=== PATIENT | male | born 1960 | race Caucasian/White ===

== ENCOUNTER 2022-01-26 17:14 | Inpatient (IN) | payer OTHER, SELFPAY ==
[2022-01-26 17:16] VITALS: BP 140/83; PULSE 110; RESP 16; TEMP 37.4; O2SAT 97; BMI 38.4
--- NOTE | 2022-01-26 17:47 | EX.ED.DYSGE1 ---
HPI History of Present Illness Chief Complaint: Wound Informant: patient and spouse/S.O. Narrative Narrative: Patient states he has had a swollen or irritated right foot for almost a month. He did get stepped on by a horse about 3 months before that but he had not been having problems. He denies anything poking into his foot. He was seen recently and placed on penicillin he is on his fourth day. He states over the last day the foot is just gotten much more red and swollen. He has gotten drainage from the lateral aspect. He has some mild fevers subjectively. He had x-rays done today that showed air in the tissue. Patient initially denied any medical problems. However he is on metformin for diabetes. When he checks his sugar it is normally 130-160. PFSH PFSH Medical History Non-smoker Home Medications metformin 1,000 mg tablet 1,000 mg PO BID 01/26/22 [History Last Taken Unknown] metronidazole 500 mg tablet 500 mg PO TID foot infection 01/26/22 [History Last Taken Unknown] penicillin V potassium 500 mg tablet 1,000 mg PO BID infection foot 01/26/22 [History Last Taken Unknown] Allergy/AdvReac Type Severity Reaction Status Date / Time No Known Allergies Allergy Verified 01/26/22 17:15 Family History (Updated 01/26/22 @ 19:[address] Farhan Urbina MD) Other Hypertension Social History Smoking Status: Never smoker ROS ROS ED Constitutional Constitutional ED: Reports subjective Eyes Eyes: Denies change in vision ENT ENT ED: Denies rhinorrhea Cardiovascular Cardiovascular: Denies chest pain or palpitations Respiratory/Chest Respiratory/Chest: Denies cough or dyspnea Gastrointestinal Gastrointestinal: Denies nausea or vomiting Musculoskeletal Musculoskeletal: Reports other Details: Right foot pain as in history of present illness ; Denies myalgias Integumentary Reports abscess, rash and other Details: See history of present illness. Neurologic Neurologic: Denies paresthesias Endocrine Endocrinology: Denies polydipsia or polyuria Hematologic/Lymphatic Hematologic/Lymphatic: Denies easy bleeding or easy bruising Allergic/Immunologic Allergic/Immunologic ED: Denies urticaria EXAM Physical Exam Const Vital Signs: 01/26/22 17:16 Temperature 99.4 F H Temperature Source Temporal Pulse Rate 110 H Respiratory Rate 16 Blood Pressure 140/83 H Blood Pressure Mean 102 Pulse Ox 97 Oxygen Delivery Method Room Air Positive well nourished and well developed General Appearance ED: well developed and NAD HEENT Reports moist mucous membranes Eyes General Eye ED: Negative for scleral icterus Neck no lymphadenopathy Chest Wall inspection of chest normal Resp normal respiratory effort and clear to auscultation bilaterally Auscultation: Negative for rales, rhonchi or wheezes Cardio regular rate, regular rhythm and no murmurs Rate: Negative for tachycardic GI normal to inspection, nondistended, normoactive bowel sounds and non-tender Palpation: soft Back/Spine no CVA tenderness Extremity Extremity Narrative: Right foot has swelling mostly to the dorsum and lateral aspect. There is erythema warmth to the lateral aspect. There is an open area under the head of the fifth metatarsal. There is some breakage of the skin on the lateral distal aspect. Neuro Neuro Narrative: Patient is awake and alert. Despite the appearance of his foot, he is not overall nontoxic. Psych mental status grossly normal MDM MDM MDM Narrative Medical decision making narrative: Patient's white count is elevated. Mild anemia. Electrolytes show no marked abnormalities. Glucose is a bit elevated to 27. Lactate is negative. I reviewed three-view x-ray films that came in with the patient. There is some air in the tissue in the region of the wound. This certainly brings up concern for deeper infection including osteomyelitis. With his diabetes, worsening on antibiotics, x-rays and labs inpatient treatment is appropriate. Lab Data Attestation: I reviewed the patient's lab results. Labs: Laboratory Results - last 24 hr 01/26/22 01/26/22 01/26/22 17:50 17:50 17:50 WBC 14.5 H RBC 3.86 L Hgb 11.8 L Hct 34.8 L MCV 90.2 MCH 30.6 MCHC 33.9 RDW Std Deviation 37.5 RDW Coeff of Neftali 11.5 L Plt Count 224 MPV 8.9 Immature Gran % (Auto) 0.700 Neut % (Auto) 87.8 H Lymph % (Auto) 5.8 L [place] % (Auto) 5.6 Eos % (Auto) 0.0 Baso % (Auto) 0.1 Absolute Neuts (auto) 12.8 H Absolute Lymphs (auto) 0.85 Nucleated RBC % 0 Sodium 133 L Potassium 4.0 Chloride 98 Carbon Dioxide 27.0 Anion Gap 8 BUN 23 H Creatinine 1.19 Estim Creat Clear Calc 49.07 Est GFR (MDRD) Af Amer 79 Est GFR (MDRD) Non-Af 66 BUN/Creatinine Ratio 19.3 Glucose 227 H Lactic Acid 1.8 Calcium 8.9 Discharge Plan Dx/Rx/DC Orders Clinical Impression: Diabetic foot ulcer Disposition Disposition: Acute Care [facility] Discharge Date/Time: 01/26/22 19:59
[2022-01-26 18:13] LABS: Absolute Lymphocyte Count 0.85 X10^3/uL (0.83-4.51); Absolute Neutrophil Count 12.8 X10^3/uL (2.0-7.7); Basophil# 0.01 X10^3/uL; Basophil% 0.1 % (0-1); Hematocrit 34.8 % (40-54); Hemoglobin 11.8 g/dL (13.0-16.5); Lymphocyte # 0.85 X10^3/ul (0.83-4.51); Lymphocyte % 5.8 % (19-41); Mean Corp Hgb Conc 33.9 g/dL (32-36); Mean Corpuscular Hgb 30.6 pg (27.0-32.0); Mean Corpuscular Volume 90.2 fL (80-94); Mean Platelet Vol. 8.9 fl (6.2-12.0); Monocyte# 0.81 X10^3/uL; Monocyte% 5.6 % (0-10); NRBC Flagged by Analyzer 0 % (0-5); Neutrophil # 12.76 X10^3/uL (2.7-7.7); Neutrophil % 87.8 % (47-70); Platelet Count 224 K/mm3 (150-450); RBC Distribution Width CV 11.5 % (11.6-14.6); RBC Distribution Width SD 37.5 fl (35.1-43.9); Red Blood Count 3.86 M/mm3 (4.6-6.2); White Blood Count 14.5 K/mm3 (4.4-11.0)
[2022-01-26 18:25] LABS: Anion Gap 8 (5-15); BUN 23 mg/dL (7-18); BUN/Creat Ratio 19.3 RATIO (10-20); Calcium,Total 8.9 mg/dL (8.5-10.1); Chloride 98 mmol/L (98-107); Creatinine, Serum 1.19 mg/dL (0.70-1.30); EST Glomerular Filtration Rate 66 mL/min (>60); Est Glom Filt Rate - Afr Amer 79 mL/min (>60); Estimated Creatinine Clearance 49.07 ml/min; Glucose 227 mg/dL (74-106); Sodium Level 133 mmol/L (136-145)
[2022-01-26 18:44] LABS: Lactic Acid 1.8 mmol/L (0.4-1.9)
--- NOTE | 2022-01-26 18:50 | CM.ED ---
Addendum entered by Delma Nassar 01/26/22 19:23: CAMILLA noted that patient is being admitted. CAMILLA sent email to Florecita Caputo advising of patient's desire to be self pay (prior to knowing he was going to be admitted). Patient is of the [employer] and reported he had [employer] if we need it. Delma BETANCUR Original Note: CAMILLA Note CAMILLA met with patient and his , Zoraida in the ED. Patient said that they wanted to be self pay and do not have medicaid or interest in medicaid. Patient said that they will pay the bill. Patient was seen today by Ridge Bishop at [facility]. No other issues or needs voiced. CAMILLA remains available if needs arise. Delma BETANCUR
--- NOTE | 2022-01-26 19:20 | HP.PCM.HOS_ITS ---
HPI - General General Date of Admission: 01/26/22 Date of Service: 01/26/22 Chief Complaint: swelling and pain of right foot HPI Narrative ANTONIO MCCLURE, is a 61 M with a significant history of obesity and diabetes mellitus who presents to the emergency department with swelling and pain of his right foot. About 3 months ago a horse stepped on patient's right foot. He developed no concerning symptoms after the horse stepped on his foot. Patient had a blister that developed into an ulcer. About a month and a half ago he developed swelling of his right foot. Also he had pain in his right foot. He rates his pain as 5 on a scale of 1-10. His pain is aching. His symptoms especially the swelling of his foot has worsened in the last 4 days. He reports subjected fever and chills. He had an outpatient x-ray of his foot. He reports anorexia and fatigue. Patient had been on penicillin V for 4 days prior to presentation [facility] Medical History Non-smoker Home Medications metformin 1,000 mg tablet 1,000 mg PO BID 01/26/22 [History Last Taken Unknown] metronidazole 500 mg tablet 500 mg PO TID foot infection 01/26/22 [History Last Taken Unknown] penicillin V potassium 500 mg tablet 1,000 mg PO BID infection foot 01/26/22 [History Last Taken Unknown] Allergy/AdvReac Type Severity Reaction Status Date / Time No Known Allergies Allergy Verified 01/26/22 17:15 Family History Other Hypertension Surgical History no surgical history no surgical history Social History Smoking Status: Never smoker ROS ROS Narrative Pertinent positives and pertinent negatives as noted in HPI. All other systems were reviewed and are negative Vital Signs Vital Signs Vital Signs: 01/26/22 17:16 Temperature 99.4 F H Temperature Source Temporal Pulse Rate 110 H Respiratory Rate 16 Blood Pressure 140/83 H Blood Pressure Mean 102 Pulse Ox 97 Oxygen Delivery Method Room Air Weight Weight: 95.254 kg Body Mass Index (BMI) 38.4 Physical Exam Narrative Physical exam: General: Well-nourished, well-developed. Head: Normocephalic, atraumatic, no tenderness Eyes: Vision is grossly intact. EOMI ENT, no trauma, moist mucous membranes, no rhinorrhea Neck: Nontender, full range of motion, no spinal tenderness, deformities, step- off CVS: Regular rate and rhythm. S1-S2 present. No murmur, gallop or rub. Respiratory : clear to auscultation bilaterally, chest wall nontender, no wheezing Abdomen: Soft, nontender, nondistended, normal bowel sounds, no masses : Deferred Back: Nontender, no CVA tenderness, no midline spinal tenderness, deformities, step-offs Extremities: Ulcer on the right foot. Swelling and excoriation of right foot. Swelling of right leg. Tender right leg and right foot. Nontender left foot and left leg. Skin: Normal color, Good skin turgor. Neuro: Alert, oriented, cranial nerves II through XII grossly intact. Psychiatry: Normal mood. Normal affect. Not depressed. Not anxious. Results Lab / Micro Data Result Diagrams: 01/26/22 17:50 01/26/22 17:50 Labs: Laboratory Results - last 24 hr 01/26/22 17:50: WBC 14.5 H, RBC 3.86 L, Hgb 11.8 L, Hct 34.8 L, MCV 90.2, MCH 30.6, MCHC 33.9, RDW Std Deviation 37.5, RDW Coeff of Neftali 11.5 L, Plt Count 224, MPV 8.9, Immature Gran % (Auto) 0.700, Neut % (Auto) 87.8 H, Lymph % (Auto) 5.8 L, [place] % (Auto) 5.6, Eos % (Auto) 0.0, Baso % (Auto) 0.1, Absolute Neuts (auto) 12.8 H, Absolute Lymphs (auto) 0.85, Nucleated RBC % 0 01/26/22 17:50: Sodium 133 L, Potassium 4.0, Chloride 98, Carbon Dioxide 27.0, Anion Gap 8, BUN 23 H, Creatinine 1.19, Estim Creat Clear Calc 49.07, Est GFR (MDRD) Af Amer 79, Est GFR (MDRD) Non-Af 66, BUN/Creatinine Ratio 19.3, Glucose 227 H, Calcium 8.9 01/26/22 17:50: Lactic Acid 1.8 Assessment & Plan Assessment/Plan (1) Diabetic foot ulcer: (2) Infected ulcer of skin: (3) Diabetes: (4) Obesity: PLAN: Plan Infected diabetic Right foot ulcer. X-ray of foot was independently reviewed. Gas in tissues noted. Meets SIRS criteria with tachycardia and T-max of 102.2. Likely source of infection is right foot. No organ dysfunction to classify as sepsis. qSOFA is 0. CBC on presentation showed elevated white count with neutrophilia and lymphopenia. Trend CBC. Check ESR and CRP. Vancomycin and Zosyn started emergency department and continued. Cannot rule out osteomyelitis at this time will get MRI of right foot. Podiatry and ID consult. Keep n.p.o. after midnight. Diabetes mellitus Patient with hyperglycemia on presentation Metformin held Monitor Accu-Cheks Correction scale insulin ordered. Diabetic diet Morbid Obesity BMI:40.2 kg/m?. Complicates care. Lifestyle modification recommended. DVT prophylaxis Subcutaneous Lovenox ordered. Charges/Coding Visit Charges Inpatient E&M: 86621 Init Hosp L3
[2022-01-26 19:29] VITALS: BP 156/89; PULSE 109; RESP 20; TEMP 38.1; O2SAT 93
[2022-01-26 20:34] VITALS: BMI 40.2
[2022-01-26 20:47] VITALS: BP 143/90; PULSE 108; RESP 18; TEMP 39; O2SAT 94
--- NOTE | 2022-01-26 21:41 | PCM.RX.CS ---
Consult Pharmacy has been consulted to manage selected antiobiotic: Vancomycin Type of Consult: New start Suspected Infection: Skin/Soft tissue Prior Doses of Antibiotics Received/Current Regimen: Medications Vancomycin HCl 1,250 mg/ (Sodium Chloride) 275 mls @ 167 mls/hr IV Q12H WILFRED Discontinued Medications Vancomycin HCl 1,500 mg/ (Sodium Chloride) 530 mls @ 250 mls/hr IV X1 ONE Stop: 01/26/22 19:52 Last Admin: 01/26/22 19:24 Dose: 250 mls/hr Labs: Sodium 133 mmol/L (136-145) L 01/26/22 17:50 Potassium 4.0 mmol/L (3.5-5.1) 01/26/22 17:50 Chloride 98 mmol/L (98-107) 01/26/22 17:50 Carbon Dioxide 27.0 mmol/L (21.0-32.0) 01/26/22 17:50 Anion Gap 8 (5-15) 01/26/22 17:50 BUN 23 mg/dL (7-18) H 01/26/22 17:50 Creatinine 1.19 mg/dL (0.70-1.30) 01/26/22 17:50 Est GFR (MDRD) Af Amer 79 mL/min (>60) 01/26/22 17:50 Est GFR (MDRD) Non-Af 66 mL/min (>60) 01/26/22 17:50 BUN/Creatinine Ratio 19.3 RATIO (10-20) 01/26/22 17:50 Glucose 227 mg/dL (74-106) H 01/26/22 17:50 Weight used for dosin.2 kg Estimated Creatinine Clearance: 63 Goal Trough: 15-20 mcg/mL Pharmacy Plan for Drug Dosing: Pharmacy Service will continue to monitor and adjust dosing as required. Follow-Up Labs: Trough Vancomycin Labs to be done on [date and time ordered]: 01/28/22 @0700
[2022-01-26] MEDS: Insulin Lispro 100 UNIT/ML INSULN.PEN SC (22:32)
[2022-01-26] MEDS: 0.9% Normal Saline 1,000 ML 75 ML IV (22:33)
[2022-01-26 22:51] LABS: Bedside Glucose 244 mg/dL (74-106)
[2022-01-26 22:58] VITALS: BP 158/79; PULSE 105; RESP 18; TEMP 38.7; O2SAT 95
[2022-01-26] MEDS: Acetaminophen 325 MG Tablet 650 MG PO (23:01)
[2022-01-27] VITALS (12 sets, daily range): BP systolic 102–145; BP diastolic 71–90; PULSE 83–101; RESP 16–18; TEMP 36.6–38.2; O2SAT 92–98; BMI 40.2
--- NOTE | 2022-01-27 | BON_PTH ---
PATIENT: ANTONIO MCCLURE LOC: MS3 U#:[id number] AGE/SX: 61/M ROOM: [facility] [place] RE01/26/[address]: Dr. Luis M Chandler DO : 1960 BED: 1 DIS: 01/30/2022 SPEC #: [id number] RECD: 01/27/22 17:36 STATUS: DENIS REQ #: [id number] MARTELL: 01/27/22 00:[address]: Masoud Cabrales DEPT: SURGICAL PATHOLOGY RECD BY: Jose Blue ENTERED: 01/28/22 11:41 SP TYPE: Bone OTHR DR: MD Dr. Farhan Chavez MD Dr. Jeffrey Wunning, DPM DO Dr. Jun Oh MD No Primary Care Phys Tissues: A - Bone of foot, NOS B - Bone of foot, NOS Procedures: Decalcification bone/plaque Surgery Specimen Level IV Surgery Specimen Level V Comments: @ Ordering doctor for DEC edited from to DR.JWUNNI Soco FERRIS at 01/28/22 1500 @ Ordering doctor for SUIII edited from to DR.JWUNNI Soco FERRIS at 01/28/22 1500 @ Submitting doctor edited from to DR.JWUNNI Soco FERRIS at 01/28/22 1500 HEADER OPERATION: Foot debridement with fifth ray amputation PRE-OP DIAGNOSIS: Diabetic foot ulcer, infected ulcer of skin, acute osteomyelitis of right foot, cellulitis of right lower limb TISSUE SUBMITTED: A ? Right fifth toe and metatarsal, B ? Right fifth metatarsal clearance fragment MICROSCOPIC DIAGNOSIS A. Right fifth toe and metatarsal, amputation: Skin and soft tissue with ulceration and acute and chronic inflammation. Bone with acute osteomyelitis. B. Right fifth metatarsal clearance fragment bone, biopsy: Soft tissue with acute inflammation and fibrinopurulent material. Bone with no evidence of osteomyelitis. AM:marcelina 01/30/2022 MICROSCOPIC DESCRIPTION Slides are reviewed. GROSS DESCRIPTION A - Received in fixative is one container labeled with the patient's name and designated right fifth toe and metatarsal. The specimen consists of multiple irregular fragments of bone and soft tissue ranging in size from 1 cm to 6 cm. The largest fragment consists of a toe with attached bone and soft tissue and containing ulcers in the dorsal and plantar surface. The plantar ulcer measures 2 cm. The dorsal ulcer measures 3.5 cm. The fragments of bone and tissue free in container are grayish-manzanares in color. The nail of the toe is slightly discolored. [employer] sections are submitted as follows: 1 - skin and soft tissue fragments free in container, 2 - fragments of bone free in container, 3 & 4 - longitudinal section of toe, 5 & 6 - bone beneath plantar ulcer. Note, tissue is submitted after appropriate decalcification. B - Received in fixative is one container labeled with the patient's name and designated clearance fragment right fifth toe metatarsal. The specimen consists of multiple irregular fragments of bone that in aggregate measure 0.5 x 0.3 x 0.2 cm. The specimen is totally submitted in one cassette after decalcification. / AM:marcelina 01/28/2022 TC:2 CPT: 03641, 85558, 09577 x2
[2022-01-27] MEDS: Insulin Lispro 100 UNIT/ML INSULN.PEN SC (05:34)
[2022-01-27] MEDS: 0.9% Normal Saline 1,000 ML 75 ML IV ×3 (05:36→21:21)
[2022-01-27] MEDS: Acetaminophen 325 MG Tablet 650 MG PO (05:38)
[2022-01-27 05:49] LABS: Erythrocyte Sedimentation Rate 56 mm/hr (0-20)
[2022-01-27 05:54] LABS: Absolute Lymphocyte Count 0.92 X10^3/uL (0.83-4.51); Absolute Neutrophil Count 13.5 X10^3/uL (2.0-7.7); Basophil# 0.02 X10^3/uL; Basophil% 0.1 % (0-1); Eosinophil# 0.01 X10^3/uL; Eosinophils% 0.1 % (0-5); Hematocrit 30.8 % (40-54); Hemoglobin 10.5 g/dL (13.0-16.5); Lymphocyte # 0.92 X10^3/ul (0.83-4.51); Mean Corp Hgb Conc 34.1 g/dL (32-36); Mean Corpuscular Volume 90.9 fL (80-94); Mean Platelet Vol. 9.7 fl (6.2-12.0); Monocyte# 0.65 X10^3/uL; Monocyte% 4.3 % (0-10); NRBC Flagged by Analyzer 0 % (0-5); Neutrophil # 13.53 X10^3/uL (2.7-7.7); Neutrophil % 88.9 % (47-70); POSITIVE MORPHOLOGY YES; Platelet Count 216 K/mm3 (150-450); RBC Distribution Width CV 11.4 % (11.6-14.6); RBC Distribution Width SD 38.1 fl (35.1-43.9); Red Blood Count 3.39 M/mm3 (4.6-6.2); White Blood Count 15.2 K/mm3 (4.4-11.0)
[2022-01-27 05:55] LABS: Bedside Glucose 180 mg/dL (74-106)
[2022-01-27 05:56] LABS: Differential Indicated SCAN CRITERIA MET
[2022-01-27 06:34] LABS: Anion Gap 8 (5-15); BUN 23 mg/dL (7-18); BUN/Creat Ratio 21.1 RATIO (10-20); Calcium,Total 8.3 mg/dL (8.5-10.1); Chloride 102 mmol/L (98-107); Creatinine, Serum 1.09 mg/dL (0.70-1.30); EST Glomerular Filtration Rate 73 mL/min (>60); Est Glom Filt Rate - Afr Amer 88 mL/min (>60); Estimated Creatinine Clearance 51.31 ml/min; Glucose 209 mg/dL (74-106); Potassium 3.6 mmol/L (3.5-5.1); Sodium Level 135 mmol/L (136-145)
--- NOTE | 2022-01-27 07:17 | RAD_ITS ---
STUDY: X-RAY - RIGHT FOOT CLINICAL: Male, 61 years old. Infection TECHNIQUE: 3 view(s) of the foot. COMPARISON: None. FINDINGS: Normal talus, calcaneus, and tarsal bones. Normal visualized subtalar, talonavicular, calcaneocuboid, tarsal and tarsometatarsal articulations. Normal metatarsi. Normal metatarsophalangeal joint of the great toe. Normal tibial and fibular sesamoid bones. Normal interphalangeal joint of the great toe. Normal phalanges of the great toe. Normal second through fifth metatarsophalangeal joints. There is been partial resection of the second toe. Cystic changes are seen in the distal portion of the second metatarsal. Diffuse soft tissue swelling more prominent along the dorsal aspect of the distal foot. Gas is seen within the soft tissues. RAD/Foot min 3 Views IMPRESSION: Diffuse soft tissue swelling. Gas is seen within the soft tissues. Electronically Signed: Tolu Chandler MD at 9:01 EDT ,
--- NOTE | 2022-01-27 07:19 | PN.HOSP_ITS ---
Subjective Subjective Patient is a 61-year-old male sent to the ED by the primary care physician on account of an infected diabetic right foot ulcer Objective Data Objective Data Vital Signs: Vital Signs Temp Pulse Resp BP Pulse Ox O2 Del Method 100 F H 101 H 18 142/88 H 98 Room Air 01/27/22 05:25 01/27/22 05:25 01/27/22 05:25 01/27/22 05:25 01/27/22 05:25 01/27/22 05:25 Oxygen Delivery Method Room Air Weight: 99.2 kg Body Mass Index (BMI) 40.2 Intake & Output: Intake and Output for Last 24 Hours 01/25/22 01/26/22 01/27/22 23:59 23:59 23:59 Intake Total 630 / 630 528.75 / 528.75 Balance 630 / 630 528.75 / 528.75 Lab / Micro Data Result Diagrams: 01/27/22 04:38 01/27/22 04:38 Labs: Laboratory Results - last 24 hr 01/26/22 17:50: WBC 14.5 H, RBC 3.86 L, Hgb 11.8 L, Hct 34.8 L, MCV 90.2, MCH 30.6, MCHC 33.9, RDW Std Deviation 37.5, RDW Coeff of Neftali 11.5 L, Plt Count 224, MPV 8.9, Immature Gran % (Auto) 0.700, Neut % (Auto) 87.8 H, Lymph % (Auto) 5.8 L, [place] % (Auto) 5.6, Eos % (Auto) 0.0, Baso % (Auto) 0.1, Absolute Neuts (auto) 12.8 H, Absolute Lymphs (auto) 0.85, Nucleated RBC % 0 01/26/22 17:50: Sodium 133 L, Potassium 4.0, Chloride 98, Carbon Dioxide 27.0, Anion Gap 8, BUN 23 H, Creatinine 1.19, Estim Creat Clear Calc 49.07, Est GFR (MDRD) Af Amer 79, Est GFR (MDRD) Non-Af 66, BUN/Creatinine Ratio 19.3, Glucose 227 H, Calcium 8.9 01/26/22 17:50: Lactic Acid 1.8 01/26/22 22:28: POC Glucose 244 H 01/27/22 04:38: WBC 15.2 H, RBC 3.39 L, Hgb 10.5 L, Hct 30.8 L, MCV 90.9, MCH 31.0, MCHC 34.1, RDW Std Deviation 38.1, RDW Coeff of Neftali 11.4 L, Plt Count 216, MPV 9.7, Immature Gran % (Auto) 0.600, Neut % (Auto) 88.9 H, Lymph % (Auto) 6.0 L, [place] % (Auto) 4.3, Eos % (Auto) 0.1, Baso % (Auto) 0.1, Absolute Neuts (auto) 13.5 H, Absolute Lymphs (auto) 0.92, Nucleated RBC % 0, ESR 56 H 01/27/22 04:38: Sodium 135 L, Potassium 3.6, Chloride 102, Carbon Dioxide 25.0, Anion Gap 8, BUN 23 H, Creatinine 1.09, Estim Creat Clear Calc 51.31, Est GFR (MDRD) Af Amer 88, Est GFR (MDRD) Non-Af 73, BUN/Creatinine Ratio 21.1 H, Glucose 209 H, Calcium 8.3 L, C-React Prot Ext Range 250.00 H 01/27/22 05:34: POC Glucose 180 H Physical Exam Narrative GENERAL: cooperative HEENT: Atraumatic; EYES; Anicteric, Normal Conjunctiva NECK; supple, normal thyroid, RESPIRATORY: Diminished to auscultation CARDIOVASCULAR: Regular S1 S2, GI: soft, normoactive bowel sounds, : No Renal angle tenderness; EXTREMITIES: Right foot ulcer surgical dressing MUSCULOSKELETAL: no muscle wasting NEURO: Awake; no lateralizing signs. SKIN: As described above PSYCH; Flat affect Assessment & Plan Assessment/Plan (1) Diabetic foot ulcer: (2) Infected ulcer of skin: (3) Diabetes: (4) Obesity: PLAN: Plan Patient is a 61-year-old male sent to the ED by the primary care physician on account of an infected diabetic right foot ulcer 1. Infected diabetic foot ulcer ? Patient has been admitted to regular nursing floor started on broad-spectrum antibiotic therapy with vancomycin and Zosyn. Consult placed to podiatry and infectious disease. MRI was initially ordered to rule out osteomyelitis however this was discontinued by podiatry. Plan is for patient to undergo debridement right foot -with possible amputation of the 5th toe and partial 5th metatarsal of the right foot? 2. Diabetes mellitus type II -patient's oral hypoglycemics held. Placed on long acting insulin, Accu-Cheks a.c. and at bedtime and covered with sliding scale insulin 3. Class III obesity with BMI of 40.2 ? Weight loss advised 4. DVT prophylaxis ? SC Josef Charges/Coding Visit Charges Inpatient E&M: 48810 Subs Hosp L3
--- NOTE | 2022-01-27 07:29 | CON.PCM_ITS ---
Assessment & Plan Assessment/Plan (1) Diabetic foot ulcer: (2) Infected ulcer of skin: (3) Acute osteomyelitis of right foot: (4) Cellulitis of right lower limb: PLAN: Plan Evaluation performed. There is gas noted to the right foot, there is infected ulceration down to bone right 5th metatarsal and 5th toe, there is elevated WBC, CRP and ESR. We discussed options with patient, and given the findings recom mended continue antibiotic therapy as well as debridement right foot - he will very likely need amputation of the 5th toe and partial 5th metatarsal of the right foot - this was discussed with him - reviewed rationale of this with him. He would like cancel the MRI since we are going to proceed with the procedure. I did discuss with the OR and we will add on for first available today. Remain NPO. Continue with broad spectrum antibiotic therapy. Medical management per the medince team. Thank you for consult. HPI Consult Data Date of Consult: 01/27/22 HPI Narrative Reason for Consultation: Right foot infection HPI Narrative: ANTONIO MCCLURE, is a 61 M who presents ulceration right foot with infection. Patient relates a horse stepped on his foot, relates this was about 3 weeks ago. He relates was treating wound, was doing ok, but then all of a sudden it worsened. He was his PCP - who took xrays and showed gas. He was sent to the ER. Patient has been admitted and started on IV antibiotics. He relates he has littl e to no pain. He has hx of diabetes. His WBC is elevated. His temp is currently 100F PFS Medical History Non-smoker Home Medications metformin 1,000 mg tablet 1,000 mg PO BID 01/26/22 [History Last Taken Unknown] metronidazole 500 mg tablet 500 mg PO TID foot infection 01/26/22 [History Last Taken Unknown] penicillin V potassium 500 mg tablet 1,000 mg PO BID infection foot 01/26/22 [History Last Taken Unknown] Allergy/AdvReac Type Severity Reaction Status Date / Time No Known Allergies Allergy Verified 01/26/22 17:15 Family History Other Hypertension Surgical History no surgical history Social History Smoking Status: Never smoker Physical Exam Const alert, oriented x3 and no apparent distress Extremity Extremity Narrative: Right foot with necrotic appearing 5th toe/ray, there is ulceration down to 5th metatasal bone plantarlly with nonviable tissue, and there is serous drainage and crepitus/fluctuance noted to the site, the ulceration probes directly to 5th metatarsal bone and base of the 5th toe, there is significant edema to the foot extending to the leg, there is cellulitis/erythema to the right foot as well. DP pulse is palpable right foot, CFT < 2 seconds to 1-4 toes right foot, there is no POP or pain on ROM to the foot or ankle, he has peripheral neuropathy to the foot. Lab / Micro Data Result Diagrams: 01/27/22 04:38 01/27/22 04:38 Labs: Laboratory Results - last 24 hr 01/26/22 17:50: WBC 14.5 H, RBC 3.86 L, Hgb 11.8 L, Hct 34.8 L, MCV 90.2, MCH 30.6, MCHC 33.9, RDW Std Deviation 37.5, RDW Coeff of Neftali 11.5 L, Plt Count 224, MPV 8.9, Immature Gran % (Auto) 0.700, Neut % (Auto) 87.8 H, Lymph % (Auto) 5.8 L, [place] % (Auto) 5.6, Eos % (Auto) 0.0, Baso % (Auto) 0.1, Absolute Neuts (auto) 12.8 H, Absolute Lymphs (auto) 0.85, Nucleated RBC % 0 01/26/22 17:50: Sodium 133 L, Potassium 4.0, Chloride 98, Carbon Dioxide 27.0, Anion Gap 8, BUN 23 H, Creatinine 1.19, Estim Creat Clear Calc 49.07, Est GFR (MDRD) Af Amer 79, Est GFR (MDRD) Non-Af 66, BUN/Creatinine Ratio 19.3, Glucose 227 H, Calcium 8.9 01/26/22 17:50: Lactic Acid 1.8 01/26/22 22:28: POC Glucose 244 H 01/27/22 04:38: WBC 15.2 H, RBC 3.39 L, Hgb 10.5 L, Hct 30.8 L, MCV 90.9, MCH 31.0, MCHC 34.1, RDW Std Deviation 38.1, RDW Coeff of Neftali 11.4 L, Plt Count 216, MPV 9.7, Immature Gran % (Auto) 0.600, Neut % (Auto) 88.9 H, Lymph % (Auto) 6.0 L, [place] % (Auto) 4.3, Eos % (Auto) 0.1, Baso % (Auto) 0.1, Absolute Neuts (auto) 13.5 H, Absolute Lymphs (auto) 0.92, Nucleated RBC % 0, ESR 56 H 01/27/22 04:38: Sodium 135 L, Potassium 3.6, Chloride 102, Carbon Dioxide 25.0, Anion Gap 8, BUN 23 H, Creatinine 1.09, Estim Creat Clear Calc 51.31, Est GFR (MDRD) Af Amer 88, Est GFR (MDRD) Non-Af 73, BUN/Creatinine Ratio 21.1 H, G lucose 209 H, Calcium 8.3 L, C-React Prot Ext Range 250.00 H 01/27/22 05:34: POC Glucose 180 H
--- NOTE | 2022-01-27 07:47 | WOUNDNOTE ---
wound photo: right foot
--- NOTE | 2022-01-27 07:48 | WOUNDNOTE ---
wound photo: right foot
--- NOTE | 2022-01-27 08:54 | EKG12_ITS ---
Test Reason : PRE OP Blood Pressure : / mmHG Vent. Rate : 096 BPM Atrial Rate : 096 BPM P-R Int : 150 ms QRS Dur : 090 ms QT Int : 376 ms P-R-T Axes : 045 031 049 degrees QTc Int : 475 ms Sinus rhythm with Premature atrial complexes Consider voltage criteria for LVH Confirmed by SARAY PATTERSON, JOSIE ([id number]), editor producer MANJU CARRILLO ([id number]) on 01/28/2022 11:37:15 AM Referred By: RONALD Confirmed By:JOSIE SO MD
--- NOTE | 2022-01-27 09:33 | RAD_ITS ---
STUDY: X-RAY - RIGHT ANKLE REASON FOR EXAM: Male, 61 years old. Possible gas in ankle TECHNIQUE: 3 view(s) of the ankle. COMPARISON: None. FINDINGS: Normal visualized distal tibia and fibula. Normal medial and lateral malleoli. Normal tibiotalar articulation and ankle mortise. Normal visualized talus and calcaneus. The visualized subtalar, talonavicular, calcaneocuboid and tarsal articulations are normal. Diffuse soft tissue swelling. Worse on the lateral side. Gas bubbles are seen in the region of the midfoot and hindfoot. RAD/Ankle min 3 Views IMPRESSION: Soft tissue swelling. Gas is seen within the region of the hindfoot and midfoot. No bony destruction is seen. Electronically Signed: Tolu Chandler MD at 10:20 EDT ,
[2022-01-27 09:50] LABS: Bedside Glucose 196 mg/dL (74-106)
[2022-01-27 09:51] LABS: Hemoglobin A1c 6.9 % (3.8-5.6)
[2022-01-27] MEDS: Clindamycin in 0.9% Sod Chlor 600 MG/50 ML BAG 100 MG IV ×2 (10:09→17:15)
--- NOTE | 2022-01-27 10:10 | PCM.CONS.GEN ---
Assessment & Plan Assessment/Plan (1) Acute osteomyelitis of right foot: PLAN: Concern for gas gangrene. OR today with Dr. Cabrales. Bcx pending. On vanc/zosyn, will add clinda for anti-toxin effect. Will follow, thank you (2) Diabetes: HPI Consult Data Date of Consult: 01/27/22 HPI Narrative Reason for Consultation: foot infection HPI Narrative: ANTONIO MCCLURE, is a 61 M with DM neuropathy, presented with acutely worsening R foot redness, swelling, and drainage. Horse stepped on foot 3 months ago, no pain but had progressive ulceration. Developed fever or chills. Started on PCN as an outpt. Came to ED, admitted on vanc/zosyn, seen by podiatry, plan is for OR today. Full ROS performed and neg except as noted above. PFSH Medical History Non-smoker Home Medications metformin 1,000 mg tablet 1,000 mg PO BID 01/26/22 [History Last Taken Unknown] metronidazole 500 mg tablet 500 mg PO TID foot infection 01/26/22 [History Last Taken Unknown] penicillin V potassium 500 mg tablet 1,000 mg PO BID infection foot 01/26/22 [History Last Taken Unknown] Allergy/AdvReac Type Severity Reaction Status Date / Time No Known Allergies Allergy Verified 01/26/22 17:15 Family History Other Hypertension Surgical History no surgical history Social History Smoking Status: Never smoker Physical Exam Const alert, oriented x3 and no apparent distress General Appearance: cooperative HEENT normocephalic and head/scalp atraumatic Eyes PERRL and EOMs intact bilaterally Neck supple and No nodes Resp normal air movement and clear to auscultation bilaterally Cardio regular rate and regular rhythm GI soft to palpation, non-tender and non-distended Extremity General Extremity: Negative for edema Skin Skin Narrative: reviewed photos of R foot Neuro CN's II-XII intact bilaterally Lab / Micro Data Attestation: I reviewed the patient's lab results. Result Diagrams: 01/27/22 04:38 01/27/22 04:38 Labs: Laboratory Results - last 24 hr 01/26/22 17:50: WBC 14.5 H, RBC 3.86 L, Hgb 11.8 L, Hct 34.8 L, MCV 90.2, MCH 30.6, MCHC 33.9, RDW Std Deviation 37.5, RDW Coeff of Neftali 11.5 L, Plt Count 224, MPV 8.9, Immature Gran % (Auto) 0.700, Neut % (Auto) 87.8 H, Lymph % (Auto) 5.8 L, [place] % (Auto) 5.6, Eos % (Auto) 0.0, Baso % (Auto) 0.1, Absolute Neuts (auto) 12.8 H, Absolute Lymphs (auto) 0.85, Nucleated RBC % 0 01/26/22 17:50: Sodium 133 L, Potassium 4.0, Chloride 98, Carbon Dioxide 27.0, Anion Gap 8, BUN 23 H, Creatinine 1.19, Estim Creat Clear Calc 49.07, Est GFR (MDRD) Af Amer 79, Est GFR (MDRD) Non-Af 66, BUN/Creatinine Ratio 19.3, Glucose 227 H, Calcium 8.9 01/26/22 17:50: Lactic Acid 1.8 01/26/22 22:28: POC Glucose 244 H 01/27/22 04:38: WBC 15.2 H, RBC 3.39 L, Hgb 10.5 L, Hct 30.8 L, MCV 90.9, MCH 31.0, MCHC 34.1, RDW Std Deviation 38.1, RDW Coeff of Neftali 11.4 L, Plt Count 216, MPV 9.7, Immature Gran % (Auto) 0.600, Neut % (Auto) 88.9 H, Lymph % (Auto) 6.0 L, [place] % (Auto) 4.3, Eos % (Auto) 0.1, Baso % (Auto) 0.1, Absolute Neuts (auto) 13.5 H, Absolute Lymphs (auto) 0.92, Nucleated RBC % 0, ESR 56 H 01/27/22 04:38: Sodium 135 L, Potassium 3.6, Chloride 102, Carbon Dioxide 25.0, Anion Gap 8, BUN 23 H, Creatinine 1.09, Estim Creat Clear Calc 51.31, Est GFR (MDRD) Af Amer 88, Est GFR (MDRD) Non-Af 73, BUN/Creatinine Ratio 21.1 H, Glucose 209 H, Calcium 8.3 L, C-React Prot Ext Range 250.00 H 01/27/22 04:38: Hemoglobin A1c 6.9 H 01/27/22 05:34: POC Glucose 180 H 01/27/22 09:28: POC Glucose 196 H Radiology Impression Foot X-Ray 01/27/22 07:17 IMPRESSION: Diffuse soft tissue swelling. Gas is seen within the soft tissues. Electronically Signed: Tolu Chandler MD at 9:01 EDT ,
--- NOTE | 2022-01-27 11:52 | CASEMGMT ---
SABRINA RIVERO Assessment: Face to Face with pt for initial transition planning/care coordination assessment. RN JOSEFA introduced self and role at [facility], pt voices understanding and consents to assessment. Pt is A/O x4 and answers all questions appropriately at this time. Pt sitting up in bed in no distress with at bedside talking on the phone. Care providers, pharmacy, and demographics verified/updated. Admitting Dx: suspected osteomyelitis PCP:Ridge Bishop PA-C [phone] Specialists: Pt states he has an eye doctor but does not know the name. Preferred Pharmacy: [facility] Insurance: [employer] Prescription Benefit: yes LW/HPOA: Pt denies having a LW/DPOA and denies need for info regarding AD. LNOK: Zoraida Weiss, Living Arrangements: Pt lives with in a two story house with no steps to enter. Pt reports he is I in ADL's and denies concerns at home. 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 Transportation: Pt hires drivers for transportation. DME/HHC/SNF: Pt has crutches at home as well as a FWW. Pt does not typically use the FWW. Pt has a BGM with sufficient supplies. Pt states he checks his blood sugar approx once every 7-10 days. Pt denies hx of HHC or SNF stays. Pt states no concerns with going home at time of dc. Pt states no further concerns/needs. Pt to go to surgery today. Discussed that RN JOSEFA will follow with him should he need any wound care or IV atb. Advised pt to ask CM if any further question/concerns/needs arise, voices understanding. Pt Goal: Home Plan: TBD
[2022-01-27 13:46] LABS: Bedside Glucose 166 mg/dL (74-106)
[2022-01-27] MEDS: Bupivacaine 0.25% 30 ML Vial (15:10)
--- NOTE | 2022-01-27 15:25 | RAD_ITS ---
HISTORY: post op. TECHNIQUE: XR Foot Min 3 Views. COMPARISON: 08:39. FINDINGS: BONES : Small nondisplaced fracture in the cortex of the proximal fourth metatarsal. Interval partial amputation of the fifth metatarsal and fifth toe. 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 JOINTS: No dislocation. SOFT TISSUES: Overlying ulceration or wound with soft tissue edema and air. RAD/Foot min 3 Views IMPRESSION: Satisfactory alignment of the right foot status post fifth transmetatarsal amputation. Small nondisplaced fracture of the fourth metatarsal. Electronically Signed: Basia Roman MD at 16:49 EDT ,
--- NOTE | 2022-01-27 15:25 | RAD_ITS ---
HISTORY: post op. TECHNIQUE: XR Tibia/Fibula 2 Views. COMPARISON: None. FINDINGS: BONES : No acute fracture identified. Mineralization unremarkable. JOINTS: No dislocation. Joint spaces maintained. SOFT TISSUES: Postoperative edema and air laterally. RAD/Tibia & Fibula 2 Views IMPRESSION: Postoperative edema and air in the left leg without acute osseous abnormality identified. Electronically Signed: Basia Roman MD at 16:47 EDT ,
--- NOTE | 2022-01-27 15:28 | OP.PCM_ITS ---
Report of Operation Date of Procedure: 01/27/22 Pre-Operative Diagnosis: Gas gangrene right lower extremity, osteomyelitis right 5th toe and 5th metatarsal, abscess right foot Post-Operative Diagnosis: Same Surgery/Procedure Performed:: Incision, drainage, and debridement right foot/ankle/leg; right 5th toe and partial 5th metatarsal amputation Surgeon: Masoud Cabrales supervisor ore dressing: None Type of Anesthesia: General Specimen's removed: 1. Soft tissue culture right foot sent to microbiology 2. Bone culture right 5th toe/metatarsal sent to pathology and microbiology 3. Clearance fragment right 5th metatarsal sent to pathology and microbiology Estimated Blood Loss (mL): 20mL Description of Procedure: Indications: This is a 61 year old gentleman with history of diabetes, as well as peripheral neuropathy to the feet. He relates a horse stepped on his right foot, he developed a wound about 6 weeks ago or so. He was treating it at home with the help of his . He has been walking on it. He relates he went to a wedding over the weekend and his shoe was really tight. His relates the foot really worsened over the past several days, she relates she noticed a oder from it last week which was very bad. The patient's also notes the right leg is getting much more red. The patient relates he was not going to come in to get treated but his PCP told him he needs to come in for treatment, so the patient did. The patient really has no pain. There was noted to be significant gas in the tissues of the right foot and upon further evaluation noted to have gas to the anterior ankle with concern of it extending to the anterior leg. There was significant maloder, ulceration down to necrotic bone of the 5th toe and 5th metatarsal right foot with significant cellulitis, edema, fluctuance/crepitus, and drainage all consistent with infection. WBC, ESR and CRP all elevated. His temperature was also noted to be elevated. Due to the findings we discussed incision, drainage and debridement of the right foot/ankle, along with partial foot amputation, There is also possibility of needing to incise, drain and debride anterior leg compartment as well. The rationale of this was discussed with him in great detail, reviewed the possible benefits vs risks, goals, expectations and estimated healing time associated with this. He agreed to proceed with the procedure as noted above. We discussed alternative options - antibiotics, or even no treatment. The consent form was reviewed with him, and he freely signed it. The risks were discussed with him and advised these include but not limited to pain, continued infected, need for further procedures/surgery, nonhealing, delayed healing, nerve damage, CRPS, michael rcot foot/ankle, blood clot, deformity, weakness, disability, loss of limb, loss of life. This infection is definitely limb and possibly life threatening. Patient expressed understanding and agreement. The patient has been medically cleared for surgery. No guarantees were given nor implied. No warranties were given. Operative Procedure: The patient was brought back into the operating room and was placed on the operating room table in the supine position. He was secured to the operating room table with a safety belt around his waist. The patient was already on IV antibiotics per Dr. Rose from Infectious Disease. The patient received general anesthesia per the anesthesia team. A well padded right thigh pneumatic tourniquet was applied around his right thigh. Further attention was directed to the right foot/ankle and leg. There was significant necrotic ulceration, abscess with fluctuance/crepitus to the right 5th ray lateral forefoot area, the right 5th toe was dusky, there is purulent drainage with maloder, there was significant edema extending to the foot, ankle and leg and was very taut, there was cellulitis present as well. The right foot/ankle and leg were scrubbed, prepped, and draped using aseptic technique. The right foot was elevated and the right thigh pneumatic tourniquet was inflated to 300mmHg. Using a 15 blade all nonviable, necrotic soft tissue was debrided in excisional fashion from the right lateral forefoot - there was significant necrosis, all of the 5th toe soft tissues were lockett and black and also all of the soft tissues over the mid to distal 5th metatarsal were also lockett and black. The 5th metatarsal head and bones of the 5th toe were black and necrotic as well, there was significant purulence and abscess to the site with very foul pungent maloder from the site was well. This also extended overlying the dorsal 4th metatarsal and base of the 4th toe, but the bones of the 4th metatarsal and 4th toe were noted to be healthy and viable. All of this infected necrotic tissue (soft tissue and bone) was debrided from the site using a 15 blade as well as a powered sagittal saw for the bone. This was debrided down to healthy, viable, clean looking tissues. It was noted that there was purulence tracking proximally along the extensor tendons to the anterior compartment of the leg, this tracked all the way up to the proximal leg- in which an incision was made to the anterior compartment and along the extensor digitorum longus tendon sheath - there was significant purulence and myositis, this was incised and drained using a 15 blade. All purulence was milked from the site until no purulence was present and tissues were noted to be healthy and viable. The total area debrided in excisional fashion measured: 40cm x 6.5cm and 1.6cm in depth (down to muscle, tendon and bone). The site was flushed out with copious amounts of normal saline solution. Of noted the debrided tissue was sent to microbiology and pathology, and also a clearance fragment was obtained from the proximal 5th metatarsal using a bone cutting ronguer and was sent to microbiology and pathology - this clearance fragment of bone did appear to be healthy and viable. Also a deep swab was obtained of the necrotic soft tissue from the 5th ray and was sent to microbiology as well. A total of 10mL of 0.25% Bupivacaine plain was given as a post operative block around the site. A dressing of Betadine wet to dry gauze packing was applied with overlying Kerlix, abd pads and bulmaro bandages. The pneumatic tourniquet was deflated (total time of inflation was 42 minutes) - there was immediate return of CFT to the remaining toes on right foot. Hemostasis was achieved. The patient tolerated the above procedure well and anesthesia well with no complications. He was transported from the operating room to the recovery room with vital signs stable and in good condition. Post operative orders were placed. Post operative right foot, ankle and tib/fib views were obtained and reviewed. No weightbearing right foot, keep right foot elevated. He will be continued to be followed as an inpatient. Grafts/Implants Used: None Complications None
--- NOTE | 2022-01-27 16:10 | RAD_ITS ---
HISTORY: post op. TECHNIQUE: XR Ankle Min 3 Views. COMPARISON: 09:2 9 same day. FINDINGS: BONES : Interval partial resection of the fifth metatarsal. No acute osseous abnormality identified in the ankle. JOINTS: No dislocation. Joint spaces maintained. SOFT TISSUES: Lateral soft tissue swelling with air. Peripheral vascular disease noted. RAD/Ankle min 3 Views IMPRESSION: Satisfactory alignment of the right ankle status post fifth transmetatarsal amputation. Air and edema in the overlying soft tissues. Electronically Signed: Basia Roman MD at 16:46 EDT ,
[2022-01-27 16:16] LABS: Bedside Glucose 153 mg/dL (74-106)
--- NOTE | 2022-01-27 18:28 | NURSING ---
called to room with pt having bleeding from OR site. to room Audie primary RN elevated rle. bedside stated thinks pt may have put some weight on it when up to bathroom. noted bottom up foot/dressing saturdated. blood on floor having been cleaned up by josue RN and Adeola BENNETT. This nurse sent text to Dr. Cabrales. dressing reinforced w/ 4 ABDs, Kerlix, and bulmaro wrap. Primary RN checked vitals, pt denies all dizziness. leg elevated with ice, pt informed would need to use urinal w/ bedrest and elevation at this time.
[2022-01-27 22:11] LABS: Bedside Glucose 146 mg/dL (74-106)
[2022-01-28] VITALS (7 sets, daily range): BP systolic 111–140; BP diastolic 66–89; PULSE 74–86; RESP 18; TEMP 37.1–37.5; O2SAT 92–96; BMI 40.2
[2022-01-28] MEDS: Clindamycin in 0.9% Sod Chlor 600 MG/50 ML BAG 100 MG IV ×3 (03:00→18:11)
[2022-01-28] MEDS: 0.9% Normal Saline 1,000 ML 75 ML IV ×2 (06:21→21:22)
[2022-01-28 06:45] LABS: Bedside Glucose 128 mg/dL (74-106)
--- NOTE | 2022-01-28 07:28 | PN_ITS ---
Subjective Subjective Patient was seen this morning for follow up on right foot/ankle/leg infection. Patient is resting comfortably in bed, he relates he is feeling a lot better. He is afebrile. No new complaints. He relates to minimal to no pain. Objective Data Objective Data Vital Signs: Vital Signs Temp Pulse Resp BP Pulse Ox O2 Del Method 98.8 F 82 18 111/66 93 Room Air 01/28/22 03:02 01/28/22 03:02 01/28/22 03:02 01/28/22 03:02 01/28/22 03:02 01/28/22 03:02 Oxygen Delivery Method Room Air Weight: 99.2 kg Body Mass Index (BMI) 40.2 Intake & Output: Intake and Output for Last 24 Hours 01/26/22 01/27/22 01/28/22 23:59 23:59 23:59 Intake Total 630 / 630 3816.25 / 3816.25 827.5 / 827.5 Output Total 0 / 0 Balance 630 / 630 3816.25 / 3816.25 827.5 / 827.5 Lab / Micro Data Result Diagrams: 01/27/22 04:38 01/27/22 04:38 Labs: Laboratory Results - last 24 hr 01/27/22 04:38: Hemoglobin A1c 6.9 H 01/27/22 09:28: POC Glucose 196 H 01/27/22 13:26: POC Glucose 166 H 01/27/22 15:40: POC Glucose 153 H 01/27/22 21:16: POC Glucose 146 H 01/28/22 06:22: POC Glucose 128 H Radiography Diagnostic Testing: Radiology Impression Foot X-Ray 01/27/22 07:17 IMPRESSION: Diffuse soft tissue swelling. Gas is seen within the soft tissues. Electronically Signed: Tolu Chandler MD at 9:01 EDT , Ankle X-Ray 01/27/22 09:33 IMPRESSION: Soft tissue swelling. Gas is seen within the region of the hindfoot and midfoot. No bony destruction is seen. Electronically Signed: Tolu Chandler MD at 10:20 EDT , Foot X-Ray 01/27/22 15:25 IMPRESSION: Satisfactory alignment of the right foot status post fifth transmetatarsal amputation. Small nondisplaced fracture of the fourth metatarsal. Electronically Signed: Basia Roman MD at 16:49 EDT Reading Location ID and State: [facility] / [place] Tel , Service support , Tibia/Fibula X-Ray 01/27/22 15:25 IMPRESSION: Postoperative edema and air in the left leg without acute osseous abnormality identified. Electronically Signed: Basia Roman MD at 16:47 EDT Reading Location ID and State: [facility] / [place] Tel , Service support , Ankle X-Ray 01/27/22 16:10 IMPRESSION: Satisfactory alignment of the right ankle status post fifth transmetatarsal amputation. Air and edema in the overlying soft tissues. Electronically Signed: Basia Roman MD at 16:46 EDT Reading Location ID and State: [facility] / [place] Tel , Service support , Physical Exam Const alert, oriented x3 and no apparent distress Extremity Extremity Narrative: Right foot/ankle/leg: s/p wide and deep debridement down to tendon, muscle and bone - tissues are much improved, healthy and viable, no purulence, no abscess noted, cellulitis much improved, much less edema - no maloder, no purulence, no fluctuance, no crepitus noted. Assessment & Plan Assessment/Plan (1) Diabetic foot ulcer: (2) Infected ulcer of skin: (3) Acute osteomyelitis of right foot: (4) Cellulitis of right lower limb: PLAN: Plan s/p right foot/ankle/leg debridement (with 5th toe and mid/distal 5th metatarsal amputation) - site much improved from infection standpoint. Cultures pending. Infectious Disease is following and managing antibiotics - pt on Vanc/Zosyn and Clindamycin. No weightbearing right foot, keep foot elevated. Wound care: Dakin's wet to dry gauze dressing changes BID - recommend wound vac however patient is [employer] and will need to see if this is option for patient. Medical management per the medicine team. Podiatry will continue to follow.
[2022-01-28 07:38] LABS: Absolute Neutrophil Count 8.7 X10^3/uL (2.0-7.7); Basophil# 0.01 X10^3/uL; Basophil% 0.1 % (0-1); Hematocrit 30.8 % (40-54); Hemoglobin 10.5 g/dL (13.0-16.5); Lymphocyte % 8.9 % (19-41); Mean Corp Hgb Conc 34.1 g/dL (32-36); Mean Corpuscular Hgb 30.9 pg (27.0-32.0); Mean Corpuscular Volume 90.6 fL (80-94); Mean Platelet Vol. 9.4 fl (6.2-12.0); Monocyte# 0.44 X10^3/uL; Monocyte% 4.3 % (0-10); NRBC Flagged by Analyzer 0 % (0-5); Neutrophil # 8.66 X10^3/uL (2.7-7.7); Neutrophil % 85.2 % (47-70); Platelet Count 205 K/mm3 (150-450); RBC Distribution Width CV 11.8 % (11.6-14.6); RBC Distribution Width SD 39.3 fl (35.1-43.9); White Blood Count 10.2 K/mm3 (4.4-11.0)
[2022-01-28] MEDS: DAKIN'S SOL HALF STRENGTH (=0.25%) 1 APPLIC TOPICAL ×2 (07:55→21:20)
--- NOTE | 2022-01-28 08:04 | WOUNDNOTE ---
wound photo: right foot/leg
[2022-01-28 08:29] LABS: Anion Gap 3 (5-15); BUN 22 mg/dL (7-18); BUN/Creat Ratio 22.3 RATIO (10-20); Calcium,Total 8.1 mg/dL (8.5-10.1); Chloride 108 mmol/L (98-107); Creatinine, Serum 0.99 mg/dL (0.70-1.30); EST Glomerular Filtration Rate 81 mL/min (>60); Est Glom Filt Rate - Afr Amer 99 mL/min (>60); Glucose 135 mg/dL (74-106); Phosphorus 2.9 mg/dL (2.5-4.9); Potassium 3.8 mmol/L (3.5-5.1); Sodium Level 138 mmol/L (136-145)
[2022-01-28 08:31] LABS: Vancomycin, Trough Level 12.5 ug/mL (5.0-15.0)
--- NOTE | 2022-01-28 09:27 | PHA.PHARE_ITS ---
Consult Pharmacy has been consulted to manage selected antiobiotic: Vancomycin Type of Consult: Follow-up Suspected Infection: Skin/Soft tissue Prior Doses of Antibiotics Received/Current Regimen: 1250mg iv q12h Labs: Sodium 138 mmol/L (136-145) 01/28/22 07:00 Potassium 3.8 mmol/L (3.5-5.1) 01/28/22 07:00 Chloride 108 mmol/L (98-107) H 01/28/22 07:00 Carbon Dioxide 27.0 mmol/L (21.0-32.0) 01/28/22 07:00 Anion Gap 3 (5-15) L 01/28/22 07:00 BUN 22 mg/dL (7-18) H 01/28/22 07:00 Creatinine 0.99 mg/dL (0.70-1.30) 01/28/22 07:00 Est GFR (MDRD) Af Amer 99 mL/min (>60) 01/28/22 07:00 Est GFR (MDRD) Non-Af 81 mL/min (>60) 01/28/22 07:00 BUN/Creatinine Ratio 22.3 RATIO (10-20) H 01/28/22 07:00 Glucose 135 mg/dL (74-106) H 01/28/22 07:00 Vancomycin Trough 12.5 ug/mL (5.0-15.0) 01/28/22 07:00 Weight used for dosin.2 kg Estimated Creatinine Clearance: 78ml/min Goal Trough: 15-20 mcg/mL Pharmacy Plan for Drug Dosing: Trough level this AM was 12.5 and below desired therapeutic range of 15- 20mcg/ml. Renal function reviewed and SCrCl calculated from adjusted body weight to be ~78ml/min. Dose to be increased to 1500mg iv q12h and new trough level ordered for before 4th dose of this new dosage schedule. Pharmacy Service will continue to monitor and adjust dosing as required. Follow-Up Labs: Trough Vancomycin - 8.26.22 @0630 before 0700 dose
[2022-01-28] MEDS: Insulin Lispro 100 UNIT/ML INSULN.PEN SC ×3 (11:57→21:19)
[2022-01-28 12:15] LABS: Bedside Glucose 164 mg/dL (74-106)
--- NOTE | 2022-01-28 13:01 | PCM.PN.ID ---
Physical Exam Narrative Feeling better, no pain in foot, no fever, no n/v/d. Const alert and no apparent distress Resp normal air movement and clear to auscultation bilaterally Cardio regular rate and regular rhythm GI soft to palpation, non-tender and non-distended Skin Skin Narrative: foot wrapped ID ID: Route of nutrition/ use of supplements: [] Nutritional Intake: [] IV Site: [] Schumacher Catheter: [] Assessment & Plan Assessment/Plan (1) Acute osteomyelitis of right foot: PLAN: R foot osteo and gas gangrene. OR 01/27/[address] Cabrales. Bcx neg so far. Surg cx with GNR x3. On vanc/zosyn and clinda for anti-toxin effect. Will follow (2) Diabetes:
--- NOTE | 2022-01-28 14:54 | CASEMGMT ---
Addendum entered by Beatrice Huddleston 01/28/22 14:59: SABRINA RIVERO back into pt room. Patient choices are [facility], [facility] followed by [facility]. Original Note: Late entry 0940 Discussed with patient and options for care as far as [facility] and SNF. Pt would like to return home. Spoke with wound care nurse who states that she is checking on a wound vac cost and farrah care. Discussed pt will need an able and willing cg to complete dressing changes if the wound vac is not ordered. Pt states she would try to learn the dressings. Discussed IV antibiotics as well if needed. SABRINA RIVERO provided pt with a list of [facility] providers including quality and resource use data and consistent with the patient?s preferred geographic region, medical needs, and insurance network. Pt and to review list. SABRINA RIVERO to follow and check back on patient choices.
--- NOTE | 2022-01-28 15:38 | WOUNDNOTE ---
Has talked with [employer] about possible farrah VAC for patient since he has no insurance. The paperwork was initiated and will await approval. if not approved, patient is not sure he has the funds to pay for the VAC. pt states he has not been able to work as much lately d/t issues with his eyes so his monthly income has decreased quite a bit.
[2022-01-28 16:55] LABS: Bedside Glucose 247 mg/dL (74-106)
--- NOTE | 2022-01-28 18:35 | PN.HOSP_ITS ---
Subjective Subjective Patient was seen and examined today, he states he would like to be discharged home as soon as possible, he would not like to go to a senior living facility for IV antibiotic treatment. He was seen by infectious diseases today and it was recommended that he remain on a bank, Zosyn, and clindamycin. Podiatry is a lso following the patient. Patient's blood sugars remain under fair control at this time. Objective Data Objective Data Vital Signs: Vital Signs Temp Pulse Resp BP Pulse Ox O2 Del Method 98.8 F 86 18 140/81 H 93 Room Air 01/28/22 15:45 01/28/22 15:45 01/28/22 15:45 01/28/22 15:45 01/28/22 15:45 01/28/22 15:45 Oxygen Delivery Method Room Air Weight: 99.2 kg Body Mass Index (BMI) 40.2 Intake & Output: Intake and Output for Last 24 Hours 01/26/22 01/27/22 01/28/22 23:59 23:59 23:59 Intake Total 630 / 630 3816.25 / 3816.25 1202.5 / 1202.5 Output Total 0 / 0 Balance 630 / 630 3816.25 / 3816.25 1202.5 / 1202.5 Lab / Micro Data Result Diagrams: 01/29/22 04:25 01/29/22 04:25 Labs: Laboratory Results - last 24 hr 01/27/22 21:16: POC Glucose 146 H 01/28/22 06:22: POC Glucose 128 H 01/28/22 07:00: Vancomycin Trough 12.5 01/28/22 07:00: WBC 10.2, RBC 3.40 L, Hgb 10.5 L, Hct 30.8 L, MCV 90.6, MCH 30.9, MCHC 34.1, RDW Std Deviation 39.3, RDW Coeff of Neftali 11.8, Plt Count 205, MPV 9.4, Immature Gran % (Auto) 0.500, Neut % (Auto) 85.2 H, Lymph % (Auto) 8.9 L, [place] % (Auto) 4.3, Eos % (Auto) 1.0, Baso % (Auto) 0.1, Absolute Neuts (auto) 8.7 H, Absolute Lymphs (auto) 0.90, Nucleated RBC % 0 01/28/22 07:00: Sodium 138, Potassium 3.8, Chloride 108 H, Carbon Dioxide 27.0, Anion Gap 3 L, BUN 22 H, Creatinine 0.99, Estim Creat Clear Calc 56.50, Est GFR (MDRD) Af Amer 99, Est GFR (MDRD) Non-Af 81, BUN/Creatinine Ratio 22.3 H, Glucose 135 H, Calcium 8.1 L, Phosphorus 2.9, Magnesium 2.0 01/28/22 11:57: POC Glucose 164 H 01/28/22 15:50: POC Glucose 247 H Micro: Microbiology 01/27/22 15:27 Tissue - 5th Metatarsal Bone Gram Stain - Final 01/27/22 15:27 Tissue - 5th Metatarsal Bone Wound Culture - Preliminary GNR non ribbon cleaner GNR non ribbon cleaner#2 01/27/22 15:17 Bone - 5th Toe Gram Stain - Final 01/27/22 15:17 Bone - 5th Toe Wound Culture - Preliminary GNR non ribbon cleaner GNR lactose ribbon cleaner GNR lactose ribbon cleaner#2 01/27/22 15:24 Wound - Leg, Left Gram Stain - Final 01/27/22 15:24 Wound - Leg, Left Wound Culture - Preliminary GNR non ribbon cleaner GNR lactose ribbon cleaner Physical Exam Const alert, oriented x3, no apparent distress and healthy appearing Constitutional Narrative: Morbidly obese General Appearance: cooperative, well kempt and well developed Orientation / Consciousness: awake, oriented to person, oriented to place and oriented to time HEENT normocephalic, head/scalp atraumatic and moist oral mucous membranes Eyes PERRL, EOMs intact bilaterally and conjunctivae normal Neck supple, no JVD, thyroid normal and no carotid bruits General: trachea midline Resp normal respiratory effort, no retractions, no use of accessory muscles and clear to auscultation bilaterally Auscultation: Negative for rales, rhonchi or wheezes Cardio regular rate, regular rhythm, S1 normal heart sound, S2 normal heart sound, no murmurs, no rub and no gallops GI normal to inspection, nondistended, normoactive bowel sounds, soft to palpation, non-tender and non-distended Extremity Extremity Narrative: Patient's right lower extremity was not examined at this time, his right leg is wrapped in surgical dressing. Skin no rashes or lesions noted General Skin Exam: no breakdown Neuro oriented x3, CN's II-XII intact bilaterally, no focal motor deficits and no sensory deficits noted Sensorium / Orientation: awake and alert Speech: speech normal Psych affect normal Assessment & Plan Assessment/Plan (1) Cellulitis of right lower limb: PLAN: Plan 1. Gas gangrene right lower extremity-continue antibiotic treatment per infectious diseases-patient is now on Zosyn, clindamycin, and vancomycin. #2 osteomyelitis of the right fifth toe and fifth metatarsal, abscess right foot-again patient is on antibiotic coverage per infectious diseases, patient underwent a right foot fifth metatarsal and toe amputation-postop day #1, podiatry is participating in his care #3 morbid obesity-complicates care, management, recovery, and prognosis #4 type 2 diabetes-patient's blood sugars will be monitored, sliding scale insulin will be used if necessary Charges/Coding Visit Charges Inpatient E&M: 76883 Subs Hosp L2
[2022-01-28] MEDS: Acetaminophen 325 MG Tablet 650 MG PO (21:28)
[2022-01-28 21:41] LABS: Bedside Glucose 199 mg/dL (74-106)
[2022-01-29] VITALS (7 sets, daily range): BP systolic 150–187; BP diastolic 88–103; PULSE 79–100; RESP 14–18; TEMP 36.4–37.7; O2SAT 91–96
[2022-01-29] MEDS: Ondansetron 4 MG/2 ML Vial IV ×2 (01:12→22:57)
[2022-01-29] MEDS: Senna/Docusate Sodium 1 Tablet 2 TABLET PO ×2 (01:12→16:33)
[2022-01-29] MEDS: 0.9% Saline Lock 10 ML Syringe IV ×2 (01:12→22:57)
[2022-01-29] MEDS: Clindamycin in 0.9% Sod Chlor 600 MG/50 ML BAG 100 MG IV ×3 (01:15→16:38)
[2022-01-29 04:41] LABS: Absolute Lymphocyte Count 1.14 X10^3/uL (0.83-4.51); Absolute Neutrophil Count 5.7 X10^3/uL (2.0-7.7); Basophil# 0.02 X10^3/uL; Basophil% 0.3 % (0-1); Eosinophil# 0.16 X10^3/uL; Eosinophils% 2.2 % (0-5); Hematocrit 28.8 % (40-54); Hemoglobin 9.7 g/dL (13.0-16.5); Lymphocyte # 1.14 X10^3/ul (0.83-4.51); Lymphocyte % 15.5 % (19-41); Mean Corp Hgb Conc 33.7 g/dL (32-36); Mean Corpuscular Hgb 30.7 pg (27.0-32.0); Mean Corpuscular Volume 91.1 fL (80-94); Mean Platelet Vol. 9.2 fl (6.2-12.0); Monocyte# 0.34 X10^3/uL; Monocyte% 4.6 % (0-10); NRBC Flagged by Analyzer 0 % (0-5); Neutrophil # 5.65 X10^3/uL (2.7-7.7); Neutrophil % 76.9 % (47-70); Platelet Count 203 K/mm3 (150-450); RBC Distribution Width CV 11.9 % (11.6-14.6); Red Blood Count 3.16 M/mm3 (4.6-6.2); White Blood Count 7.4 K/mm3 (4.4-11.0)
[2022-01-29 05:06] LABS: Anion Gap 5 (5-15); BUN 24 mg/dL (7-18); BUN/Creat Ratio 23.8 RATIO (10-20); Calcium,Total 7.6 mg/dL (8.5-10.1); Chloride 111 mmol/L (98-107); Creatinine, Serum 1.01 mg/dL (0.70-1.30); EST Glomerular Filtration Rate 79 mL/min (>60); Est Glom Filt Rate - Afr Amer 96 mL/min (>60); Estimated Creatinine Clearance 55.38 ml/min; Glucose 166 mg/dL (74-106); Potassium 3.3 mmol/L (3.5-5.1); Sodium Level 142 mmol/L (136-145)
[2022-01-29 07:00] LABS: Bedside Glucose 136 mg/dL (74-106)
--- NOTE | 2022-01-29 07:44 | PN_ITS ---
Subjective Subjective Patient was seen this morning for follow up on right foot/ankle/leg. He is resting comfortably in bed. No complaints, no pain at this time. Objective Data Objective Data Vital Signs: Vital Signs Temp Pulse Resp BP Pulse Ox O2 Del Method 99 F 100 18 154/103 H 94 Room Air 01/29/22 06:38 01/29/22 06:38 01/29/22 06:38 01/29/22 06:38 01/29/22 06:38 01/29/22 06:38 Oxygen Delivery Method Room Air Weight: 99.2 kg Body Mass Index (BMI) 40.2 Intake & Output: Intake and Output for Last 24 Hours 01/27/22 01/28/22 01/29/22 23:59 23:59 23:59 Intake Total 3816.25 / 3816.25 1832.5 / 1832.5 788.75 / 788.75 Output Total 0 / 0 Balance 3816.25 / 3816.25 1832.5 / 1832.5 788.75 / 788.75 Lab / Micro Data Result Diagrams: 01/29/22 04:25 01/29/22 04:25 Labs: Laboratory Results - last 24 hr 01/28/22 07:00: Vancomycin Trough 12.5 01/28/22 07:00: Sodium 138, Potassium 3.8, Chloride 108 H, Carbon Dioxide 27.0, Anion Gap 3 L, BUN 22 H, Creatinine 0.99, Estim Creat Clear Calc 56.50, Est GFR (MDRD) Af Amer 99, Est GFR (MDRD) Non-Af 81, BUN/Creatinine Ratio 22.3 H, Glucose 135 H, Calcium 8.1 L, Phosphorus 2.9, Magnesium 2.0 01/28/22 11:57: POC Glucose 164 H 01/28/22 15:50: POC Glucose 247 H 01/28/22 21:18: POC Glucose 199 H 01/29/22 04:25: WBC 7.4, RBC 3.16 L, Hgb 9.7 L, Hct 28.8 L, MCV 91.1, MCH 30.7, MCHC 33.7, RDW Std Deviation 40.0, RDW Coeff of Neftali 11.9, Plt Count 203, MPV 9.2, Immature Gran % (Auto) 0.500, Neut % (Auto) 76.9 H, Lymph % (Auto) 15.5 L, [place] % (Auto) 4.6, Eos % (Auto) 2.2, Baso % (Auto) 0.3, Absolute Neuts (auto) 5.7, Absolute Lymphs (auto) 1.14, Nucleated RBC % 0 01/29/22 04:25: Sodium 142, Potassium 3.3 L, Chloride 111 H, Carbon Dioxide 26.0, Anion Gap 5, BUN 24 H, Creatinine 1.01, Estim Creat Clear Calc 55.38, Est GFR (MDRD) Af Amer 96, Est GFR (MDRD) Non-Af 79, BUN/Creatinine Ratio 23.8 H, Glucose 166 H, Calcium 7.6 L 01/29/22 06:35: POC Glucose 136 H Micro: Microbiology 01/27/22 15:27 Tissue - 5th Metatarsal Bone Gram Stain - Final 01/27/22 15:27 Tissue - 5th Metatarsal Bone Wound Culture - Preliminary GNR non subwarehouse supervisor GNR non subwarehouse supervisor#2 01/27/22 15:17 Bone - 5th Toe Gram Stain - Final 01/27/22 15:17 Bone - 5th Toe Wound Culture - Preliminary GNR non subwarehouse supervisor GNR lactose subwarehouse supervisor GNR lactose subwarehouse supervisor#2 01/27/22 15:24 Wound - Leg, Left Gram Stain - Final 01/27/22 15:24 Wound - Leg, Left Wound Culture - Preliminary GNR non subwarehouse supervisor GNR lactose subwarehouse supervisor Physical Exam Const alert, oriented x3 and no apparent distress Extremity Extremity Narrative: Right foot/ankle/leg: s/p wide and deep debridement down to tendon, muscle and bone - tissues are healthy and viable, no purulence, no abscess noted, cellulitis much improved, much less edema - no maloder, no purulence, no fluctuance, no crepitus noted, no evidence of ischemia present. Assessment & Plan Assessment/Plan (1) Diabetic foot ulcer: (2) Infected ulcer of skin: (3) Acute osteomyelitis of right foot: (4) Cellulitis of right lower limb: PLAN: Plan s/p right foot/ankle/leg debridement (with 5th toe and mid/distal 5th metatarsal amputation) - site continues to improve and looks good this morning. WBC now normal. Reviewed available culture results so far, final results pending. Infectious Disease is following and managing antibiotics - pt on Vanc/Zosyn and Clindamycin. No weightbearing right foot, keep foot elevated. Wound care: Dakin's wet to dry gauze dressing changes BID - recommend wound vac - likely apply tomorrow morning. Medical management per the medicine team. Podiatry will continue to follow.
[2022-01-29] MEDS: DAKIN'S SOL HALF STRENGTH (=0.25%) 1 APPLIC TOPICAL ×2 (07:55→22:23)
--- NOTE | 2022-01-29 10:14 | PCM.PN.ID ---
Physical Exam Narrative No fever, no events overnight Const no apparent distress Resp normal air movement and clear to auscultation bilaterally Cardio regular rate and regular rhythm GI soft to palpation, non-tender and non-distended Skin Skin Narrative: foot wrapped, no new rash ID ID: Route of nutrition/ use of supplements: [] Nutritional Intake: [] IV Site: [] Schumacher Catheter: [] Assessment & Plan Assessment/Plan (1) Acute osteomyelitis of right foot: PLAN: R foot osteo and gas gangrene. OR 01/27/[address] Cabrales. Bcx neg so far. Surg cx with GNR x3 and GPC. On vanc/zosyn and clinda for anti-toxin effect. Will follow (2) Diabetes:
--- NOTE | 2022-01-29 10:49 | CASEMGMT ---
Addendum entered by Beatrice Huddleston 01/29/22 15:46: [facility] has declined patient. Referral sent to [facility] who also declined. Referral sent to third choice at this time. Original Note: Referral sent to [facility] via [facility] at this time. Will await acceptance.
[2022-01-29] MEDS: Insulin Lispro 100 UNIT/ML INSULN.PEN SC ×3 (11:50→22:57)
[2022-01-29 12:06] LABS: Bedside Glucose 210 mg/dL (74-106)
[2022-01-29] MEDS: 0.9% Normal Saline 1,000 ML 75 ML IV (14:01)
--- NOTE | 2022-01-29 16:50 | PCM.PN.HOSP ---
Subjective Subjective Seen and examined today, case management and social worker is still working on a discharge plan for the patient, it is not known yet if he will have to go home with IV antibiotic treatment. Objective Data Objective Data Vital Signs: Vital Signs Temp Pulse Resp BP Pulse Ox O2 Del Method 98.8 F 95 14 187/97 H 91 Room Air 01/29/22 16:18 01/29/22 16:18 01/29/22 16:18 01/29/22 16:18 01/29/22 16:18 01/29/22 16:18 Oxygen Delivery Method Room Air Weight: 99.2 kg Body Mass Index (BMI) 40.2 Intake & Output: Intake and Output for Last 24 Hours 01/27/22 01/28/22 01/29/22 23:59 23:59 23:59 Intake Total 3816.25 / 3816.25 1832.5 / 1832.5 1418.75 / 1418.75 Output Total 0 / 0 Balance 3816.25 / 3816.25 1832.5 / 1832.5 1418.75 / 1418.75 Lab / Micro Data Result Diagrams: 01/29/22 04:25 01/29/22 04:25 Labs: Laboratory Results - last 24 hr 01/28/22 15:50: POC Glucose 247 H 01/28/22 21:18: POC Glucose 199 H 01/29/22 04:25: WBC 7.4, RBC 3.16 L, Hgb 9.7 L, Hct 28.8 L, MCV 91.1, MCH 30.7, MCHC 33.7, RDW Std Deviation 40.0, RDW Coeff of Neftali 11.9, Plt Count 203, MPV 9.2, Immature Gran % (Auto) 0.500, Neut % (Auto) 76.9 H, Lymph % (Auto) 15.5 L, [place] % (Auto) 4.6, Eos % (Auto) 2.2, Baso % (Auto) 0.3, Absolute Neuts (auto) 5.7, Absolute Lymphs (auto) 1.14, Nucleated RBC % 0 01/29/22 04:25: Sodium 142, Potassium 3.3 L, Chloride 111 H, Carbon Dioxide 26.0, Anion Gap 5, BUN 24 H, Creatinine 1.01, Estim Creat Clear Calc 55.38, Est GFR (MDRD) Af Amer 96, Est GFR (MDRD) Non-Af 79, BUN/Creatinine Ratio 23.8 H, Glucose 166 H, Calcium 7.6 L 01/29/22 06:35: POC Glucose 136 H 01/29/22 11:48: POC Glucose 210 H Micro: Microbiology 01/26/22 17:55 Blood Culture (Wb) - Anticubital Right Blood Culture - Preliminary No growth in 48 hours. 01/26/22 17:50 Blood Culture (Wb) - Anticubital Left Blood Culture - Preliminary No growth in 48 hours. 01/27/22 15:27 Tissue - 5th Metatarsal Bone Gram Stain - Final 01/27/22 15:27 Tissue - 5th Metatarsal Bone Wound Culture - Preliminary Proteus mirabilis GNR non computer designer#2 Gram positive organism 01/27/22 15:24 Wound - Leg, Left Gram Stain - Final 01/27/22 15:24 Wound - Leg, Left Wound Culture - Preliminary Proteus mirabilis GNR lactose computer designer 01/27/22 15:17 Bone - 5th Toe Gram Stain - Final 01/27/22 15:17 Bone - 5th Toe Wound Culture - Preliminary Proteus mirabilis GNR lactose computer designer GNR lactose computer designer#2 Gram positive organism Physical Exam Narrative alert, oriented x3, no apparent distress and healthy appearing Constitutional Narrative: Morbidly obese General Appearance: cooperative, well kempt and well developed Orientation / Consciousness: awake, oriented to person, oriented to place and oriented to time HEENT normocephalic, head/scalp atraumatic and moist oral mucous membranes Eyes PERRL, EOMs intact bilaterally and conjunctivae normal Neck supple, no JVD, thyroid normal and no carotid bruits General: trachea midline Resp normal respiratory effort, no retractions, no use of accessory muscles and clear to auscultation bilaterally Auscultation: Negative for rales, rhonchi or wheezes Cardio regular rate, regular rhythm, S1 normal heart sound, S2 normal heart sound, no murmurs, no rub and no gallops GI normal to inspection, nondistended, normoactive bowel sounds, soft to palpation, non-tender and non-distended Extremity Extremity Narrative: Patient's right lower extremity was not examined at this time, his right leg is wrapped in surgical dressing. Skin no rashes or lesions noted General Skin Exam: no breakdown Neuro oriented x3, CN's II-XII intact bilaterally, no focal motor deficits and no sensory deficits noted Sensorium / Orientation: awake and alert Speech: speech normal Psych affect normal Const alert, oriented x3, no apparent distress and healthy appearing Constitutional Narrative: Morbidly obese General Appearance: cooperative, well kempt and well developed Orientation / Consciousness: awake, oriented to person, oriented to place and oriented to time HEENT normocephalic, head/scalp atraumatic and moist oral mucous membranes Eyes PERRL, EOMs intact bilaterally and conjunctivae normal Neck supple, no JVD, thyroid normal and no carotid bruits General: trachea midline Resp normal respiratory effort, no retractions, no use of accessory muscles and clear to auscultation bilaterally Auscultation: Negative for rales, rhonchi or wheezes Cardio regular rate, regular rhythm, S1 normal heart sound, S2 normal heart sound, no murmurs, no rub and no gallops GI normal to inspection, nondistended, normoactive bowel sounds, soft to palpation, non-tender and non-distended Extremity no clubbing, cyanosis or edema Extremity Narrative: Patient's right lower extremity was not examined at this time, his right leg is wrapped in surgical dressing. Skin no rashes or lesions noted General Skin Exam: no breakdown Neuro oriented x3, CN's II-XII intact bilaterally, no focal motor deficits and no sensory deficits noted Sensorium / Orientation: awake and alert Speech: speech normal Psych affect normal Assessment & Plan Assessment/Plan (1) Cellulitis of right lower limb: PLAN: Plan 1. Gas gangrene right lower extremity-Proteus mirabilis and gram-negative Nahm computer designer as well as gram-positive organism-continue antibiotic treatment per infectious diseases-patient is now on Zosyn, clindamycin, and vancomycin. #2 osteomyelitis of the right fifth toe and fifth metatarsal, abscess right foot-again patient is on antibiotic coverage per infectious diseases, patient underwent a right foot fifth metatarsal and toe amputation-postop day #2, podiatry is participating in his care #3 morbid obesity-complicates care, management, recovery, and prognosis #4 type 2 diabetes-patient's blood sugars will be monitored, sliding scale insulin will be used if necessary Charges/Coding Visit Charges Inpatient E&M: 24170 Subs Hosp L2
[2022-01-29 16:51] LABS: Bedside Glucose 152 mg/dL (74-106)
[2022-01-29] MEDS: Acetaminophen 325 MG Tablet 650 MG PO (22:30)
[2022-01-29 23:20] LABS: Bedside Glucose 150 mg/dL (74-106)
[2022-01-30 00:37] VITALS: PULSE 89
[2022-01-30] MEDS: 0.9% Saline Lock 10 ML Syringe IV (00:37)
[2022-01-30] MEDS: hydrALAZINE 20 MG/ML Vial 10 MG IV (00:37)
[2022-01-30 00:39] VITALS: TEMP 37.3
[2022-01-30] MEDS: Clindamycin in 0.9% Sod Chlor 600 MG/50 ML BAG 100 MG IV ×2 (02:35→10:07)
[2022-01-30 02:42] VITALS: BP 155/91; PULSE 86; RESP 16; TEMP 36.4; O2SAT 95
[2022-01-30] MEDS: 0.9% Normal Saline 1,000 ML 75 ML IV (03:37)
[2022-01-30] MEDS: Insulin Lispro 100 UNIT/ML INSULN.PEN SC ×3 (06:26→16:55)
[2022-01-30 07:05] LABS: Bedside Glucose 215 mg/dL (74-106)
[2022-01-30 07:28] LABS: Absolute Lymphocyte Count 0.86 X10^3/uL (0.83-4.51); Absolute Neutrophil Count 5.1 X10^3/uL (2.0-7.7); Basophil# 0.01 X10^3/uL; Basophil% 0.2 % (0-1); Eosinophil# 0.14 X10^3/uL; Eosinophils% 2.1 % (0-5); Hematocrit 32.1 % (40-54); Hemoglobin 10.6 g/dL (13.0-16.5); Lymphocyte # 0.86 X10^3/ul (0.83-4.51); Mean Corpuscular Hgb 30.5 pg (27.0-32.0); Mean Corpuscular Volume 92.2 fL (80-94); Mean Platelet Vol. 9.2 fl (6.2-12.0); Monocyte# 0.41 X10^3/uL; Monocyte% 6.2 % (0-10); NRBC Flagged by Analyzer 0 % (0-5); Neutrophil # 5.13 X10^3/uL (2.7-7.7); Neutrophil % 77.6 % (47-70); Platelet Count 258 K/mm3 (150-450); RBC Distribution Width CV 11.7 % (11.6-14.6); RBC Distribution Width SD 39.5 fl (35.1-43.9); Red Blood Count 3.48 M/mm3 (4.6-6.2); White Blood Count 6.6 K/mm3 (4.4-11.0)
[2022-01-30 07:42] LABS: Anion Gap 4 (5-15); BUN 15 mg/dL (7-18); BUN/Creat Ratio 17.6 RATIO (10-20); Calcium,Total 8.2 mg/dL (8.5-10.1); Chloride 110 mmol/L (98-107); Creatinine, Serum 0.85 mg/dL (0.70-1.30); EST Glomerular Filtration Rate 97 mL/min (>60); Est Glom Filt Rate - Afr Amer 117 mL/min (>60); Glucose 216 mg/dL (74-106); Potassium 3.6 mmol/L (3.5-5.1); Sodium Level 140 mmol/L (136-145)
[2022-01-30 07:51] LABS: Vancomycin, Trough Level 16.2 ug/mL (5.0-15.0)
[2022-01-30] MEDS: DAKIN'S SOL HALF STRENGTH (=0.25%) 1 APPLIC TOPICAL (08:00)
--- NOTE | 2022-01-30 08:04 | PCM.RX.CS ---
Consult Pharmacy has been consulted to manage selected antiobiotic: Vancomycin Type of Consult: Follow-up Suspected Infection: Osteomyelitis Prior Doses of Antibiotics Received/Current Regimen: current dose is vanc 1500mg IV q12h Labs: Sodium 140 mmol/L (136-145) 01/30/22 06:30 Potassium 3.6 mmol/L (3.5-5.1) 01/30/22 06:30 Chloride 110 mmol/L (98-107) H 01/30/22 06:30 Carbon Dioxide 26.0 mmol/L (21.0-32.0) 01/30/22 06:30 Anion Gap 4 (5-15) L 01/30/22 06:30 BUN 15 mg/dL (7-18) 01/30/22 06:30 Creatinine 0.85 mg/dL (0.70-1.30) 01/30/22 06:30 Est GFR (MDRD) Af Amer 117 mL/min (>60) 01/30/22 06:30 Est GFR (MDRD) Non-Af 97 mL/min (>60) 01/30/22 06:30 BUN/Creatinine Ratio 17.6 RATIO (10-20) 01/30/22 06:30 Glucose 216 mg/dL (74-106) H 01/30/22 06:30 Vancomycin Trough 16.2 ug/mL (5.0-15.0) H 01/30/22 06:30 Microbiology: Microbiology 01/26/22 17:55 Blood Culture (Wb) - Anticubital Right Blood Culture - Preliminary No growth in 48 hours. 01/26/22 17:50 Blood Culture (Wb) - Anticubital Left Blood Culture - Preliminary No growth in 48 hours. 01/27/22 15:27 Tissue - 5th Metatarsal Bone Gram Stain - Final 01/27/22 15:27 Tissue - 5th Metatarsal Bone Wound Culture - Preliminary Proteus mirabilis GNR non tool grinding technician#2 Gram positive organism 01/27/22 15:24 Wound - Leg, Left Gram Stain - Final 01/27/22 15:24 Wound - Leg, Left Wound Culture - Preliminary Proteus mirabilis GNR lactose tool grinding technician 01/27/22 15:17 Bone - 5th Toe Gram Stain - Final 01/27/22 15:17 Bone - 5th Toe Wound Culture - Preliminary Proteus mirabilis GNR lactose tool grinding technician GNR lactose tool grinding technician#2 Gram positive organism Weight used for dosin.2 kg Estimated Creatinine Clearance: 91ml/min Goal Trough: 15-20 mcg/mL Pharmacy Plan for Drug Dosing: The vanc trough drawn at 06:30 today (approx 13 hours after the previous dose) was 16.2. It would have been slightly higher if drawn closer to the 12 hour miguelina but it is still within goal range so will keep same dose. Recheck another trough in 2 days per protocol. The patient's CrCl of 91ml/min was calculated using an adjusted body weight of 72.4kg. Pharmacy Service will continue to monitor and adjust dosing as required. Follow-Up Labs: Trough Vancomycin Labs to be done on [date and time ordered]: 02/01/22 2828
--- NOTE | 2022-01-30 08:34 | WOUNDNOTE ---
wound photo: right lower leg/foot
[2022-01-30 08:44] VITALS: BP 151/91; PULSE 76; RESP 18; TEMP 36.4; O2SAT 98
--- NOTE | 2022-01-30 09:14 | PN_ITS ---
Subjective Subjective Patient was seen this morning for follow up on right foot/ankle/leg. He relates he really does not have pain. He is asking when he can go home. No fever. Objective Data Objective Data Vital Signs: Vital Signs Temp Pulse Resp BP Pulse Ox O2 Del Method 97.5 F L 76 18 151/91 H 98 Room Air 01/30/22 08:44 01/30/22 08:44 01/30/22 08:44 01/30/22 08:44 01/30/22 08:44 01/30/22 08:44 Oxygen Delivery Method Room Air Weight: 99.2 kg Body Mass Index (BMI) 40.2 Intake & Output: Intake and Output for Last 24 Hours 01/28/22 01/29/22 01/30/22 23:59 23:59 23:59 Intake Total 1832.5 / 1832.5 2048.75 / 2048.75 1085 / 1085 Balance 1832.5 / 1832.5 2048.75 / 2048.75 1085 / 1085 Lab / Micro Data Result Diagrams: 01/30/22 06:30 01/30/22 06:30 Labs: Laboratory Results - last 24 hr 01/29/22 11:48: POC Glucose 210 H 01/29/22 16:28: POC Glucose 152 H 01/29/22 22:25: POC Glucose 150 H 01/30/22 06:25: POC Glucose 215 H 01/30/22 06:30: WBC 6.6, RBC 3.48 L, Hgb 10.6 L, Hct 32.1 L, MCV 92.2, MCH 30.5, MCHC 33.0, RDW Std Deviation 39.5, RDW Coeff of Neftali 11.7, Plt Count 258, MPV 9. 2, Immature Gran % (Auto) 0.900, Neut % (Auto) 77.6 H, Lymph % (Auto) 13.0 L, [place] % (Auto) 6.2, Eos % (Auto) 2.1, Baso % (Auto) 0.2, Absolute Neuts (auto) 5.1, Absolute Lymphs (auto) 0.86, Nucleated RBC % 0 01/30/22 06:30: Sodium 140, Potassium 3.6, Chloride 110 H, Carbon Dioxide 26.0, Anion Gap 4 L, BUN 15, Creatinine 0.85, Estim Creat Clear Calc 65.80, Est GFR (MDRD) Af Amer 117, Est GFR (MDRD) Non-Af 97, BUN/Creatinine Ratio 17.6, Glucose 216 H, Calcium 8.2 L 01/30/22 06:30: Vancomycin Trough 16.2 H Micro: Microbiology 01/27/22 15:27 Tissue - 5th Metatarsal Bone Gram Stain - Final 01/27/22 15:27 Tissue - 5th Metatarsal Bone Wound Culture - Preliminary Proteus mirabilis GNR lactose telecommunications network planner Gram positive organism 01/27/22 15:27 Tissue - 5th Metatarsal Bone Anaerobic Culture - Preliminary Checking for anaerobes, further studies to follow. 01/27/22 15:24 Wound - Leg, Left Gram Stain - Final 01/27/22 15:24 Wound - Leg, Left Wound Culture - Final Proteus mirabilis Klebsiella pneumoniae sp pneum 01/27/22 15:17 Bone - 5th Toe Gram Stain - Final 01/27/22 15:17 Bone - 5th Toe Wound Culture - Preliminary Proteus mirabilis Escherichia coli Klebsiella pneumoniae sp pneum Staphylococcus epidermidis Gram positive organism 01/26/22 17:55 Blood Culture (Wb) - Anticubital Right Blood Culture - Preliminary No growth in 48 hours. 01/26/22 17:50 Blood Culture (Wb) - Anticubital Left Blood Culture - Preliminary No growth in 48 hours. Physical Exam Const alert, oriented x3 and no apparent distress Extremity Extremity Narrative: Right foot/ankle/leg: s/p wide and deep debridement down to tendon, muscle and bone - tissues are healthy and viable, no purulence, no abscess noted, cellulitis much improved, much less edema - no maloder, no purulence, no fluctuance, no crepitus noted, no evidence of ischemia present. Assessment & Plan Assessment/Plan (1) Diabetic foot ulcer: (2) Infected ulcer of skin: (3) Acute osteomyelitis of right foot: (4) Cellulitis of right lower limb: PLAN: Plan s/p right foot/ankle/leg debridement (with 5th toe and mid/distal 5th metatarsal amputation) - site continues to improve and continues to look good. WBC normal. Reviewed available culture results so far, final results pending. Infectious Disease is following and managing antibiotics - pt on Vanc/Zosyn and Clindamycin. No weightbearing right foot, keep foot elevated. Wound care: Dakin's wet to dry gauze dressing changes BID - recommend wound vac - likely apply today. Medical management per the medicine team. Podiatry will continue to follow. From Podiatry standpoint ok to discharge patient once final antibiotics are determined and with home health set up. Patient to follow up with me in office next week, sooner if needed.
--- NOTE | 2022-01-30 09:43 | CASEMGMT ---
Addendum entered by Beatrice Huddleston 01/30/22 15:56: SABRINA RIVERO in to pt room, pt aware he will be on po antibiotics. Pt does have a generator and is aware to charge vac. He does have a phone to notify [facility] should there be vac issues. Phone number placed on dc instructions. TC to Claudette at [facility], faxed dc instructions, summary and orders. Green sheet on chart for them to be notified when pt is dc'd. Vac is not yet approved. She states they will be out to see pt once dc'd, this weekend. Pt aware. Addendum entered by Beatrice Huddleston 01/30/22 11:08: Acceptance received by [facility]. SABRINA RIVERO in to pt room to make aware. They request tc to [facility] for cost of visit. TC to Claudette, cost is $150/visit for IV visits and $125/visit for wound care. Awaiting to see if pt will need IV atb and wound vac not approved yet. Pt states he has a retired doctor, who is willing to do his IV's. He gave 's number, . TC to , he is willing to assist with pt IV. He states his son in law is a colostomy and icu specialist, his name is Rosalio Burciaga. He does not have his phone number. Discussed further with patient and . They are agreeable to go with [facility] initially and they will work with [facility] to determine if they can have 's son in law perform wound vac changes when this has been approved. They are aware that this will be up to the [facility]. Pt chose [facility] for infusion, will send initial referral in case IV atb ordered. Pt/ decline further needs at this time. SABRINA RIVERO to be in touch. They are appreciative of the care. Original Note: Pt is has not been accepted to agencies so far, spoke with patient and states they are willing to pay upfront for the visits. They are aware of the need for further choices and are agreeable to any agency who will come to their area. Multiple referrals sent through [facility] at this time.
[2022-01-30 11:55] LABS: Bedside Glucose 251 mg/dL (74-106)
--- NOTE | 2022-01-30 13:53 | PCM.PN.ID ---
Physical Exam Narrative Getting wound vac. Leg is sore. No fever. Const alert and no apparent distress Resp normal air movement and clear to auscultation bilaterally Cardio regular rate and regular rhythm Extremity General Extremity: Negative for edema Skin Skin Narrative: reviewed RLE photo ID ID: Route of nutrition/ use of supplements: [] Nutritional Intake: [] IV Site: [] Schumacher Catheter: [] Assessment & Plan Assessment/Plan (1) Acute osteomyelitis of right foot: PLAN: R foot osteo and gas gangrene. OR 01/27/[address] Cabrales. Bcx neg so far. Surg cx with proteus, GNR, klebs, ecoli, MRSE, and gram pos. On vanc/zosyn and clinda for anti-toxin effect. Discussed options with him, would be difficult to do iv abx. Will do 6 weeks po doxy/cipro and 2 weeks flagyl. These have good bone penetration. Wrote rx. ID followup in 2 weeks. Will follow (2) Diabetes:
[2022-01-30 14:00] VITALS: PULSE 86
[2022-01-30 14:11] VITALS: BP 169/99; PULSE 86; RESP 18; TEMP 37.1; O2SAT 97
--- NOTE | 2022-01-30 14:21 | PCM.DC ---
Discharge Instructions Diet Discharge Diet: 1800 Calorie Control Diet Activity Discharge Activity: - (non weightbearing right foot, do not get right leg/foot wet) Weight Bearing Status: No weight bearing (right foot) Dressing / Incision Call your doctor if your incision/area has: Increased Pain/ Swelling, Increased Redness and Foul Smelling Discharge Follow Up Care Test Results: Test results from this visit will be discussed in further detail at your follow-up appointment, if applicable. Discharge Plan Admission Admit Date/Time: 01/26/22 19:07 Primary Reason for Your Visit: right leg gas gangrene Attending Provider: Luis M Chandler Primary Care Provider: Care Physician,No Primary Consulting Providers: Masoud Cabrales ; Farhan Urbina ; Jun Rose ; Maxwell Ulrich Discharge Orders/Prescriptions Prescriptions: New metronidazole 500 mg tablet 500 mg PO Q8H 14 Days Qty: 42 0RF ciprofloxacin HCl [Cipro] 500 mg tablet 500 mg PO Q12H Qty: 80 0RF doxycycline hyclate 100 mg capsule 100 mg PO Q12H Qty: 80 0RF Continued metformin 1,000 mg Tablet 1,000 mg PO BID Discontinued penicillin V potassium 500 mg Tablet 1,000 mg PO BID metronidazole [Flagyl] 500 mg Tablet 500 mg PO TID Referrals / Follow Up: Masoud Cabrales DPM [[facility] Staff - Active Staff] - In 1 Week (call for appointment) Care Physician,No Primary [Primary Care Provider] - [facility] Doctor,Out of [Non-Staff] - Disposition Disposition (needs filled in before D/C Order can be placed): Home Health Service
--- NOTE | 2022-01-30 14:28 | PCM.DC.SUM ---
Providers Date of Admission: 01/26/22 Date of Discharge: 01/30/22 Primary Care Physician: Verena Primary Care Phys Consultations 01/26/22 20:01 Consult: Infectious Disease Routine Consulting Provider: Jun Rose Reason for Consult: possible osteomyelitis EMERGENT Consult: No Notified: Yes Date Notified: 01/27/22 Time Notified: 08:44 Method of Notification: Text Consult: Podiatry Routine Consulting Provider: Masoud Cabrales Reason for Consult: osteomyelitis EMERGENT Consult: No Notified: Yes Date Notified: 01/26/22 Time Notified: 19:16 Method of Notification: Text 01/28/22 06:38 Consult: Onc/Wound/french professor Routine Comment: Reason for Consult:: right foot Reason For Visit: SUSPECTED OSTEOMYELITIS Diagnosis Discharge Diagnosis (1) Acute osteomyelitis of right foot: Status: Acute Code(s): M86.171 - Other acute osteomyelitis, right ankle and foot (2) Diabetes: Status: Acute Code(s): E11.9 - Type 2 diabetes mellitus without complications Plan 1. Gas gangrene right lower extremity-Proteus mirabilis, Klebsiella pneumoniae , and staph species #2 osteomyelitis of the right fifth toe and fifth metatarsal, abscess right foot-again patient is on antibiotic coverage per infectious diseases, patient underwent a right foot fifth metatarsal and toe amputation-postop day #2, podiatry is participating in his care #3 morbid obesity-complicates care, management, recovery, and prognosis #4 type 2 diabetes-patient's blood sugars will be monitored, sliding scale insulin will be used if necessary Medications at Discharge Home Medications metformin 1,000 mg tablet 1,000 mg PO BID 01/26/22 ciprofloxacin HCl 500 mg tablet (Cipro) 500 mg PO Q12H #80 tabs 01/30/22 doxycycline hyclate 100 mg capsule 100 mg PO Q12H #80 caps 01/30/22 metronidazole 500 mg tablet 500 mg PO Q8H 14 days #42 tabs 01/30/22 Hospital Course Operations - (Incision drainage and debridement of right foot/ankle/leg, right fifth toe and partial fifth metatarsal amputation: 01/27/2022) Procedures None Summary of Care Provided Minutes Spent on Discharge: 32 Hospital Course: This 61-year-old white male was seen in the emergency room at [facility] with a chief complaint of swelling and redness over the right foot and leg times several weeks. He stated he was stepped on by a horse about 3 months before that but had not been noticing any problems till a few weeks ago. He had recently been placed on penicillin as an outpatient and he was on his fourth day of penicillin. Examination in the emergency room showed the right lower leg to be swollen and reddened, patient's right foot was also swollen and reddened, there was an open area under the head of the fifth metatarsal area. Patient's lab revealed elevated white count of 14.5, hemoglobin was 11.8, 3 x-ray films came in with the patient to the emergency room-they revealed some air in the tissue in the region of the wound. Patient's glucose was elevated at 227. Patient was admitted to [place] [id number], he was seen in consultation by podiatry, it was felt he had gas gangrene and he went to surgery the next day for debridement of his right lower leg and amputation of the right fifth toe and partial right fifth metatarsal amputation. Patient was seen by wound care postop, a wound VAC was placed on the wound area, he was seen in consultation by infectious diseases who felt that he could be discharged home on oral antibiotics. Arrangements were made for home health care. On 01/30/2022, patient was seen and examined: On examination he appeared in good health and spirits. Vital signs as documented. Skin warm and dry and without overt rashes. Neck without JVD, neck was supple, trachea midline, thyroid was normal. Lungs clear bilaterally, normal air movement was noted. Heart exam notable for regular rhythm, normal sounds and absence of murmurs, rubs or gallops. Abdomen unremarkable and without evidence of organomegaly, masses, or abdominal aortic enlargement. Bowel sounds are present, abdomen is not distended. Extremities-patient's right lower leg had a wound VAC in place, no cyanosis was noted, no clubbing was noted. Neuro: Cranial nerves II through XII are grossly intact, no focal motor deficits were noted, sensation to light touch and pinprick intact, motor exam 5/5 throughout. Psych: Patient is alert and oriented x3, he does not appear anxious or depressed, he does not appear agitated. Patient was felt to be stable for discharge on 01/30/2022. Weight / BMI Weight Weight: 99.2 kg Body Mass Index (BMI) 40.2 ABG / Lab / Microbiology Data Result Diagrams: 01/30/22 06:30 01/30/22 06:30 Laboratory: Laboratory Results - last 24 hr 01/29/22 16:28: POC Glucose 152 H 01/29/22 22:25: POC Glucose 150 H 01/30/22 06:25: POC Glucose 215 H 01/30/22 06:30: WBC 6.6, RBC 3.48 L, Hgb 10.6 L, Hct 32.1 L, MCV 92.2, MCH 30.5, MCHC 33.0, RDW Std Deviation 39.5, RDW Coeff of Neftali 11.7, Plt Count 258, MPV 9.2, Immature Gran % (Auto) 0.900, Neut % (Auto) 77.6 H, Lymph % (Auto) 13.0 L, [place] % (Auto) 6.2, Eos % (Auto) 2.1, Baso % (Auto) 0.2, Absolute Neuts (auto) 5.1, Absolute Lymphs (auto) 0.86, Nucleated RBC % 0 01/30/22 06:30: Sodium 140, Potassium 3.6, Chloride 110 H, Carbon Dioxide 26.0, Anion Gap 4 L, BUN 15, Creatinine 0.85, Estim Creat Clear Calc 65.80, Est GFR (MDRD) Af Amer 117, Est GFR (MDRD) Non-Af 97, BUN/Creatinine Ratio 17.6, Glucose 216 H, Calcium 8.2 L 01/30/22 06:30: Vancomycin Trough 16.2 H 01/30/22 11:09: POC Glucose 251 H Microbiology: Microbiology 01/27/22 15:17 Bone - 5th Toe Gram Stain - Final 01/27/22 15:17 Bone - 5th Toe Wound Culture - Preliminary Proteus mirabilis Escherichia coli Klebsiella pneumoniae sp pneum Staphylococcus epidermidis Gram positive organism 01/27/22 15:17 Bone - 5th Toe Anaerobic Culture - Preliminary No anaerobic bacteria isolated. 01/27/22 15:24 Wound - Leg, Left Gram Stain - Final 01/27/22 15:24 Wound - Leg, Left Wound Culture - Final Proteus mirabilis Klebsiella pneumoniae sp pneum 01/27/22 15:24 Wound - Leg, Left Anaerobic Culture - Preliminary Checking for anaerobes, further studies to follow. 01/27/22 15:27 Tissue - 5th Metatarsal Bone Gram Stain - Final 01/27/22 15:27 Tissue - 5th Metatarsal Bone Wound Culture - Preliminary Proteus mirabilis GNR lactose department of natural resources officer Gram positive organism 01/27/22 15:27 Tissue - 5th Metatarsal Bone Anaerobic Culture - Preliminary Checking for anaerobes, further studies to follow. 01/26/22 17:55 Blood Culture (Wb) - Anticubital Right Blood Culture - Preliminary No growth in 48 hours. 01/26/22 17:50 Blood Culture (Wb) - Anticubital Left Blood Culture - Preliminary No growth in 48 hours. D/C Instructions Discharge Diet: 1800 Calorie Control Diet Weight Bearing Status: No weight bearing (right foot) Call your doctor if your incision/area has: Increased Pain/ Swelling, Increased Redness and Foul Smelling Discharge Meaningful Use Info Meaningful Use Diagnoses (Choose all that apply): None applicable Discharge Plan Admission Admit Date/Time: 01/26/22 19:07 Primary Reason for Your Visit: right leg gas gangrene Attending Provider: Luis M Chandler Primary Care Provider: Care Physician,Verena Primary Consulting Providers: Masoud Cabrales ; Farhan Urbina ; Jun Rose ; Maxwell Ulrich Discharge Orders/Prescriptions Prescriptions: New metronidazole 500 mg tablet 500 mg PO Q8H 14 Days Qty: 42 0RF ciprofloxacin HCl [Cipro] 500 mg tablet 500 mg PO Q12H Qty: 80 0RF doxycycline hyclate 100 mg capsule 100 mg PO Q12H Qty: 80 0RF Continued metformin 1,000 mg Tablet 1,000 mg PO BID Discontinued penicillin V potassium 500 mg Tablet 1,000 mg PO BID metronidazole [Flagyl] 500 mg Tablet 500 mg PO TID Referrals / Follow Up: Masoud Cabrales DPM [Med Staff - Active Staff] - In 1 Week (call for appointment) Care Physician,No Primary [Primary Care Provider] - [facility] Doctor,Out of [Non-Staff] - Disposition Disposition (needs filled in before D/C Order can be placed): Home Health Service Charges/Coding Visit Charges Inpatient E&M: 43559 Disch Hosp
--- NOTE | 2022-01-30 17:19 | NURSING ---
Switched from hospital wound vac to home vac.
[2022-01-30 17:20] LABS: Bedside Glucose 174 mg/dL (74-106)
== END 2022-01-30 18:32 | disposition home health service (06) | DRG 239 ==
LOC: ED 18:16 → MS3 19:41
PROVIDERS: Anesthesiology; Internal Medicine; Internal Medicine Infectious Disease; Podiatrist; Admitting Provider Hospitalist; Emergency Provider Emergency Medicine; Visit Provider Internal Medicine
PROC: 0Y6M0ZF Detachment at Right Foot, Partial 5th Ray, Open Approach (ICD-10-PCS; principal; 2022-01-27 13:30)
DX: E11.52 Type 2 diabetes mellitus with diabetic peripheral angiopathy with gangrene (principal); A48.0 Gas gangrene; M86.171 Other acute osteomyelitis, right ankle and foot; L03.115 Cellulitis of right lower limb; Z68.41 Body mass index [BMI] 40.0-44.9, adult; L02.611 Cutaneous abscess of right foot; E11.40 Type 2 diabetes mellitus with diabetic neuropathy, unspecified; B96.1 Klebsiella pneumoniae [K. pneumoniae] as the cause of diseases classified elsewhere; B96.4 Proteus (mirabilis) (morganii) as the cause of diseases classified elsewhere; E11.621 Type 2 diabetes mellitus with foot ulcer; L97.514 Non-pressure chronic ulcer of other part of right foot with necrosis of bone; E11.69 Type 2 diabetes mellitus with other specified complication; E11.65 Type 2 diabetes mellitus with hyperglycemia; E66.01 Morbid (severe) obesity due to excess calories; M60.9 Myositis, unspecified; Z79.84 Long term (current) use of oral hypoglycemic drugs; Z79.899 Other long term (current) drug therapy
CPT/HCPCS: 36415; 73590; 73610; 73630; 80048; 80202; 82962; 83036; 83605; 83735; 84100; 85025; 85652; 86140; 87015; 87040; 87070; 87075; 87077; 87102; 87116; 87176; 87186; 87205; 87206; 88304; 88305; 88307; 88311; 93005; 99283; J7030; J7040; J7050; A4216; J2405

== ENCOUNTER → 2022-02-05 | Outpatient (CLI) | payer SELFPAY ==
[2022-02-05 17:47] LABS: Absolute Lymphocyte Count 1.57 X10^3/uL (0.83-4.51); Absolute Neutrophil Count 4.7 X10^3/uL (2.0-7.7); Basophil# 0.03 X10^3/uL; Basophil% 0.4 % (0-1); Eosinophil# 0.05 X10^3/uL; Eosinophils% 0.7 % (0-5); Hematocrit 35.6 % (40-54); Hemoglobin 11.6 g/dL (13.0-16.5); Lymphocyte # 1.57 X10^3/ul (0.83-4.51); Lymphocyte % 22.5 % (19-41); Mean Corp Hgb Conc 32.6 g/dL (32-36); Mean Platelet Vol. 8.9 fl (6.2-12.0); Monocyte% 8.6 % (0-10); NRBC Flagged by Analyzer 0 % (0-5); Neutrophil # 4.67 X10^3/uL (2.7-7.7); Neutrophil % 67.1 % (47-70); Platelet Count 331 K/mm3 (150-450); RBC Distribution Width CV 12.3 % (11.6-14.6); RBC Distribution Width SD 40.4 fl (35.1-43.9); Red Blood Count 3.87 M/mm3 (4.6-6.2)
[2022-02-05 18:16] LABS: ALB/GLOB Ratio 0.6 RATIO (0.9-2.4); AST(SGOT) 19 U/L (15-37); Alanine Aminotransfer ALT/SGPT 31 U/L (16-61); Albumin, Serum 2.8 g/dL (3.2-5.0); Alkaline Phosphatase 49 U/L (45-117); Anion Gap 10 (5-15); BUN 23 mg/dL (7-18); BUN/Creat Ratio 21.9 RATIO (10-20); Calcium,Total 8.9 mg/dL (8.5-10.1); Chloride 106 mmol/L (98-107); Creatinine, Serum 1.05 mg/dL (0.70-1.30); EST Glomerular Filtration Rate 76 mL/min (>60); Est Glom Filt Rate - Afr Amer 92 mL/min (>60); Globulin 4.7 g/dL (2.2-4.2); Glucose 79 mg/dL (74-106); Potassium 3.4 mmol/L (3.5-5.1); Protein, Total 7.5 g/dL (6.4-8.2); Sodium Level 141 mmol/L (136-145)
== END | disposition home or self-care (01) ==
PROVIDERS: Referring Provider Podiatrist; Visit Provider Podiatrist
DX: L03.115 Cellulitis of right lower limb (principal)
CPT/HCPCS: 36415; 80053; 85025

== ENCOUNTER 2022-02-19 13:29 | Emergency (ER) | payer OTHER, SELFPAY ==
[2022-02-19 13:30] VITALS: BP 164/102; PULSE 92; RESP 18; TEMP 36.9; O2SAT 96; BMI 33.3
--- NOTE | 2022-02-19 14:06 | ED.VIS.LOWEX ---
HPI History of Present Illness Chief Complaint: Lower Extremity Injury Narrative Narrative: Patient had surgery/fasciotomy by Dr. Cabrales 2 to 3 weeks ago in his right lower leg/foot because of an infection that was infected and not healing. He states since then he has been doing very well, the incision is improving and healing, he has been walking around and getting around very well with minimal discomfort and no swelling. He was sent for an ultrasound of his right lower extremity today which showed a small area that could be clotted in the gastroc vein and is otherwise normal. Patient does not take antiplatelets or anticoagulant medications. Denies any chest pain, shortness of breath, palpitations, syncope, or any other issues. PFSH PFSH Medical History Diabetes Diabetic foot ulcer Infected ulcer of skin Non-smoker Home Medications metformin 1,000 mg tablet 1,000 mg PO BID 01/26/22 [History Last Taken Unknown] ciprofloxacin HCl 500 mg tablet (Cipro) 500 mg PO Q12H #80 tabs 01/30/22 [Rx Last Taken Unknown] doxycycline hyclate 100 mg capsule 100 mg PO Q12H #80 caps 01/30/22 [Rx Last Taken Unknown] metronidazole 500 mg tablet 500 mg PO Q8H 14 days #42 tabs 01/30/22 [Rx Last Taken Unknown] Allergy/AdvReac Type Severity Reaction Status Date / Time No Known Allergies Allergy Verified 02/19/22 13:32 Family History Other Hypertension Social History Smoking Status: Never smoker ROS ROS ED Constitutional Constitutional ED: Denies chills or fever(s) Musculoskeletal Musculoskeletal: Reports extremity pain; Denies neck pain Integumentary Reports wounds; Denies Abrasions or rash Neurologic Neurologic: Denies paresthesias or weakness EXAM Physical Exam Const Vital Signs: 02/19/22 13:30 Temperature 98.5 F Temperature Source Temporal Pulse Rate 92 Respiratory Rate 18 Blood Pressure 164/102 H Blood Pressure Mean 122 Pulse Ox 96 Oxygen Delivery Method Room Air Positive well nourished and well developed General Appearance ED: well developed and NAD Neck full ROM and supple Back/Spine normal ROM and normal to inspection Extremity Extremity Narrative: Healing wounds that are dressed and wrapped right lower leg and foot. No signs of infection or drainage or bleeding. No calf tenderness. Mild edema in the foot only. Neurovascular intact distally. Neuro oriented x3, no focal motor deficits and no sensory deficits noted Sensorium / Orientation: alert Psych mental status grossly normal and thought process normal Skin Skin Narrative: Right lower extremity surgical wounds healing see above Rashes: no rashes MDM MDM MDM Narrative Medical decision making narrative: Patient's vascular ultrasound shows a gastroc vein DVT. There are no other areas of thrombosis. Patient is not symptomatic of this, and he has been doing well and getting around well on his feet. I discussed with Dr. Bey, who covers for vascular. He agrees that the patient does not need to be anticoagulated for this, he recommend serial ultrasounds day 3, 10, 30, and if the clot progresses to the popliteal vein, then at that point he would require anticoagulation but that is less likely especially since patient is mobile and doing well. I set the patient up for these recurrent ultrasounds, I attempted to discuss with his PCP, but we were not able to get through even during business hours to any person in the office to discuss. I am having the patient take a daily aspirin in the meantime. Discussed at length with them, they are comfortable with this plan. Discharge Plan Triage Chief Complaint: Lower Extremity Injury ED Provider: Matthieu Ferrell Dx/Rx/DC Orders Clinical Impression: Acute deep vein thrombosis of right lower extremity Prescriptions: No Action metformin 1,000 mg Tablet 1,000 mg PO BID metronidazole 500 mg tablet 500 mg PO Q8H 14 Days Qty: 42 0RF ciprofloxacin HCl [Cipro] 500 mg tablet 500 mg PO Q12H Qty: 80 0RF doxycycline hyclate 100 mg capsule 100 mg PO Q12H Qty: 80 0RF Primary Care Provider: Lincoln Haley Referrals: Gabriel Bey MD [Med Staff - Active Staff] - None (May follow-up in 1 week if you are unable to get into your primary care doctor) Lincoln Haley MD [Primary Care Provider] - (7-10 days, call for appointment) Activity Restrictions/Additional Instructions: Take aspirin 1 pill daily, 325 mg. You will need repeat imaging on days 3, 10, 30, which will be Friday 02/23, Friday 03/02, and 03/19. Disposition Disposition: Home, Self Care
[2022-02-19] MEDS: Aspirin 325 MG Tablet PO (14:37)
== END 2022-02-19 15:18 | disposition home or self-care (01) ==
PROVIDERS: Emergency Provider Emergency Medicine; PCP Family Medicine; Visit Provider Emergency Medicine
DX: I82.461 Acute embolism and thrombosis of right calf muscular vein (principal); E11.9 Type 2 diabetes mellitus without complications; Z79.84 Long term (current) use of oral hypoglycemic drugs
CPT/HCPCS: 99283

== ENCOUNTER → 2022-02-19 | Outpatient (CLI) | payer SELFPAY, OTHER ==
[2022-02-19 12:45] LABS: Absolute Lymphocyte Count 1.46 X10^3/uL (0.83-4.51); Absolute Neutrophil Count 2.6 X10^3/uL (2.0-7.7); Basophil# 0.02 X10^3/uL; Basophil% 0.4 % (0-1); Eosinophil# 0.11 X10^3/uL; Eosinophils% 2.4 % (0-5); Hematocrit 34.9 % (40-54); Hemoglobin 11.6 g/dL (13.0-16.5); Lymphocyte # 1.46 X10^3/ul (0.83-4.51); Lymphocyte % 31.5 % (19-41); Mean Corp Hgb Conc 33.2 g/dL (32-36); Mean Corpuscular Hgb 30.4 pg (27.0-32.0); Mean Corpuscular Volume 91.6 fL (80-94); Mean Platelet Vol. 8.9 fl (6.2-12.0); Monocyte# 0.45 X10^3/uL; Monocyte% 9.7 % (0-10); NRBC Flagged by Analyzer 0 % (0-5); Neutrophil # 2.57 X10^3/uL (2.7-7.7); Neutrophil % 55.6 % (47-70); Platelet Count 170 K/mm3 (150-450); RBC Distribution Width SD 43.7 fl (35.1-43.9); Red Blood Count 3.81 M/mm3 (4.6-6.2); White Blood Count 4.6 K/mm3 (4.4-11.0)
--- NOTE | 2022-02-19 12:51 | VDLE_ITS ---
Reason For Study: DVT RLE RIGHT GSV is normal. CFV is compressible, spontaneous, phasic, competent and demonstrates normal augmentation. FV is compressible, spontaneous, phasic, competent and demonstrates normal augmentation. POP V is compressible, spontaneous, phasic, competent and demonstrates normal augmentation. T/P Trunk is compressible. PTV is compressible. RT PerV is compressible. Gastroc V is dilated and noncompressible. Procedure This is a venous duplex using B-mode, color flow and spectral Doppler. Exam performed in department. The exam was abbreviated due to the COVID 19 protocol. The exam was diagnostic. A preliminary report was called and/or faxed to Dr. Cabrales. VL/Venous Duplex US, Unilateral Interpretation Summary Acute deep venous thrombosis right gastrocnemius vein. No evidence for proximal extension. Patent and compressible right great saphenous vein. Abbreviated COVID-19 protocol utilized Ordering Physician: Masoud Cabrales Performed By: Alexx River RVT
[2022-02-19 13:16] LABS: ALB/GLOB Ratio 0.6 RATIO (0.9-2.4); AST(SGOT) 12 U/L (15-37); Alanine Aminotransfer ALT/SGPT 18 U/L (16-61); Albumin, Serum 2.9 g/dL (3.2-5.0); Alkaline Phosphatase 48 U/L (45-117); Anion Gap 6 (5-15); BUN 25 mg/dL (7-18); BUN/Creat Ratio 26.9 RATIO (10-20); Calcium,Total 9.1 mg/dL (8.5-10.1); Chloride 104 mmol/L (98-107); Creatinine, Serum 0.93 mg/dL (0.70-1.30); EST Glomerular Filtration Rate 87 mL/min (>60); Est Glom Filt Rate - Afr Amer 106 mL/min (>60); Globulin 4.6 g/dL (2.2-4.2); Glucose 103 mg/dL (74-106); Potassium 4.4 mmol/L (3.5-5.1); Protein, Total 7.5 g/dL (6.4-8.2); Sodium Level 140 mmol/L (136-145)
== END | disposition home or self-care (01) ==
PROVIDERS: PCP Family Medicine; Referring Provider Podiatrist; Visit Provider Podiatrist
DX: I82.461 Acute embolism and thrombosis of right calf muscular vein (principal)
CPT/HCPCS: 36415; 80053; 85025; 93971

== ENCOUNTER → 2022-02-24 | Outpatient (CLI) | payer SELFPAY, OTHER ==
--- NOTE | 2022-02-24 12:29 | VDLE_ITS ---
Reason For Study: DVT RIGHT GSV is normal. CFV is compressible, spontaneous, phasic, competent and demonstrates normal augmentation. FV is compressible, spontaneous, phasic, competent and demonstrates normal augmentation. POP V is compressible, spontaneous, phasic, competent and demonstrates normal augmentation. T/P Trunk is compressible. PTV is compressible. RT PerV is compressible. Gastroc V is dilated and noncompressible. Compared to 02/19/2022. Procedure This is a venous duplex using B-mode, color flow and spectral Doppler. Exam performed in department. A preliminary report was called and/or faxed to PCP: Tera and Foot&Ankle: Keron. VL/Venous Duplex US, Unilateral Interpretation Summary Deep venous thrombosis right gastrocnemius vein with no significant change from February 19, 2022. No evidence of proximal progression Patent and compressible right great saphenous vein Ordering Physician: Matthieu Ferrell Referring Physician: Lincoln Haley Performed By: Esperanza gM RVT
== END | disposition home or self-care (01) ==
PROVIDERS: PCP Family Medicine; Referring Provider Emergency Medicine; Visit Provider Emergency Medicine
DX: I82.461 Acute embolism and thrombosis of right calf muscular vein (principal)
CPT/HCPCS: 93971

== ENCOUNTER → 2022-03-03 | Outpatient (CLI) | payer SELFPAY, OTHER ==
--- NOTE | 2022-03-03 13:02 | VDLE_ITS ---
Reason For Study: DVT RIGHT GSV is normal. CFV is compressible, spontaneous, phasic, competent and demonstrates normal augmentation. FV is compressible, spontaneous, phasic, competent and demonstrates normal augmentation. POP V is compressible, spontaneous, phasic, competent and demonstrates normal augmentation. T/P Trunk is compressible. PTV is compressible. RT PerV is compressible. Gastroc V is now partially compressible. Improvement noted from previous study done 02/24/22. Procedure This is a venous duplex using B-mode, color flow and spectral Doppler. Exam performed in department. The exam was abbreviated due to the COVID 19 protocol. The exam was diagnostic. A preliminary report was called and/or faxed to Maurilio at Dr. Cabrales's office. VL/Venous Duplex US, Unilateral Interpretation Summary Deep venous thrombosis right gastrocnemius vein. Partial compressibility identi fied. Improvement from the previous study of February 24, 2022 No evidence for proximal progression. Patent and compressible right great saphenous vein Abbreviated COVID-19 protocol utilized Ordering Physician: Matthieu Ferrell Referring Physician: Lincoln Haley Performed By: Alexx River RVT
== END | disposition home or self-care (01) ==
LOC: CVS 13:00
PROVIDERS: PCP Family Medicine; Referring Provider Emergency Medicine; Visit Provider Emergency Medicine
DX: I82.461 Acute embolism and thrombosis of right calf muscular vein (principal)
CPT/HCPCS: 93971

== ENCOUNTER → 2022-03-19 | Outpatient (CLI) | payer SELFPAY ==
--- NOTE | 2022-03-19 13:01 | VDLE_ITS ---
Reason For Study: DVT RIGHT GSV is normal. CFV is compressible, spontaneous, phasic, competent and demonstrates normal augmentation. FV is compressible, spontaneous, phasic, competent and demonstrates normal augmentation. POP V is compressible, spontaneous, phasic, competent and demonstrates normal augmentation. T/P Trunk is compressible. PTV is compressible. RT PerV is compressible. Gastroc V is now compressible. Procedure This is a venous duplex using B-mode, color flow and spectral Doppler. Exam performed in department. The exam was abbreviated due to the COVID 19 protocol. The exam was diagnostic. VL/Venous Duplex US, Unilateral Interpretation Summary There is no evidence of right lower extremity deep vein thrombosis. Right great saphenous vein appears patent and compressible segmentally. Abbreviated COVID-19 protocol util ized Seemingly resolved right gastrocnemius vein deep venous thrombosis Ordering Physician: Matthieu Ferrell Referring Physician: Lincoln Haley Performed By: Alexx River RVT
== END | disposition home or self-care (01) ==
PROVIDERS: PCP Family Medicine; Referring Provider Emergency Medicine; Visit Provider Emergency Medicine
DX: I82.401 Acute embolism and thrombosis of unspecified deep veins of right lower extremity (principal)
CPT/HCPCS: 93971

== ENCOUNTER → 2023-02-12 | Outpatient (CLI) | payer SELFPAY ==
[2023-02-12 14:59] LABS: Absolute Lymphocyte Count 1.13 X10^3/uL (0.83-4.51); Absolute Neutrophil Count 8.8 X10^3/uL (2.0-7.7); Basophil# 0.02 X10^3/uL; Basophil% 0.2 % (0-1); Eosinophil# 0.04 X10^3/uL; Eosinophils% 0.4 % (0-5); Hematocrit 34.1 % (40-54); Hemoglobin 11.4 g/dL (13.0-16.5); Lymphocyte # 1.13 X10^3/ul (0.83-4.51); Lymphocyte % 10.4 % (19-41); Mean Corp Hgb Conc 33.4 g/dL (32-36); Mean Corpuscular Hgb 30.8 pg (27.0-32.0); Mean Corpuscular Volume 92.2 fL (80-94); Mean Platelet Vol. 10.1 fl (6.2-12.0); Monocyte# 0.86 X10^3/uL; Monocyte% 7.9 % (0-10); NRBC Flagged by Analyzer 0 % (0-5); Neutrophil # 8.75 X10^3/uL (2.7-7.7); Neutrophil % 80.8 % (47-70); Platelet Count 228 K/mm3 (150-450); RBC Distribution Width CV 11.5 % (11.6-14.6); RBC Distribution Width SD 38.9 fl (35.1-43.9); White Blood Count 10.8 K/mm3 (4.4-11.0)
[2023-02-12 15:30] LABS: ALB/GLOB Ratio 0.7 RATIO (0.9-2.4); AST(SGOT) 7 U/L (15-37); Alanine Aminotransfer ALT/SGPT 20 U/L (16-61); Albumin, Serum 3.1 g/dL (3.2-5.0); Alkaline Phosphatase 71 U/L (45-117); Anion Gap 6 (5-15); BUN 29 mg/dL (7-18); BUN/Creat Ratio 19.9 RATIO (10-20); Chloride 102 mmol/L (98-107); Creatinine, Serum 1.46 mg/dL (0.70-1.30); EST Glomerular Filtration Rate 52 mL/min (>60); Est Glom Filt Rate - Afr Amer 63 mL/min (>60); Globulin 4.2 g/dL (2.2-4.2); Glucose 314 mg/dL (74-106); Potassium 4.3 mmol/L (3.5-5.1); Protein, Total 7.3 g/dL (6.4-8.2); Sodium Level 134 mmol/L (136-145)
== END | disposition home or self-care (01) ==
PROVIDERS: PCP Family Medicine; Referring Provider Podiatrist; Visit Provider Podiatrist
DX: L03.116 Cellulitis of left lower limb (principal)
CPT/HCPCS: 36415; 80053; 85025; 87070; 87075; 87077; 87186; 87205

== ENCOUNTER 2023-02-16 12:20 | Inpatient (IN) | payer OTHER, SELFPAY ==
[2023-02-16 12:21] VITALS: BP 160/87; PULSE 79; RESP 14; TEMP 36.2; O2SAT 99; BMI 36.3
--- NOTE | 2023-02-16 13:35 | RAD_ITS ---
STUDY: X-RAY - LEFT FOOT CLINICAL: Male, 62 years old. Wound at the plantar aspect of the left foot with pain and redness. TECHNIQUE: 3 view(s) of the foot. COMPARISON: None. FINDINGS: Normal talus, calcaneus, and tarsal bones. Normal visualized subtalar, talonavicular, calcaneocuboid, tarsal and tarsometatarsal articulations. Normal metatarsi. Normal metatarsophalangeal joint of the great toe. Normal tibial and fibular sesamoid bones. Normal interphalangeal joint of the great toe. Normal phalanges of the great toe. Normal second through fifth metatarsophalangeal joints. Normal interphalangeal joints and phalanges of the lesser toes. Diffuse soft tissue swelling. Vascular calcification. RAD/Foot min 3 Views IMPRESSION: Soft tissue swelling. Vascular calcification. Electronically Signed: Tolu Chandler MD at 14:26 EDT ,
[2023-02-16 13:50] LABS: Absolute Lymphocyte Count 1.38 X10^3/uL (0.83-4.51); Absolute Neutrophil Count 8.2 X10^3/uL (2.0-7.7); Basophil# 0.03 X10^3/uL; Basophil% 0.3 % (0-1); Eosinophil# 0.14 X10^3/uL; Eosinophils% 1.3 % (0-5); Hematocrit 34.1 % (40-54); Hemoglobin 11.4 g/dL (13.0-16.5); Lymphocyte # 1.38 X10^3/ul (0.83-4.51); Mean Corp Hgb Conc 33.4 g/dL (32-36); Mean Corpuscular Hgb 30.6 pg (27.0-32.0); Mean Corpuscular Volume 91.7 fL (80-94); Mean Platelet Vol. 9.2 fl (6.2-12.0); Monocyte# 0.77 X10^3/uL; Monocyte% 7.3 % (0-10); NRBC Flagged by Analyzer 0 % (0-5); Neutrophil # 8.17 X10^3/uL (2.7-7.7); Neutrophil % 77.2 % (47-70); Platelet Count 293 K/mm3 (150-450); RBC Distribution Width CV 11.6 % (11.6-14.6); RBC Distribution Width SD 38.9 fl (35.1-43.9); Red Blood Count 3.72 M/mm3 (4.6-6.2); White Blood Count 10.6 K/mm3 (4.4-11.0)
[2023-02-16 13:58] LABS: Prothrombin Time (Protime)PT. 13.5 SECONDS (11.7-14.9)
[2023-02-16 14:00] LABS: Partial Thromboplast Time 40.3 Seconds (24.1-36.2)
[2023-02-16 14:04] LABS: Anion Gap 5 (5-15); BUN 29 mg/dL (7-18); Calcium,Total 9.2 mg/dL (8.5-10.1); Chloride 104 mmol/L (98-107); Creatinine, Serum 1.32 mg/dL (0.70-1.30); EST Glomerular Filtration Rate 58 mL/min (>60); Est Glom Filt Rate - Afr Amer 70 mL/min (>60); Estimated Creatinine Clearance 47.34 ml/min; Glucose 126 mg/dL (74-106); Potassium 4.5 mmol/L (3.5-5.1); Sodium Level 138 mmol/L (136-145)
[2023-02-16] MEDS: Ampicillin/Sulbactam 3 GM in 0.9% Normal Saline (100mL MB+) 100 ML IV ×2 (14:11→21:53)
[2023-02-16 14:12] LABS: Lactic Acid 1.9 mmol/L (0.4-1.9)
[2023-02-16 14:20] VITALS: PULSE 80; RESP 18; O2SAT 99
--- NOTE | 2023-02-16 14:28 | ED.VIS.LOWEX ---
HPI History of Present Illness HPI Narrative: Patient presents with pain and swelling to his left foot that has been getting worse over the past week. Patient states he has been taking antibiotics with no improvement. Patient states he saw his ict sales assistant today who referred him to the emergency department for admission for IV antibiotics. Patient admits to some numbness and tingling into his toes at times. Patient describes his pain as dull. Patient states nothing makes it better and nothing makes it worse. Patient denies any fevers or chills. Patient denies any discharge or drainage. Chief Complaint: Wound Check Informant: patient Onset/Context/Timing Onset: Weeks (1) Context: Gradual Onset Timing: Continuous Quality of Pain: Dull Location: Left foot Worsened by: Nothing Relieved by: Nothing Associated Symptoms Associated Symptoms: Positive for Parasthesia; Negative for Weakness or Loss of Funtion PFSH PFSH Medical History Diabetes Diabetic foot ulcer Infected ulcer of skin Non-smoker Home Medications metformin 1,000 mg tablet 1,000 mg PO BID 01/26/22 [History Last Taken 02/16/23] clindamycin HCl 300 mg capsule 300 mg PO Q8H 02/16/23 [History Last Taken 02/16/23] levofloxacin 750 mg tablet 750 mg PO Q24H 02/16/23 [History Last Taken 02/15/23] Allergy/AdvReac Type Severity Reaction Status Date / Time No Known Allergies Allergy Verified 02/16/23 12:22 Family History Other Hypertension Social History household members: spouse Smoking Status: Never smoker ROS ROS ED Constitutional Constitutional ED: Denies chills or fever(s) Eyes Eyes: Denies blurry vision or change in vision ENT ENT ED: Denies rhinorrhea or sore throat Cardiovascular Cardiovascular: Denies chest pain or palpitations Respiratory/Chest Respiratory/Chest: Denies cough or dyspnea Gastrointestinal Gastrointestinal: Denies nausea or vomiting Genitourinary Genitourinary ED: Denies dysuria or hematuria Musculoskeletal Musculoskeletal: Denies back pain or neck pain Integumentary Denies abscess or rash Neurologic Neurologic: Denies headache(s) or weakness Allergic/Immunologic Allergic/Immunologic ED: Denies mouth swelling or urticaria EXAM Physical Exam Const Vital Signs: 02/16/23 12:21 02/16/23 14:20 02/16/23 15:00 Temperature 97.2 F L 97.8 F Temperature Source Temporal Temporal Pulse Rate 79 80 82 Respiratory Rate 14 18 18 Blood Pressure 160/87 H 163/98 H Blood Pressure Mean 111 119 Pulse Ox 99 99 98 Oxygen Delivery Method Room Air Room Air Room Air Positive well nourished and well developed General Appearance ED: well developed and NAD HEENT Reports moist mucous membranes Neck full ROM and supple Extremity Extremity Narrative: There is edema, erythema, and warmth over the distal metatarsals of the left foot. There is minimal tenderness to palpation. There is no discharge or drainage. There is mild fluctuance on the plantar aspect. Sensation was intact to light touch in all digits. Capillary refill was less than 2 seconds in all digits. There is a good pedal pulse noted. Neuro oriented x3, CN's II-XII intact bilaterally, moves all extremities and no sensory deficits noted Sensorium / Orientation: alert Motor Exam: strength 5/5 throughout Psych mental status grossly normal MDM MDM MDM Narrative Medical decision making narrative: Differential diagnosis includes diabetic wound infection, cellulitis, sepsis, and osteomyelitis. X-rays of the left foot will be obtained to assess for osteomyelitis. CBC will be obtained to assess for leukocytosis and anemia. Basic metabolic profile will be obtained to assess for electrolyte abnormality and renal function. PT with INR and PTT will be obtained to assess for coagulopathy. Blood cultures will be obtained to assess for sepsis. Lactate will be obtained to assess for sepsis. Lab Data Attestation: I reviewed the patient's lab results. Lab results narrative: CBC was reviewed. There is a mild anemia with a hemoglobin of 11.4 and hematocrit 34.1. Basic metabolic profile was reviewed. BUN was 29 and creatinine was 1.32. These are consistent with prior results. Lactate was reviewed and was normal at 1.9. PT was INR and PTT were reviewed and were within normal limits. Labs: Laboratory Results - last 24 hr 02/16/23 13:40 WBC 10.6 RBC 3.72 L Hgb 11.4 L Hct 34.1 L MCV 91.7 MCH 30.6 MCHC 33.4 RDW Std Deviation 38.9 RDW Coeff of Neftali 11.6 Plt Count 293 MPV 9.2 Immature Gran % (Auto) 0.900 Neut % (Auto) 77.2 H Lymph % (Auto) 13.0 L [place] % (Auto) 7.3 Eos % (Auto) 1.3 Baso % (Auto) 0.3 Absolute Neuts (auto) 8.2 H Absolute Lymphs (auto) 1.38 Nucleated RBC % 0 PT 13.5 INR 1.0 APTT 40.3 H Sodium 138 Potassium 4.5 Chloride 104 Carbon Dioxide 29.0 Anion Gap 5 BUN 29 H Creatinine 1.32 H Estim Creat Clear Calc 47.34 Est GFR (MDRD) Af Amer 70 Est GFR (MDRD) Non-Af 58 L BUN/Creatinine Ratio 22.0 H Glucose 126 H Lactic Acid 1.9 Calcium 9.2 Radiography Diagnostic Testing: Clinical Impression(s) from Imaging Studies Foot X-Ray 02/16/23 13:35 IMPRESSION: Soft tissue swelling. Vascular calcification. Electronically Signed: Tolu Chandler MD at 14:26 EDT , X-rays of the left foot were obtained. There are 3 views. On my independent interpretation, there is no acute fracture or dislocation. There is soft tissue swelling. There is no gas formation noted. There is no evidence of periosteal reaction. There are vascular calcifications noted. Radiologist also interpreted the x-rays and agrees. Management Discussion w/another healthcare provider: Hospitalist Treatment and Re-Evaluation Narrative: Patient was given a dose of Unasyn, Flagyl, and vancomycin. Patient is feeling better on reevaluation. Case was discussed with the hospitalist. He will admit the patient to his service. Patient and family understood and were agreeable with the plan. All questions were answered. Discharge Plan Dx/Rx/DC Orders Clinical Impression: Diabetic infection of left foot, Diabetes Disposition Disposition: Acute Care Hospital [facility]
[2023-02-16 15:00] VITALS: BP 163/98; PULSE 82; RESP 18; TEMP 36.6; O2SAT 98
[2023-02-16] MEDS: metroNIDAZOLE 500 MG/100 ML BAG 100 MG IV (15:06)
--- NOTE | 2023-02-16 15:50 | NURSING ---
MED SURG TERELETSCHAYO DIABETIC FOOT INFECTION, DIABETES
--- NOTE | 2023-02-16 16:27 | MRI_ITS ---
STUDY: MRI LEFT FOREFOOT WITHOUT CONTRAST REASON FOR EXAM: Male, 62 years old. Left foot infection, R/O osteomyelitis, edema, erythema, wound distal TECHNIQUE: Standardized fat and water weighted pulse sequences were obtained in all 3 orthogonal planes. COMPARISON: X-ray FINDINGS: There is mild joint space narrowing and spurring of the metatarsophalangeal joint of the hallux. Normal tibial and fibular sesamoids, with normal sesamoids-first metatarsal articulations. Normal interphalangeal joint of the hallux. Normal proximal and distal phalanges of the great toe. Normal medial and lateral heads of the flexor hallucis brevis tendons. Normal flexor and extensor hallucis longus tendons. Normal second through fifth metatarsophalangeal (MTP) joints. Normal interphalangeal joints of the second through fifth toes. There is marrow edema of the second metatarsal head and proximal phalanx. Normal proximal, middle and distal phalanges of the third through fifth toes. There is muscular atrophy. There is fluid in the sheath of the extensor tendons. There is soft tissue swelling with skin thickening and subcutaneous edema of the first and second submetatarsal regions and first interspace. There is focal defect on the plantar aspect consistent with wound. MRI/Lower Ext/No Jt/w/o IMPRESSION: Soft tissue wound and swelling on the plantar aspect. Osteomyelitis of the second metatarsal and proximal phalanx. Electronically Signed: Matthieu Fitch MD at 19:29 EDT ,
[2023-02-16] MEDS: Vancomycin HCl 1,500 MG in 0.9% Normal Saline (500mL Bag) 500 ML 250 MG IV (16:36)
[2023-02-16 16:38] VITALS: BP 142/91; PULSE 84; RESP 18; TEMP 36.7
[2023-02-16 17:28] VITALS: BMI 36.1
[2023-02-16 17:38] VITALS: BP 190/112; PULSE 88; RESP 18; TEMP 37.8; O2SAT 98
--- NOTE | 2023-02-16 17:56 | CON.PCM_ITS ---
Assessment & Plan Assessment/Plan (1) Diabetic infection of left foot: (2) Cellulitis of foot, left: (3) Diabetes mellitus with diabetic polyneuropathy: PLAN: Plan Patient was admitted for cellulitis and concern for osteomyelitis, possible deep abscess left foot. Patient has been admitted under hospital medicine - appreciate assistance. Cultures from 02/12/23 reviewed. Patient has been started on IV antibiotics - Unasyn and Vancomycin, ID service will be consulted. Patient to get MRI on left foot. No weightbearing left foot. Podiatry will continue to follow. HPI Consult Data Date of Consult: 02/16/23 HPI Narrative Reason for Consultation: Left foot infection HPI Narrative: ANTONIO MCCLURE, is a 62 M who was sent to hospital due to left foot infection. He was seen in office today for follow up on left foot ulcer and infection, and it was noticed there was increased redness and swelling despite Clindamycin and Levofloxacin as outpatient. He has been admitted under hospital medicine service. He denies f/c/n/v. He is scheduled to have MRI on left foot today. He has been started on IV antibiotic therapy. PFSH Medical History Diabetes Diabetic foot ulcer Hypertension Infected ulcer of skin Non-smoker Home Medications metformin 1,000 mg tablet 1,000 mg PO BID 01/26/22 [History Last Taken 02/16/23] clindamycin HCl 300 mg capsule 300 mg PO Q8H 02/16/23 [History Last Taken 02/16/23] levofloxacin 750 mg tablet 750 mg PO Q24H 02/16/23 [History Last Taken 02/15/23] Allergy/AdvReac Type Severity Reaction Status Date / Time No Known Allergies Allergy Verified 02/16/23 12:22 Family History Other Hypertension Social History household members: spouse Smoking Status: Never smoker Physical Exam Narrative Left foot with ulceration plantar forefoot with maceration, down to subcutaneous tissue, there is edema to the foot and erythema/cellulitis to the forefoot extending to the hindfoot, no bogginess, no fluctuance, no visible abscess, no crepitus, no purulence noted at this time, there is no oder. CFT < 2 seconds to all toes on the left foot with no evidence of acute ischemia to the left foot, there is chronic peripheral neuropathy to the left foot, there is no POP or pain on ROM to the left foot. Const alert, oriented x3 and no apparent distress Lab / Micro Data 02/16/23 13:40 02/16/23 13:40 Labs: Laboratory Results - last 24 hr 02/16/23 13:40: WBC 10.6, RBC 3.72 L, Hgb 11.4 L, Hct 34.1 L, MCV 91.7, MCH 30.6, MCHC 33.4, RDW Std Deviation 38.9, RDW Coeff of Neftali 11.6, Plt Count 293, MPV 9.2, Immature Gran % (Auto) 0.900, Neut % (Auto) 77.2 H, Lymph % (Auto) 13.0 L, [place] % (Auto) 7.3, Eos % (Auto) 1.3, Baso % (Auto) 0.3, Absolute Neuts (auto) 8.2 H, Absolute Lymphs (auto) 1.38, Nucleated RBC % 0, PT 13.5, INR 1.0, APTT 40.3 H, Sodium 138, Potassium 4.5, Chloride 104, Carbon Dioxide 29.0, Anion Gap 5, BUN 29 H, Creatinine 1.32 H, Estim Creat Clear Calc 47.34, Est GFR (MDRD) Af Amer 70, Est GFR (MDRD) Non-Af 58 L, BUN/Creatinine Ratio 22.0 H, Glucose 126 H, Lactic Acid 1.9, Calcium 9.2 Radiology Impression Foot X-Ray 02/16/23 13:35 IMPRESSION: Soft tissue swelling. Vascular calcification. Electronically Signed: Tolu Chandler MD at 14:26 EDT ,
--- NOTE | 2023-02-16 18:10 | PCM.RX.CS ---
Consult Antibiotic Management Pharmacy has been consulted to manage selected antiobiotic: Vancomycin Type of Intervention Type of Consult: New start Suspected Infection Suspected Infection: Skin/Soft tissue Prior Doses of Antibiotics Prior Doses of Antibiotics Received/Current Regimen: received vanc 1500mg x1 in E.R. starting at 16:36 today Labs Labs: Sodium 138 mmol/L (136-145) 02/16/23 13:40 Potassium 4.5 mmol/L (3.5-5.1) 02/16/23 13:40 Chloride 104 mmol/L (98-107) 02/16/23 13:40 Carbon Dioxide 29.0 mmol/L (21.0-32.0) 02/16/23 13:40 Anion Gap 5 (5-15) 02/16/23 13:40 BUN 29 mg/dL (7-18) H 02/16/23 13:40 Creatinine 1.32 mg/dL (0.70-1.30) H 02/16/23 13:40 Est GFR (MDRD) Af Amer 70 mL/min (>60) 02/16/23 13:40 Est GFR (MDRD) Non-Af 58 mL/min (>60) L 02/16/23 13:40 BUN/Creatinine Ratio 22.0 RATIO (10-20) H 02/16/23 13:40 Glucose 126 mg/dL (74-106) H 02/16/23 13:40 Dosing Weight Weight used for dosin.5 kg Estimated Creatinine Clearance Estimated Creatinine Clearance: 58.9ml/min Goal Trough Goal Trough: 10-15 mcg/mL Pharmacy Plan for Drug Dosing Pharmacy Plan for Drug Dosing: Starting 12 hours after the E.R. dose, will continue with 750mg IV q12h. Will order a trough before the 4th total dose. The patient's CrCl of 58.9 ml/min was calculated using an adjusted body weight. Pharmacy Service will continue to monitor and adjust dosing as required. Follow-Up Labs Follow-Up Labs: Trough: Vancomycin Date/Time Labs Ordered Labs to be done on [date and time ordered]: 02/18/23 04:30
--- NOTE | 2023-02-16 20:10 | HP.PCM.HOS_ITS ---
HPI - General General Date of Admission: 02/16/23 Date of Service: 02/16/23 Chief Complaint: Left foot infection-failed outpatient treatment HPI Narrative ANTONIO MCCLURE, is a 62 M who presents to the emergency room at [facility] at the request of his tmd teacher assistant due to worsening erythema and probable infection/cellulitis of his left foot. Patient is a type II diabetic, he has had a history in the past of a right foot osteomyelitis and was treated last year for this. Patient states that approximately 10 days ago he noticed that his foot was getting slightly swollen over the plantar aspect proximal to the first and second metatarsal joints, he went on a trip to [place] and noticed when he came back from [place] later in the week that the area was even more reddened and swollen, he saw his tmd teacher assistant last Wednesday who placed him on Levaquin and clindamycin, it appears that cultures were obtained at that time also during that visit, the cultures resulted in showing Enterococcus faecalis, Staphylococcus hemolyticus, and coag negative staph. Patient was reevaluated today in his tmd teacher assistant office and his foot appeared more reddened than it was last week and it was requested he go to the emergency room. Evaluation in the emergency room included lab which showed a normal white blood cell count, hemoglobin was 11.4, creatinine was 1.32 and BUN was 29. Glucose was 126. A foot x-ray was done which showed no evidence of bony erosion, there was soft tissue swelling and vascular calcification noted. Patient will be admitted to [place] [id number], an MRI will be obtained on the patient's foot, he was placed on IV Unasyn and IV vancomycin. Blood sugars will be monitored PFSH Medical History Diabetes Diabetic foot ulcer Hypertension Infected ulcer of skin Non-smoker Home Medications metformin 1,000 mg tablet 1,000 mg PO BID 01/26/22 [History Last Taken 02/16/23] clindamycin HCl 300 mg capsule 300 mg PO Q8H 02/16/23 [History Last Taken 02/16/23] levofloxacin 750 mg tablet 750 mg PO Q24H 02/16/23 [History Last Taken 02/15/23] Allergy/AdvReac Type Severity Reaction Status Date / Time No Known Allergies Allergy Verified 02/16/23 12:22 Family History Other Hypertension Social History household members: spouse Smoking Status: Never smoker ROS Constitutional Constitutional: Denies anorexia, change in weight, chills, fatigue, fever(s), malaise, night sweats or weakness Eyes Eyes: Denies blurry vision, change in vision, discharge from eye(s) or eye pain Cardiovascular Cardiovascular: Denies chest pain, claudication, edema or palpitations Respiratory/Chest Respiratory/Chest: Denies cough, hemoptysis, shortness of breath at rest or shortness of breath with exertion Gastrointestinal Gastrointestinal: Denies abdominal pain, constipation, diarrhea, hematemesis, hematochezia, melena, nausea or vomiting Genitourinary Genitourinary: Denies dysuria, hematuria, urinary frequency, urinary hesitancy, urinary incontinence or urinary urgency Musculoskeletal Musculoskeletal: Denies back pain, joint pain, joint stiffness, joint swelling, myalgias or neck pain Neurologic Neurologic: Reports numbness and other Details: Patient has decreased sensation in his feet to light touch and pinprick ; Denies abnormal gait, abnormal speech, dizziness, focal weakness, headache(s), loss of vision, other visual disturbances, paresthesias, syncope or tingling Psychiatric Psychiatric: Denies anxiety, cognitive impairment, depression, irritability, mood swings or suicidal ideation Endocrine Endocrinology: Denies change in body appearance, cold intolerance, excessive sweating, heat intolerance, polydipsia or polyuria Hematologic/Lymphatic Hematologic/Lymphatic: Denies none, anemia, easy bleeding, easy bruising or lymphadenopathy Allergic/Immunologic Allergic/Immunologic: Denies rhinitis, urticaria, eczemia or asthma Vital Signs Vital Signs Vital Signs: 02/16/23 12:21 02/16/23 14:20 02/16/23 15:00 Temperature 97.2 F L 97.8 F Temperature Source Temporal Temporal Pulse Rate 79 80 82 Respiratory Rate 14 18 18 Blood Pressure 160/87 H 163/98 H Blood Pressure Mean 111 119 Blood Pressure Source Blood Pressure Position Blood Pressure Location Pulse Ox 99 99 98 Oxygen Delivery Method Room Air Room Air Room Air 02/16/23 16:38 02/16/23 17:38 Temperature 98.1 F 100.0 F H Temperature Source Temporal Oral Pulse Rate 84 88 Respiratory Rate 18 18 Blood Pressure 142/91 H 190/112 H Blood Pressure Mean 108 138 Blood Pressure Source Monitor Blood Pressure Position Semi-Fowlers Blood Pressure Location Right Arm Pulse Ox 98 Oxygen Delivery Method Room Air Weight Weight: 95.5 kg Body Mass Index (BMI) 36.1 Physical Exam Const alert, oriented x3, no apparent distress, average body habitus and healthy appearing General Appearance: cooperative, well kempt and well developed Orientation / Consciousness: awake, oriented to person, oriented to place and oriented to time HEENT normocephalic, head/scalp atraumatic, hearing grossly normal bilaterally and moist oral mucous membranes Eyes PERRL, EOMs intact bilaterally and conjunctivae normal Neck supple, no JVD, thyroid normal and no carotid bruits General: trachea midline Resp normal respiratory effort, no retractions, no use of accessory muscles and clear to auscultation bilaterally Auscultation: Negative for rales, rhonchi or wheezes Cardio regular rate, regular rhythm, S1 normal heart sound, S2 normal heart sound, no murmurs, no rub and no gallops GI normal to inspection, nondistended, normoactive bowel sounds, soft to palpation, non-tender and non-distended Extremity Extremity Narrative: There is an area of swelling and blanching of the skin over the plantar surface of the left foot near the first second and third metatarsal area on the patient's forefoot, there is also redness extending into the dorsum of the patient's left foot and generalized swelling of the patient's left foot. Skin no rashes or lesions noted General Skin Exam: no breakdown Neuro oriented x3, CN's II-XII intact bilaterally, moves all extremities and no focal motor deficits Neuro Narrative: Patient has decreased sensation to pinprick and light touch in the plantar surface of the feet Sensorium / Orientation: awake, alert, oriented to person, oriented to place and oriented to time Speech: speech normal Psych affect normal Results Lab / Micro Data 02/16/23 13:40 02/16/23 13:40 Labs: Laboratory Results - last 24 hr 02/16/23 13:40: WBC 10.6, RBC 3.72 L, Hgb 11.4 L, Hct 34.1 L, MCV 91.7, MCH 30.6, MCHC 33.4, RDW Std Deviation 38.9, RDW Coeff of Neftali 11.6, Plt Count 293, MPV 9.2, Immature Gran % (Auto) 0.900, Neut % (Auto) 77.2 H, Lymph % (Auto) 13.0 L, [place] % (Auto) 7.3, Eos % (Auto) 1.3, Baso % (Auto) 0.3, Absolute Neuts (auto) 8.2 H, Absolute Lymphs (auto) 1.38, Nucleated RBC % 0, PT 13.5, INR 1.0, APTT 40.3 H, Sodium 138, Potassium 4.5, Chloride 104, Carbon Dioxide 29.0, Anion Gap 5, BUN 29 H, Creatinine 1.32 H, Estim Creat Clear Calc 47.34, Est GFR (MDRD) Af Amer 70, Est GFR (MDRD) Non-Af 58 L, BUN/Creatinine Ratio 22.0 H, Glucose 126 H, Lactic Acid 1.9, Calcium 9.2 Radiology Impression Foot X-Ray 02/16/23 13:35 IMPRESSION: Soft tissue swelling. Vascular calcification. Electronically Signed: Tolu Chandler MD at 14:26 EDT , Lower Extremity MRI 02/16/23 16:27 IMPRESSION: Soft tissue wound and swelling on the plantar aspect. Osteomyelitis of the second metatarsal and proximal phalanx. Electronically Signed: Matthieu Fitch MD at 19:29 EDT , Assessment & Plan Assessment/Plan (1) Diabetes mellitus with diabetic polyneuropathy: PLAN: Plan 1. Deep wound infection of the left foot-secondary to diabetic neuropathy- patient will be admitted to [facility], he will be placed on IV Unasyn and vancomycin, patient will be seen in consultation by infectious diseases and be seen by podiatry in consultation. Patient will have an MRI of his foot performed to rule out osteomyelitis. #2 type 2 diabetes-patient's blood sugars will be monitored, he will remain on metformin #3 diabetic neuropathy-complicates care, medical course, recovery, and prognosis Total clinical time spent by raquelelf addressing the patient's medical issues, reviewing all of his data, and collaborating with the patient's care team: 55 minutes Charges/Coding Visit Charges Inpatient E&M: 74232 Init Hosp L2
--- NOTE | 2023-02-16 20:22 | PCM.HOSP.N ---
Hospitalist Note Additional note: I reviewed the patient's MRI results of his left foot later this evening, it showed osteomyelitis of the second metatarsal and proximal phalanx, I talked to Dr. Cabrales about the results, he stated the Dr. Rios will be seeing the patient tomorrow, I try to get a hold of Dr. Rios at the time of this dictation have not reached him yet but left a message by text for him to call me.
[2023-02-16] MEDS: 0.9% Normal Saline (250mL Bag) 250 ML 15 ML IV (21:53)
[2023-02-16] MEDS: Insulin Lispro 100 UNIT/ML INSULN.PEN SC (21:58)
[2023-02-16 22:00] VITALS: BP 134/89; PULSE 84; RESP 18; TEMP 37.3; O2SAT 93
[2023-02-17] VITALS (10 sets, daily range): BP systolic 137–187; BP diastolic 76–110; PULSE 72–89; RESP 16–18; TEMP 36.4–37.4; O2SAT 93–98
[2023-02-17 00:40] LABS: Bedside Glucose 163 mg/dL (74-106)
[2023-02-17] MEDS: Vancomycin HCl 750 MG in 0.9% Normal Saline (250mL Bag) 250 ML 250 MG IV ×2 (04:38→18:23)
[2023-02-17 06:05] LABS: Absolute Lymphocyte Count 1.32 X10^3/uL (0.83-4.51); Basophil# 0.03 X10^3/uL; Basophil% 0.4 % (0-1); Eosinophil# 0.14 X10^3/uL; Eosinophils% 1.7 % (0-5); Hematocrit 32.8 % (40-54); Hemoglobin 10.9 g/dL (13.0-16.5); Lymphocyte # 1.32 X10^3/ul (0.83-4.51); Lymphocyte % 16.3 % (19-41); Mean Corp Hgb Conc 33.2 g/dL (32-36); Mean Corpuscular Hgb 30.8 pg (27.0-32.0); Mean Corpuscular Volume 92.7 fL (80-94); Monocyte# 0.54 X10^3/uL; Monocyte% 6.7 % (0-10); NRBC Flagged by Analyzer 0 % (0-5); Neutrophil % 74.2 % (47-70); Platelet Count 285 K/mm3 (150-450); RBC Distribution Width CV 11.5 % (11.6-14.6); Red Blood Count 3.54 M/mm3 (4.6-6.2); White Blood Count 8.1 K/mm3 (4.4-11.0)
[2023-02-17] MEDS: Ampicillin/Sulbactam 3 GM in 0.9% Normal Saline (100mL MB+) 100 ML IV ×3 (06:36→22:39)
[2023-02-17 06:41] LABS: Anion Gap 4 (5-15); BUN 24 mg/dL (7-18); BUN/Creat Ratio 20.7 RATIO (10-20); Calcium,Total 8.8 mg/dL (8.5-10.1); Chloride 107 mmol/L (98-107); Creatinine, Serum 1.16 mg/dL (0.70-1.30); EST Glomerular Filtration Rate 67 mL/min (>60); Est Glom Filt Rate - Afr Amer 81 mL/min (>60); Estimated Creatinine Clearance 53.87 ml/min; Glucose 175 mg/dL (74-106); Potassium 4.3 mmol/L (3.5-5.1); Sodium Level 139 mmol/L (136-145)
[2023-02-17] MEDS: Insulin Lispro 100 UNIT/ML INSULN.PEN SC ×2 (06:41→22:44)
[2023-02-17 07:06] LABS: Bedside Glucose 160 mg/dL (74-106)
--- NOTE | 2023-02-17 07:34 | PCM.PN.HOSP ---
Reason for Visit Reason for Visit: Left foot wound Subjective Subjective Mr. 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 Patient is a type II diabetic and he has a history of right-sided foot osteomyelitis that he was treated for this past year. Patient reported that approximately 10 days ago he noticed his foot was getting slightly swollen over the plantar aspect of the proximal to first and second metatarsal. He went on a trip to [place] and noticed when he came back it had been worsening so he saw his medical physics professor last Wednesday who placed him on Levaquin and clindamycin. Cultures were obtained at that time and have since grown out Enterococcus faecalis, staph hemolyticus, and coag negative staph. The patient was reevaluated by medical physics professor on the day of admission and they felt that his foot appeared to be worsening and requested he come to the emergency department. Vital signs were stable on presentation but he was noted to be hypertensive. Normal white count but did present with a left shift at 77.2% neutrophilia. Coags are normal. His chemistry panel showed normal electrolytes but his BUN and serum creatinine were slightly elevated at 29 and 1.32. It appears his baseline previously had been between 0.9 and 1.2. Serum glucose was 126 at the time of presentation. There is not a recent hemoglobin A1c in our documentation with his most recent being from 01/27/2022 at which time it was 6.9. Based on the sensitivities of his previous culture he was placed on Unasyn and vancomycin and admitted to the medical floor with consultation infectious disease and podiatry. MRI was performed and is consistent with osteomyelitis. Denies any issues. Was somewhat resistant to the fact that he has hypertension but I did discuss the risks of having untreated hypertension he was willing to start medication. We did start lisinopril 20 mg with his diabetes we thought that this would be adequate medication as it will be renal protective as well. This was discussed with him. Objective Data Objective Data Vital Signs: Vital Signs Temp Pulse Resp BP Pulse Ox O2 Del Method 98.6 F 89 16 164/93 H 96 Room Air 02/17/23 04:25 02/17/23 04:25 02/17/23 04:25 02/17/23 06:00 02/17/23 04:25 02/17/23 04:25 Oxygen Delivery Method Room Air Weight: 95.5 kg Body Mass Index (BMI) 36.1 Intake & Output: Intake and Output for Last 24 Hours 02/15/23 02/16/23 02/17/23 23:59 23:59 23:59 Intake Total 707.33 / 707.33 377 / 377 Balance 707.33 / 707.33 377 / 377 Lab / Micro Data 02/17/23 05:40 02/17/23 05:40 Labs: Laboratory Results - last 24 hr 02/16/23 13:40: WBC 10.6, RBC 3.72 L, Hgb 11.4 L, Hct 34.1 L, MCV 91.7, MCH 30.6, MCHC 33.4, RDW Std Deviation 38.9, RDW Coeff of Neftali 11.6, Plt Count 293, MPV 9.2, Immature Gran % (Auto) 0.900, Neut % (Auto) 77.2 H, Lymph % (Auto) 13.0 L, [place] % (Auto) 7.3, Eos % (Auto) 1.3, Baso % (Auto) 0.3, Absolute Neuts (auto) 8.2 H, Absolute Lymphs (auto) 1.38, Nucleated RBC % 0, PT 13.5, INR 1.0, APTT 40.3 H, Sodium 138, Potassium 4.5, Chloride 104, Carbon Dioxide 29.0, Anion Gap 5, BUN 29 H, Creatinine 1.32 H, Estim Creat Clear Calc 47.34, Est GFR (MDRD) Af Amer 70, Est GFR (MDRD) Non-Af 58 L, BUN/Creatinine Ratio 22.0 H, Glucose 126 H, Lactic Acid 1.9, Calcium 9.2 02/16/23 21:51: POC Glucose 163 H 02/17/23 05:40: WBC 8.1, RBC 3.54 L, Hgb 10.9 L, Hct 32.8 L, MCV 92.7, MCH 30.8, MCHC 33.2, RDW Std Deviation 39.0, RDW Coeff of Neftali 11.5 L, Plt Count 285, MPV 9.0, Immature Gran % (Auto) 0.700, Neut % (Auto) 74.2 H, Lymph % (Auto) 16.3 L, [place] % (Auto) 6.7, Eos % (Auto) 1.7, Baso % (Auto) 0.4, Absolute Neuts (auto) 6.0, Absolute Lymphs (auto) 1.32, Nucleated RBC % 0, Sodium 139, Potassium 4.3, Chloride 107, Carbon Dioxide 28.0, Anion Gap 4 L, BUN 24 H, Creatinine 1.16, Estim Creat Clear Calc 53.87, Est GFR (MDRD) Af Amer 81, Est GFR (MDRD) Non-Af 67, BUN/Creatinine Ratio 20.7 H, Glucose 175 H, Calcium 8.8 02/17/23 06:40: POC Glucose 160 H Radiography Diagnostic Testing: Radiology Impression Foot X-Ray 02/16/23 13:35 IMPRESSION: Soft tissue swelling. Vascular calcification. Electronically Signed: Tolu Chandler MD at 14:26 EDT , Lower Extremity MRI 02/16/23 16:27 IMPRESSION: Soft tissue wound and swelling on the plantar aspect. Osteomyelitis of the second metatarsal and proximal phalanx. Electronically Signed: Matthieu Fitch MD at 19:29 EDT , Physical Exam Const alert, oriented x3, no apparent distress and well nourished; Negative for average body habitus Constitutional Narrative: Obese, extremely friendly, Reece, white male, sitting up in bed, at bedside, appears comfortable and nontoxic HEENT head/scalp atraumatic, moist oral mucous membranes and oropharynx normal HEENT Narrative: Dentition is poor, Mallampati 3, no thrush Head and Scalp: normocephalic Resp normal respiratory effort, no retractions, no use of accessory muscles and clear to auscultation bilaterally Auscultation: Negative for rales, rhonchi or wheezes Cardio regular rate, regular rhythm, S1 normal heart sound, S2 normal heart sound, no murmurs, no rub and no clicks; Negative for no gallops Cardio Narrative: S4 gallop present, no S3 GI normal to inspection, nondistended, normoactive bowel sounds, soft to palpation and non-tender Extremity no clubbing, cyanosis or edema Extremity Narrative: Pedal pulses are 2+, cap refill is 2+ Skin Skin Narrative: Left lower extremity wound dressing in place Neuro oriented x3, moves all extremities and no focal motor deficits Neuro Narrative: Decree sensation bilateral lower extremities Speech: speech normal Psych affect normal Psych Narrative: Very pleasant, talkative, interacts appropriately Assessment & Plan Assessment/Plan (1) Osteomyelitis of left foot: (2) Cellulitis of foot, left: (3) Diabetic infection of left foot: (4) HTN (hypertension): (5) Elevated serum creatinine: PLAN: Plan Cellulitis/osteomyelitis of the left foot due to diabetic foot infection -Recent cultures from 02/12/2023 show Enterococcus faecalis, staph hemolyticus, and coag negative staph -Continue Unasyn and vancomycin for now -MRI is consistent with osteomyelitis so patient will likely need amputation if he is agreeable -Podiatry consult is pending -ID consult is pending -Wound care consult is pending -Blood cultures are drawn however I doubt bacteremia -I did discuss extensively about appropriate diabetic foot care, wearing white socks and doing foot inspections on a daily basis. Patient states that he intermittently wears white socks but does not inspect his feet on a regular basis. Elevated serum creatinine -Baseline appears to be between 0.9 and 1.1 -Serum creatinine mission was 1.46 -Has improved within the last 24 hours to 1.26 today -Continue to monitor and avoid nephrotoxins as able DM-2 -Most recent hemoglobin A1c is year ago and it was 6.9 at that time had pain in his only on metformin at baseline -Hold metformin -SSI -Check hemoglobin A1c -Accu-Cheks as ordered -Diabetic diet Hypertension -The patient's blood pressure has been consistently elevated however he is on no home medications -We will start lisinopril 20 mg daily as this will help his blood pressure and also be renal protective with regards to his diabetes -As needed hydralazine available -Goal blood pressure less than 130/80 Diabetic neuropathy -Patient takes no medications for this -Complicates treatment, prognosis, outcomes and puts him at increased risk for future infections Obesity -BMI is 36.1 -Recommend weight loss -Complicates treatment, prognosis, outcomes DVT prophylaxis -Start enoxaparin 40 daily CODE STATUS -Currently full code but unverified will need to discuss with patient, at his previous visits he was DNR CCA with no intubation Charges/Coding Visit Charges Inpatient E&M: 13118 Subs Hosp L2
--- NOTE | 2023-02-17 07:50 | PN_ITS ---
Subjective Subjective Patient is a 62-year-old male who is seen today resting in bed with by side for acute diabetic foot infection with osteomyelitis second digit and metatarsal head. Patient states he is feeling better on IV antibiotics today. States he does not feel too much pain as he has neuropathy. Denies constitutional sy mptoms currently. Denies further complaints today. Objective Data Objective Data Vital Signs: Vital Signs Temp Pulse Resp BP Pulse Ox O2 Del Method 98.6 F 89 16 164/93 H 96 Room Air 02/17/23 04:25 02/17/23 04:25 02/17/23 04:25 02/17/23 06:00 02/17/23 04:25 02/17/23 04:25 Oxygen Delivery Method Room Air Weight: 95.5 kg Body Mass Index (BMI) 36.1 Intake & Output: Intake and Output for Last 24 Hours 02/15/23 02/16/23 02/17/23 23:59 23:59 23:59 Intake Total 707.33 / 707.33 377 / 377 Balance 707.33 / 707.33 377 / 377 Lab / Micro Data 02/17/23 05:40 02/17/23 05:40 Labs: Laboratory Results - last 24 hr 02/16/23 13:40: WBC 10.6, RBC 3.72 L, Hgb 11.4 L, Hct 34.1 L, MCV 91.7, MCH 30.6, MCHC 33.4, RDW Std Deviation 38.9, RDW Coeff of Neftali 11.6, Plt Count 293, MPV 9.2, Immature Gran % (Auto) 0.900, Neut % (Auto) 77.2 H, Lymph % (Auto) 13.0 L, [place] % (Auto) 7.3, Eos % (Auto) 1.3, Baso % (Auto) 0.3, Absolute Neuts (auto) 8.2 H, Absolute Lymphs (auto) 1.38, Nucleated RBC % 0, PT 13.5, INR 1.0, APTT 40.3 H, Sodium 138, Potassium 4.5, Chloride 104, Carbon Dioxide 29.0, Anion Gap 5, BUN 29 H, Creatinine 1.32 H, Estim Creat Clear Calc 47.34, Est GFR (MDRD) Af Amer 70, Est GFR (MDRD) Non-Af 58 L, BUN/Creatinine Ratio 22.0 H, Glucose 126 H, Lactic Acid 1.9, Calcium 9.2 02/16/23 21:51: POC Glucose 163 H 02/17/23 05:40: WBC 8.1, RBC 3.54 L, Hgb 10.9 L, Hct 32.8 L, MCV 92.7, MCH 30.8, MCHC 33.2, RDW Std Deviation 39.0, RDW Coeff of Neftali 11.5 L, Plt Count 285, MPV 9.0, Immature Gran % (Auto) 0.700, Neut % (Auto) 74.2 H, Lymph % (Auto) 16.3 L, [place] % (Auto) 6.7, Eos % (Auto) 1.7, Baso % (Auto) 0.4, Absolute Neuts (auto) 6.0, Absolute Lymphs (auto) 1.32, Nucleated RBC % 0, Sodium 139, Potassium 4.3, Chloride 107, Carbon Dioxide 28.0, Anion Gap 4 L, BUN 24 H, Creatinine 1.16, Estim Creat Clear Calc 53.87, Est GFR (MDRD) Af Amer 81, Est GFR (MDRD) Non-Af 67, BUN/Creatinine Ratio 20.7 H, Glucose 175 H, Calcium 8.8 02/17/23 06:40: POC Glucose 160 H Radiography Diagnostic Testing: Radiology Impression Foot X-Ray 02/16/23 13:35 IMPRESSION: Soft tissue swelling. Vascular calcification. Electronically Signed: Tolu Chandler MD at 14:26 EDT , Lower Extremity MRI 02/16/23 16:27 IMPRESSION: Soft tissue wound and swelling on the plantar aspect. Osteomyelitis of the second metatarsal and proximal phalanx. Electronically Signed: Matthieu Fitch MD at 19:29 EDT , Physical Exam Const alert, oriented x3 and no apparent distress HEENT normocephalic Eyes General Eye: normal appearance of both eyes Neck General: normal visual inspection Lymph Lymphatic: no lymphedema noted Resp normal respiratory effort Cardio regular rate and regular rhythm Extremity no joint enlargement, no calf tenderness and no pedal edema Extremity Narrative: DP and PT pulses palpable with capillary fill time less than 3 seconds to digits of left foot with no evidence of acute ischemia. Dermatological: Left foot superficial ulceration with dried surrounding skin secondary to previous maceration. There is diffuse edema of the forefoot with cellulitis of the forefoot extending proximally to the dorsal midfoot. This is improved with decreasing cellulitis on IV antibiotics. Plantar wound site demonstrates no palpable fluctuance/bogginess, no visible abscess formation, no crepitus of the tissue, no purulence, no malodor noted. Musculoskeletal: Muscle strength 5 of 5 age-appropriate. No pain to palpation about the wound site or foot secondary to peripheral polyneuropathy. Skin no rashes or lesions noted, skin turgor normal and no jaundice Neuro moves all extremities Neuro Narrative: Lack of sensation secondary to diabetic peripheral polyneuropathy Assessment & Plan Assessment/Plan (1) Diabetic infection of left foot: (2) Cellulitis of foot, left: (3) Diabetes mellitus with diabetic polyneuropathy: PLAN: Plan Patient seen and evaluated Left foot superficial ulceration with dried surrounding skin secondary to previous maceration. There is diffuse edema of the forefoot with cellulitis of the forefoot extending proximally to the dorsal midfoot. This is improved with decreasing cellulitis on IV antibiotics. Plantar wound site demonstrates no palpable fluctuance/bogginess, no visible abscess formation, no crepitus of the tissue, no purulence, no malodor noted. He was seen in office on 02/12/[address] Cabrales who took cultures and placed him on clindamycin 300 mg and levofloxacin 750 mg every 24 hours. Cultures obtained demonstrate E faecalis, staph heamolyticus, and coagulase-negative staph. WBC at this time was noted to be 10.8. Patient returned on 02/16/2023 with no improvement in cellulitis and was sent to ED for admittance for IV antibiotics and MRI for suspected bone infection. WBC on admittance 10.6 and has decreased to 8.1 currently on IV antibiotics. Patient currently on IV vancomycin and Unasyn. MRI of left foot demonstrates diffuse soft tissue swelling and changes consistent with cellulitis and increased signal intensity on T2 of the proximal phalanx and second metatarsal head of the left foot consistent with osteomyelitis. Discussed with him today MRI results and surgical intervention for a partial s econd ray amputation of the left foot. Patient understands that this is a limb salvage procedure. Patient states he is willing to undergo the partial amputation of the second ray. I discussed the procedure in great detail today, discussed all risks and complications. Discussed benefits of procedure. Discussed with him the risks and complications include but are not limited to the following: Pain, continued pain, complex regional pain syndrome, phantom pain, infection, wound dehiscence, delayed healing/nonhealing, neuritis/numbness, scarring, poor cosmetic result, edema, surrounding digital deformity, need for further surgical intervention, hematoma, difficulty with ambulation, difficulty wearing shoe gear, addiction to pain medication, stroke, heart attack, allergic reaction, blood clot, loss of function, loss of limb, and loss of life. Patient voices understanding of these and able to repeat these back. Again patient does understand that this is a limb salvage procedure. Consent forms for partial 2nd ray amputation were obtained and patient signed freely. He will remain non-weight bearing to the Left foot He will remain NPO for anticipated surgical intervention. Medicine team currently following for medical management, they are greatly appreciated. ID consulted for antibiotic management. Wound care nurse assisting in dressing changes At this time surgical intervention to take place today 02/17/2023 for partial second ray amputation of the left foot. Podiatry will continue to follow while in house for postoperative care. Please do not hesitate to call with any questions or concerns Jr. Paul Collins.P.M. [facility] [phone]
--- NOTE | 2023-02-17 08:10 | WOUNDNOTE ---
wound photo: left foot
--- NOTE | 2023-02-17 08:11 | WOUNDNOTE ---
skin photo: left foot
[2023-02-17 08:33] LABS: Hemoglobin A1c 9.1 % (3.8-5.6)
--- NOTE | 2023-02-17 10:45 | CASEMGMT ---
SABRINA RIVERO Assessment: Face to Face with pt for initial transition planning/care coordination assessment. SABRINA RIVERO introduced self and role at [facility], pt voices understanding and consents to assessment. Pt is A/O x4 and answers all questions appropriately at this time. Pt sitting up in bed with at bedside. Care providers, pharmacy, and demographics verified/updated. Admitting Dx: diabetic foot infection, diabetes PCP:Tera Specialists:enma Cabrales Pharmacy: [facility] Insurance: Self Pay Prescription Benefit: no LNOK: Zoraida Weiss, ; Fang Pratt, friend Living Arrangements: Pt lives with in a story and a half home with no steps to enter. Pt reports he is I in ADL's and denies concerns at home. Pt son and family live right next door. Transportation: Pt hires drivers for transportation. DME/HHC/SNF: Pt has access to [facility] if needed. He has a w/c, cane and crutches. Pt has had [facility] in the past and states should he need HHC again, he would like them again. Pt denies SNF stays. Pt states no concerns with going home at time of dc. Discussed the possibility of IV atb and pt states he would prefer to do these at home with HHC. Pt currently does his dressing changes with supplies being provided by 's office. Pt states no further concerns/needs. CM to follow. Advised pt to ask CM if any further question/concerns/needs arise, voices understanding. Pt Goal: Home vs Home with HHC if need IV atb Plan: Home vs Home with HHC if need IV atb
[2023-02-17 11:30] LABS: Bedside Glucose 122 mg/dL (74-106)
--- NOTE | 2023-02-17 14:20 | BON_PTH ---
PATIENT: ANTONIO MCCLURE LOC: MS3 U#:[id number] AGE/SX: 62/M ROOM: [facility] [place]16/[address]: Dr. Yadira Apodaca DO : 1960 BED: 1 DIS: 02/19/2023 SPEC #: [id number] RECD: 02/18/23 07:55 STATUS: DENIS REQ #: [id number] MARTELL: 02/17/23 14:[address]: Ramez Rios DEPT: SURGICAL PATHOLOGY RECD BY: Anne Hernandez ENTERED: 02/18/23 09:12 SP TYPE: Bone OTHR DR: Dr. Masoud Cabrales, DPM DO Dr. Luis M Lou DO Dr. Robert Leininger, MD Dr. William Elder, MD Tissues: A - Toe, NOS B - Toe, NOS C - Toe, NOS Procedures: Decalcification bone/plaque Surgery Specimen Level IV Comments: @ Ordering doctor for DEC edited from to DR.MMARS Soco FERRIS at 02/18/23 152 @ Ordering doctor for SUIV edited from to DR.MMARS Soco FERRIS at 02/18/23 1522 @ Submitting doctor edited from to DR.MMARS Soco FERRIS at 02/18/23 1522 HEADER OPERATION: Left foot partial ray amputation PRE-OP DIAGNOSIS: Diabetic infection of left foot, cellulitis of left foot TISSUE SUBMITTED: A - Bone second toe left foot, B - Bone second metatarsal head left foot, C - Second toe MICROSCOPIC DIAGNOSIS A. Bone second toe left foot: A piece of bone with reactive changes, negative for acute osteomyelitis. B. Bone second metatarsal head left foot, amputation: Pieces of bone with reactive changes, negative for acute osteomyelitis. C. Second toe, amputation: Focal hyperkeratosis, acute and chronic inflammation and granulation tissue reaction. Underlying bone with reactive changes, negative for acute osteomyelitis. SJ:marcelina 02/25/2023 MICROSCOPIC DESCRIPTION Slides are reviewed. GROSS DESCRIPTION A - Received in fixative is one container labeled with the patient's name and designated bone second toe left foot. The specimen consists of a piece of bone measuring 0.5 x 0.6 x 0.3 cm. The entire specimen is submitted in one cassette after decalcification. B - Received in fixative is one container labeled with the patient's name and designated bone second metatarsal head left foot. The specimen consists of two pieces of bone measuring 1.5 x 1.5 x 0.5 cm and 1.0 x 0.5 x 0.3 cm. The largest piece consists of metatarsal head. The entire specimen is submitted in two cassettes after decalcification. C - Received in fixative is one container labeled with the patient's name and designated second toe. The specimen consists of a portion of toe measuring 5.0 x 2.0 x 2.0 cm. No obvious area of ulceration is noted. The skin appears focally congested. The nail appears unremarkable. Evp Strategy sections are submitted in three cassettes as follows: 1 - skin, 2 & 3 - bone after decalcification. / SJ:rg 02/18/2023 TC:5 CPT: 31830 x3, 05809 x3
[2023-02-17] MEDS: Lactated Ringers 1,000 ML 15 ML IV (14:23)
--- NOTE | 2023-02-17 15:33 | CASEMGMT ---
Social Work Pt out of the room for procedure. SW will follow up to meet with pt regarding self pay status. MIGUEL Santizo
--- NOTE | 2023-02-17 15:35 | CON.PCM.ID_ITS ---
Assessment & Plan Assessment/Plan (1) Osteomyelitis of left foot: PLAN: OR planned. On empiric vanc/unasyn. Wound cx with enterococcus, CoNS x2, anaerobes. 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 No pain in foot, no fever. Started on clinda and levaquin as outpt without improvement. Admitted 02/16, started on vanc/unasyn, seen by podiatry. Feeling ok, no n/v/d. Full ROS performed and neg except as noted above. PFSH Medical History Diabetes Diabetic foot ulcer Hypertension Infected ulcer of skin Non-smoker Home Medications metformin 1,000 mg tablet 1,000 mg PO BID 01/26/22 [History Last Taken 02/16/23] clindamycin HCl 300 mg capsule 300 mg PO Q8H 02/16/23 [History Last Taken 02/16/23] levofloxacin 750 mg tablet 750 mg PO Q24H 02/16/23 [History Last Taken 02/15/23] Allergy/AdvReac Type Severity Reaction Status Date / Time No Known Allergies Allergy Verified 02/16/23 12:22 Family History Other Hypertension Social History household members: spouse Smoking Status: Never smoker Physical Exam Const alert, oriented x3 and no apparent distress General Appearance: cooperative HEENT normocephalic and head/scalp atraumatic Eyes PERRL and EOMs intact bilaterally Neck supple and No nodes Resp normal air movement and clear to auscultation bilaterally Cardio regular rate and regular rhythm GI soft to palpation, non-tender and non-distended Extremity General Extremity: edema Skin Skin Narrative: reviewed photos Neuro CN's II-XII intact bilaterally Lab / Micro Data Attestation: I reviewed the patient's lab results. 02/17/23 05:40 02/17/23 05:40 Labs: Laboratory Results - last 24 hr 02/16/23 21:51: POC Glucose 163 H 02/17/23 05:40: WBC 8.1, RBC 3.54 L, Hgb 10.9 L, Hct 32.8 L, MCV 92.7, MCH 30.8, MCHC 33.2, RDW Std Deviation 39.0, RDW Coeff of Neftali 11.5 L, Plt Count 285, MPV 9.0, Immature Gran % (Auto) 0.700, Neut % (Auto) 74.2 H, Lymph % (Auto) 16.3 L, [place] % (Auto) 6.7, Eos % (Auto) 1.7, Baso % (Auto) 0.4, Absolute Neuts (auto) 6.0, Absolute Lymphs (auto) 1.32, Nucleated RBC % 0, Sodium 139, Potassium 4.3, Chloride 107, Carbon Dioxide 28.0, Anion Gap 4 L, BUN 24 H, Creatinine 1.16, Estim Creat Clear Calc 53.87, Est GFR (MDRD) Af Amer 81, Est GFR (MDRD) Non-Af 67, BUN/Creatinine Ratio 20.7 H, Glucose 175 H, Hemoglobin A1c 9.1 H, Calcium 8.8 02/17/23 06:40: POC Glucose 160 H 02/17/23 11:12: POC Glucose 122 H Radiology Impression Lower Extremity MRI 02/16/23 16:27 IMPRESSION: Soft tissue wound and swelling on the plantar aspect. Osteomyelitis of the second metatarsal and proximal phalanx. Electronically Signed: Matthieu Fitch MD at 19:29 EDT ,
--- NOTE | 2023-02-17 15:37 | RAD_ITS ---
STUDY: X-RAY - LEFT FOOT CLINICAL: Male, 62 years old. PARTIAL AMPUTATION TECHNIQUE: 4 fluoroscopic guided view(s) of the foot. COMPARISON: None. FINDINGS: Normal talus, calcaneus, and tarsal bones. Normal visualized subtalar, talonavicular, calcaneocuboid, tarsal and tarsometatarsal articulations. 4 fluoroscopic guided views were obtained demonstrating postsurgical changes status post amputation of the second toe through the distal metatarsal shaft Normal metatarsophalangeal joint of the great toe. Normal tibial and fibular sesamoid bones. Normal interphalangeal joint of the great toe. Normal phalanges of the great toe. Normal second through fifth metatarsophalangeal joints. Normal interphalangeal joints and phalanges of the lesser toes. The soft tissue structures are unremarkable. RAD/Foot min 3 Views IMPRESSION: [Post amputation of the second toe through distal second metatarsal shaft Electronically Signed: Masoud Weston MD at 18:02 EDT ,
[2023-02-17] MEDS: Bupivacaine Mpf 0.5% 30 ML VIAL (16:10)
[2023-02-17] MEDS: Lidocaine 1% (20 ml mdv) 20 ML Vial (16:10)
[2023-02-17] MEDS: Vancomycin IV 1,000 MG/20 ML Vial 1000 MG OPERA.SITE (17:03)
--- NOTE | 2023-02-17 18:03 | OP.PCM_ITS ---
Problems Associated Problem List Diagnoses (1) Diabetes mellitus with diabetic polyneuropathy: (2) Cellulitis of foot, left: (3) Diabetic infection of left foot: (4) Osteomyelitis of left foot: (5) Abscess of left foot: Report of Operation Date of Procedure: 02/17/23 Pre-Operative Diagnosis: 1. Osteomyelitis proximal phalanx second digit and second metatarsal head left foot 2. Cellulitis left foot 3. Diabetes mellitus type 2 with peripheral polyneuropathy Post-Operative Diagnosis: 1. Osteomyelitis proximal phalanx second digit and second metatarsal head left foot 2. Abscess left foot 3. Cellulitis left foot 4. Diabetes mellitus type 2 with peripheral polyneuropathy Surgery/Procedure Performed:: 1. Partial second ray amputation left foot 2. Incision and drainage with wide debridement left foot 3. Tissue rearrangement/flap left foot Description of Surgical Findings:: See operative note for findings Surgeon: Ramez Rios electrolysis operator: None Type of Anesthesia: Local (20 cc one-to-one mixture of 1% lidocaine plain and 0.5% Marcaine plain) and MAC Specimen's removed: Second digit left foot Bone proximal phalanx second digit left foot Bone Second metatarsal head left foot Drains: None Estimated Blood Loss (mL): < 10 Description of Procedure: HPI/indication: Patient is a 62-year-old male who presented to [facility] on 02/16/2023 with worsening left foot infection. Patient has been following Dr. Keron DPM in office and was placed on oral antibiotics with culture obtained on 02/12/2023. Culture result demonstrates E. faecalis, staph heamolyticus, coagulase-negative staph, and anaerobs. He returned to office 02/16/2023 following weekend trip to [place] with worsening erythema of the left foot. He was sent to [facility] ED for admittance. Radiographs obtained in the ED demonstrate diffuse soft tissue swelling and vascular calcification. Radiograph negative for osteomyelitis. MRI was obtained and demonstrated increased T2 signal intensity best observed in sagittal view of the proximal phalanx of the second digit and second metatarsal head of the left foot consistent with osteomyelitis. He was started empirically on IV vancomycin and Unasyn. Patient currently on IV vancomycin and Unasyn. Discussed with him MRI results and surgical intervention for a partial second ray amputation of the left foot. Patient understands that this is a limb salvage procedure. Patient states he is willing to undergo the partial amputation of the second ray. I discussed the procedure in great detail today, discussed all risks and complications. Discussed benefits of procedure. Discussed with him the risks and complications include but are not limited to the following: Pain, continued pain, complex regional pain syndrome, phantom pain, infection, wound dehiscence, delayed healing/nonhealing, neuritis/numbness, scarring, poor cosmetic result, edema, surrounding digital deformity, need for further surgical intervention, hematoma, difficulty with ambulation, difficulty wearing shoe gear, addiction to pain medication, stroke, heart attack, allergic reaction, blood clot, loss of function, loss of limb, and loss of life. Patient voices understanding of these and able to repeat these back. Again patient does understand that this is a limb salvage procedure. Consent forms for partial 2nd ray amputation were obtained and patient signed freely. All diagnostic data was reviewed prior to entering the OR. Operative limb was signed prior to entering the OR. Patient was scheduled to undergo partial second ray amputation of the left foot at [facility] on 02/17/2023. Procedure: Under mild sedation patient was brought into the operating room placed on the table in supine position. Following IV sedation a local anesthetic block was performed about the left ankle consisting of 20 cc one-to-one mixture of 1% lidocaine plain and 0.5% Marcaine plain. Next a pneumatic ankle tourniquet was placed just above the left ankle and the foot was then scrubbed, prepped, and draped in the usual aseptic manner. Left foot was elevated and the pneumatic ankle tourniquet was inflated to 250 mmHg. At this time attention was directed to the left foot where fluoroscopy was utilized to miguelina out second metatarsophalangeal joint and second metatarsal head. Next, a linear incision was made overlying the surgical neck of the second metatarsal and extended distally into a fishmouth shaped incision about the second digit. Incision was made to bone. During incision no purulence was encountered. Dissection was deepened utilizing sharp dissection and the second digit was sharply disarticulated at the metatarsophalangeal joint. The second digit was passed from the operative field to the table in toto. Samples were obtained at the table of the proximal phalanx of the second digit with bone culture to microbiology and bone culture to pathology. Digit was sent as permanent to pathology. Next, metatarsal head was inspected and noted to be hard and of good quality at the dorsal aspect but discolored at the plantar aspect consistent with osteomyelitis. All surrounding necrotic tissue was jeannine ply debrided to the level of muscle utilizing a rongeur, forceps, and 15 blade. At this time a sagittal saw was utilized to resect the head of the second metatarsal. Second metatarsal head was passed from the operative field to the table in toto. At table second metatarsal head was sectioned with bone culture to microbiology and bone culture to pathology. Surgical site was then flushed with copious amounts of normal sterile saline. Following copious irrigation the plantar plate, flexor tendon, and extensor tendon were all identified and sharply dissected with tendons transected as far proximal as possible. Next, a small amount of purulence was visualized just lateral to the midshaft of the second metatarsal. Foot was milked proximal to distal overlying the third and fourth metatarsal bases with purulence expressible from the site. Swab cultures were obtained of the purulence for aerobic and anaerobic culture. Abscess pocket was explored, and broken up utilizing hemostat. Abscess pocket/track was noted to extend proximally and laterally through the extensor tendon sheath overlying the base of the third and fourth metatarsal/lateral cuneiform. This area was copiously irrigated with normal sterile saline and following irrigation no further purulence was expressible and surrounding tissue appeared healthy and bleeding. Next, left foot was copiously irrigated with a 3000 cc pulse lavage. Final fluoroscopic images were obtained in multiple views demonstrating partial resection of the second ray. Next, a soft tissue flap was prepared with tissue rearrangement for adequate closure of the incision site. 1 g of vancomycin powder was then placed at the surgical site and along the prior abscess track of the left foot. Next, deep tissue closed with 4-0 Vicryl. Subcutaneous tissue closed with 4-0 Monocryl. At this time the pneumatic ankle tourniquet was deflated and a prompt hyperemic response was noted to the digits of the left foot. Skin was reapproximated with 3-0 Prolene in simple interrupted fashion. The incision site was then dressed with Betadine soaked Adaptic, 4 x 4 gauze, Kerlix x2, and 4 inch Dami wrap rolled onto the left foot. Patient tolerated the procedure and anesthesia well was transported to PACU vital signs stable and vascular status intact to the left foot. Patient will remain nonweightbearing to the left foot. He will elevate foot at all times of rest for postoperative edema control. Following anesthesia protocol he will return to the floor and will continue to receive IV antibiotics. Podiatry will continue to follow while in house and upon discharge he will continue postoperative care in office. Grafts/Implants Used: 1 g vancomycin powder Complications None Admit VTE Documentation VTE Present on Admission: No VTE Mechan Device Prophylaxis: SCD's VTE Pharm Prophylaxis ordered?: No Reason prophylaxis not ordered:: Procedure Not Indicated
[2023-02-17 18:51] LABS: Bedside Glucose 101 mg/dL (74-106)
--- NOTE | 2023-02-17 21:40 | RAD_ITS ---
STUDY: X-RAY - LEFT FOOT CLINICAL: Male, 62 years old. post-op partial 2nd ray amputation TECHNIQUE: 3 view(s) of the foot. COMPARISON: February 16, 2023. FINDINGS: Normal talus, calcaneus, and tarsal bones. Normal visualized subtalar, talonavicular, calcaneocuboid, tarsal and tarsometatarsal articulations. Postop change status post amputation of the second toe lobe of the distal metatarsal shaft. There is soft tissue swelling and residual gas in the soft tissues postsurgically. Normal metatarsophalangeal joint of the great toe. Normal tibial and fibular sesamoid bones. Normal interphalangeal joint of the great toe. Normal phalanges of the great toe. Normal second through fifth metatarsophalangeal joints. Normal interphalangeal joints and phalanges of the lesser toes. RAD/Foot min 3 Views IMPRESSION: Postsurgical changes status post amputation of the second toe through the distal metatarsal shaft Electronically Signed: Masoud Weston MD at 22:51 EDT ,
[2023-02-17 23:13] LABS: Bedside Glucose 174 mg/dL (74-106)
[2023-02-18 04:30] VITALS: BP 157/89; PULSE 78; RESP 16; TEMP 37.4; O2SAT 95
[2023-02-18 04:43] LABS: Absolute Lymphocyte Count 1.25 X10^3/uL (0.83-4.51); Absolute Neutrophil Count 5.9 X10^3/uL (2.0-7.7); Basophil# 0.04 X10^3/uL; Basophil% 0.5 % (0-1); Eosinophil# 0.15 X10^3/uL; Eosinophils% 1.9 % (0-5); Hematocrit 33.7 % (40-54); Hemoglobin 11.2 g/dL (13.0-16.5); Lymphocyte # 1.25 X10^3/ul (0.83-4.51); Lymphocyte % 15.6 % (19-41); Mean Corp Hgb Conc 33.2 g/dL (32-36); Mean Corpuscular Hgb 30.5 pg (27.0-32.0); Mean Corpuscular Volume 91.8 fL (80-94); Mean Platelet Vol. 8.9 fl (6.2-12.0); Monocyte# 0.65 X10^3/uL; Monocyte% 8.1 % (0-10); NRBC Flagged by Analyzer 0 % (0-5); Neutrophil # 5.88 X10^3/uL (2.7-7.7); Neutrophil % 73.2 % (47-70); Platelet Count 288 K/mm3 (150-450); RBC Distribution Width CV 11.4 % (11.6-14.6); RBC Distribution Width SD 38.8 fl (35.1-43.9); Red Blood Count 3.67 M/mm3 (4.6-6.2)
[2023-02-18] MEDS: Vancomycin HCl 750 MG in 0.9% Normal Saline (250mL Bag) 250 ML 250 MG IV ×3 (04:44→22:58)
[2023-02-18 05:23] LABS: Vancomycin, Trough Level 10.5 ug/mL (5.0-15.0)
[2023-02-18 05:25] LABS: ALB/GLOB Ratio 0.6 RATIO (0.9-2.4); AST(SGOT) 11 U/L (15-37); Alanine Aminotransfer ALT/SGPT 19 U/L (16-61); Albumin, Serum 2.5 g/dL (3.2-5.0); Alkaline Phosphatase 64 U/L (45-117); Anion Gap 5 (5-15); BUN 18 mg/dL (7-18); BUN/Creat Ratio 16.8 RATIO (10-20); Calcium,Total 8.6 mg/dL (8.5-10.1); Chloride 105 mmol/L (98-107); Creatinine, Serum 1.07 mg/dL (0.70-1.30); EST Glomerular Filtration Rate 74 mL/min (>60); Est Glom Filt Rate - Afr Amer 89 mL/min (>60); Globulin 4.4 g/dL (2.2-4.2); Glucose 184 mg/dL (74-106); Magnesium 1.9 mg/dL (1.6-2.6); Phosphorus 3.8 mg/dL (2.5-4.9); Protein, Total 6.9 g/dL (6.4-8.2); Sodium Level 136 mmol/L (136-145)
--- NOTE | 2023-02-18 05:32 | PCM.RX.CS ---
Consult Antibiotic Management Pharmacy has been consulted to manage selected antiobiotic: Vancomycin Type of Intervention Type of Consult: Follow-up Suspected Infection Suspected Infection: Skin/Soft tissue Labs Labs: Sodium 136 mmol/L (136-145) 02/18/23 04:35 Potassium 4.0 mmol/L (3.5-5.1) 02/18/23 04:35 Chloride 105 mmol/L (98-107) 02/18/23 04:35 Carbon Dioxide 26.0 mmol/L (21.0-32.0) 02/18/23 04:35 Anion Gap 5 (5-15) 02/18/23 04:35 BUN 18 mg/dL (7-18) 02/18/23 04:35 Creatinine 1.07 mg/dL (0.70-1.30) 02/18/23 04:35 Est GFR (MDRD) Af Amer 89 mL/min (>60) 02/18/23 04:35 Est GFR (MDRD) Non-Af 74 mL/min (>60) 02/18/23 04:35 BUN/Creatinine Ratio 16.8 RATIO (10-20) 02/18/23 04:35 Glucose 184 mg/dL (74-106) H 02/18/23 04:35 Vancomycin Trough 10.5 ug/mL (5.0-15.0) 02/18/23 04:35 Dosing Weight Weight used for dosin.5 kg Estimated Creatinine Clearance Estimated Creatinine Clearance: 73 Goal Trough Goal Trough: 10-15 mcg/mL Pharmacy Plan for Drug Dosing Pharmacy Plan for Drug Dosing: Vancomycin trough of 10.5 was within the target range of 10-15. Will continue dosing at 750mg q12h, and draw another trough level in two days. Pharmacy Service will continue to monitor and adjust dosing as required. Follow-Up Labs Follow-Up Labs: Trough: Vancomycin Date/Time Labs Ordered Labs to be done on [date and time ordered]: 02/20/23 @0435
[2023-02-18] MEDS: Ampicillin/Sulbactam 3 GM in 0.9% Normal Saline (100mL MB+) 100 ML IV ×3 (06:14→21:48)
[2023-02-18] MEDS: Insulin Lispro 100 UNIT/ML INSULN.PEN SC ×4 (06:23→21:52)
[2023-02-18 06:44] LABS: Bedside Glucose 173 mg/dL (74-106)
--- NOTE | 2023-02-18 07:46 | PN_ITS ---
Subjective Subjective This is a 62-year-old gentleman seen today resting in bed with foot elevated s/p partial second ray amputation of the left foot. He states he has been able to remain nonweightbearing with the use of the walker. Denies any pain today. Denies constitutional symptoms. States he feels pretty good overall. Denies f urther complaints. Objective Data Objective Data Vital Signs: Vital Signs Temp Pulse Resp BP Pulse Ox O2 Del Method 99.4 F H 78 16 157/89 H 95 Room Air 02/18/23 04:30 02/18/23 04:30 02/18/23 04:30 02/18/23 04:30 02/18/23 04:30 02/18/23 04:30 Oxygen Delivery Method Room Air Weight: 95.5 kg Body Mass Index (BMI) 36.1 Intake & Output: Intake and Output for Last 24 Hours 02/16/23 02/17/23 02/18/23 23:59 23:59 23:59 Intake Total 707.33 / 707.33 1116 / 2116 1377 / 1377 Balance 707.33 / 707.33 1116 / 2116 1377 / 1377 Lab / Micro Data 02/18/23 04:35 02/18/23 04:35 Labs: Laboratory Results - last 24 hr 02/17/23 05:40: Hemoglobin A1c 9.1 H 02/17/23 11:12: POC Glucose 122 H 02/17/23 18:32: POC Glucose 101 02/17/23 22:36: POC Glucose 174 H 02/18/23 04:35: WBC 8.0, RBC 3.67 L, Hgb 11.2 L, Hct 33.7 L, MCV 91.8, MCH 30.5, MCHC 33.2, RDW Std Deviation 38.8, RDW Coeff of Neftali 11.4 L, Plt Count 288, MPV 8.9, Immature Gran % (Auto) 0.700, Neut % (Auto) 73.2 H, Lymph % (Auto) 15.6 L, [place] % (Auto) 8.1, Eos % (Auto) 1.9, Baso % (Auto) 0.5, Absolute Neuts (auto) 5.9, Absolute Lymphs (auto) 1.25, Nucleated RBC % 0, Sodium 136, Potassium 4.0, Chloride 105, Carbon Dioxide 26.0, Anion Gap 5, BUN 18, Creatinine 1.07, Estim Creat Clear Calc 58.40, Est GFR (MDRD) Af Amer 89, Est GFR (MDRD) Non-Af 74, BUN/Creatinine Ratio 16.8, Glucose 184 H, Calcium 8.6, Phosphorus 3.8, Magnesium 1.9, Total Bilirubin 0.30, AST 11 L, ALT 19, Alkaline Phosphatase 64, Total Protein 6.9, Albumin 2.5 L, Globulin 4.4 H, Albumin/Globulin Ratio 0.6 L, Vancomycin Trough 10.5 02/18/23 06:22: POC Glucose 173 H Radiography Diagnostic Testing: Radiology Impression Foot X-Ray 02/17/23 15:37 IMPRESSION: [Post amputation of the second toe through distal second metatarsal shaft Electronically Signed: Masoud Weston MD at 18:02 EDT Reading Location ID and State: [facility] / [place] Tel , Service support , Foot X-Ray 02/17/23 21:40 IMPRESSION: Postsurgical changes status post amputation of the second toe through the distal metatarsal shaft Electronically Signed: Masoud Weston MD at 22:51 EDT , Physical Exam Const alert, oriented x3 and no apparent distress HEENT normocephalic Eyes General Eye: normal appearance of both eyes Neck General: normal visual inspection Lymph Lymphatic: no lymphedema noted Resp normal respiratory effort Cardio regular rate and regular rhythm Extremity no joint enlargement, no calf tenderness and no pedal edema Extremity Narrative: DP and PT pulses palpable with capillary fill time less than 3 seconds to digits of left foot with no evidence of acute ischemia. Dermatological: Left foot subsecond metatarsal superficial ulceration with dried surrounding skin secondary to previous maceration. There is diffuse edema of the forefoot with cellulitis of the forefoot extending proximally to the dorsal midfoot. Cellulitis improving on IV antibiotics. Plantar wound site demonstrates no palpable fluctuance/bogginess, no visible abscess formation, no crepitus of the tissue, no purulence, no malodor noted. Sutures intact to the dorsal foot overlying second metatarsal and previous digital amputation site. Musculoskeletal: Muscle strength 5 of 5 age-appropriate. No pain to palpation about the wound site or foot secondary to peripheral polyneuropathy. Skin no rashes or lesions noted, skin turgor normal and no jaundice Neuro moves all extremities Neuro Narrative: Lack of sensation secondary to diabetic peripheral polyneuropathy Assessment & Plan Assessment/Plan (1) Diabetes mellitus with diabetic polyneuropathy: (2) Cellulitis of foot, left: (3) Diabetic infection of left foot: (4) Osteomyelitis of left foot: (5) Abscess of left foot: PLAN: Plan Patient seen and evaluated He is s/p partial second ray amputation of the left foot. DOS: 02/17/2023. POD #1 Left foot subsecond metatarsal superficial ulceration with dried surrounding skin secondary to previous maceration. There is diffuse edema of the forefoot with cellulitis of the forefoot extending proximally to the dorsal midfoot. Cellulitis improving on IV antibiotics. Plantar wound site demonstrates no palpable fluctuance/bogginess, no visible abscess formation, no crepitus of the tissue, no purulence, no malodor noted. Sutures intact to the dorsal foot overlying second metatarsal and previous digital amputation site. Dressings changed today with Betadine soaked Adaptic, 4 x 4 gauze, Kerlix, ABD, and 4 inch Dami wrap rolled onto the foot. Dressing to be changed daily. He was seen in office on 02/12/[address] Cabrales who took cultures and placed him on clindamycin 300 mg and levofloxacin 750 mg every 24 hours. Cultures obtained demonstrate E faecalis, staph heamolyticus, and coagulase-negative staph. WBC at this time was noted to be 10.8. Patient returned on 02/16/2023 with no improvement in cellulitis and was sent to ED for admittance for IV antibiotics and MRI for suspected bone infection. MRI of left foot performed 02/16/23 demonstrates diffuse soft tissue swelling and changes consistent with cellulitis and increased signal intensity on T2 of the proximal phalanx and second metatarsal head of the left foot consistent with osteomyelitis. MRI was discussed with the patient and he elected for partial second ray amputation of the left foot. Surgical swab culture obtained 02/17/2023, preliminary shows Staphylococcus sp. Bone culture second digit, awaiting results. Bone culture second metatarsal head, awaiting results. WBC has decreased to 8.0 currently on IV antibiotics. Patient currently on IV vancomycin and Unasyn. 1g Vancomycin powder was placed prior to closure. He will remain non-weight bearing to the Left foot with assistance of walker Medicine team currently following for medical management, they are greatly appreciated. ID following for antibiotic management. Wound care nurse assisting in dressing changes Podiatry will continue to follow while in house for postoperative care. Upon discharge we will follow-up in office. Please do not hesitate to call with any questions or concerns Jr. Paul Collins.P.M. [facility] [phone]
--- NOTE | 2023-02-18 08:11 | WOUNDNOTE ---
wound photo: left foot
[2023-02-18 09:01] VITALS: BP 166/88; PULSE 79; RESP 18; TEMP 36.9; O2SAT 97
[2023-02-18] MEDS: Lisinopril 20 MG Tablet PO ×2 (09:04→15:49)
[2023-02-18] MEDS: Insulin Glargine-YFGN 100 UNIT/ML Pen 10 UNIT SC (09:08)
--- NOTE | 2023-02-18 09:53 | PCM.PN.ID ---
Physical Exam Narrative Pain 3/10 in foot, no fever, no n/v/d. Const alert and no apparent distress General Appearance: cooperative Resp normal air movement and clear to auscultation bilaterally Cardio regular rate and regular rhythm GI soft to palpation, non-tender and non-distended Skin Skin Narrative: foot wrapped ID ID: Route of nutrition/ use of supplements: [] Nutritional Intake: [] IV Site: [] Schumacher Catheter: [] Assessment & Plan Assessment/Plan (1) Osteomyelitis of left foot: PLAN: OR 02/17/[address] Rios for I&D with partial 2nd ray amputation. On empiric vanc/unasyn. Wound cx with enterococcus, CoNS x2, anaerobes. Surg cx pending. Will follow (2) Diabetes mellitus with diabetic polyneuropathy:
[2023-02-18 11:34] LABS: Bedside Glucose 211 mg/dL (74-106)
--- NOTE | 2023-02-18 14:32 | CASEMGMT ---
Social Work SW met with pt and and introduced self and role of SW. Pt admitted with no health insurance. SW spoke with pt regarding resources and provided information on prescription assistance. Pt was at [facility] a year ago and states he worked with the [facility] Liaison and found this very helpful. CAMILLA spoke with Florecita and updated. Florecita plans to meet with pt. SW will remain available should futher needs arise. MIGUEL Santizo
--- NOTE | 2023-02-18 14:57 | PN.HOSP_ITS ---
Reason for Visit Reason for Visit: L Foot Wound Subjective Subjective No issues overnight. A1c was found to be markedly elevated and I will add some basal insulin. I did discuss this with the patient and he will likely need to go home on additional oral agent with follow-up to see his primary care physician within the next 3 months for repeat hemoglobin A1c and further assessment. We did discuss that getting his blood sugars under control would be beneficial into wound healing. They are interested in talking to a dietitian with regards to carbohydrate intake. They state that they can follow sugar intake fairly well but they do struggle with carbohydrates. Objective Data Objective Data Vital Signs: Vital Signs Temp Pulse Resp BP Pulse Ox O2 Del Method 98.5 F 79 18 166/88 H 97 Room Air 02/18/23 09:01 02/18/23 09:01 02/18/23 09:01 02/18/23 09:01 02/18/23 09:01 02/18/23 09:01 Oxygen Delivery Method Room Air Weight: 95.5 kg Body Mass Index (BMI) 36.1 Intake & Output: Intake and Output for Last 24 Hours 02/16/23 02/17/23 02/18/23 23:59 23:59 23:59 Intake Total 707.33 / 707.33 1116 / 2116 1489 / 1489 Balance 707.33 / 707.33 1116 / 2116 1489 / 1489 Lab / Micro Data 02/18/23 04:35 02/18/23 04:35 Labs: Laboratory Results - last 24 hr 02/17/23 18:32: POC Glucose 101 02/17/23 22:36: POC Glucose 174 H 02/18/23 04:35: WBC 8.0, RBC 3.67 L, Hgb 11.2 L, Hct 33.7 L, MCV 91.8, MCH 30.5, MCHC 33.2, RDW Std Deviation 38.8, RDW Coeff of Neftali 11.4 L, Plt Count 288, MPV 8.9, Immature Gran % (Auto) 0.700, Neut % (Auto) 73.2 H, Lymph % (Auto) 15.6 L, Spencer % (Auto) 8.1, Eos % (Auto) 1.9, Baso % (Auto) 0.5, Absolute Neuts (auto) 5.9, Absolute Lymphs (auto) 1.25, Nucleated RBC % 0, Sodium 136, Potassium 4.0, Chloride 105, Carbon Dioxide 26.0, Anion Gap 5, BUN 18, Creatinine 1.07, Estim Creat Clear Calc 58.40, Est GFR (MDRD) Af Amer 89, Est GFR (MDRD) Non-Af 74, BUN/Creatinine Ratio 16.8, Glucose 184 H, Calcium 8.6, Phosphorus 3.8, Magnesium 1.9, Total Bilirubin 0.30, AST 11 L, ALT 19, Alkaline Phosphatase 64, Total Prot ein 6.9, Albumin 2.5 L, Globulin 4.4 H, Albumin/Globulin Ratio 0.6 L, Vancomycin Trough 10.5 02/18/23 06:22: POC Glucose 173 H 02/18/23 11:14: POC Glucose 211 H Micro: Microbiology 02/17/23 17:40 Wound - Left Foot Gram Stain - Final 02/17/23 17:40 Wound - Left Foot Wound Culture - Preliminary Staphylococcus species 02/17/23 17:40 Bone - 2nd Metatarsal Bone Gram Stain - Final 02/17/23 17:40 Bone - 2nd Toe Gram Stain - Final Radiography Diagnostic Testing: Radiology Impression Foot X-Ray 02/17/23 15:37 IMPRESSION: [Post amputation of the second toe through distal second metatarsal shaft Electronically Signed: Masoud Weston MD at 18:02 EDT Reading Location ID and State: [facility] / [place] Tel [phone], Service support , Foot X-Ray 02/17/23 21:40 IMPRESSION: Postsurgical changes status post amputation of the second toe through the distal metatarsal shaft Electronically Signed: Masoud Weston MD at 22:51 EDT , Physical Exam Const alert, oriented x3, no apparent distress, healthy appearing and well nourished; Negative for average body habitus Constitutional Narrative: Obese, extremely friendly, [employer], white male, sitting up in bed, at bedside, appears comfortable and nontoxic HEENT normocephalic, head/scalp atraumatic, hearing grossly normal bilaterally and moist oral mucous membranes HEENT Narrative: Dentition is poor, Mallampati is 2, no thrush Resp normal respiratory effort, no retractions, no use of accessory muscles and clear to auscultation bilaterally Auscultation: Negative for rales, rhonchi or wheezes Cardio regular rate, regular rhythm, S1 normal heart sound, S2 normal heart sound, no murmurs, no rub, no gallops and no clicks GI normal to inspection, nondistended, normoactive bowel sounds, soft to palpation, non-tender and non-distended Extremity no clubbing, cyanosis or edema Extremity Narrative: Pedal pulses are 2+, cap refill is 2+ Skin no rashes or lesions noted Skin Narrative: Postoperative wound imaging reviewed in computer as wound was dressed, erythematous areas seems to be retracting and postoperative incision looks good General Skin Exam: no breakdown Neuro oriented x3, moves all extremities and no focal motor deficits Neuro Narrative: Decreased sensation bilateral lower extremities Sensorium / Orientation: oriented to place Speech: speech normal Psych affect normal Psych Narrative: Very pleasant, talkative, interacts appropriately Assessment & Plan Assessment/Plan (1) Osteomyelitis of left foot: (2) Cellulitis of foot, left: (3) Diabetic infection of left foot: (4) HTN (hypertension): (5) Elevated serum creatinine: PLAN: Plan Cellulitis/osteomyelitis of the left foot due to diabetic foot infection -Recent cultures from 02/12/2023 show Enterococcus faecalis, staph hemolyticus, and coag negative staph -Continue Unasyn and vancomycin for now -MRI is consistent with osteomyelitis so patient will likely need amputation if he is agreeable -Postop day 1 for partial second ray amputation of the left foot with I&D and wide debridement with tissue rearrangement and flap to the left foot -Podiatry following and managing-appreciate input -ID is following with antibiotic recommendations we will discuss further tomorrow for discharge recommendations as intraoperative cultures are pending still Elevated serum creatinine -Resolved -Baseline appears to be between 0.9 and 1.1 -Serum creatinine today down to 1.07 DM-2 -Hemoglobin A1c up to 9.1 from 6.9 a year ago -Continue to hold metformin -Need to add another oral agent at discharge -Add subcu Lantus to improve glycemic control as blood sugar fasting this morning was 184 -SSI -Accu-Cheks as ordered -Diabetic diet -Patient to meet with dietitian to discuss carbohydrate intake Hypertension -Blood pressure improved with the addition of lisinopril but still not at goal -Increase lisinopril to 40 mg daily -As needed hydralazine available -Goal blood pressure less than 130/80 -We will continue to trend and patient may need additional antihypertensives to achieve improved blood pressure control prior to discharge Diabetic neuropathy -Patient takes no medications for this -Complicates treatment, prognosis, outcomes and puts him at increased risk for future infections Obesity -BMI is 36.1 -Recommend weight loss -Complicates treatment, prognosis, outcomes DVT prophylaxis -Continue prophylactic enoxaparin CODE STATUS -Full code Charges/Coding Visit Charges Inpatient E&M: 63172 Subs Hosp L2
[2023-02-18 15:06] VITALS: BP 135/88; PULSE 79; RESP 18; TEMP 37; O2SAT 94
[2023-02-18] MEDS: 0.9% Normal Saline (250mL Bag) 250 ML 15 ML IV (15:48)
[2023-02-18] MEDS: Juven (unflavored) Packet 1 PACKET PO (16:47)
[2023-02-18 21:07] LABS: Bedside Glucose 152 mg/dL (74-106)
[2023-02-18 21:44] VITALS: BP 119/73; PULSE 72; RESP 18; TEMP 37.3; O2SAT 95
[2023-02-18 23:22] LABS: Bedside Glucose 237 mg/dL (74-106)
[2023-02-19 05:08] VITALS: BP 156/93; PULSE 84; RESP 18; TEMP 36.9; O2SAT 97
[2023-02-19] MEDS: Ampicillin/Sulbactam 3 GM in 0.9% Normal Saline (100mL MB+) 100 ML IV (05:11)
[2023-02-19] MEDS: Insulin Lispro 100 UNIT/ML INSULN.PEN SC ×2 (06:36→12:14)
[2023-02-19 06:56] LABS: Bedside Glucose 154 mg/dL (74-106)
--- NOTE | 2023-02-19 07:58 | PCM.PROGNOTE ---
Subjective Subjective This is a 62-year-old male seen s/p partial second ray amputation of the left foot. Nursing reports no overnight events. He states that he feels up to going home today. States he is getting around well with a walker and keeping weight off of the left foot. He denies any constitutional symptoms today. Denies further complaints today. Objective Data Objective Data Vital Signs: Vital Signs Temp Pulse Resp BP Pulse Ox O2 Del Method 98.5 F 84 18 156/93 H 97 Room Air 02/19/23 05:08 02/19/23 05:08 02/19/23 05:08 02/19/23 05:08 02/19/23 05:08 02/19/23 05:08 Oxygen Delivery Method Room Air Weight: 95.5 kg Body Mass Index (BMI) 36.1 Intake & Output: Intake and Output for Last 24 Hours 02/17/23 02/18/23 02/19/23 23:59 23:59 23:59 Intake Total 1115 / 2115 2647 / 2647 777.75 / 777.75 Balance 111 / 2115 2647 / 2647 777.75 / 777.75 Lab / Micro Data 02/18/23 04:35 02/18/23 04:35 Labs: Laboratory Results - last 24 hr 02/18/23 11:14: POC Glucose 211 H 02/18/23 16:14: POC Glucose 152 H 02/18/23 21:52: POC Glucose 237 H 02/19/23 06:35: POC Glucose 154 H Micro: Microbiology 02/16/23 15:17 Blood Culture (Wb) - Anticubital Right Blood Culture - Preliminary No growth in 48 hours. 02/16/23 13:40 Blood Culture (Wb) - Anticubital Left Blood Culture - Preliminary No growth in 48 hours. 02/17/23 17:40 Wound - Left Foot Gram Stain - Final 02/17/23 17:40 Wound - Left Foot Wound Culture - Preliminary Staphylococcus species 02/17/23 17:40 Bone - 2nd Metatarsal Bone Gram Stain - Final 02/17/23 17:40 Bone - 2nd Toe Gram Stain - Final Physical Exam Narrative Left foot with ulceration plantar forefoot with maceration, down to subcutaneous tissue, there is edema to the foot and erythema/cellulitis to the forefoot extending to the hindfoot, no bogginess, no fluctuance, no visible abscess, no crepitus, no purulence noted at this time, there is no oder. CFT < 2 seconds to all toes on the left foot with no evidence of acute ischemia to the left foot, there is chronic peripheral neuropathy to the left foot, there is no POP or pain on ROM to the left foot. Const alert, oriented x3 and no apparent distress HEENT normocephalic Eyes General Eye: normal appearance of both eyes Neck General: normal visual inspection Lymph Lymphatic: no lymphedema noted Resp normal respiratory effort Cardio regular rate and regular rhythm Extremity no joint enlargement, no calf tenderness and no pedal edema Extremity Narrative: DP and PT pulses palpable with capillary fill time less than 3 seconds to digits of left foot with no evidence of acute ischemia. Dermatological: Left foot subsecond metatarsal superficial ulceration with dried surrounding skin secondary to previous maceration. There is diffuse edema of the forefoot with cellulitis of the forefoot extending proximally to the dorsal midfoot. Edema is decreasing. Cellulitis improving on IV antibiotics. Plantar wound site demonstrates no palpable fluctuance/bogginess, no visible abscess formation, no crepitus of the tissue, no purulence, no malodor noted. Sutures intact to the dorsal foot overlying second metatarsal and previous digital amputation site. Musculoskeletal: Muscle strength 5 of 5 age-appropriate. No pain to palpation about the wound site or foot secondary to peripheral polyneuropathy. Skin no rashes or lesions noted, skin turgor normal and no jaundice Neuro moves all extremities Neuro Narrative: Lack of sensation secondary to diabetic peripheral polyneuropathy Assessment & Plan Assessment/Plan (1) Diabetes mellitus with diabetic polyneuropathy: (2) Cellulitis of foot, left: (3) Diabetic infection of left foot: (4) Osteomyelitis of left foot: (5) Abscess of left foot: PLAN: Plan Patient seen and evaluated He is s/p partial second ray amputation of the left foot. DOS: 02/17/2023. POD #2 Left foot subsecond metatarsal superficial ulceration with dried surrounding skin secondary to previous maceration. There is diffuse edema of the forefoot with cellulitis of the forefoot extending proximally to the dorsal midfoot. Edema decreasing. Cellulitis improving on IV antibiotics. Plantar wound site demonstrates no palpable fluctuance/bogginess, no visible abscess formation, no crepitus of the tissue, no purulence, no malodor noted. Sutures intact to the dorsal foot overlying second metatarsal and previous digital amputation site. Dressings changed today with Betadine soaked Adaptic, 4 x 4 gauze, Kerlix, ABD, and 4 inch Daim wrap rolled onto the foot. He was seen in office on 02/12/[address] Cabrales who took cultures and placed him on clindamycin 300 mg and levofloxacin 750 mg every 24 hours. Cultures obtained demonstrate E faecalis, staph heamolyticus, and coagulase-negative staph. WBC at this time was noted to be 10.8. Patient returned on 02/16/2023 with no improvement in cellulitis and was sent to ED for admittance for IV antibiotics and MRI for suspected bone infection. MRI of left foot performed 02/16/23 demonstrates diffuse soft tissue swelling and changes consistent with cellulitis and increased signal intensity on T2 of the proximal phalanx and second metatarsal head of the left foot consistent with osteomyelitis. MRI was discussed with the patient and he elected for partial second ray amputation of the left foot. Surgical swab culture obtained 02/17/2023, preliminary shows Staphylococcus sp. Bone culture second digit, awaiting results. Bone culture second metatarsal head, awaiting results. WBC has decreased to 8.0 currently on IV antibiotics. Patient currently on IV vancomycin and Unasyn. 1g Vancomycin powder was placed prior to closure. He will remain non-weight bearing to the Left foot with assistance of walker Medicine team currently following for medical management, they are greatly appreciated. ID following for antibiotic management, likely home on oral abx. Wound care nurse assisting in dressing changes Podiatry will continue to follow while in house for postoperative care. Upon discharge we will follow-up in office with me early next week. Please do not hesitate to call with any questions or concerns Jr. Paul Collins.P.M. [facility] [phone]
[2023-02-19 08:04] LABS: Anion Gap 2 (5-15); BUN 25 mg/dL (7-18); Calcium,Total 8.8 mg/dL (8.5-10.1); Chloride 108 mmol/L (98-107); Creatinine, Serum 1.19 mg/dL (0.70-1.30); EST Glomerular Filtration Rate 65 mL/min (>60); Est Glom Filt Rate - Afr Amer 79 mL/min (>60); Estimated Creatinine Clearance 52.51 ml/min; Glucose 150 mg/dL (74-106); Sodium Level 138 mmol/L (136-145)
[2023-02-19 10:15] VITALS: BP 126/77; PULSE 87; RESP 16; TEMP 36.9; O2SAT 97
[2023-02-19] MEDS: Juven (unflavored) Packet 1 PACKET PO (10:26)
[2023-02-19] MEDS: Insulin Glargine-YFGN 100 UNIT/ML Pen 10 UNIT SC (10:28)
[2023-02-19] MEDS: Lisinopril 40 MG Tablet PO (10:30)
--- NOTE | 2023-02-19 12:06 | PCM.DC.SUM ---
Providers Date of Admission: 02/16/23 Date of Discharge: 02/19/23 Primary Care Physician: Dr. Lincoln Haley MD Consultations 02/16/23 17:50 Consult: Infectious Disease Routine Consulting Provider: Jun Rose Reason for Consult: left foot cellulitis EMERGENT Consult: No Notified: Yes Date Notified: 02/17/23 Time Notified: 09:11 Method of Notification: Answering Service Consult: Podiatry Routine Consulting Provider: Masoud Cabrales Reason for Consult: left foot infection EMERGENT Consult: No Notified: Yes Date Notified: 02/16/23 Time Notified: 16:24 Method of Notification: Verbal 02/16/23 23:12 Consult: Onc/Wound/broadcast meteorologist Routine Comment: Reason for Consult:: wound left foot Comments:: betadine soln, gauze, kerlix and bulmaro dressing daily Reason For Visit: DIABETIC FOOT INFECTION, DIABETES Diagnosis Discharge Diagnosis (1) Diabetes mellitus with diabetic polyneuropathy: Status: Acute Code(s): E11.42 - Type 2 diabetes mellitus with diabetic polyneuropathy (2) Cellulitis of foot, left: Status: Acute Code(s): L03.116 - Cellulitis of left lower limb (3) Diabetic infection of left foot: Status: Acute Code(s): E11.628 - Type 2 diabetes mellitus with other skin complications; L08.9 - Local infection of the skin and subcutaneous tissue, unspecified (4) Osteomyelitis of left foot: Status: Acute Code(s): M86.9 - Osteomyelitis, unspecified (5) Abscess of left foot: Status: Acute Code(s): L02.612 - Cutaneous abscess of left foot Medications at Discharge Home Medications metformin 1,000 mg tablet 1,000 mg PO BID 01/26/22 lisinopril 40 mg tablet 40 mg PO DAILY #30 tabs 02/19/23 sitagliptin phosphate 50 mg tablet (Januvia) 50 mg PO DAILY #30 tabs 02/19/23 Hospital Course Operations - (Partial second digit resection left foot) Procedures - (Left foot x-ray/MRI left lower extremity) Summary of Care Provided Minutes Spent on Discharge: 37 Hospital Course: Mr. Wesis is a 62-year-old male who presented to the emergency department at [facility] on 02/16/2023 at the request of his firesetter due to worsening erythema and suspected infection of his left foot. Patient is a type II diabetic and he has a history of right-sided foot osteomyelitis that he was treated for this past year. Patient reported that approximately 10 days ago he noticed his foot was getting slightly swollen over the plantar aspect of the proximal to first and second metatarsal. He went on a trip to [place] and noticed when he came back it had been worsening so he saw his firesetter last Elvin who placed him on Levaquin and clindamycin. Cultures were obtained at that time and have since grown out Enterococcus faecalis, staph hemolyticus, and coag negative staph. The patient was reevaluated by firesetter on the day of admission and they felt that his foot appeared to be worsening and requested he come to the emergency department. Vital signs were stable on presentation but he was noted to be hypertensive. Normal white count but did present with a left shift at 77.2% neutrophilia. Coags are normal. His chemistry panel showed normal electrolytes but his BUN and serum creatinine were slightly elevated at 29 and 1.32. It appears his baseline previously had been between 0.9 and 1.2. Serum glucose was 126 at the time of presentation. There is not a recent hemoglobin A1c in our documentation with his most recent being from 01/27/2022 at which time it was 6.9. Based on the sensitivities of his previous culture he was placed on Unasyn and vancomycin and admitted to the medical floor with consultation infectious disease and podiatry. MRI was performed and was consistent with osteomyelitis. Podiatry and infectious disease were consulted. Podiatry evaluated the patient and took him to the OR on 02/17/2023 at which time partial second ray amputation of the left foot with I&D and wide debridement with tissue rearrangement and flap to the left foot was performed. Intraoperative cultures were sent. Cultures are currently growing methicillin sensitive Staph aureus which is consistent with cultures obtained on admission from the wound. Outpatient culture done as noted above for organisms. Hemoglobin A1c was obtained while he is hospitalized and was 9.1 which is significantly higher than it was a year ago. While he is hospitalized he added insulin and held his home metformin. He will be discharged on his home metformin and we have added Januvia 50 mg daily. I have asked him to follow-up with his primary care physician and obtain a repeat A1c within the next 3 months. He also met with a dietitian to further discuss diabetic diet and carbohydrate control. His blood pressure was elevated significantly on admission and stayed elevated so we did start lisinopril. We ended up titrating him up to 40 mg of lisinopril the time of discharge. His blood pressures did improve but I have asked him to follow-up with his primary care physician within the next week for blood pressure check and reassessment to see if he needs any further medications. I have also asked him to obtain a basic metabolic profile within the next 1 to 2 weeks to assure his renal function and electrolytes are stable. He was able to be discharged home in stable condition on 02/19/2023. Prescriptions for his antibiotics as recommended by infectious diseaseVahe, and lisinopril was sent to his local pharmacy. He is to follow-up with his primary care physician within the next 1 to 2 weeks and podiatry early next week. He is to be maintaining nonweightbearing status on that left lower extremity and utilizing a walker to ambulate until instructed otherwise by podiatry. He will continue wound care instructions as instructed by podiatry as well. We did discuss foot care with regards to him being diabetic and utilizing white socks and daily foot inspections for any signs of breakdown. He voiced understanding and his is at the bedside why we had this discussion as well. Discharge diagnoses: Osteomyelitis of the left foot second digit secondary to diabetic foot infection Cellulitis Elevated serum creatinine-resolved [id number] Hypertension Diabetic neuropathy Obesity Physical Exam Const alert, oriented x3, no apparent distress, healthy appearing and well nourished; Negative for average body habitus Constitutional Narrative: Obese, extremely friendly, [employer], white male, sitting up in bed, at bedside, appears comfortable and nontoxic General Appearance: cooperative, comfortable, well kempt and well developed Orientation / Consciousness: awake, oriented to person, oriented to place and oriented to time Exam Limitations: no limitations Nutritional Appearance: obese HEENT normocephalic, head/scalp atraumatic, hearing grossly normal bilaterally and moist oral mucous membranes HEENT Narrative: Dentition is poor, Mallampati is 3, no thigh rash Eyes PERRL, EOMs intact bilaterally and conjunctivae normal Neck no lymphadenopathy and supple Neck Narrative: Trachea midline, no thyroid enlargement Resp normal respiratory effort, no retractions, no use of accessory muscles and clear to auscultation bilaterally Auscultation: Negative for rales, rhonchi or wheezes Cardio regular rate, regular rhythm, S1 normal heart sound, S2 normal heart sound, no murmurs, no rub, no gallops and no clicks Cardio Narrative: S4 gallop present, no S3 GI normal to inspection, nondistended, normoactive bowel sounds, soft to palpation, non-tender and non-distended Extremity no clubbing, cyanosis or edema Extremity Narrative: Pedal pulses are 2+, cap refill is 2+ Skin no rashes or lesions noted, No no wounds, skin turgor normal and no jaundice Skin Narrative: Postoperative dressing in place Neuro oriented x3, CN's II-XII intact bilaterally, moves all extremities and no focal motor deficits Neuro Narrative: Decreased sensation bilateral lower extremities Sensorium / Orientation: awake, alert, oriented to person, oriented to place and oriented to time Speech: speech normal Psych affect normal Psych Narrative: Very pleasant, talkative, interacts appropriately Weight / BMI Weight Weight: 95.5 kg Body Mass Index (BMI) 36.1 ABG / Lab / Microbiology Data 02/18/23 04:35 02/19/23 07:00 Laboratory: Laboratory Results - last 24 hr 02/18/23 16:14: POC Glucose 152 H 02/18/23 21:52: POC Glucose 237 H 02/19/23 06:35: POC Glucose 154 H 02/19/23 07:00: Sodium 138, Potassium 4.0, Chloride 108 H, Carbon Dioxide 28.0, Anion Gap 2 L, BUN 25 H, Creatinine 1.19, Estim Creat Clear Calc 52.51, Est GFR (MDRD) Af Amer 79, Est GFR (MDRD) Non-Af 65, BUN/Creatinine Ratio 21.0 H, Glucose 150 H, Calcium 8.8 Microbiology: Microbiology 02/17/23 17:40 Bone - 2nd Metatarsal Bone Gram Stain - Final 02/17/23 17:40 Bone - 2nd Metatarsal Bone Wound Culture - Preliminary Staphylococcus aureus 02/17/23 17:40 Wound - Left Foot Gram Stain - Final 02/17/23 17:40 Wound - Left Foot Wound Culture - Final Staphylococcus aureus 02/16/23 15:17 Blood Culture (Wb) - Anticubital Right Blood Culture - Preliminary No growth in 48 hours. 02/16/23 13:40 Blood Culture (Wb) - Anticubital Left Blood Culture - Preliminary No growth in 48 hours. 02/17/23 17:40 Bone - 2nd Toe Gram Stain - Final D/C Instructions Discharge Diet: Low fat / Low cholesterol and 1800 Calorie Control Diet Discharge Activity: Use Walker Weight Bearing Status: No weight bearing (Left lower extremity) Meaningful Use Info Meaningful Use Diagnoses (Choose all that apply): None applicable Discharge Plan Admission Admit Date/Time: 02/16/23 16:17 Primary Reason for Your Visit: L Diabetic Foot wound Attending Provider: Yadira Apodaca Primary Care Provider: Lincoln Haley Consulting Providers: Masoud Cabrales; Luis M Chandler; Jun Rose Instructions Additional Instructions / Restrictions: 1. Continue wound care as directed by wound care nurse 2. Please follow-up with your primary care physician and obtain a basic metabolic profile in 1 to 2 weeks and hemoglobin A1c in 3 months 3. Please complete the entire course of antibiotics and follow-up as noted below with podiatry 4. Use a walker to ambulate and do not place any weight on your left foot until directed otherwise by podiatry Discharge Orders/Prescriptions Prescriptions: New lisinopril 40 mg Tablet 40 mg PO DAILY Qty: 30 2RF Januvia 50 mg tablet 50 mg PO DAILY Qty: 30 2RF Continued metformin 1,000 mg Tablet 1,000 mg PO BID Discontinued clindamycin HCl 300 mg capsule 300 mg PO Q8H Patient Comments: take 1 capsule by mouth every 8 hours levofloxacin 750 mg tablet 750 mg PO Q24H Patient Comments: take 1 tablet by mouth once daily Referrals / Follow Up: Lincoln Haley MD [Primary Care Provider] - Within 1 Week Ramez Rios DPM [Med Staff - Active Staff] - See Referral Note (Early Next Week) Disposition Disposition (needs filled in before D/C Order can be placed): Home, Self Care Charges/Coding Visit Charges Inpatient E&M: 02684 Disch Hosp >30min
[2023-02-19] MEDS: Vancomycin HCl 750 MG in 0.9% Normal Saline (250mL Bag) 250 ML 250 MG IV (12:21)
[2023-02-19] MEDS: 0.9% Normal Saline (250mL Bag) 250 ML 15 ML IV (12:24)
[2023-02-19 12:34] LABS: Bedside Glucose 219 mg/dL (74-106)
--- NOTE | 2023-02-19 14:21 | PCM.PN.ID ---
Physical Exam Narrative Feeling well, discharge planned, no fever Const alert and no apparent distress General Appearance: cooperative Resp normal air movement and clear to auscultation bilaterally Cardio regular rate and regular rhythm GI soft to palpation, non-tender and non-distended Skin no rashes or lesions noted Skin Narrative: foot wrapped ID ID: Route of nutrition/ use of supplements: [] Nutritional Intake: [] IV Site: [] Schumacher Catheter: [] Assessment & Plan Assessment/Plan (1) Osteomyelitis of left foot: PLAN: OR 02/17/[address] Rios for I&D with partial 2nd ray amputation. On empiric vanc/unasyn. Wound cx with enterococcus, CoNS x2, anaerobes. Ok for discharge on 6 weeks po augmentin, wrote rx. Will follow (2) Diabetes mellitus with diabetic polyneuropathy:
--- NOTE | 2023-02-19 14:36 | CASEMGMT ---
Spoke with ID, pt to dc on oral atb. SABRINA CM into pt room, pt denies needing any HHC states I have all the home health I need at home referring to his family. Pt denies any homegoing needs and is anxious for dc.
[2023-02-19 15:01] VITALS: BP 159/97; PULSE 79; RESP 18; TEMP 37.1; O2SAT 98
== END 2023-02-19 15:08 | disposition home or self-care (01) | DRG 617 ==
LOC: ED 15:25 → MS3 16:34
PROVIDERS: Student in an Organized Health Care Education/Training Program; Admitting Provider Internal Medicine; Emergency Provider Emergency Medicine; PCP Family Medicine; Visit Provider Internal Medicine
PROC: 0Y6N0ZB Detachment at Left Foot, Partial 2nd Ray, Open Approach (ICD-10-PCS; principal; 2023-02-17 14:05)
DX: E11.69 Type 2 diabetes mellitus with other specified complication (principal); L03.116 Cellulitis of left lower limb; M86.8X7 Other osteomyelitis, ankle and foot; L97.422 Non-pressure chronic ulcer of left heel and midfoot with fat layer exposed; L02.612 Cutaneous abscess of left foot; E11.621 Type 2 diabetes mellitus with foot ulcer; E11.42 Type 2 diabetes mellitus with diabetic polyneuropathy; I10 Essential (primary) hypertension; E66.9 Obesity, unspecified; Z68.36 Body mass index [BMI] 36.0-36.9, adult; Z79.84 Long term (current) use of oral hypoglycemic drugs; Z79.899 Other long term (current) drug therapy
CPT/HCPCS: 36415; 73630; 73718; 76000; 80048; 80053; 80202; 82962; 83036; 83605; 83735; 84100; 85025; 85610; 85730; 87015; 87040; 87070; 87075; 87077; 87102; 87116; 87176; 87186; 87205; 87206; 88305; 88311; 99284; J7040; J7050; J7120; A4216; J0295; J2405

== ENCOUNTER 2025-03-22 10:03 | Inpatient (IN) | payer MEDICAID, SELFPAY ==
[2025-03-22 10:24] VITALS: BMI 34.4
--- NOTE | 2025-03-22 10:50 | ART_ITS ---
Reason For Study Reason For Study: Ulcer Procedure A bilateral lower extremity continuous wave Doppler with analog waveform analysis,segmental pressures,and ankle brachial indexes without exercise. Left Segmental Pressures Left brachial= 149mmHg. Left posterior tibial artery = 206mmHg. Left dorsalis pedis artery = 169mmHg. Left digit = 118 mmHg. The left dorsalis pedis waveforms are triphasic. The left posterior tibial artery waveforms are triphasic. Right Segmental Pressures Right posterior tibial artery = 181mmHg. Right dorsalis pedis artery = 180mmHg. Right digit = 144 mmHg. The right dorsalis pedis waveforms are triphasic. The right posterior tibial artery waveforms are triphasic. Indices The right ankle brachial index by the dorsalis pedis is 1.21. The right ankle brachial index by the posterior tibial artery is 1.21. The right digital-brachial index is 0.97. The left ankle brachial index by the dorsalis pedis is 1.13. The left ankle brachial index by the posterior tibial artery is 1.38. The left digital-brachial index is 0.79. VL/Lower Ext Art Exam w/o Exercis Interpretation Summary Right SYEDA 1.21, normal. TBI and Doppler/PVR waveforms of the right leg normal a t rest. Left SYEDA 1.38, normal. TBI and Doppler/PVR waveforms of the left leg normal at rest. Ordering Physician: Masoud Cabrales Referring Physician: Ridge Bishop Performed By: Esperanza Mg RVT
--- NOTE | 2025-03-22 10:53 | HP.PCM_ITS ---
HPI - General General Date of Admission: 03/22/25 Date of Service: 03/22/25 Chief Complaint: Left foot ulcer and infection HPI Narrative ANTONIO MCCLURE, is a 64 M who presents to hospital as a direct admit from my office. He presented today for an ulceration on the bottom of his left foot, he relates has been present for more than a month. His relates he has been telling him to stay off of it but he has not very active on his foot. He saw his primary care physician, and they prescribed him oral Cipro 500mg PO BID, which he has been taking without adverse reactions, he relates since starting the antibiotic the redness and swelling have improved. He continues to have a deep wound on the bottom of his left foot, his relates a piece of bone came out of it the other day. 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 He has diabetes and peripheral neuropathy as well. FORMERLY [facility], [facility] Medical History (Updated 03/22/25 @ 11:[address] Masoud Cabrales, DP) Diabetes mellitus with diabetic polyneuropathy HTN (hypertension) Osteomyelitis of left foot Hypertension Diabetes Non-smoker Diabetes Infected ulcer of skin Diabetic foot ulcer Home Medications ?Medication ?Instructions ?Recorded ?Last Taken ?Type metformin 1,000 mg tablet 1,000 mg PO BID . 01/26/22 1 History ciprofloxacin HCl 500 mg tablet 500 mg PO BID Foot ulc er 03/22/25 03/21/25 History (Cipro) glimepiride 2 mg tablet 2 mg PO DAILY . 03/22/25 History losartan 50 mg-hydrochlorothiazide 1 tab PO DAILY bloo d pressure 03/22/25 03/21/25 History 12.5 mg tablet simvastatin 40 mg tablet 40 mg PO DAILY . 03/22/25 History Allergy/AdvReac Type Severity Reaction Status Date / Time No Known Allergies Allergy Verified 12/20/24 09:14 Family History Other Hypertension Social History household members: spouse Smoking Status: Never smoker Vital Signs Vital Signs Vital Signs: Weight Weight: 91.172 kg Body Mass Index (BMI) 34.4 Physical Exam Const alert, oriented x3 and no apparent distress Constitutional Narrative: Left foot with round marble sized ulceration sub 3rd metatarsal head which probes straight to the 3rd metatarsal head which is eroded and nonviable, the surrounding tissues with granular and chronic appearing, the margins are viable, there is no significant cellulitis, there is serous drainage from the wound, there is no pain, no maloder, no fluctuance, no visible abscess present to the left foot, ankle or leg. Chronic peripheral neuroapthy to the left foot, no POP or pain on ROM to the left foot or ankle, no evidence of charcot neuroarthropathy, s/p previoius left partial 2nd ray amputation which is healed, vascular status intact to left foot, CFT < 2 seconds to all toes, there is some edema to the left foot. Results Lab / Micro Data 03/22/25 11:08 03/22/25 11:08 Assessment & Plan Assessment/Plan (1) Diabetic infection of left foot: (2) Chronic multifocal osteomyelitis of left foot: (3) Type 2 diabetes mellitus with foot ulcer: (4) Non-pressure chronic ulcer of other part of left foot with necrosis of bone: PLAN: Plan Evaluation performed. Patient was admitted due to infection of left foot, left foot xrays were obtained in office today and there is destruction of the left 3rd metatarsal head, there is no gas in the tissues. Clinically the ulceration plantar left foot probes to bone and bone of the 3rd metatarsal head is necrotic. We discussed further options and plan is to proceed with OR debridement left foot tomorrow. Antibiotics: Started on Vanc/Zosyn - Infectious Disease has been consulted. A deep wound culture has been obtained and sent to microbiology for further evaluation. Wound care: Betadine solution and gauze packing. Weightbearing: No weightbearing left foot. Also Hospital Medicine consulted - appreciate assistance. Noninvasive lower extremity arterial studies ordered as well. Plan for OR debridement left foot tomorrow, patient to be NPO after midnight tonight.
[2025-03-22 11:02] VITALS: BP 165/104; PULSE 77; RESP 16; TEMP 36.7; O2SAT 100
[2025-03-22 11:14] LABS: Hematocrit 34.2 % (40-54); Hemoglobin 11.5 g/dL (13.0-16.5); Immature Granulocytes Count 0.020 X10^3/uL (0.0-0.0); Mean Corp Hgb Conc 33.6 g/dL (32-36); Mean Corpuscular Volume 89.1 fL (80-94); Mean Platelet Vol. 8.8 fl (6.2-12.0); NRBC Flagged by Analyzer 0 % (0-5); Platelet Count 191 K/mm3 (150-450); RBC Distribution Width CV 12.8 % (11.6-14.6); RBC Distribution Width SD 41.6 fl (35.1-43.9); Red Blood Count 3.84 M/mm3 (4.6-6.2); White Blood Count 4.9 K/mm3 (4.4-11.0)
--- NOTE | 2025-03-22 11:28 | PN.HOSP_ITS ---
Reason for Visit Chief Complaint: Left foot ulcer and infection Subjective Subjective Patient is a 64-year-old gentleman with multiple comorbidities including diabetes mellitus type 2 complications including peripheral neuropathy admitted with diabetic foot ulceration involving the left foot admitted to regular nursing floor with consultation placed to the hospitalist service Objective Data Objective Data Vital Signs: Vital Signs Temp Pulse Resp BP Pulse Ox O2 Del Method 98.1 F 77 16 165/104 H 100 Room Air 03/22/25 11:02 03/22/25 11:02 03/22/25 11:02 03/22/25 11:02 03/22/25 11:02 03/22/25 11:02 Oxygen Delivery Method Room Air Weight: 91.172 kg Body Mass Index (BMI) 34.4 Lab / Micro Data 03/22/25 11:08 03/22/25 11:08 Labs: Laboratory Results - last 24 hr 03/22/25 11:08: WBC 4.9, RBC 3.84 L, Hgb 11.5 L, Hct 34.2 L, MCV 89.1, MCH 29.9, MCHC 33.6, RDW Std Deviation 41.6, RDW Coeff of Neftali 12.8, Plt Count 191, MPV 8.8, Immature Gran % (Auto) 0.400, Neut % (Auto) 52.2, Lymph % (Auto) 35.2, Phillips % (Auto) 9.6, Eos % (Auto) 2.0, Baso % (Auto) 0.6, Absolute Neuts (auto) 2.6, Absolute Lymphs (auto) 1.73, Nucleated RBC % 0 Physical Exam Narrative GENERAL: cooperative HEENT: Atraumatic; normocephalic EYES; Anicteric, Normal Conjunctiva NECK; supple, normal thyroid, RESPIRATORY: Diminished to auscultation CARDIOVASCULAR: Regular S1 S2, GI: soft, normoactive bowel sounds, : No Renal angle tenderness; EXTREMITIES: Left foot wrapped pictures reviewed MUSCULOSKELETAL: no muscle wasting NEURO: Awake; no lateralizing signs. SKIN: No Rash PSYCH; Flat affect Assessment & Plan Assessment/Plan (1) Type 2 diabetes mellitus with foot ulcer: PLAN: Plan Patient is a 64-year-old gentleman with multiple comorbidities including diabetes mellitus type 2 complications including peripheral neuropathy admitted with diabetic foot ulceration involving the left foot admitted to regular nursing floor with consultation placed to the hospitalist service 1. Diabetic foot ulceration involving the left foot ? Imaging studies obtained as outpatient demonstrated destruction of the third metatarsal head. Admitted to regular nursing floor by Dr. Yi with podiatry cultures obtained, started on on broad-spectrum antibiotic therapy with Vanco and Zosyn with consultation placed to ID 2. Diabetes mellitus type 2 with complications including diabetic polyneuropathy ? Held patient oral agents, placed on Accu-Cheks AC and at bedtime with sliding scale coverage 3. Hypertension ? Blood pressure controlled, home medications continued with dose adjustment as needed 4. Obesity with BMI of 34.1 ? Weight loss advised 5. Dyslipidemia ?Patient is on statin therapy, continued at home dose 6 .Anemia ? Secondary to chronic disorder monitoring H&H and transfuse if patient becomes symptomatic or hemoglobin falls below 7 7. DVT prophylaxis ? On enoxaparin Time spent in the patient's overall evaluation,decision-making process, review of diagnostic data, adjustment of management, discussion with other providers, nursing nursing and ancillary staff involved in patient's care documentation, 50 Minutes Charges/Coding Visit Charges Inpatient E&M: [address] [facility] H[facility] L3
--- NOTE | 2025-03-22 11:30 | WOUNDNOTE ---
wound photo: left plantar foot
--- NOTE | 2025-03-22 11:30 | WOUNDNOTE ---
skin photo: left foot
--- NOTE | 2025-03-22 11:42 | WOUNDNOTE ---
wound photo: left plantar foot
[2025-03-22 12:23] LABS: AST(SGOT) 14 U/L (<=37); Alanine Aminotransfer ALT/SGPT 11 U/L (<=46); Albumin, Serum 3.9 g/dL (3.4-4.8); Alkaline Phosphatase 67 U/L (40-129); Anion Gap 10 (5-15); BUN 36 mg/dL (4-19); BUN/Creat Ratio 32.1 RATIO (10-20); Calcium,Total 9.4 mg/dL (7.6-11.0); Carbon Dioxide 24.5 mmol/L (21.0-32.0); Chloride 103 mmol/L (98-108); Estimated Creatinine Clearance 66.06 ml/min (50-250); Globulin 3.2 g/dL (2.2-4.2); Glucose 118 mg/dL (70-99); Potassium 4.5 mmol/L (3.3-5.1)
[2025-03-22] MEDS: 0.9% Normal Saline (250mL Bag) 250 ML 15 ML IV ×2 (12:33→12:47)
[2025-03-22] MEDS: 0.9% Saline Lock 10 ML Syringe IV (12:33)
[2025-03-22] MEDS: Piperacil/Tazobactam 3.375 GM/50 ML ML IV (12:34)
[2025-03-22] MEDS: Vancomycin HCl 2,000 MG in 0.9% Normal Saline (500mL Bag) 500 ML 250 MG IV (12:46)
--- NOTE | 2025-03-22 13:00 | PCM.RX.CS ---
Consult Antibiotic Management Pharmacy has been consulted to manage selected antibiotic: Vancomycin Type of Intervention Type of Consult: New start Suspected Infection Suspected Infection: Osteomyelitis Labs Labs: Sodium 138 mmol/L (133-145) 03/22/25 11:08 Potassium 4.5 mmol/L (3.3-5.1) 03/22/25 11:08 Chloride 103 mmol/L (98-108) 03/22/25 11:08 Carbon Dioxide 24.5 mmol/L (21.0-32.0) 03/22/25 11:08 Anion Gap 10 (5-15) 03/22/25 11:08 BUN 36 mg/dL (4-19) H 03/22/25 11:08 Creatinine 1.12 mg/dL (0.70-1.20) 03/22/25 11:08 Est GFR (MDRD) Non-Af 72 (>60) 03/22/25 11:08 BUN/Creatinine Ratio 32.1 RATIO (10-20) H 03/22/25 11:08 Glucose 118 mg/dL (70-99) H 03/22/25 11:08 Dosing Weight Weight used for dosin.172 kg Estimated Creatinine Clearance Estimated Creatinine Clearance: 66 mL/dL Goal Trough Goal Trough: 15-20 mcg/mL Pharmacy Plan for Drug Dosing Pharmacy Plan for Drug Dosing: NEW IV VANCOMYCIN Consulting Physician: Dr. Esteban Cabrales Indication: Osteomyelitis of Left foot Goal Trough: 15-20 SrCr: 1.12 mg/dL CrCl: 66 ml/min Vancomycin Dose: 2000 MG LOADING DOSE X1 GIVEN AT 1246, THEN 1000 MG Q12H IV STARTING AT 0100 04/23/2025 Pharmacy Service will continue to monitor and adjust dosing as required. Pending Level: 0030 03/24/2025 Follow-Up Labs Follow-Up Labs: Trough: Vancomycin Date/Time Labs Ordered Labs to be done on [date and time ordered]: 03/24/2025 @0030
--- NOTE | 2025-03-22 14:01 | PCM.CONS.GEN ---
Assessment & Plan Assessment/Plan (1) Chronic multifocal osteomyelitis of left foot: PLAN: Will narrow to vanc/unasyn. Prior h/o MSSA osteo in 2022. OR planned, would send cultures. Will follow, thank you (2) Diabetes mellitus with diabetic polyneuropathy: HPI Consult Data Date of Consult: 03/22/25 HPI Narrative Reason for Consultation: osteo HPI Narrative: ANTONIO MCCLURE, is a 64 M with h/o DM neuropathy, prior toe amputations, presented with one month progressive L foot wound. Denies pain, swelling, redness. Some drainage. No fever or chills. Was on cipro recently. Had piece of bone come out. Admitted to [facility], started on vanc/zosyn. OR planned. Full ROS performed and neg except as noted above. FORMERLY [facility] Medical History Diabetes mellitus with diabetic polyneuropathy HTN (hypertension) Osteomyelitis of left foot Hypertension Diabetes Non-smoker Diabetes Infected ulcer of skin Diabetic foot ulcer Home Medications ?Medication ?Instructions ?Recorded ?Last Taken ?Type metformin 1,000 mg tablet 1,000 mg PO BID . 01/26/22 03/21/25 History ciprofloxacin HCl 500 mg tablet 500 mg PO BID Foot ulcer 03/22/25 03/21/25 History (Cipro) glimepiride 2 mg tablet 2 mg PO DAILY . 03/22/25 03/21/25 History losartan 50 mg-hydrochlorothiazide 1 tab PO DAILY blood pressure 03/22/25 03/21/25 History 12.5 mg tablet simvastatin 40 mg tablet 40 mg PO DAILY . 03/22/25 03/21/25 History Allergy/AdvReac Type Severity Reaction Status Date / Time No Known Allergies Allergy Verified 12/20/24 09:14 Family History Other Hypertension Social History household members: spouse Smoking Status: Never smoker Physical Exam Const alert, oriented x3 and no apparent distress General Appearance: cooperative HEENT normocephalic and head/scalp atraumatic Eyes PERRL and EOMs intact bilaterally Neck supple and No nodes Resp normal air movement and clear to auscultation bilaterally Cardio regular rate and regular rhythm GI soft to palpation, non-tender and non-distended Extremity General Extremity: Negative for edema Skin Skin Narrative: reviewed wound photos Neuro CN's II-XII intact bilaterally Lab / Micro Data Attestation: I reviewed the patient's lab results. 03/22/25 11:08 03/22/25 11:08 Labs: Laboratory Results - last 24 hr 03/22/25 11:08: WBC 4.9, RBC 3.84 L, Hgb 11.5 L, Hct 34.2 L, MCV 89.1, MCH 29.9, MCHC 33.6, RDW Std Deviation 41.6, RDW Coeff of Neftali 12.8, Plt Count 191, MPV 8.8, Immature Gran % (Auto) 0.400, Neut % (Auto) 52.2, Lymph % (Auto) 35.2, Newton % (Auto) 9.6, Eos % (Auto) 2.0, Baso % (Auto) 0.6, Absolute Neuts (auto) 2.6, Absolute Lymphs (auto) 1.73, Nucleated RBC % 0, Sodium 138, Potassium 4.5, Chloride 103, Carbon Dioxide 24.5, Anion Gap 10, BUN 36 H, Creatinine 1.12, Estim Creat Clear Calc 66.06, Est GFR (MDRD) Non-Af 72, BUN/Creatinine Ratio 32.1 H, Glucose 118 H, Hemoglobin A1c 8.8 H, Calcium 9.4, Total Bilirubin 0.31, AST 14, ALT 11, Alkaline Phosphatase 67, Total Protein 7.1, Albumin 3.9, Globulin 3.2, Albumin/Globulin Ratio 1.2
[2025-03-22 17:02] VITALS: BP 144/91; PULSE 68; RESP 16; TEMP 36.8; O2SAT 97
[2025-03-22] MEDS: Ampicillin/Sulbactam 3 GM in 0.9% Normal Saline (100mL MB+) 100 ML IV (20:51)
[2025-03-22 21:06] VITALS: BP 147/84; PULSE 75; RESP 17; TEMP 36.6; O2SAT 100
[2025-03-23] VITALS (10 sets, daily range): BP systolic 113–149; BP diastolic 78–94; PULSE 67–76; RESP 15–18; TEMP 36.1–36.7; O2SAT 96–100
[2025-03-23] MEDS: Vancomycin HCl 1,000 MG in 0.9% Normal Saline (250mL Bag) 250 ML 250 MG IV ×2 (01:13→12:38)
[2025-03-23 04:36] LABS: Hematocrit 35.3 % (40-54); Hemoglobin 11.6 g/dL (13.0-16.5); Immature Granulocytes Count 0.020 X10^3/uL (0.0-0.0); Mean Corp Hgb Conc 32.9 g/dL (32-36); Mean Corpuscular Volume 90.1 fL (80-94); Mean Platelet Vol. 9.0 fl (6.2-12.0); NRBC Flagged by Analyzer 0 % (0-5); Platelet Count 191 K/mm3 (150-450); RBC Distribution Width CV 13.0 % (11.6-14.6); RBC Distribution Width SD 42.1 fl (35.1-43.9); Red Blood Count 3.92 M/mm3 (4.6-6.2); White Blood Count 3.7 K/mm3 (4.4-11.0)
[2025-03-23 05:02] LABS: Anion Gap 9 (5-15); BUN 32 mg/dL (4-19); BUN/Creat Ratio 26.0 RATIO (10-20); Calcium,Total 9.1 mg/dL (7.6-11.0); Carbon Dioxide 25.8 mmol/L (21.0-32.0); Chloride 103 mmol/L (98-108); Estimated Creatinine Clearance 60.65 ml/min (50-250); Glucose 136 mg/dL (70-99); Magnesium 2.1 mg/dL (1.5-2.2); Potassium 4.5 mmol/L (3.3-5.1)
[2025-03-23] MEDS: Ampicillin/Sulbactam 3 GM in 0.9% Normal Saline (100mL MB+) 100 ML IV ×3 (05:16→21:17)
--- NOTE | 2025-03-23 07:31 | WOUNDNOTE ---
Pt scheduled for surgery this am with Dr Cabrales. Will leave dressing in place.
--- NOTE | 2025-03-23 08:23 | PCM.PN.HOSP ---
Reason for Visit Chief Complaint: Left foot ulcer and infection Subjective Subjective Patient is a 64-year-old gentleman with multiple comorbidities including diabetes mellitus type 2 complications including peripheral neuropathy admitted with diabetic foot ulceration involving the left foot admitted to regular nursing floor with consultation placed to the hospitalist service Objective Data Objective Data Vital Signs: Vital Signs Temp Pulse Resp BP Pulse Ox O2 Del Method 97.5 F L 75 18 113/80 100 Room Air 03/23/25 08:03 03/23/25 08:03 03/23/25 08:03 03/23/25 08:03 03/23/25 08:03 03/23/25 08:03 Oxygen Delivery Method Room Air Weight: 91.172 kg Body Mass Index (BMI) 34.4 Intake & Output: Intake and Output for Last 24 Hours 03/21/25 03/22/25 03/23/25 23:59 23:59 23:59 Intake Total 687.42 / 1137.42 820 / 820 Balance 687.42 / 1137.42 820 / 820 Lab / Micro Data 03/23/25 04:13 03/23/25 04:13 Labs: Laboratory Results - last 24 hr 03/22/25 11:08: WBC 4.9, RBC 3.84 L, Hgb 11.5 L, Hct 34.2 L, MCV 89.1, MCH 29.9, MCHC 33.6, RDW Std Deviation 41.6, RDW Coeff of Neftali 12.8, Plt Count 191, MPV 8.8, Immature Gran % (Auto) 0.400, Neut % (Auto) 52.2, Lymph % (Auto) 35.2, Hanover % (Auto) 9.6, Eos % (Auto) 2.0, Baso % (Auto) 0.6, Absolute Neuts (auto) 2.6, Absolute Lymphs (auto) 1.73, Nucleated RBC % 0, Sodium 138, Potassium 4.5, Chloride 103, Carbon Dioxide 24.5, Anion Gap 10, BUN 36 H, Creatinine 1.12, Estim Creat Clear Calc 66.06, Est GFR (MDRD) Non-Af 72, BUN/Creatinine Ratio 32.1 H, Glucose 118 H, Hemoglobin A1c 8.8 H, Calcium 9.4, Total Bilirubin 0.31, AST 14, ALT 11, Alkaline Phosphatase 67, Total Protein 7.1, Albumin 3.9, Globulin 3.2, Albumin/Globulin Ratio 1.2 03/22/25 16:39: POC Glucose 137 H 03/22/25 21:04: POC Glucose 179 H 03/23/25 04:13: WBC 3.7 L, RBC 3.92 L, Hgb 11.6 L, Hct 35.3 L, MCV 90.1, MCH 29.6, MCHC 32.9, RDW Std Deviation 42.1, RDW Coeff of Neftali 13.0, Plt Count 191, MPV 9.0, Immature Gran % (Auto) 0.500, Neut % (Auto) 49.2, Lymph % (Auto) 37.0, Hanover % (Auto) 10.1 H, Eos % (Auto) 2.7, Baso % (Auto) 0.5, Absolute Neuts (auto) 1.8 L, Absolute Lymphs (auto) 1.35, Nucleated RBC % 0, Sodium 139, Potassium 4.5, Chloride 103, Carbon Dioxide 25.8, Anion Gap 9, BUN 32 H, Creatinine 1.22 H, Estim Creat Clear Calc 60.65, Est GFR (MDRD) Non-Af 65, BUN/Creatinine Ratio 26.0 H, Glucose 136 H, Calcium 9.1, Phosphorus 4.0, Magnesium 2.1 03/23/25 05:22: POC Glucose 134 H Radiography Diagnostic Testing: Radiology Impression Extremity Arterial Study 03/22/25 10:50 Interpretation Summary Right SYEDA 1.21, normal. TBI and Doppler/PVR waveforms of the right leg normal at rest. Left SYEDA 1.38, normal. TBI and Doppler/PVR waveforms of the left leg normal at rest. Ordering Physician: Masoud Cabrales Referring Physician: Ridge Bishop Performed By: Esperanza Mg RVT Physical Exam Narrative GENERAL: cooperative HEENT: Atraumatic; normocephalic EYES; Anicteric, Normal Conjunctiva NECK; supple, normal thyroid, RESPIRATORY: Diminished to auscultation CARDIOVASCULAR: Regular S1 S2, GI: soft, normoactive bowel sounds, : No Renal angle tenderness; EXTREMITIES: Left foot wrapped pictures reviewed MUSCULOSKELETAL: no muscle wasting NEURO: Awake; no lateralizing signs. SKIN: No Rash PSYCH; Flat affect Assessment & Plan Assessment/Plan (1) Type 2 diabetes mellitus with foot ulcer: PLAN: Plan Patient is a 64-year-old gentleman with multiple comorbidities including diabetes mellitus type 2 complications including peripheral neuropathy admitted with diabetic foot ulceration involving the left foot admitted to regular nursing floor with consultation placed to the hospitalist service 1. Diabetic foot ulceration involving the left foot ? Imaging studies obtained as outpatient demonstrated destruction of the third metatarsal head. Admitted to regular nursing floor by Dr. Cabrales with podiatry cultures obtained, started on on broad-spectrum antibiotic therapy with Vanco and Zosyn with consultation placed to ID ? 03/23/2025; patient underwent Debridement of ulceration left foot down to and including bone by Keron on 03/23/2025; cultures been 2. Diabetes mellitus type 2 with complications including diabetic polyneuropathy ? Held patient oral agents, placed on Accu-Cheks AC and at bedtime with sliding scale coverage 3. Hypertension ? Blood pressure controlled, home medications continued with dose adjustment as needed 4. Obesity with BMI of 34.1 ? Weight loss advised 5. Dyslipidemia ?Patient is on statin therapy, continued at home dose 6 .Anemia ? Secondary to chronic disorder monitoring H&H and transfuse if patient becomes symptomatic or hemoglobin falls below 7 7. DVT prophylaxis ? On enoxaparin Time spent in the patient's overall evaluation,decision-making process, review of diagnostic data, adjustment of management, discussion with other providers, nursing nursing and ancillary staff involved in patient's care documentation, 35 Minutes Charges/Coding Visit Charges Inpatient E&M: 60098 Subs Hosp L2
[2025-03-23] MEDS: Lactated Ringers 1,000 ML 15 ML IV (08:41)
--- NOTE | 2025-03-23 09:12 | PCM.PRE.AN2 ---
ASA Classification* ASA Classification ASA Classification: 3 Assessment & Plan Anesthesia* Anesthesia Assessment Anesthesia Assessment: Discussed sedation and/or anesthesia options, risks, benefits, and alternatives with patient/parents/legal guardian/POA. Questions invited. The patient/parents/legal guardian/POA seems to understand and agrees to proceed with anesthesia plan. Reviewed the physical assessment, medical history, allergy history and patient home medications list prior to surgery/procedure/anesthetic and documented any changes. Performed airway and anesthesia risk assessments. Anesthesia Type Anesthesia Type: General and MAC Anesthesia Focused Assessment* Temperature: 97.5 F Pulse Rate: 75 Blood Pressure: 113/80 Respiratory Rate: 18 Pulse Ox: 100 Airway Assessment Mouth opens: >3 cm Mallampati Score: II Labs Anesthesia Preop lab: CBC WBC, (4.4-11.0) 3.7 K/mm3 L Today, 04:13 RBC, (4.6-6.2) 3.92 M/mm3 L Today, 04:13 Hgb, (13.0-16.5) 11.6 g/dL L Today, 04:13 Hct, (40-54) 35.3 % L Today, 04:13 Plt Count, (150-450) 191 K/mm3 Today, 04:13 CHEMISTRY Potassium, (3.3-5.1) 4.5 mmol/L Today, 04:13 Sodium, (133-145) 139 mmol/L Today, 04:13 Magnesium, (1.5-2.2) 2.1 mg/dL Today, 04:13 Phosphorus, (2.7-4.5) 4.0 mg/dL Today, 04:13 BUN, (4-19) 32 mg/dL H Today, 04:13 Creatinine, (0.70-1.20) 1.22 mg/dL H Today, 04:13 Glucose, (70-99) 136 mg/dL H Today, 04:13 POC Glucose, (74-106) 134 mg/dL H Today, 05:22 COAG PT, (11.7-14.9) 13.5 SECONDS 02/16/23, 13:40 Pre-Assessment Diagnosis/Proposed Procedure Planned Operative Procedure(s): i and dleft foot/bone Anesthesia History Anesthesia History - can doffer: Anesthesia History - can doffer Hx Hospitalization Any Problems With Anesthesia No 03/22/25 21:07 Cholinesterase deficiency No 03/22/25 21:07 You/Your Family Experience No 03/22/25 21:07 fever (hyperthermia) with Relationship Recent Exposure to Contagious No 03/22/25 21:07 Disease Does patient have nerve No 03/22/25 21:07 stimulator Patient instructed to have No 03/22/25 21:07 device shut off --Does patient have Pacemaker or ICD? When Was Last Pacemaker Check QUESTION #4 FULL TEXT: You/Your Family Experience fever (hyperthermia) with Anesthesia Last Oral Intake Last Oral intake: Last Oral Intake NPO since Meds taken in AM with sips of water? Meds patient instructed to take am of surgery PONV PONV - can doffer: PONV - can doffer Female HX of Motion Sickness HX of N/V After Surgery Non-Smoker Duration of Surgery greater than 60 minutes Number of Risk Factors PONV Score Height & Weight Height & Weight: Anesthesia: Height & Weight Height 5 ft 4 in 03/22/25 10:24 Weight: 91.172 kg 03/22/25 10:24 Body Mass Index (BMI) 34.4 03/22/25 10:24 Respiratory Assessment Respiratory Assessment - can doffer: Respiratory Tract Infection Hx - can doffer Hx Respiratory Tract Infection No 03/22/25 21:07 STOP Sleep Apnea STOP Sleep Apnea - can doffer: STOP Sleep Apnea - can doffer Hx Hypertension Yes: just started 03/22/25 10:24 Hx Sleep Apnea No 03/22/25 10:24 CPAP BIPAP Do you snore loudly (louder No 03/22/25 10:24 than talking or can be heard Do you often feel tired/ No 03/22/25 10:24 fatigued/ sleepy during daytime? Has anyone observed you stop No 03/22/25 10:24 breathing during sleep? STOP Results Negative 03/22/25 10:24 QUESTION #5 FULL TEXT : Do you snore loudly (louder than talking or can be heard through closed doors)? Tobacco Use History Tobacco Use History - can doffer: Tobacco Use History - can doffer Tobacco Use Smoking Status Never smoker 03/22/25 10:24 Hx Tobacco Use No 03/22/25 10:24 Years Smoking Packs Smoked per Day Smoking Cessation Date was within the last 15 years Hx Smoking Cessation Date Hx Smoking Cessation Counseling Hematologic Medial History Hematologic Hx - can doffer: Hematologic Medical Hx - coordinator skill training program Hx of Blood Transfusion No 03/22/25 10:24 Hx of Transfusion in last 3 No 03/22/25 10:24 Months Date of Last Transfusion (if within last 3 months) Ever experience any problems No 03/22/25 10:24 with transfusion(s)? Specify any problems Hx of Preganancy in last 3 N/A 03/22/25 10:24 Months Nurse Filling Out Transfusion KBORNSTIN 03/22/25 10:24 & Questions: Date: 03/22/25 03/22/25 10:24 Time: 10:44 03/22/25 10:24 Patient unable to answer at this time (ie. confused, unrespo /Reproduction History /Reproductive History - can doffer: /Reproductive Hx- can doffer Hx Now No 03/22/25 21:07 Gestational Age (in weeks): EDC: Hx Hx Para Hx Section SAB No 03/22/25 21:07 Active Medications Active Medications: Current Medications Generic Name Dose Route Start Last Admin Trade Name Freq PRN Reason Stop Dose Admin Atorvastatin Calcium 20 mg 03/22/25 22:00 03/22/25 20:56 Atorvastatin Calcium 20 Mg Tablet PO 20 mg QHS WILFRED Administration Glucagon 1 mg 03/22/25 14:07 Glucagon 1 Mg/Ml Syringe IM X1 PRN Hypoglycemia Protocol Hydrochlorothiazide 12.5 mg 03/23/25 10:00 Hydrochlorothiazide 12.5mg PO DAILY WILFRED Sodium Chloride 250 mls @ 15 mls/hr 03/22/25 11:00 03/22/25 12:46 IV 0 mls/hr .[id number] PRN Infusion Saline Flush Sodium Chloride 250 mls @ 15 mls/hr 03/22/25 11:00 03/22/25 12:47 IV 0 mls/hr .[id number] PRN Infusion Additional IVPB Infusion Vancomycin IV-PHARMACY TO DOSE 500 mls @ 250 mls/hr 03/22/25 11:52 1 each/ Sodium Chloride IV X1 PRN Rx to Dose Protocol Vancomycin HCl 1,000 mg/ 270 mls @ 250 mls/hr 03/23/25 01:00 03/23/25 02:44 Sodium Chloride IV Infused Q12H WILFRED Infusion Dextrose 250 mls @ 0 mls/hr 03/22/25 14:07 Dextrose 10%-Water IV .Q0M PRN HYPOGLYCEMIA Protocol As Directed Ampicillin Sodium/Sulbactam 100 mls @ 150 mls/hr 03/22/25 22:00 03/23/25 06:38 Sodium 3 gm/ Sodium Chloride IV Infused Q8 WILFRED Infusion Lactated Ringer's 1,000 mls @ 15 mls/hr 03/23/25 08:45 03/23/25 08:41 IV 15 mls/hr .Q48H WILFRED Administration Insulin Human Lispro 0 unit 03/22/25 16:00 03/23/25 05:22 Insulin Lispro 100 Unit/Ml Insuln.Pen SC Not Given ACHS WILFRED Protocol Losartan Potassium 50 mg 03/23/25 10:00 Losartan Potassium 50 Mg Tablet PO DAILY WILFRED Sodium Chloride 10 - 40 ml 03/22/25 11:00 03/22/25 12:33 0.9% Saline Lock 10 Ml Syringe IV 10 ml UD PRN Administration SALINE FLUSH Vancomycin Protocol 1 lab 03/23/25 23:30 Vancomycin Trough/Random Due MC 03/24/25 01:30 DAILY WILFRED PFSH Medical History Diabetes mellitus with diabetic polyneuropathy HTN (hypertension) Osteomyelitis of left foot Hypertension Diabetes Non-smoker Diabetes Infected ulcer of skin Diabetic foot ulcer Home Medications ?Medication ?Instructions ?Recorded ?Last Taken ?Type metformin 1,000 mg tablet 1,000 mg PO BID . 01/26/22 03/21/25 History ciprofloxacin HCl 500 mg tablet 500 mg PO BID Foot ulcer 03/22/25 03/21/25 History (Cipro) glimepiride 2 mg tablet 2 mg PO DAILY . 03/22/25 03/21/25 History losartan 50 mg-hydrochlorothiazide 1 tab PO DAILY blood pressure 03/22/25 03/21/25 History 12.5 mg tablet simvastatin 40 mg tablet 40 mg PO DAILY . 03/22/25 03/21/25 History Allergy/AdvReac Type Severity Reaction Status Date / Time No Known Allergies Allergy Verified 03/23/25 08:44 Family History Other Hypertension Social History household members: spouse Smoking Status: Never smoker Review of Systems (Anesthesia) ROS Narrative System reviewed and no additional complaints, except as documented.
--- NOTE | 2025-03-23 09:30 | FOOT_PTH ---
PATIENT: ANTONIO MCCLURE LOC: MS3 U#:[id number] AGE/SX: 64/M [place] [facility] [place]: Dr. Masoud Cabrales DPM : 1960 BED: 1 DIS: 03/26/2025 SPEC #: [id number] RECD: 03/23/25 12:29 STATUS: DENIS REHortensia #: [id number] MARTELL: 03/23/25 09:[address]: Masoud Cabrales DEPT: SURGICAL PATHOLOGY RECD BY: Ryan Silva ENTERED: 03/23/25 13:44 SP TYPE: FOOT OTHR DR: MD Ridge Haque, PA-C DO Dr. Gunnar Concepcion MD Dr. Loren Kirchner, MD Dr. Robert Leininger, MD Barbara Tickton, SEAM TAPER MACHINE-C Brooklyn Parker, SEAM TAPER MACHINE-C Eri Cortez, SEAM TAPER MACHINE-C DEEPAK Dukes PA Rachael McGoron, PA Tissues: A - Left foot Procedures: Decalcification bone/plaque Surgery Specimen Level V HEADER OPERATION: Debridement wound and bone, foot PRE-OP DIAGNOSIS: Diabetic infection of left foot, chronic multifocal osteomyelitis of left foot, type 2 diabetes mellitus with foot ulcer, non-pressure chronic ulcer of other part of left foot with necrosis of bone TISSUE SUBMITTED: A- 3rd metatarsal left foot MICROSCOPIC DIAGNOSIS A. Bone, Left foot third metatarsal, amputation: * Bone with acute osteomyelitis MICROSCOPIC DESCRIPTION Slides are reviewed. GROSS DESCRIPTION A. Received in formalin labeled with the patient's name and date of . Designated as third metatarsal left foot is a 3.2 x 1.1 x 1.0 cm segment of bone with attached manzanares-pink to yellow soft tissue. Sectioning reveals manzanares-yellow to red medullary bone. Emergency Dispatch Operator sections are submitted in 2 cassettes, following decalcification. CO 03/23/2025PT:[id number]
[2025-03-23] MEDS: Lactated Ringers 500 ML IV (10:38)
[2025-03-23] MEDS: Lidocaine 1% (5 ml sdv) 5 ML Vial 10 ML IV (10:40)
--- NOTE | 2025-03-23 11:15 | PCM.OPRPT ---
Operative Report (Standard) Operative Information Date of Procedure: 03/23/25 Pre-Operative Diagnosis: Osteomyelitis left 3rd metatarsal Chronic ulcer down to necrotic bone, left foot Post-Operative Diagnosis: Same Surgery/Procedure Performed: Debridement of ulceration left foot down to and including bone social director: No Type of Anesthesia: Local and MAC RN Documented Start/Stop Times: Operation Date: 03/23/25 09:30 Case Time Into Pre-Op 03/23/25 08:25 Out of Pre-Op 03/23/25 10:27 Anesthesia Start 03/23/25 10:30 Into Room 03/23/25 10:30 Procedure Start 03/23/25 10:50 Procedure End 03/23/25 11:13 Anesthesia End 03/23/25 11:16 Out of Room 03/23/25 11:16 Into Recovery 03/23/25 11:18 Out of Recovery 03/23/25 11:49 Procedure Start Time: 10:50 Procedure Stop Time: 11:13 Select all DRAINS/GRAFTS/IMPLANTS that apply: None Estimated Blood Loss: 2mL Specimen collected: Yes Description of specimen(s) removed: Debrided bone, left 3rd metatarsal, sent to pathology and microbiology Description of surgery: Indications: 64 year old gentleman with history of poorly controlled diabetes and other medical problems with history of peripheral neuropathy and history of previous foot infections, presented to my office yesterday with ulceration sub 3rd metatarsal head left foot which probed to bone and destructive changes to the 3rd metatarsal on xrays. Due to this he was admitted for further management. Discussed the options with him and he elected to proceed with debridement of left foot - soft tissue and bone with resection of 3rd metatarsal. The procedure was discussed with him, reviewed possible benefits vs risks, goals, expectations as well. The risks were discussed with him and he was advised they include but not limited to pain, transfer lesion, need for further surgery, persistent or new infection, blood clots, deformity, loss of function, loss of limb, loss of life. The consent form was reviewed with him and he freely signed it. All of his questions were answered. No guarantees or warranties were given nor implied. Operative procedure: Patient was brought back to the operating room and stayed in his hospital bed in the supine position. The patient was already on IV antibiotic therapy with Infectious Disease on consult. A well padded pneumatic tourniquet was applied around the patient's left foot. A timout was performed and the patient was properly identified and surgical plan confirmed. The patient received MAC anesthesia per the anesthesia team. After the overlying skin was cleansed with 70% Isopropyl alcohol and total of 10mL of 0.5% Bupivacaine plain was given as a local nerve block around the 3rd ray on the patient's left foot. The patient's left foot was scrubbed, prepped, and draped in the usual aseptic fashion. Further attention was directed to the patient's left foot where again there was a 1.5cm x 2.0cm ulceration sub 3rd metatarsal head down to bone, the bone was eroded, lockett and soft consistent with infection, there was serous drainage consistent with infection. The patient's left foot was elevated for several minutes and the left ankle pneumatic tourniquet was inflated to 250mmHg. Using a 15 blade an incision was made to the 3rd ray and the ulceration was debrided down to and including bone, this entailed removing all nonviable, necrotic and infected subcutaneous tissue, fascia and bone from the site, the 3rd metatarsal was resected distally using a powered sagittal saw. It was again noted the distal 3rd metatarsal head was nonviable, soft, eroded, crumbly, deformed, lockett and yellow all consistent with osteomyelitis. The bone was resected back to normal hard white appearing bone of the proximal 3rd metatarsal. The base of the 3rd toe appeared to be intact and did not appear to be infected so it was left. The site was debrided down to healthy viable soft tissue and bone. The site was flushed with copious amounts of normal saline solution. The remains tissues appeared healthy and viable. An additional 5mL of 0.5% Bupivacaine plain was given as a local nerve block to the 3rd ray for further post op pain control. The skin edges we reapproximated using 3-0 Prolene, the ulceration was packed using betadine soaked gauze and a dry gauze, kerlix and bulmaro dressing was applied. The pneumatic tourniquet was deflated (total tourniquet time was 21 minutes), there was immediate return of flow to the foot with CFT < 3 seconds to all toes on left foot. Also the resected bone was sent to pathology and microbiology as specimen and culture. The patient tolerated the procedure well and anesthesia well with no complications. He was transported from the operating room to the recovery room with vital signs stable and in good condition. He will be followed as an inpatient. Surgical Findings: As noted above Complications Complications: No
--- NOTE | 2025-03-23 11:21 | PCM.POST.ANE ---
Anesthesia: Postop Eval I Current Vital Signs Temperature: 97.1 F Pulse Rate: 72 Blood Pressure: 127/82 Respiratory Rate: 15 Pulse Ox: 99 Oxygen Delivery Method: Room Air Assessment Airway patent: Yes Spontaneous unlabored respirations: Yes nausea: No Vomiting: No Anesthesia Complication: No Fluid Hydration Crystalloid volume administer (ml): 500 Total IV fluid infused: 500 Progress Note Anesthesia document: Postop Eval 1 completed: Yes
--- NOTE | 2025-03-23 11:32 | POSTOPAN2_ITS ---
Anesthesia Postop Eval I Sum Postop Eval Completion status Anesthesia document: Postop Eval 1 completed: Yes Anesthesia Postop Eval I Summary Anesthesia Postop Eval I Summary: Anesthesia Postop Eval I: Assessment Summary Airway patent Yes 03/23/25 11:22 DIRECTOR [email or web address] [email or web address] Spontaneous unlabored Yes 03/23/25 11:22 DIRECTOR SPEECH [email or web address] respirations Mental status nausea No 03/23/25 11:22 DIRECTOR SPEECH [email or web address] Vomiting No 03/23/25 11:22 DIRECTOR SPEECH [email or web address] Anesthesia Postop Eval I: Fluid Summary Crystalloid volume administer 500 03/23/25 11:22 DIRECTOR SPEECH [email or web address] (ml) Colloids volume administered ( ml) Blood Product volume administered (ml) Total IV fluid infused 500 03/23/25 11:22 DIRECTOR SPEECH [email or web address] Anesthesia Postop Eval I: Summary Notes Anesthesia Complication No 03/23/25 11:22 DIRECTOR SPEECH [email or web address] Anesthesia Complication Comment: Post-operative progress note Anesthesia: Postop Eval II Evaluation Mental status: Awake Pain Level: 0 nausea: No Vomiting: No
--- NOTE | 2025-03-23 11:32 | PCM.POSTANE2 ---
Anesthesia Postop Eval I Sum Postop Eval Completion status Anesthesia document: Postop Eval 1 completed: Yes Anesthesia Postop Eval I Summary Anesthesia Postop Eval I Summary: Anesthesia Postop Eval I: Assessment Summary Airway patent Yes 03/23/25 11:22 [email or web address] Spontaneous unlabored Yes 03/23/25 11:22 MANAGER [email or web address] respirations Mental status nausea No 03/23/25 11:22 MANAGER [email or web address] Vomiting No 03/23/25 11:22 MANAGER [email or web address] Anesthesia Postop Eval I: Fluid Summary Crystalloid volume administer 500 03/23/25 11:22 MANAGER [email or web address] (ml) Colloids volume administered ( ml) Blood Product volume administered (ml) Total IV fluid infused 500 03/23/25 11:22 MANAGER [email or web address] Anesthesia Postop Eval I: Summary Notes Anesthesia Complication No 03/23/25 11:22 MANAGER [email or web address] Anesthesia Complication Comment: Post-operative progress note Anesthesia: Postop Eval II Evaluation Mental status: Awake Pain Level: 0 nausea: No Vomiting: No
--- NOTE | 2025-03-23 11:45 | RAD_ITS ---
PROCEDURE: FOOT MIN 3 VIEWS 03/23/2025 REASON FOR EXAM: POST OP TECHNIQUE: Procedure Code: RADFO Modality: DX Procedure: FOOT MIN 3 VIEWS Laterality: Left foot COMPARISON: February 17, 2025. FINDINGS: Bones: The patient is status post amputation of the mid and distal portion of the 3rd metatarsal which is new as compared to prior study. There is also evidence of amputation of the distal portion of the 2nd metatarsal which is new. Postoperative soft tissue changes and swelling. Joints: Normal alignment. Soft tissues: Soft tissue swelling. Other: RAD/Foot min 3 Views IMPRESSION: Status post amputation of the distal portion of the 2nd metatarsal and midporti on of the 3rd metatarsal with postoperative soft tissue changes and swelling. Reading Location: [place] [id number]
[2025-03-23] MEDS: Lidocaine 1% (30 ml sdv) 30 ML Vial (12:05)
[2025-03-23] MEDS: 0.9% Saline Lock 10 ML Syringe IV (12:38)
--- NOTE | 2025-03-23 13:40 | PCM.PN.ID ---
Physical Exam Narrative Feeling fine s/p OR, no fever, no n/v/d. Const alert and no apparent distress General Appearance: cooperative Resp normal air movement and clear to auscultation bilaterally Cardio regular rate and regular rhythm GI soft to palpation, non-tender and non-distended Skin Skin Narrative: L foot wrapped ID ID: Route of nutrition/ use of supplements: [] Nutritional Intake: [] IV Site: [] Schumacher Catheter: [] Assessment & Plan Assessment/Plan (1) Chronic multifocal osteomyelitis of left foot: PLAN: Will cont vanc/unasyn. Prior h/o MSSA osteo in 2022. OR 03/23/[address] Cabrales for I&D down to bone. Depending on further cx results, tentative plan for discharge will be 6 weeks po doxy 100mg bid and augmentin 875mg bid. ID followup in 2 weeks. Will follow (2) Diabetes mellitus with diabetic polyneuropathy:
--- NOTE | 2025-03-23 14:05 | CASEMGMT ---
SABRINA RIVERO Assessment: Face to Face with pt for initial transition planning/care coordination assessment. SABRINA RIVERO introduced self and role at [facility], pt voices understanding and consents to assessment. Pt is A&O x4 and answers all questions appropriately at this time. Pt sitting up in bed in no distress with at bedside. Care providers, pharmacy, and demographics verified/updated. Admitting Dx: osteomyelitis L foot Strata Score: 1 PCP:Ridge Bishop Specialists:enma Cabrales Pharmacy: [facility] Retail Insurance: [employer] Prescription Benefit: no LNOK: Laith Weiss, son Living Arrangements: Pt lives with in a two story home with no steps to enter. Pt reports he is typically indep in ADL/IADLs and has good family support. Pt states he has 5 boys who can assist him and his one son lives in the house that is built together to his. Pt denies concerns at home. 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 DME:[employer] with sufficient supply of strips and lancets, crutches, cane, w/c and pt will borrow a FWW. HHC/SNF: Pt has had HHC in the past but cannot recall the name of the agency. Pt denies SNF stays. Pt states no concerns with going home at time of dc. Noted pt to be NWB, therapy post op eval ordered. Pt states that he has been NWB before and denies issues with this. Noted in ID note plan for home is PO atb. Pt states no further concerns/needs. CM to follow. Advised pt to ask CM if any further questions/concerns/needs arise, voices understanding. Pt Goal: Home Plan: Home, PT eval pending. Juan Jose BENNETT CM
[2025-03-24 00:55] LABS: Vancomycin, Trough Level 15.2 ug/mL (5.0-15.0)
[2025-03-24] MEDS: Vancomycin HCl 1,000 MG in 0.9% Normal Saline (250mL Bag) 250 ML 250 MG IV ×2 (01:21→12:40)
--- NOTE | 2025-03-24 02:23 | PCM.RX.CS ---
Consult Antibiotic Management Pharmacy has been consulted to manage selected antibiotic: Vancomycin Type of Intervention Type of Consult: Follow-up Labs Labs: Sodium 139 mmol/L (133-145) 03/23/25 04:13 Potassium 4.5 mmol/L (3.3-5.1) 03/23/25 04:13 Chloride 103 mmol/L (98-108) 03/23/25 04:13 Carbon Dioxide 25.8 mmol/L (21.0-32.0) 03/23/25 04:13 Anion Gap 9 (5-15) 03/23/25 04:13 BUN 32 mg/dL (4-19) H 03/23/25 04:13 Creatinine 1.22 mg/dL (0.70-1.20) H 03/23/25 04:13 Est GFR (MDRD) Non-Af 65 (>60) 03/23/25 04:13 BUN/Creatinine Ratio 26.0 RATIO (10-20) H 03/23/25 04:13 Glucose 136 mg/dL (70-99) H 03/23/25 04:13 Vancomycin Trough 15.2 ug/mL (5.0-15.0) H 03/24/25 00:10 Microbiology Microbiology: Microbiology 03/23/25 11:10 Wound - Left Foot Gram Stain - Final Goal Trough Goal Trough: 15-20 mcg/mL Pharmacy Plan for Drug Dosing Pharmacy Plan for Drug Dosing: Pharmacy Service will continue to monitor and adjust dosing as required. TROUGH 15.2 @ 11.5 HOURS. NO CHANGES, FOLLOW UP TROUGH IN 2 DAYS Follow-Up Labs Follow-Up Labs: Trough: Vancomycin Date/Time Labs Ordered Labs to be done on [date and time ordered]: 03/26 @ 0030
[2025-03-24 03:01] VITALS: BP 115/70; PULSE 75; RESP 14; TEMP 36.7; O2SAT 98
[2025-03-24 05:26] LABS: Hematocrit 33.5 % (40-54); Hemoglobin 11.5 g/dL (13.0-16.5); Immature Granulocytes Count 0.020 X10^3/uL (0.0-0.0); Mean Corp Hgb Conc 34.3 g/dL (32-36); Mean Corpuscular Volume 90.1 fL (80-94); Mean Platelet Vol. 9.2 fl (6.2-12.0); NRBC Flagged by Analyzer 0 % (0-5); Platelet Count 184 K/mm3 (150-450); RBC Distribution Width CV 12.9 % (11.6-14.6); RBC Distribution Width SD 42.2 fl (35.1-43.9); Red Blood Count 3.72 M/mm3 (4.6-6.2); White Blood Count 5.2 K/mm3 (4.4-11.0)
[2025-03-24 05:47] LABS: Anion Gap 9 (5-15); BUN 30 mg/dL (4-19); BUN/Creat Ratio 25.4 RATIO (10-20); Calcium,Total 9.2 mg/dL (7.6-11.0); Carbon Dioxide 26.0 mmol/L (21.0-32.0); Chloride 105 mmol/L (98-108); Estimated Creatinine Clearance 62.18 ml/min (50-250); Glucose 148 mg/dL (70-99); Potassium 4.6 mmol/L (3.3-5.1)
[2025-03-24] MEDS: Ampicillin/Sulbactam 3 GM in 0.9% Normal Saline (100mL MB+) 100 ML IV ×3 (06:39→21:55)
--- NOTE | 2025-03-24 09:00 | PCM.PROGNOTE ---
Subjective Subjective Patient was seen this morning for follow up on left foot. He is awake and relates he feels good. His is at bedside. He denies f/c/n/v/sob/chest pain or any other complaints. He is asking when he can go home. Objective Data Objective Data Vital Signs: Vital Signs Temp Pulse Resp BP Pulse Ox O2 Del Method 98.0 F 75 14 115/70 98 Room Air 03/24/25 03:01 03/24/25 03:01 03/24/25 03:01 03/24/25 03:01 03/24/25 03:01 03/24/25 03:01 Oxygen Delivery Method Room Air Weight: 91.172 kg Body Mass Index (BMI) 34.4 Intake & Output: Intake and Output for Last 24 Hours 03/22/25 03/23/25 03/24/25 23:59 23:59 23:59 Intake Total 687.42 / 1137.42 2410 / 2710 770 / 770 Output Total 2 / 2 Balance 687.42 / 1137.42 2408 / 2708 770 / 770 Lab / Micro Data 03/24/25 04:41 03/24/25 04:41 Labs: Laboratory Results - last 24 hr 03/23/25 16:23: POC Glucose 189 H 03/23/25 21:04: POC Glucose 136 H 03/24/25 00:10: Vancomycin Trough 15.2 H 03/24/25 04:41: WBC 5.2, RBC 3.72 L, Hgb 11.5 L, Hct 33.5 L, MCV 90.1, MCH 30.9, MCHC 34.3, RDW Std Deviation 42.2, RDW Coeff of Neftali 12.9, Plt Count 184, MPV 9.2, Immature Gran % (Auto) 0.400, Neut % (Auto) 53.2, Lymph % (Auto) 33.2, [place] % (Auto) 10.9 H, Eos % (Auto) 1.9, Baso % (Auto) 0.4, Absolute Neuts (auto) 2.8, Absolute Lymphs (auto) 1.73, Nucleated RBC % 0, Sodium 140, Potassium 4.6, Chloride 105, Carbon Dioxide 26.0, Anion Gap 9, BUN 30 H, Creatinine 1.19, Estim Creat Clear Calc 62.18, Est GFR (MDRD) Non-Af 67, BUN/Creatinine Ratio 25.4 H, Glucose 148 H, Calcium 9.2 03/24/25 06:45: POC Glucose 142 H Micro: Microbiology 03/23/25 11:10 Wound - Left Foot Gram Stain - Final Radiography Diagnostic Testing: Radiology Impression Foot X-Ray 03/23/25 11:45 IMPRESSION: Status post amputation of the distal portion of the 2nd metatarsal and midportion of the 3rd metatarsal with postoperative soft tissue changes and swelling. [facility] Physical Exam Const alert, oriented x3 and no apparent distress Constitutional Narrative: Left foot: ulceration plantar central foot s/p debridement - healing well, tissues are healthy and viable, there is some minimal serous drainage, no fluctuance, no crepitus, no visible abscess, no cellulitis, no evidence of acute ishcemia, no POP or pain on ROM to foot or ankle. CFT < 2 seconds to all toes. Right foot: no open lesion, no evidence of infection, no evidence of ischemia, no pain. No edema to ankle or legs bilateral with calf soft and supple bilateral, no evidence of DVT bilateral. Assessment & Plan Assessment/Plan (1) Diabetic infection of left foot: (2) Chronic multifocal osteomyelitis of left foot: (3) Type 2 diabetes mellitus with foot ulcer: (4) Non-pressure chronic ulcer of other part of left foot with necrosis of bone: PLAN: Plan Evaluation performed. s/p left foot debridement - foot appears appropriate at this time. Antibiotics: On Unasyn and Vanc - Infectious Disease on consult - surgical cultures obtained and results pending. Wound care: Betadine solution and gauze packing, dry gauze, kerlix and bulmaro dressing. Change daily. Weightbearing: No weightbearing left foot. Hospital Medicine on consult. Noninvasive lower extremity arterial studies obtained and reviewed - no evidence of arterial disease. DVT Prophylaxis: SCDs. Possible discharge home tomorrow.
[2025-03-24 09:40] VITALS: BP 122/79; PULSE 80; RESP 16; TEMP 36.8; O2SAT 94
--- NOTE | 2025-03-24 10:07 | PCM.PN.HOSP ---
Reason for Visit Chief Complaint: Left foot ulcer and infection Subjective Subjective Patient with no acute complaints, no chest pain or shortness of breath, no concerns with eating Objective Data Objective Data Vital Signs: Vital Signs Temp Pulse Resp BP Pulse Ox O2 Del Method 98.2 F 80 16 122/79 H 94 Room Air 03/24/25 09:40 03/24/25 09:40 03/24/25 09:40 03/24/25 09:40 03/24/25 09:40 03/24/25 09:40 Oxygen Delivery Method Room Air Weight: 91.172 kg Body Mass Index (BMI) 34.4 Intake & Output: Intake and Output for Last 24 Hours 03/22/25 03/23/25 03/24/25 23:59 23:59 23:59 Intake Total 687.42 / 1137.42 2410 / 2710 870 / 870 Output Total 2 / 2 Balance 687.42 / 1137.42 2408 / 2708 870 / 870 Lab / Micro Data 03/24/25 04:41 03/24/25 04:41 Labs: Laboratory Results - last 24 hr 03/23/25 16:23: POC Glucose 189 H 03/23/25 21:04: POC Glucose 136 H 03/24/25 00:10: Vancomycin Trough 15.2 H 03/24/25 04:41: WBC 5.2, RBC 3.72 L, Hgb 11.5 L, Hct 33.5 L, MCV 90.1, MCH 30.9, MCHC 34.3, RDW Std Deviation 42.2, RDW Coeff of Neftali 12.9, Plt Count 184, MPV 9.2, Immature Gran % (Auto) 0.400, Neut % (Auto) 53.2, Lymph % (Auto) 33.2, [place] % (Auto) 10.9 H, Eos % (Auto) 1.9, Baso % (Auto) 0.4, Absolute Neuts (auto) 2.8, Absolute Lymphs (auto) 1.73, Nucleated RBC % 0, Sodium 140, Potassium 4.6, Chloride 105, Carbon Dioxide 26.0, Anion Gap 9, BUN 30 H, Creatinine 1.19, Estim Creat Clear Calc 62.18, Est GFR (MDRD) Non-Af 67, BUN/Creatinine Ratio 25.4 H, Glucose 148 H, Calcium 9.2 03/24/25 06:45: POC Glucose 142 H Micro: Microbiology 03/23/25 11:10 Wound - Left Foot Gram Stain - Final 03/23/25 11:10 Wound - Left Foot Wound Culture - Preliminary Alpha hemolytic organism Radiography Diagnostic Testing: Radiology Impression Foot X-Ray 03/23/25 11:45 IMPRESSION: Status post amputation of the distal portion of the 2nd metatarsal and midportion of the 3rd metatarsal with postoperative soft tissue changes and swelling. Reading Location: [place] [id number] Physical Exam Narrative General: Alert, oriented, no apparent distress HEENT: Atraumatic, normocephalic Eyes: Anicteric, normal conjunctiva, extraocular movements grossly intact Neck: Supple Respiratory: Clear to auscultation bilaterally, normal respiratory effort Cardiovascular: Regular rate and rhythm GI: Soft, nontender, nondistended Extremities: No significant pitting Musculoskeletal: Moving all extremities, left ankle/foot wrapped Neuro: No overt focal neurological deficits Skin: Left foot wrapped Psych: Cooperative Assessment & Plan Assessment/Plan (1) Type 2 diabetes mellitus with foot ulcer: PLAN: Plan #Diabetic foot ulceration involving the left foot ? Imaging studies obtained as outpatient demonstrated destruction of the third metatarsal head. Admitted to regular nursing floor by Dr. Cabrales with podiatry cultures obtained, started on on broad-spectrum antibiotic therapy with Vanco and Zosyn with consultation placed to ID ?03/23: patient underwent Debridement of ulceration left foot down to and including bone by Keron on 03/23/2025; cultures sent and pending -03/24: Surgical cultures pending, patient on Vanco and Unasyn, antibiotics being managed by ID is on consult, ulcer management per primary #Diabetes mellitus type 2 with complications including diabetic polyneuropathy ? Held patient oral agents, placed on Accu-Cheks AC and at bedtime with sliding scale coverage -03/24: Glucoses have been fairly well controlled for an inpatient hospitalization, did have 1 that was 189 yesterday but has been as low as 134, if consistent trend is elevated can increase sliding scale factor. A1c was noted to be 8.8, will need to follow closely with PCP on discharge for further adjustments for better long-term glucose control #Hypertension ? Blood pressure controlled, home medications continued with dose adjustment as needed -03/24: Blood pressure this a.m. 122/79, continue losartan and hydrochlorothiazide # Hyperlipidemia - Continue home statin #DVT ppx: SCDs Lavonne Alarcon MD Charges/Coding Visit Charges Inpatient E&M: 10376 Subs Hosp L2
[2025-03-24 14:26] VITALS: BP 106/73; PULSE 73; RESP 16; TEMP 37.1; O2SAT 98
[2025-03-24 21:42] VITALS: BP 128/81; PULSE 78; RESP 15; TEMP 37.1; O2SAT 93
[2025-03-24] MEDS: 0.9% Saline Lock 10 ML Syringe IV (21:50)
[2025-03-25] MEDS: 0.9% Saline Lock 10 ML Syringe IV ×2 (01:07→21:15)
[2025-03-25] MEDS: Vancomycin HCl 1,000 MG in 0.9% Normal Saline (250mL Bag) 250 ML 250 MG IV ×2 (01:09→13:00)
[2025-03-25 03:04] VITALS: BP 118/73; PULSE 74; RESP 18; TEMP 36.8; O2SAT 94
[2025-03-25 04:38] LABS: Hematocrit 34.8 % (40-54); Hemoglobin 11.8 g/dL (13.0-16.5); Immature Granulocytes Count 0.010 X10^3/uL (0.0-0.0); Mean Corp Hgb Conc 33.9 g/dL (32-36); Mean Corpuscular Volume 88.8 fL (80-94); Mean Platelet Vol. 9.2 fl (6.2-12.0); NRBC Flagged by Analyzer 0 % (0-5); Platelet Count 184 K/mm3 (150-450); RBC Distribution Width CV 13.0 % (11.6-14.6); RBC Distribution Width SD 42.3 fl (35.1-43.9); Red Blood Count 3.92 M/mm3 (4.6-6.2); White Blood Count 4.8 K/mm3 (4.4-11.0)
[2025-03-25 05:06] LABS: Anion Gap 11 (5-15); BUN 42 mg/dL (4-19); BUN/Creat Ratio 33.5 RATIO (10-20); Calcium,Total 9.3 mg/dL (7.6-11.0); Carbon Dioxide 23.9 mmol/L (21.0-32.0); Chloride 104 mmol/L (98-108); Estimated Creatinine Clearance 59.67 ml/min (50-250); Glucose 154 mg/dL (70-99); Potassium 4.4 mmol/L (3.3-5.1)
[2025-03-25] MEDS: Ampicillin/Sulbactam 3 GM in 0.9% Normal Saline (100mL MB+) 100 ML IV (05:43)
[2025-03-25 09:06] VITALS: BP 101/56; PULSE 77; RESP 16; TEMP 36.7; O2SAT 99
--- NOTE | 2025-03-25 11:49 | PCM.PROGNOTE ---
Subjective Subjective Patient was seen today for follow up on left foot. He is resting in bed, no new complaints, no complains of f/c/n/v/sob/chest pain or calf pain. He relates he is feeling good. Objective Data Objective Data Vital Signs: Vital Signs Temp Pulse Resp BP Pulse Ox O2 Del Method 98.0 F 77 16 101/56 L 99 Room Air 03/25/25 09:06 03/25/25 09:06 03/25/25 09:06 03/25/25 09:06 03/25/25 09:06 03/25/25 09:06 Oxygen Delivery Method Room Air Weight: 91.172 kg Body Mass Index (BMI) 34.4 Intake & Output: Intake and Output for Last 24 Hours 03/23/25 03/24/25 03/25/25 23:59 23:59 23:59 Intake Total 2410 / 2710 1590 / 1840 800 / 800 Output Total 2 / 2 Balance 2408 / 2708 1590 / 1840 800 / 800 Lab / Micro Data 03/25/25 03:55 03/25/25 03:55 Labs: Laboratory Results - last 24 hr 03/24/25 11:32: POC Glucose 179 H 03/24/25 16:29: POC Glucose 130 H 03/24/25 21:40: POC Glucose 137 H 03/25/25 03:55: WBC 4.8, RBC 3.92 L, Hgb 11.8 L, Hct 34.8 L, MCV 88.8, MCH 30.1, MCHC 33.9, RDW Std Deviation 42.3, RDW Coeff of Neftali 13.0, Plt Count 184, MPV 9.2, Immature Gran % (Auto) 0.200, Neut % (Auto) 51.7, Lymph % (Auto) 36.2, [place] % (Auto) 9.4, Eos % (Auto) 2.1, Baso % (Auto) 0.4, Absolute Neuts (auto) 2.5, Absolute Lymphs (auto) 1.73, Nucleated RBC % 0, Sodium 139, Potassium 4.4, Chloride 104, Carbon Dioxide 23.9, Anion Gap 11, BUN 42 H, Creatinine 1.24 H, Estim Creat Clear Calc 59.67, Est GFR (MDRD) Non-Af 64, BUN/Creatinine Ratio 33.5 H, Glucose 154 H, Calcium 9.3 03/25/25 06:49: POC Glucose 156 H 03/25/25 11:22: POC Glucose 198 H Micro: Microbiology 03/23/25 11:10 Wound - Left Foot Gram Stain - Final 03/23/25 11:10 Wound - Left Foot Wound Culture - Preliminary Alpha hemolytic organism 03/23/25 11:10 Wound - Left Foot Anaerobic Culture - Preliminary Physical Exam Const alert, oriented x3 and no apparent distress Constitutional Narrative: Left foot: ulceration plantar central foot s/p debridement - improving and healing, tissues are healthy and viable, there is some minimal serous drainage, no fluctuance, no crepitus, no visible abscess, no cellulitis, no evidence of acute ishcemia, no POP or pain on ROM to foot or ankle. CFT < 2 seconds to all toes. Right foot: no open lesion, no evidence of infection, no evidence of ischemia, no pain. No edema to ankle or legs bilateral with calf soft and supple bilateral, no evidence of DVT bilateral. General Appearance: comfortable Assessment & Plan Assessment/Plan (1) Diabetic infection of left foot: (2) Chronic multifocal osteomyelitis of left foot: (3) Type 2 diabetes mellitus with foot ulcer: (4) Non-pressure chronic ulcer of other part of left foot with necrosis of bone: PLAN: Plan Evaluation performed. s/p left foot debridement - foot appears appropriate at this time. Antibiotics: On Unasyn and Vanc - Infectious Disease on consult - cultures obtained and results pending - reviewed available results which have Enterobacter cloacae complex, and alpha hemolytic organism - finals pending, discussed with Dr. Alarcon and switched Unasyn back to Zosyn, we will await further culture result data prior to discharging patient home. Wound care: Betadine solution and gauze packing, dry gauze, kerlix and bulmaro dressing. Change daily. Weightbearing: No weightbearing left foot. Hospital Medicine on consult, appreciate assistance. Noninvasive lower extremity arterial studies obtained and reviewed - no evidence of arterial disease. DVT Prophylaxis: SCDs. Discharge planning: Awaiting further culture results and Infectious Disease input, discussed with patient.
[2025-03-25] MEDS: Piperacil/Tazobactam 3.375 GM in 0.9% Normal Saline (50mL MB+) 50 ML IV ×2 (14:33→21:14)
--- NOTE | 2025-03-25 15:17 | PCM.PN.HOSP ---
Reason for Visit Chief Complaint: Left foot ulcer and infection Subjective Subjective Patient sitting up in bed, overall feeling well with no new or acute complaints Objective Data Objective Data Vital Signs: Vital Signs Temp Pulse Resp BP Pulse Ox O2 Del Method 98.0 F 77 16 101/56 L 99 Room Air 03/25/25 09:06 03/25/25 09:06 03/25/25 09:06 03/25/25 09:06 03/25/25 09:06 03/25/25 09:06 Oxygen Delivery Method Room Air Weight: 91.172 kg Body Mass Index (BMI) 34.4 Intake & Output: Intake and Output for Last 24 Hours 03/23/25 03/24/25 03/25/25 23:59 23:59 23:59 Intake Total 2410 / 2710 1590 / 1840 800 / 800 Output Total / Balance 2408 / 2708 1590 / 1840 800 / 800 Lab / Micro Data 03/25/25 03:55 03/25/25 03:55 Labs: Laboratory Results - last 24 hr 03/24/25 16:29: POC Glucose 130 H 03/24/25 21:40: POC Glucose 137 H 03/25/25 03:55: WBC 4.8, RBC 3.92 L, Hgb 11.8 L, Hct 34.8 L, MCV 88.8, MCH 30.1, MCHC 33.9, RDW Std Deviation 42.3, RDW Coeff of Neftali 13.0, Plt Count 184, MPV 9.2, Immature Gran % (Auto) 0.200, Neut % (Auto) 51.7, Lymph % (Auto) 36.2, [place] % (Auto) 9.4, Eos % (Auto) 2.1, Baso % (Auto) 0.4, Absolute Neuts (auto) 2.5, Absolute Lymphs (auto) 1.73, Nucleated RBC % 0, Sodium 139, Potassium 4.4, Chloride 104, Carbon Dioxide 23.9, Anion Gap 11, BUN 42 H, Creatinine 1.24 H, Estim Creat Clear Calc 59.67, Est GFR (MDRD) Non-Af 64, BUN/Creatinine Ratio 33.5 H, Glucose 154 H, Calcium 9.3 03/25/25 06:49: POC Glucose 156 H 03/25/25 11:22: POC Glucose 198 H Micro: Microbiology 03/23/25 11:10 Wound - Left Foot Gram Stain - Final 03/23/25 11:10 Wound - Left Foot Wound Culture - Preliminary Alpha hemolytic organism 03/23/25 11:10 Wound - Left Foot Anaerobic Culture - Preliminary Physical Exam Narrative General: Alert, oriented, no apparent distress HEENT: Atraumatic, normocephalic Eyes: Anicteric, normal conjunctiva, extraocular movements grossly intact Neck: Supple Respiratory: Clear to auscultation bilaterally, normal respiratory effort Cardiovascular: Regular rate and rhythm GI: Soft, nontender, nondistended Extremities: No significant pitting Musculoskeletal: Moving all extremities, left ankle/foot wrapped Neuro: No overt focal neurological deficits Skin: Left foot wrapped Psych: Cooperative Assessment & Plan Assessment/Plan (1) Type 2 diabetes mellitus with foot ulcer: PLAN: Plan #Diabetic foot ulceration involving the left foot ? Imaging studies obtained as outpatient demonstrated destruction of the third metatarsal head. Admitted to regular nursing floor by Dr. Cabrales with podiatry cultures obtained, started on on broad-spectrum antibiotic therapy with Vanco and Zosyn with consultation placed to ID ?03/23: patient underwent Debridement of ulceration left foot down to and including bone by Keron on 03/23/2025; cultures sent and pending -03/24: Surgical cultures pending, patient on Vanco and Unasyn, antibiotics being managed by ID is on consult, ulcer management per primary -03/25: Patient growing Enterobacter and alphahemolytic organism, Enterobacter sensitivities reviewed with podiatry, coverage altered based on the sensitivities, still awaiting final culture and sensitivity data for other organism. ID consulted, likely DC in next 1 to 2 days when antibiotic plan in place and patient stable from podiatry perspective though appears patient is doing well overall. Discussed patient with podiatry #Diabetes mellitus type 2 with complications including diabetic polyneuropathy ? Held patient oral agents, placed on Accu-Cheks AC and at bedtime with sliding scale coverage -03/24: Glucoses have been fairly well controlled for an inpatient hospitalization, did have 1 that was 189 yesterday but has been as low as 134, if consistent trend is elevated can increase sliding scale factor. A1c was noted to be 8.8, will need to follow closely with PCP on discharge for further adjustments for better long-term glucose control -03/25: [id number] glucose 156 this a.m., continues to be variable likely based on patient's diet #Hypertension ? Blood pressure controlled, home medications continued with dose adjustment as needed -03/24: Blood pressure this a.m. 122/79, continue losartan and hydrochlorothiazide -03/25: BP dipped down to 101/56 earlier but patient asymptomatic, up to 133/83, continue present management, BP medications with holding parameters Chronic medical problems and/or problems not being actively addressed during today's encounter: # Hyperlipidemia - Continue home statin #DVT ppx: SCDs Lavonne Alarcon MD Charges/Coding Visit Charges Inpatient E&M: 83684 Subs Hosp L2
[2025-03-25 16:12] VITALS: BP 133/83; PULSE 74; RESP 16; TEMP 36.7; O2SAT 97
[2025-03-25 20:59] VITALS: BP 102/76; PULSE 70; RESP 18; TEMP 36.7; O2SAT 96
[2025-03-26 01:20] LABS: Vancomycin, Trough Level 20.9 ug/mL (5.0-15.0)
--- NOTE | 2025-03-26 01:28 | PCM.RX.CS ---
Consult Antibiotic Management Pharmacy has been consulted to manage selected antibiotic: Vancomycin Type of Intervention Type of Consult: Follow-up Labs Labs: Sodium 139 mmol/L (133-145) 03/25/25 03:55 Potassium 4.4 mmol/L (3.3-5.1) 03/25/25 03:55 Chloride 104 mmol/L (98-108) 03/25/25 03:55 Carbon Dioxide 23.9 mmol/L (21.0-32.0) 03/25/25 03:55 Anion Gap 11 (5-15) 03/25/25 03:55 BUN 42 mg/dL (4-19) H 03/25/25 03:55 Creatinine 1.24 mg/dL (0.70-1.20) H 03/25/25 03:55 Est GFR (MDRD) Non-Af 64 (>60) 03/25/25 03:55 BUN/Creatinine Ratio 33.5 RATIO (10-20) H 03/25/25 03:55 Glucose 154 mg/dL (70-99) H 03/25/25 03:55 Vancomycin Trough 20.9 ug/mL (5.0-15.0) H 03/26/25 00:37 Microbiology Microbiology: Microbiology 03/23/25 11:10 Wound - Left Foot Gram Stain - Final 03/23/25 11:10 Wound - Left Foot Wound Culture - Preliminary Alpha hemolytic organism 03/23/25 11:10 Wound - Left Foot Anaerobic Culture - Preliminary Goal Trough Goal Trough: 15-20 mcg/mL Pharmacy Plan for Drug Dosing Pharmacy Plan for Drug Dosing: Pharmacy Service will continue to monitor and adjust dosing as required. TROUGH 20.9 @ 11.5 HOURS. HOLD DOSE AND DRAW RANDOM LEVEL IN 8 HOURS Follow-Up Labs Follow-Up Labs: Trough: Vancomycin Date/Time Labs Ordered Labs to be done on [date and time ordered]: 03/26 @ 2727
[2025-03-26 05:07] VITALS: BP 139/92; PULSE 77; RESP 18; TEMP 36.4; O2SAT 96
[2025-03-26] MEDS: Piperacil/Tazobactam 3.375 GM in 0.9% Normal Saline (50mL MB+) 50 ML IV ×2 (05:12→15:06)
[2025-03-26] MEDS: 0.9% Saline Lock 10 ML Syringe IV ×3 (05:13→15:09)
[2025-03-26 06:20] LABS: Hematocrit 35.2 % (40-54); Hemoglobin 11.9 g/dL (13.0-16.5); Immature Granulocytes Count 0.020 X10^3/uL (0.0-0.0); Mean Corp Hgb Conc 33.8 g/dL (32-36); Mean Corpuscular Volume 88.0 fL (80-94); Mean Platelet Vol. 9.0 fl (6.2-12.0); NRBC Flagged by Analyzer 0 % (0-5); Platelet Count 160 K/mm3 (150-450); RBC Distribution Width CV 12.9 % (11.6-14.6); RBC Distribution Width SD 41.3 fl (35.1-43.9); Red Blood Count 4.00 M/mm3 (4.6-6.2); White Blood Count 4.5 K/mm3 (4.4-11.0)
[2025-03-26 06:54] LABS: Anion Gap 11 (5-15); BUN 41 mg/dL (4-19); BUN/Creat Ratio 31.6 RATIO (10-20); Calcium,Total 9.0 mg/dL (7.6-11.0); Carbon Dioxide 23.3 mmol/L (21.0-32.0); Chloride 105 mmol/L (98-108); Estimated Creatinine Clearance 57.36 ml/min (50-250); Glucose 146 mg/dL (70-99); Potassium 4.0 mmol/L (3.3-5.1)
[2025-03-26 07:46] VITALS: BP 135/85; PULSE 67; RESP 15; TEMP 36.6; O2SAT 100
--- NOTE | 2025-03-26 08:19 | WOUNDNOTE ---
wound photo: left foot
--- NOTE | 2025-03-26 08:20 | WOUNDNOTE ---
wound photo: left foot
[2025-03-26 09:07] LABS: Vancomycin, Random Level 15.8 ug/mL (0.0-15.0)
--- NOTE | 2025-03-26 09:34 | PCM.RX.CS ---
Consult Type of Intervention Type of Consult: Follow-up Suspected Infection Suspected Infection: Osteomyelitis Labs Labs: Sodium 139 mmol/L (133-145) 03/26/25 05:46 Potassium 4.0 mmol/L (3.3-5.1) 03/26/25 05:46 Chloride 105 mmol/L (98-108) 03/26/25 05:46 Carbon Dioxide 23.3 mmol/L (21.0-32.0) 03/26/25 05:46 Anion Gap 11 (5-15) 03/26/25 05:46 BUN 41 mg/dL (4-19) H 03/26/25 05:46 Creatinine 1.29 mg/dL (0.70-1.20) H 03/26/25 05:46 Est GFR (MDRD) Non-Af 61 (>60) 03/26/25 05:46 BUN/Creatinine Ratio 31.6 RATIO (10-20) H 03/26/25 05:46 Glucose 146 mg/dL (70-99) H 03/26/25 05:46 Vancomycin Trough 20.9 ug/mL (5.0-15.0) H 03/26/25 00:37 Random Vancomycin 15.8 ug/mL (0.0-15.0) H 03/26/25 08:34 Microbiology Microbiology: Microbiology 03/23/25 11:10 Wound - Left Foot Gram Stain - Final 03/23/25 11:10 Wound - Left Foot Wound Culture - Preliminary Alpha hemolytic organism 03/23/25 11:10 Wound - Left Foot Anaerobic Culture - Preliminary Pharmacy Plan for Drug Dosing Pharmacy Plan for Drug Dosing: VANCOMYCIN LEVEL RECEIVED Current Vancomycin Dose: on hold Number of Doses Received: 6 Vancomycin Level: 15.8 mg/dL Hours Since Last Dose: 19.5 Renal Function: SCr 1.29 mg/dL, CrCl 57 mL/min Renal Function Trend: stable Lab/Micro: wound cx with alpha hemolytic organism Vancomycin Plan/Comments: 19.5 hour random level is now therapeutic at 15.8mg/dL (goal 15-20). Will decrease dose to 750mg Q12 and get a level prior to 4th dose of new regimen. Pending Level: 03/27/25 @ 2130 Pharmacy Service will continue to monitor and adjust dosing as required.
[2025-03-26] MEDS: Vancomycin HCl 750 MG in 0.9% Normal Saline (250mL Bag) 250 ML 250 MG IV (10:53)
[2025-03-26 15:10] VITALS: BP 157/96; PULSE 79; RESP 14; TEMP 36.4; O2SAT 97
--- NOTE | 2025-03-26 15:17 | PCM.PROGNOTE ---
Subjective Subjective Patient was seen today for follow up on left foot. He relates he is doing well, no new complaints, no complaints of f/c/n/v or anything new. Objective Data Objective Data Vital Signs: Vital Signs Temp Pulse Resp BP Pulse Ox O2 Del Method 97.8 F 67 15 135/85 H 100 Room Air 03/26/25 07:46 03/26/25 07:46 03/26/25 07:46 03/26/25 07:46 03/26/25 07:46 03/26/25 07:46 Oxygen Delivery Method Room Air Weight: 91.172 kg Body Mass Index (BMI) 34.4 Intake & Output: Intake and Output for Last 24 Hours 03/24/25 03/25/25 03/26/25 23:59 23:59 23:59 Intake Total 1590 / 1840 1120 / 1520 1145 / 1145 Balance 1590 / 1840 1120 / 1520 1145 / 1145 Lab / Micro Data 03/26/25 05:46 03/26/25 05:46 Labs: Laboratory Results - last 24 hr 03/25/25 16:15: POC Glucose 180 H 03/25/25 21:10: POC Glucose 211 H 03/26/25 00:37: Vancomycin Trough 20.9 H 03/26/25 05:46: WBC 4.5, RBC 4.00 L, Hgb 11.9 L, Hct 35.2 L, MCV 88.0, MCH 29.8, MCHC 33.8, RDW Std Deviation 41.3, RDW Coeff of Neftali 12.9, Plt Count 160, MPV 9.0, Immature Gran % (Auto) 0.400, Neut % (Auto) 52.5, Lymph % (Auto) 35.5, [place] % (Auto) 9.0, Eos % (Auto) 2.2, Baso % (Auto) 0.4, Absolute Neuts (auto) 2.3, Absolute Lymphs (auto) 1.58, Nucleated RBC % 0, Sodium 139, Potassium 4.0, Chloride 105, Carbon Dioxide 23.3, Anion Gap 11, BUN 41 H, Creatinine 1.29 H, Estim Creat Clear Calc 57.36, Est GFR (MDRD) Non-Af 61, BUN/Creatinine Ratio 31.6 H, Glucose 146 H, Calcium 9.0 03/26/25 06:22: POC Glucose 149 H 03/26/25 08:34: Random Vancomycin 15.8 H 03/26/25 10:47: POC Glucose 218 H Micro: Microbiology 03/23/25 11:10 Wound - Left Foot Gram Stain - Final 03/23/25 11:10 Wound - Left Foot Wound Culture - Preliminary Alpha hemolytic organism 03/23/25 11:10 Wound - Left Foot Anaerobic Culture - Preliminary Physical Exam Const alert, oriented x3 and no apparent distress Constitutional Narrative: Wound photos from today left foot reviewed and wound plantar left foot healthy and viable, healing well, dorsally incision intact and no dehiscence, no necrosis to left foot or acute findings. General Appearance: comfortable Assessment & Plan Assessment/Plan (1) Diabetic infection of left foot: (2) Chronic multifocal osteomyelitis of left foot: (3) Type 2 diabetes mellitus with foot ulcer: (4) Non-pressure chronic ulcer of other part of left foot with necrosis of bone: PLAN: Plan Evaluation performed. s/p left foot debridement Antibiotics: On Zosyn and Vanc - Infectious Disease on consult - cultures obtained and results reviewed - reviewed with Dr. Rose and plan is for oral Bactrim and Augmentin with weekly labs. Wound care: Cleanse with normal saline solution, then apply betadine solution and gauze packing, dry gauze, kerlix and bulmaro dressing. Change daily. Weightbearing: No weightbearing left foot. Hospital Medicine on consult, appreciate assistance. Noninvasive lower extremity arterial studies obtained and reviewed - no evidence of arterial disease. DVT Prophylaxis: SCDs. Discharge planning: Discharge home today.
--- NOTE | 2025-03-26 15:58 | PN.ID_ITS ---
Physical Exam Narrative Feeling well, d/c home today, no fever, no n/v/d. Const alert and no apparent distress General Appearance: cooperative Resp normal air movement and clear to auscultation bilaterally Cardio regular rate and regular rhythm GI soft to palpation, non-tender and non-distended Skin Skin Narrative: no new rash ID ID: Route of nutrition/ use of supplements: [] Nutritional Intake: [] IV Site: [] Schumacher Catheter: [] Assessment & Plan Assessment/Plan (1) Chronic multifocal osteomyelitis of left foot: PLAN: On vanc/zosyn. Prior h/o MSSA osteo in 2022. OR 03/23/[address] Cabrales for I&D down to bone. Surg cx with strep and enterobacter. Discussed risk/benefit of iv vs oral. Will hold ARB/hctz while on bactrim. Plan for discharge will be 6 weeks po bactrim DS bid and augmentin 875mg bid. ID followup in 2 weeks. Weekly bmp, cbc, and esr, wrote rx, d/w nursing, Dr. Cabrales, and correctional counselor/case manager. Will follow (2) Diabetes mellitus with diabetic polyneuropathy:
--- NOTE | 2025-03-26 16:25 | DCINST_ITS ---
Discharge Instructions DC O2, CPAP, BIPAP needs Home O2 Discharge instructions: No Dressing / Incision Discharge Activity: Use Walker Weight Bearing Status: No weight bearing (No weightbearing on left foot) Keep extremity elevated above heart level: Left Leg (Keep left foot elevated with pillows as much as possible) Dressing / Incision Call your doctor if your incision/area has: Continuous Slow Oozing Call your doctor if you observe: Fever of 101 or Higher, Shortness of breath, Chest pain, Increased palpitations (irregular heartbeat), Calf discomfort and Uncontrolled pain Change Dressing in: 1 day (Change dressing left foot daily, cleanse with normal saline solution, then apply betadine solution to wound site and pack with dry gauze, apply overlying dry gauze, gauze roll and bulmaro dressing daily but be sure to not apply to tight) Cleanse incision/area with: Normal Saline Follow Up Care Please Follow Up With: Masoud Cabrales DPM When: 1 week in office, but sooner if needed Test Results: Test results from this visit will be discussed in further detail at your follow- up appointment, if applicable. Discharge Plan Admission Admit Date/Time: 03/22/25 10:35 Attending Provider: Masoud Cabrales Primary Care Provider: Ridge Bishop Consulting Providers: Ryan Bowie; Gunnar Marquez; Shira Gates; Kaitlin Shah NP; Brooklyn Parker; Eri Cortez; Sonu Valencia; Lisa Quinn; Lisa Gomes; Jun Rose; aGbriel Benavidez Discharge Orders/Prescriptions Prescriptions: New sulfamethoxazole-trimethoprim [Bactrim DS] 800-160 mg tablet 1 tab PO BID Qty: 76 0RF amoxicillin-pot clavulanate 875-125 mg tablet 1 tab PO BID Qty: 76 0RF Continued metformin 1,000 mg Tablet 1,000 mg PO BID glimepiride 2 mg tablet 2 mg PO DAILY losartan-hydrochlorothiazide 50-12.5 mg tablet 1 tab PO DAILY simvastatin 40 mg tablet 40 mg PO DAILY Discontinued ciprofloxacin HCl [Cipro] 500 mg tablet 500 mg PO BID Rx Instructions: Started Wednesday03/19/25 Referrals / Follow Up: Ridge Bishop PA-C [Primary Care Provider, Medical] Disposition Disposition (needs filled in before D/C Order can be placed): Home, Self Care
--- NOTE | 2025-03-26 16:40 | PCM.DC.SUM ---
Providers Date of Admission: 03/22/25 Primary Care Physician: Ridge Bishop PA-C Consultations 03/22/25 10:35 Consult: Hospitalist Routine Consulting Provider: [facility] Reason for Consult: diabetes and other medical problems EMERGENT Consult: No MD Notified: Yes Date Notified: 03/22/25 Time Notified: 10:36 Method of Notification: Verbal 03/22/25 10:37 Consult: Infectious Disease Routine Consulting Provider: Jun Rose Reason for Consult: osteomyelitis left 3rd metatarsal EMERGENT Consult: No MD Notified: Yes Date Notified: 03/22/25 Time Notified: 10:37 Method of Notification: Text 03/22/25 10:40 Consult: Onc/Wound/stranding supervisor Routine Comment: Reason for Consult:: wound left foot Reason For Visit: OSTEOMYELITIS LEFT FOOT Diagnosis Discharge Diagnosis (1) Diabetic infection of left foot: Status: Acute Code(s): E11.628 - Type 2 diabetes mellitus with other skin complications; L08.9 - Local infection of the skin and subcutaneous tissue, unspecified (2) Chronic multifocal osteomyelitis of left foot: Status: Acute Code(s): M86.372 - Chronic multifocal osteomyelitis, left ankle and foot (3) Type 2 diabetes mellitus with foot ulcer: Status: Acute Code(s): E11.621 - Type 2 diabetes mellitus with foot ulcer; L97.509 - Non-pressure chronic ulcer of other part of unspecified foot with unspecified severity (4) Non-pressure chronic ulcer of other part of left foot with necrosis of bone: Status: Chronic Code(s): L97.524 - Non-pressure chronic ulcer of other part of left foot with necrosis of bone Plan Evaluation performed. s/p left foot debridement Antibiotics: On Zosyn and Vanc - Infectious Disease on consult - cultures obtained and results reviewed - reviewed with Dr. Rose and plan is for oral Bactrim and Augmentin with weekly labs. Wound care: Cleanse with normal saline solution, then apply betadine solution and gauze packing, dry gauze, kerlix and bulmaro dressing. Change daily. Weightbearing: No weightbearing left foot. Hospital Medicine on consult, appreciate assistance. Noninvasive lower extremity arterial studies obtained and reviewed - no evidence of arterial disease. DVT Prophylaxis: SCDs. Discharge planning: Discharge home today. Medications at Discharge Home Medications metformin 1,000 mg tablet 1,000 mg PO BID . 01/26/22 glimepiride 2 mg tablet 2 mg PO DAILY . 03/22/25 losartan 50 mg-hydrochlorothiazide 12.5 mg tablet 1 tab PO DAILY blood pressure 03/22/25 simvastatin 40 mg tablet 40 mg PO DAILY . 03/22/25 amoxicillin 875 mg-potassium clavulanate 125 mg tablet 1 tab PO BID #76 tabs 03/26/25 sulfamethoxazole 800 mg-trimethoprim 160 mg tablet (Bactrim DS) 1 tab PO BID #76 tabs 03/26/25 Hospital Course Summary of Care Provided Hospital Course: presented with ulceration down to necrotic bone, admitted for further management, underwent left foot debridement to and including bone on 03/23/2025, cultures obtained, LEAS obtained and no arterial insufficiency bilateral LE, cultures with strep and enterobactor, Infectious disease and Hospital medicine on consult. Patient to be discharged home on oral antibiotics Augmentin and Bactrim with weekly labs. Physical Exam Narrative see my progress note dated 03/26/2025 Const alert, oriented x3 and no apparent distress General Appearance: comfortable Weight / BMI Weight Weight: 91.172 kg Body Mass Index (BMI) 34.4 ABG / Lab / Microbiology Data 03/26/25 05:46 03/26/25 05:46 Laboratory: Laboratory Results - last 24 hr 03/25/25 16:15: POC Glucose 180 H 03/25/25 21:10: POC Glucose 211 H 03/26/25 00:37: Vancomycin Trough 20.9 H 03/26/25 05:46: WBC 4.5, RBC 4.00 L, Hgb 11.9 L, Hct 35.2 L, MCV 88.0, MCH 29.8, MCHC 33.8, RDW Std Deviation 41.3, RDW Coeff of Neftali 12.9, Plt Count 160, MPV 9.0, Immature Gran % (Auto) 0.400, Neut % (Auto) 52.5, Lymph % (Auto) 35.5, [place] % (Auto) 9.0, Eos % (Auto) 2.2, Baso % (Auto) 0.4, Absolute Neuts (auto) 2.3, Absolute Lymphs (auto) 1.58, Nucleated RBC % 0, Sodium 139, Potassium 4.0, Chloride 105, Carbon Dioxide 23.3, Anion Gap 11, BUN 41 H, Creatinine 1.29 H, Estim Creat Clear Calc 57.36, Est GFR (MDRD) Non-Af 61, BUN/Creatinine Ratio 31.6 H, Glucose 146 H, Calcium 9.0 03/26/25 06:22: POC Glucose 149 H 03/26/25 08:34: Random Vancomycin 15.8 H 03/26/25 10:47: POC Glucose 218 H Microbiology: Microbiology 03/23/25 11:10 Wound - Left Foot Gram Stain - Final 03/23/25 11:10 Wound - Left Foot Wound Culture - Preliminary Alpha hemolytic organism 03/23/25 11:10 Wound - Left Foot Anaerobic Culture - Preliminary D/C Instructions Weight Bearing Status: No weight bearing (No weightbearing on left foot) Keep extremity elevated above heart level: Left Leg (Keep left foot elevated with pillows as much as possible) Call your doctor if your incision/area has: Continuous Slow Oozing Call your doctor if you observe: Fever of 101 or Higher, Shortness of breath, Chest pain, Increased palpitations (irregular heartbeat), Calf discomfort and Uncontrolled pain Cleanse incision/area with: Normal Saline DC O2, CPAP, BIPAP Needs Home O2 Discharge instructions: No Please Follow Up With: Masoud Cabrales DPM When: 1 week in office, but sooner if needed Meaningful Use Info Meaningful Use Meaningful Use Diagnoses (Choose all that apply): None applicable Discharge Plan Admission Admit Date/Time: 03/22/25 10:35 Attending Provider: Masoud Cabrales Primary Care Provider: Ridge Bishop Consulting Providers: Ryan Bowie; Gunnar Marquez; Shira Gates; Kaitlin Shah NP; Brooklyn Parker; Eri Cortez; Sonu Valencia; Lisa Quinn; Lisa Gomes; Jun Rose; Gabriel Benavidez Discharge Orders/Prescriptions Prescriptions: New sulfamethoxazole-trimethoprim [Bactrim DS] 800-160 mg tablet 1 tab PO BID Qty: 76 0RF amoxicillin-pot clavulanate 875-125 mg tablet 1 tab PO BID Qty: 76 0RF Continued metformin 1,000 mg Tablet 1,000 mg PO BID glimepiride 2 mg tablet 2 mg PO DAILY losartan-hydrochlorothiazide 50-12.5 mg tablet 1 tab PO DAILY simvastatin 40 mg tablet 40 mg PO DAILY Discontinued ciprofloxacin HCl [Cipro] 500 mg tablet 500 mg PO BID Rx Instructions: Started Wednesday03/19/25 Referrals / Follow Up: Ridge Bishop PA-C [Primary Care Provider, Medical] Disposition Disposition (needs filled in before D/C Order can be placed): Home, Self Care
== END 2025-03-26 18:51 | disposition home or self-care (01) | DRG 629 ==
PROVIDERS: Internal Medicine; Admitting Provider Podiatrist; PCP Physician Assistant; Referring Provider Podiatrist; Visit Provider Podiatrist
PROC: 0QBP0ZZ Excision of Left Metatarsal, Open Approach (ICD-10-PCS; principal; 2025-03-23 09:15)
DX: E11.621 Type 2 diabetes mellitus with foot ulcer (principal); M86.172 Other acute osteomyelitis, left ankle and foot; M86.372 Chronic multifocal osteomyelitis, left ankle and foot; B95.2 Enterococcus as the cause of diseases classified elsewhere; E11.42 Type 2 diabetes mellitus with diabetic polyneuropathy; L97.524 Non-pressure chronic ulcer of other part of left foot with necrosis of bone; B95.4 Other streptococcus as the cause of diseases classified elsewhere; I10 Essential (primary) hypertension; E66.9 Obesity, unspecified; E78.5 Hyperlipidemia, unspecified; E11.69 Type 2 diabetes mellitus with other specified complication; Z89.421 Acquired absence of other right toe(s); Z89.422 Acquired absence of other left toe(s); Z68.34 Body mass index [BMI] 34.0-34.9, adult; Z79.84 Long term (current) use of oral hypoglycemic drugs; Z79.899 Other long term (current) drug therapy
CPT/HCPCS: 36415; 73630; 80048; 80053; 80202; 82962; 83036; 83735; 84100; 85025; 87015; 87070; 87075; 87102; 87116; 87176; 87186; 87205; 87206; 88307; 88311; 93005; 93923; 97161; A4216; J0295

== ENCOUNTER → 2025-03-22 | Outpatient (CLI) | payer MEDICAID, SELFPAY ==
--- OUTSIDE RECORDS SUMMARY | 2025-03-22 16:01 | XMS RPT_ITS | CCD ---
Author Organization [facility] CliniSyde Care Team Providers Care Asset Coordinator Name Role Phone SHRUTHI PURI MD Admitting Unavailable SHRUTHI PURI MD Attending Unavailable SHRUTHI PURI MD Primary Care Unavailable SHRUTHI PURI MD Referring Unavailable Dr. Corby Li Emergency Provider Care Physician, No Primary Primary Care Provider Unavailable Dr. Farhan Urbina Admit Provider Dr. Farhan Urbina Attending Provider Dr. Farhan Urbina Other Provider Dr. Masoud Cabrales Other Provider Dr. Maxwell Ulrich Attending Provider Unavailable Dr. Maxwell Ulrich Other Provider Unavailable Dr. Jun Rose Other Provider Dr. Luis M Chandler Attending Provider Dr. Luis M Chandler Other Provider Dr. Serafin Mckenzie Attending Provider Dr. Farhan Urbina Referring Provider Dr. Lincoln Haley Primary Care Provider [phone] Jun Estes Attending Provider Dr. Masoud Cabrales Referring Provider Dr. Matthieu Ferrell Referring Provider Dr. Lincoln Haley Primary Care Provider Dr. Gabriel Braswell Emergency Provider Dr. Luis M Chandlerit Provider Dr. Luis M Chandler Attending Provider Tertusharky, Dr. Luis M Other Provider Dr. Masoud Cabrales Other Provider Dr. Yadira Apodaca Attending Provider Dr. Yadira Apodaca Other Provider Dr. Jun Rose Other Provider Dr. Lincoln Haley MD Primary Care Provider Dr. Lincoln Haley MD Referring Provider Dr. Farhan Maynard DO Attending Provider Dr. Bladimir Plasencia MD Attending Provider Lincoln Haley Primary Care Unavailable Lincoln Haley Referring Unavailable Farhan Maynard Attending Unavailable Lincoln Haley Primary Care Unavailable Bladimir Plasencia Attending Unavailable Medications Current Medications Medication Drug Class(es) Dates Sig (Normalized) Sig (Original) metFORMIN hydrochloride 1000 mg oral tablet (13 sources) Biguanide Start: 01-26-2022 take 1 tablet by mouth twice daily Metformin 1,000 mg Tablet Active 1000 mg PO TWICE A DAY January 26, 2022 12:00am Completed/Discontinued Medications Medication Drug Class(es) Dates Sig (Normalized) Sig (Original) amoxicillin 875 mg / clavulanate 125 mg oral tablet (4 sources) Penicillin-class Antibacterial Start: 02-19-2023 End: 12-20-2024 Amoxicillin-Pot Clavulanate 875-125 mg tablet Discontinued 1 {tbl} PO TWICE A DAY 80 0 February 19, 2023 12:00am December 20, 2024 9:15am Start: 02-19-2023 take 1 tablet by cyn th twice daily Amoxicillin-Pot Clavulanate Active 1 TABLET PO TWICE A DAY 80 February 19, 2023 12:00am ciprofloxacin 500 mg oral tablet (12 sources) Quinolone Antimicrobial Start: 01-30-2022 End: 02-16-2023 take 1 tablet by mouth every twelve hours Ciprofloxacin Hcl (Cipro) 500 mg tablet Discontinued 500 mg PO Q12H 80 0 January 30, 2022 12:00am February 16, 2023 12:30pm clindamycin 300 mg oral capsule (5 sources) Lincosamide Antibacterial Start: 02-16-2023 End: 02-19-2023 take 1 capsule by mouth every eight hours Clindamycin Hcl 300 mg capsule Discontinued 300 mg PO Q8H February 16, 2023 12:00am February 19, 2023 12:07pm doxycycline hyclate 100 mg oral capsule (12 sources) Tetracycline-class Drug Start: 01-30-2022 End: 02-16-2023 take 1 capsule by mouth every twelve hours Doxycycline Hyclate 100 mg capsule Discontinued 100 mg PO Q12H 80 0 January 30, 2022 12:00am February 16, 2023 12:30pm levoFLOXacin 750 mg oral tablet (5 sources) Quinolone Antimicrobial Start: 02-16-2023 End: 02-19-2023 take 1 tablet by mouth every twenty-four hours Levofloxacin 750 mg tablet Discontinued 750 mg PO Q24H February 16, 2023 12:00am February 19, 2023 12:07pm lisinopril 40 mg oral tablet (4 sources) Angiotensin Converting Enzyme Inhibitor Start: 02-19-2023 End: 12-20-2024 take 1 tablet by mouth once daily Lisinopril 40 mg Tablet Discontinued 40 mg PO DAILY 30 2 February 19, 2023 12:00am December 20, 2024 9:15am metroNIDAZOLE 500 mg oral tablet (20 sources) Nitroimidazole Antimicrobial Start: 01-30-2022 End: 02-16-2023 take 1 tablet by mouth every eight hours Metronidazole 500 mg tablet Discontinued 500 mg PO Q8H 42 14 0 January 30, 2022 12:00am February 16, 2023 12:30pm Start: 01-26-2022 End: 01-30-2022 take 1 tablet by mouth three times daily Metronidazole (Flagyl) 500 mg Tablet Discontinued 500 mg PO THREE TIMES A DAY January 26, 2022 12:00am January 30, 2022 12:19pm foot infection penicillin v potassium 500 m g oral tablet (13 sources) Start: 01-26-2022 End: 01-30-2022 Penicillin V Potassium 500 m g Tablet Discontinued 1000 mg PO TWICE A DAY January 26, 2022 12:00am January 30, 2022 12:19pm infection foot Start: 01-26-2022 End: 01-30-2022 take 1000 mg by mouth twice daily Penicillin V Potassium Discontinued 1000 MG PO TWICE A DAY January 26, 2022 12:00am January 30, 2022 12:19pm SITagliptin 50 mg oral tablet (4 sources) Dipeptidyl Peptidase 4 Inhibitor Start: 02-19-2023 End: 12-20-2024 take 1 tablet by mouth once daily Sitagliptin Phosphate (Januvia) 50 mg tablet Discontinued 50 mg PO DAILY 30 2 February 19, 2023 12:00am December 20, 2024 9:15am Problems Problem Classification Problem Date Documented Da te Episodic/Chronic Cataract (3 sources) Combined forms of age-related cataract, bilateral; Translations: [Combined forms of age-related cataract, bilateral] Onset: 12-14-2019 Chronic Chronic ulcer of skin (15 sources) Infected ulcer of skin; Translations: [Non-pressure chronic ulcer of skin of other sites with unspecified severity] Chronic Diabetes mellitus with complications (20 sources) Diabetic foot ulcer; Translations: [Type 2 diabetes mellitus with foot ulcer] Chronic Diabetes mellitus without complication (20 sources) Diabetes mellitus; Translations: [Type 2 diabetes mellitus without complications] Chronic Essential hypertension (6 sources) Hypertensive disorder; Translations: [Essential (primary) hypertension] 02-17-2023 Chronic Infective arthritis and osteomyelitis (except that caused by tuberculosis or sexually transmitted disease) (20 sources) Acute osteomyelitis of right foot; Translations: [Other acute osteomyelitis, right ankle and foot] Chronic Other non-traumatic joint disorders (1 source) Pain in right knee; Translations: [Pain in right knee] Onset: 12-20-2024 Episodic Other nutritional; endocrine; and metabolic disorders (13 sources) Obesity; Translations: [Obesity, unspecified] 01-26-2022 Chronic Other nutritional; endocrine; and metabolic disorders (8 sources) Obesity, unspecified; Translations: [Obesity, unspecified] Chronic Other screening for suspected conditions (not mental disorders or infectious disease) (6 sources) Serum creatinine raised; Translations: [Other specified abnormal findings of blood chemistry] 02-17-2023 Episodic Phlebitis; thrombophlebitis and thromboembolism (10 sources) Acute deep vein thrombosis of lower limb; Translations: [Acute embolism and thrombosis of unspecified deep veins of right lower extremity] 02-27-2022 Episodic Skin and subcutaneous tissue infections (20 sources) Cellulitis of lower limb; Translations: [Cellulitis of right lower limb] Episodic Results Test Name Value Interpretation Reference Range Facility Knee 4 or More Viewson 12-20 Knee 4 or More Views [facility] [address] [place], [place] [id number] Knee 4 or More Views MR#: [id number] Acct: [id number] Name: ANTONIO WEISS Rep #: [id number] : 1960 M 64 From: Luis M Chaparro MD PCP: Dr. Lincoln Haley MD Status: DEP AMB Study: Knee 4 or More Views Date of Exam: 12/20/24 Exam# [id number] Ordering Dr: Farhan Maynard DO EXAM: XR Right Knee Complete, 4 or More Views CLINICAL INDICATION: CHRONIC PAIN TECHNIQUE: Four or more views of the right knee. COMPARISON: No relevant prior studies available. FINDINGS: BONES/JOINTS: [id number] degenerative changes of the medial compartment of the knee joint. No acute fracture. No dislocation. SOFT TISSUES: Soft tissue swelling. RAD/Knee 4 or More Views IMPRESSION: Degenerative changes as above. Reading [facility] CC: Dr. Farhan Maynard DO; Dr. Lincoln Haley MD Informatics Physician Liaison: Signed Normal [facility] Orthopedic Visit Reporton Orthopedic Visit Report [facility] [address] [place] [address] [address] [place] [address] OFFICE VISIT Date of Service: 12/20/24 MR#: [id number] Acct: [id number] Name: ANTONIO WEISS Rep #: [id number] : 1960 Provider: Dr. Farhan soriano DO Age/Sex: 64/M Location: [facility] [place], [place].[facility] Status: Signed Intake Vital Signs 02/18/23 14:17 12/20/24 09:14 Height 5 ft 4 in 5 ft 4 in Weight: 210 lb BMI 36.0 Intake Visit Reasons: RIGHT KNEE Chief Complaint: Right Knee Pain Accompanied by: Is patient in pain?: Yes Pain scale (1-10): 6 Allergies No Known Allergies Allergy (Verified 12/20/24 09:14) Medications ???Medication ???Instructions ???Recorded ???Confirmed ???Type metformin 1,000 mg tablet 1,000 mg PO BID 01/26/22 12/20/24 History Have you fallen in the past year?: No PFSH Medical History HTN (hypertension) Osteomyelitis of left foot Diabetes mellitus with diabetic polyneuropathy Hypertension Diabetes Non-smoker Diabetes Infected ulcer of skin Diabetic foot ulcer Family History Other Hypertension Social History household members: spouse Smoking Status: Never smoker HPI RIGHT KNEE Details: This documentation accurately reflects the service provided and the decisions made by me, Dr. Farhan Maynard, DO 12/20/24 0756. Part of today???s visit was documented by Angela Jeong ATC, acting as scribe. ANTONIO WEISS is a 64 year old M with medical history significant for obesity, uncontrolled diabetes mellitus, polyneuropathy, history of osteomyelitis left foot and gangrene right lower extremity, here today for right knee pain. Patient states the knee has been bothering him since about April. He denies any specific injury that he remembers that caused the pain. He describes the pain over the anterior medial aspect of the knee. He states he gets pain down into the ankle and up into the thigh a little bit. He states occasionally it will feel unsteady. He states when it first started bothering him he could barely even touch the knee without having a lot of pain. He denies any prior injury or surgery to the right knee. He does get some numbness down the leg and into the foot but states he does have neuropathy. 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 He denies any fevers/chills/malaise or any signs of illness. He is able to weight-bear and move his knee without any significant pain today. He denies any snapping/popping or mechanical type symptoms or instability. Ortho Exam General General: Yes no acute distress and Yes well groomed Neurologic: Yes alert and Yes oriented x3 Psychologic: Yes reasonable and appropriate Right Knee Skin/Wound: Yes CDI, No erythema, No ecchymosis and No swelling Knee ROM: No ROM-Extension -20 to 0 (30) and No ROM-Flexion 0-140 (108) Examination: Yes Med jt line tenderness, No Lat jt line tenderness, No TTP inf pole patella, Yes Crepitus, No Pain with flexion, No Pain with extention and No Mary Lou's Test Stability: NML: Anterior Drawer and NML: Posterior Drawer and 1+: Valgus 0 (Medial gapping due to medial joint space narrowing) and 1+: Valgus 30 Patella Translation: 1 KNEE: no sign active infection or DVT He does have an effusion small. Pain-free arc of motion large wide scar over anterior lateral skin or leg and foot with thickening of tissue no sign of active infection amputation of fifth digit stiffness with extension Left Knee Patella Translation: 1 Supplemental Info 12/20/2024: X-ray right knee: There is advanced medial compartment arthrosis with erosion of the medial tibial plateau there is spurring noted in the remainder of the knee 11/30/2024 MRI right knee: Complex unstable medial meniscus tear marrow edema through the medial compartment and remodeling of the medial tibia. Severe fraying of the patellar and trochlear cartilage, thickened medial plica edema in the distal quadriceps musculature. Complex unstable tear of the lateral meniscus in the posterior horn. Joint effusion suggest complex collection either hemorrhagic or proteinaceous 02/17/2023: Dr. Rios: Pre-Operative Diagnosis: 1. Osteomyelitis proximal phalanx second digit and second metatarsal head left foot 2. Cellulitis left foot 3. Diabetes mellitus type 2 with peripheral polyneuropathy Post-Operative Diagnosis: 1. Osteomyelitis proximal phalanx second digit and sec (more content not included)... Normal [facility] Basophil percentageOrdered B y: Yadira Apodaca on 02-19-2023 Chloride [Moles/Vol] 108 mmol/L 98-107 [facility] Glucose [Mass/Vol] 150 mg/dL 74-106 [facility] Comment on above: Fasting Glucose resu lt greater than or equal to 126 mg/dL suggests DIABETES MELLITUS per A.D.A. criteria. Potassium [Moles/Vol] 4.0 mmol/L 3.5-5.[address] [facility] Sodium [Moles/Vol] 138 mmol/L 136-145 [facility] Glucose Glucometer (BldC) [M ass/Vol]Ordered By: Yadira Apodaca on 02-19-2023 Glucose [Mass/Vol] 219 mg/dL 74-106 [facility] Comment on above: MANAGEMENT OF PATIEN T CARE PER NURSING PROTOCOL Laboratory - Chemistry and C hemistry - challengeOrdered By: Yadira Apodaca on 02-19-2023 CO2 [Moles/Vol] 28.0 mmol/L 21.0-32.0 [facility] Urea nitrogen/Creatinine [Mass ratio] 21.0 mg/mg 10-20 [facility] No Panel InformationOrdered By: Yadira Apodaca on 02-19-2023 Estimated Creatinine Clearance Calc 52.51 ml/min [facility] Estimated GFR (MDRD) Amer 79 mL/min >60 [facility] Comment on above: GFR Calc Estimated GFR (MDRD) Non-Af Amer 65 mL/min >60 [facility] Comment on above: Non- GFR Calc Serum or plasma calcium lucia urement (mass/volume)Ordered By: Yadira Apodaca on 02-19-2023 Calcium [Mass/Vol] 8.8 mg/dL 8.5-10.1 [facility] Serum or plasma creatinine m easurement (mass/volume)Ordered By: Yadira Apodaca on 02-19-2023 Creatinine [Mass/Vol] 1.19 mg/dL 0.70-1.[address] [facility] Comment on above: The validity of the calculated GFR & GFRAA in patients over 70 years has not been determined. Clinical correlation is essential. Serum or plasma urea nitroge n measurement (mass/volume)Ordered By: Yadira Apodaca on 02-19-2023 Urea nitrogen [Mass/Vol] 25 mg/dL 7-18 [facility] Thin prep Papanicolaou smear with manual screeningOrdered By: Yadira Apodaca on 02-19-2023 Thin prep Papanicolaou smear with manual screening 2 5-15 [facility] Absolute lymphocyte countOrd ered By: Yadira Apodaca on 02-18-2023 Lymphocytes Auto (Unsp spec) [#/Vol] 1.25 10*3/uL 0.83-4.51 [facility] Basophil percentageOrdered B y: Yadira Apodaca on 02-18-2023 Basophil percentage 3.8 mg/dL 2.5-4.9 [facility] Basophils/100 WBC (Bld) 0.5 % 0-1 [facility] Bilirubin [Mass/Vol] 0.30 mg/dL 0.20-1.00 [facility] Comment on above: For patients on eltr ombopag therapy, use of Dimension [place] TBIL is not recommended. Eosinophils/100 WBC (Bld) 1.9 % 0-5 [facility] Neutrophils (Bld) [#/Vol] 5.9 10*3/uL 2.0-7.7 [facility] Neutrophils/100 WBC (Bld) 73.2 % 47-70 [facility] Protein [Mass/Vol] 6.9 g/dL 6.4-8.2 [facility] WBC (Bld) [#/Vol] 8.0 10*3/uL 4.4-11.0 [facility] Blood erythrocytes count (nu mber/volume)Ordered By: Yadira Apodaca on 02-18-2023 RBC (Bld) [#/Vol] 3.67 10*6/uL 4.6-6.2 [facility] Blood hemoglobin measurement (mass/volume)Ordered By: Yadira Apodaca on 02-18-2023 Hemoglobin (Bld) [Mass/Vol] 11.2 g/dL 13.0-16.5 [facility] Blood lymphocytes/100 leukoc ytesOrdered By: Yadira Apodaca on 02-18-2023 Lymphocytes/100 WBC (Bld) 15.6 % 19-41 [facility] Blood monocytes/100 leukocyt esOrdered By: Yadira Apodaca on 02-18-2023 Monocytes/100 WBC (Bld) 8.1 % 0-10 [facility] Blood platelet mean volumeOr dered By: Yadira Apodaca on 02-18-2023 Platelet mean volume (Bld) [Entitic vol] 8.9 fL 6.2-12.0 [facility] Determination of erythrocyte mean corpuscular volume (MCV)Ordered By: Yadira Apodaca on 02-18-2023 MCV (RBC) [Entitic vol] 91.8 fL 80-94 [facility] Hematocrit Auto (Bld) [Volum e fraction]Ordered By: Yadira Apodaca on 02-18-2023 Hematocrit (Bld) [Volume fraction] 33.7 % 40-54 [facility] Laboratory - Chemistry and C hemistry - challengeOrdered By: Yadira Apodaca on 02-18-2023 ALP [Catalytic activity/Vol] 64 U/L 45-117 [facility] ALT [Catalytic activity/Vol] 19 U/L 16-61 [facility] Globulin (S) [Mass/Vol] 4.4 g/dL 2.2-4.2 [facility] Magnesium [Mass/Vol] 1.9 mg/dL 1.6-2.6 [facility] Laboratory - Hematology and Cell countsOrdered By: Yadira Apodaca on 02-18-2023 Erythrocyte distribution width (RBC) [Entitic vol] 38.8 fL 35.1-43.9 [facility] Erythrocyte distribution width (RBC) [Ratio] 11.4 % 11.6-14.6 [facility] Immature granulocytes/100 WBC (Bld) 0.700 % 0.0-0.9 [facility] Comment on above: IG% - Immature Granu locytes (promyelocytes, myelocytes and metamyelocytes) > 1% indicates that a LEFT SHIFT is Present. MCH (RBC) [Entitic mass] 30.5 pg 27.0-32.0 [facility] Nucleated RBC/100 WBC (Bld) [Ratio] 0 % 0-5 [facility] MCHC Auto (RBC) [Mass/Vol]Or dered By: Yadira Apodaca on 02-18-2023 MCHC (RBC) [Mass/Vol] 33.2 g/dL 32-[address] [facility] Platelets bldOrdered By: Lesly Apodaca on 02-18-2023 Platelets (Bld) [#/Vol] 288 10*3/uL 150-450 [facility] Serum or plasma albumin lucia urement (mass/volume)Ordered By: Yadira Apodaca on 02-18-2023 Albumin [Mass/Vol] 2.5 g/dL 3.2-5.0 [facility] Serum or plasma albumin/glob ulin mass ratioOrdered By: Yadira Apodaca on 02-18-2023 Albumin/Globulin [Mass ratio] 0.6 {ratio} 0.9-2.4 [facility] Serum or plasma trough vanco mycin levelOrdered By: Luis M Chandler on 02-18-2023 Vancomycin trough [Mass/Vol] 10.5 ug/mL 5.0-15.0 [facility] Comment on above: VANCOMYCIN STANDARED DRUG THERAPY TROUGH LEVEL: 5.0 - 15.0 mg/L VANCOMYCIN HIGH INTENSITY THERAPY TROUGH LEVEL: 15.0 - 20.0 mg/L High Intensity therapy recommended for serious lifethreatening infections include:- Oovssecvcd-Divhpeiweela-Ldapsmllw (Ventilator/Healtcare Associated)-Sepsis PLEASE CONTACT PHARMACY SERVICES (#[id number]) FOR INTERPRETATIONOF RESULTS. Thin prep Papanicolaou smear with manual screeningOrdered By: Yadira Apodaca on 02-18-2023 Thin prep Papanicolaou smear with manual screening 11 U/L 15-37 [facility] Bacteria identified Cx Nom ( Wound)Ordered By: Ramez Rios on 02-17-2023 Wound Culture Staphylococcus aureus [facility] Gram stain for investigation of transfusion reactionOrdered By: Ramez Rios on 02-17-2023 Microscopic observation Gram stain Nom (Unsp spec) [facility] Whole blood hemoglobin A1c/t otal hemoglobin ratio (mass fraction)Ordered By: Yadira Apodaca on 02-17-2023 HbA1c (Bld) [Mass fraction] 9.1 % 3.8-5.6 [facility] Comment on above: Normal < 5.7 % Predi abetic 5.7 - 6.4 % Diabetic >or= 6.5 % Please note range changes. Absolute lymphocyte countOrd ered By: Gabriel Braswell on 02-16-2023 Lymphocytes Auto (Unsp spec) [#/Vol] 1.38 10*3/uL 0.83-4.51 [facility] Basophil percentageOrdered B y: Gabriel Braswell on 02-16-2023 Basophils/100 WBC (Bld) 0.3 % 0-1 [facility] Chloride [Moles/Vol] 104 mmol/L 98-107 [facility] Eosinophils/100 WBC (Bld) 1.3 % 0-5 [facility] Glucose [Mass/Vol] 126 mg/dL 74-106 [facility] Comment on above: Fasting Glucose resu lt greater than or equal to 126 mg/dL suggests DIABETES MELLITUS per A.D.A. criteria. Lactate [Moles/Vol] 1.9 mmol/L 0.4-2.0 [facility] Neutrophils (Bld) [#/Vol] 8.2 10*3/uL 2.0-7.7 [facility] Neutrophils/100 WBC (Bld) 77.2 % 47-70 [facility] Potassium [Moles/Vol] 4.5 mmol/L 3.5-5.[address] [facility] Sodium [Moles/Vol] 138 mmol/L 136-145 [facility] WBC (Bld) [#/Vol] 10.6 10*3/uL 4.4-11.0 [facility] Blood erythrocytes count (nu mber/volume)Ordered By: Gabriel Braswell on 02-16-2023 RBC (Bld) [#/Vol] 3.72 10*6/uL 4.6-6.2 [facility] Blood hemoglobin measurement (mass/volume)Ordered By: Gabriel Braswell on 02-16-2023 Hemoglobin (Bld) [Mass/Vol] 11.4 g/dL 13.0-16.5 [facility] Blood lymphocytes/100 leukoc ytesOrdered By: Gabriel Braswell on 02-16-2023 Lymphocytes/100 WBC (Bld) 13.0 % 19-41 [facility] Blood monocytes/100 leukocyt esOrdered By: Gabriel Braswell on 02-16-2023 Monocytes/100 WBC (Bld) 7.3 % 0-10 [facility] Blood platelet mean volumeOr dered By: Gabriel Braswell on 02-16-2023 Platelet mean volume (Bld) [Entitic vol] 9.2 fL 6.2-12.0 [facility] Determination of erythrocyte mean corpuscular volume (MCV)Ordered By: Gabriel Braswell on 02-16-2023 MCV (RBC) [Entitic vol] 91.7 fL 80-94 [facility] Hematocrit Auto (Bld) [Volum e fraction]Ordered By: Gabriel Braswell on 02-16-2023 Hematocrit (Bld) [Volume fraction] 34.1 % 40-54 [facility] INR in Blood by Coagulation assayOrdered By: Gabriel Braswell on 02-16-2023 INR Coag (Bld) [Relative time] 1.0 {INR} [facility] Laboratory - Chemistry and C hemistry - challengeOrdered By: Gabriel Braswell on 02-16-2023 CO2 [Moles/Vol] 29.0 mmol/L 21.0-32.0 [facility] Urea nitrogen/Creatinine [Mass ratio] 22.0 mg/mg 10-20 [facility] Laboratory - CoagulationOrde red By: Gabriel Braswell on 02-16-2023 aPTT Coag (Bld) [Time] 40.3 s 24.1-36.2 [facility] PT Coag (PPP) [Time] 13.5 s 11.7-14.9 [facility] Laboratory - Hematology and Cell countsOrdered By: Gabriel Braswell on 02-16-2023 Erythrocyte distribution width (RBC) [Entitic vol] 38.9 fL 35.1-43.9 [facility] Erythrocyte distribution width (RBC) [Ratio] 11.6 % 11.6-14.6 [facility] Immature granulocytes/100 WBC (Bld) 0.900 % 0.0-0.9 [facility] Comment on above: IG% - Immature Granu locytes (promyelocytes, myelocytes and metamyelocytes) > 1% indicates that a LEFT SHIFT is Present. MCH (RBC) [Entitic mass] 30.6 pg 27.0-32.0 [facility] Nucleated RBC/100 WBC (Bld) [Ratio] 0 % 0-5 [facility] MCHC Auto (RBC) [Mass/Vol]Or dered By: Gabriel Braswell on 02-16-2023 MCHC (RBC) [Mass/Vol] 33.4 g/dL 32-[address] [facility] No Panel InformationOrdered By: Gabriel Braswell on 02-16-2023 Estimated Creatinine Clearance Calc 47.34 ml/min [facility] Estimated GFR (MDRD) Amer 70 mL/min >60 [facility] Comment on above: GFR Calc Estimated GFR (MDRD) Non-Af Amer 58 mL/min >60 [facility] Comment on above: Non- GFR Calc Platelets bldOrdered By: Anastacia Braswell on 02-16-2023 Platelets (Bld) [#/Vol] 293 10*3/uL 150-450 [facility] Serum or plasma calcium lucia urement (mass/volume)Ordered By: Gabriel Braswell on 02-16-2023 Calcium [Mass/Vol] 9.2 mg/dL 8.5-10.1 [facility] Serum or plasma creatinine m easurement (mass/volume)Ordered By: Gabriel Braswell on 02-16-2023 Creatinine [Mass/Vol] 1.32 mg/dL 0.70-1.[address] [facility] Comment on above: The validity of the calculated GFR & GFRAA in patients over 70 years has not been determined. Clinical correlation is essential. Serum or plasma urea nitroge n measurement (mass/volume)Ordered By: Gabriel Braswell on 02-16-2023 Urea nitrogen [Mass/Vol] 29 mg/dL 7-18 [facility] Thin prep Papanicolaou smear with manual screeningOrdered By: Gabriel Braswell on 02-16-2023 Thin prep Papanicolaou smear with manual screening 5 5-15 [facility] Absolute lymphocyte countOrd ered By: Masoud Cabrales on 02-12-2023 Lymphocytes Auto (Unsp spec) [#/Vol] 1.13 10*3/uL 0.83-4.51 [facility] Bacteria identified Anaer cx Nom (Unsp spec)Ordered By: Masoud Cabrales on 02-12-2023 Anaerobic Culture Anaerobic cocci [facility] Bacteria identified Cx Nom ( Wound)Ordered By: Masoud Cabrales on 02-12-2023 Wound Culture Enterococcus faecalis [facility] Wound Culture Staphylococcus haemolyticus [facility] Wound Culture Negative [facility] Basophil percentageOrdered B y: Masoud Cabrales on 02-12-2023 Basophils/100 WBC (Bld) 0.2 % 0-1 [facility] Bilirubin [Mass/Vol] 0.50 mg/dL 0.20-1.00 [facility] Comment on above: For patients on eltr ombopag therapy, use of Dimension [place] TBIL is not recommended. Chloride [Moles/Vol] 102 mmol/L 98-107 [facility] Eosinophils/100 WBC (Bld) 0.4 % 0-5 [facility] Glucose [Mass/Vol] 314 mg/dL 74-106 [facility] Comment on above: Glucose result great er than or equal to 200 mg/dLsuggests DIABETES MELLITUS per A.D.A. criteria. Neutrophils (Bld) [#/Vol] 8.8 10*3/uL 2.0-7.7 [facility] Neutrophils/100 WBC (Bld) 80.8 % 47-70 [facility] Potassium [Moles/Vol] 4.3 mmol/L 3.5-5.[address] [facility] Protein [Mass/Vol] 7.3 g/dL 6.4-8.2 [facility] Sodium [Moles/Vol] 134 mmol/L 136-145 [facility] WBC (Bld) [#/Vol] 10.8 10*3/uL 4.4-11.0 [facility] Blood erythrocytes count (nu mber/volume)Ordered By: Masoud Cabrales on 02-12-2023 RBC (Bld) [#/Vol] 3.70 10*6/uL 4.6-6.2 [facility] Blood hemoglobin measurement (mass/volume)Ordered By: Masoud Cabrales on 02-12-2023 Hemoglobin (Bld) [Mass/Vol] 11.4 g/dL 13.0-16.5 [facility] Blood lymphocytes/100 leukoc ytesOrdered By: Masoud Cabrales on 02-12-2023 Lymphocytes/100 WBC (Bld) 10.4 % 19-41 [facility] Blood monocytes/100 leukocyt esOrdered By: Masoud Cabrales on 02-12-2023 Monocytes/100 WBC (Bld) 7.9 % 0-10 [facility] Blood platelet mean volumeOr dered By: Masoud Cabrales on 02-12-2023 Platelet mean volume (Bld) [Entitic vol] 10.1 fL 6.2-12.0 [facility] Determination of erythrocyte mean corpuscular volume (MCV)Ordered By: Masoud Cabrales on 02-12-2023 MCV (RBC) [Entitic vol] 92.2 fL 80-94 [facility] Gram stain for investigation of transfusion reactionOrdered By: Masoud Cabrales on 02-12-2023 Microscopic observation Gram stain Nom (Unsp spec) [facility] Hematocrit Auto (Bld) [Volum e fraction]Ordered By: Masoud Cabrales on 02-12-2023 Hematocrit (Bld) [Volume fraction] 34.1 % 40-54 [facility] Laboratory - Chemistry and C hemistry - challengeOrdered By: Masoud Cabrales on 02-12-2023 ALP [Catalytic activity/Vol] 71 U/L 45-117 [facility] ALT [Catalytic activity/Vol] 20 U/L 16-61 [facility] CO2 [Moles/Vol] 26.0 mmol/L 21.0-32.0 [facility] Globulin (S) [Mass/Vol] 4.2 g/dL 2.2-4.2 [facility] Urea nitrogen/Creatinine [Mass ratio] 19.9 mg/mg 10-20 [facility] Laboratory - Hematology and Cell countsOrdered By: Masoud Cabrales on 02-12-2023 Erythrocyte distribution width (RBC) [Entitic vol] 38.9 fL 35.1-43.9 [facility] Erythrocyte distribution width (RBC) [Ratio] 11.5 % 11.6-14.6 [facility] Immature granulocytes/100 WBC (Bld) 0.300 % 0.0-0.9 [facility] Comment on above: IG% - Immature Granu locytes (promyelocytes, myelocytes and metamyelocytes) > 1% indicates that a LEFT SHIFT is Present. MCH (RBC) [Entitic mass] 30.8 pg 27.0-32.0 [facility] Nucleated RBC/100 WBC (Bld) [Ratio] 0 % 0-5 [facility] MCHC Auto (RBC) [Mass/Vol]Or dered By: Masoud Cabrales on 02-12-2023 MCHC (RBC) [Mass/Vol] 33.4 g/dL 32-[address] [facility] No Panel InformationOrdered By: Masoud Cabrales on 02-12-2023 Estimated GFR (MDRD) Amer 63 mL/min >60 [facility] Comment on above: GFR Calc Estimated GFR (MDRD) Non-Af Amer 52 mL/min >60 [facility] Comment on above: Non- GFR Calc Platelets bldOrdered By: Lamonte Cabrales on 02-12-2023 Platelets (Bld) [#/Vol] 228 10*3/uL 150-450 [facility] Serum or plasma albumin lucia urement (mass/volume)Ordered By: Masoud Cabrales on 02-12-2023 Albumin [Mass/Vol] 3.1 g/dL 3.2-5.0 [facility] Serum or plasma albumin/glob ulin mass ratioOrdered By: Masoud Cabrales on 02-12-2023 Albumin/Globulin [Mass ratio] 0.7 {ratio} 0.9-2.4 [facility] Serum or plasma calcium lucia urement (mass/volume)Ordered By: Masoud Cabrales on 02-12-2023 Calcium [Mass/Vol] 9.0 mg/dL 8.5-10.1 [facility] Serum or plasma creatinine m easurement (mass/volume)Ordered By: Masoud Cabrales on 02-12-2023 Creatinine [Mass/Vol] 1.46 mg/dL 0.70-1.[address] [facility] Comment on above: The validity of the calculated GFR & GFRAA in patients over 70 years has not been determined. Clinical correlation is essential. Serum or plasma urea nitroge n measurement (mass/volume)Ordered By: Masoud Cabrales on 02-12-2023 Urea nitrogen [Mass/Vol] 29 mg/dL 7-18 [facility] Thin prep Papanicolaou smear with manual screeningOrdered By: Masoud Cabrales on 02-12-2023 Thin prep Papanicolaou smear with manual screening 7 U/L 15-37 [facility] Thin prep Papanicolaou smear with manual screening 6 5-15 [facility] Absolute lymphocyte counton 02-19-2022 Lymphocytes Auto (Unsp spec) [#/Vol] 1.46 10*3/uL 0.83-4.51 [facility] Work Phone: Basophil percentageon 2021 Basophils/100 WBC (Bld) 0.4 % 0-1 [facility] Work Phone: Bilirubin [Mass/Vol] 0.30 mg/dL 0.20-1.00 [facility] Work Phone: Comment on above: For patients on eltr ombopag therapy, use of Dimension [place] TBIL is not recommended. Chloride [Moles/Vol] 104 mmol/L 98-107 [facility] Work Phone: Eosinophils/100 WBC (Bld) 2.4 % 0-5 [facility] Work Phone: Glucose [Mass/Vol] 103 mg/dL 74-106 [facility] Work Phone: Comment on above: Fasting Glucose resu lt from 100 to 125 mg/dL suggests IMPAIRED HOMEOSTASIS per A.D.A. criteria. Neutrophils (Bld) [#/Vol] 2.6 10*3/uL 2.0-7.7 [facility] Work Phone: [phone] Neutrophils/100 WBC (Bld) 55.6 % 47-70 [facility] Work Phone: Potassium [Moles/Vol] 4.4 mmol/L 3.5-5.[address] [facility] Work Phone: Protein [Mass/Vol] 7.5 g/dL 6.4-8.2 [facility] Work Phone: Sodium [Moles/Vol] 140 mmol/L 136-145 [facility] Work Phone: WBC (Bld) [#/Vol] 4.6 10*3/uL 4.4-11.0 [facility] Work Phone: Blood erythrocytes count (nu mber/volume)on 02-19-2022 RBC (Bld) [#/Vol] 3.81 10*6/uL 4.6-6.2 [facility] Work Phone: Blood hemoglobin measurement (mass/volume)on 02-19-2022 Hemoglobin (Bld) [Mass/Vol] 11.6 g/dL 13.0-16.5 [facility] Work Phone: Blood lymphocytes/100 leukoc yteson 02-19-2022 Lymphocytes/100 WBC (Bld) 31.5 % 19-41 [facility] Work Phone: Blood monocytes/100 leukocyt eson 02-19-2022 Monocytes/100 WBC (Bld) 9.7 % 0-10 [facility] Work Phone: Blood platelet mean volumeon 02-19-2022 Platelet mean volume (Bld) [Entitic vol] 8.9 fL 6.2-12.0 [facility] Work Phone: Determination of erythrocyte mean corpuscular volume (MCV)on 02-19-2022 MCV (RBC) [Entitic vol] 91.6 fL 80-94 [facility] Work Phone: Hematocrit Auto (Bld) [Volum e fraction]on 02-19-2022 Hematocrit (Bld) [Volume fraction] 34.9 % 40-54 [facility] Work Phone: Laboratory - Chemistry and C hemistry - challengeon 02-19-2022 ALP [Catalytic activity/Vol] 48 U/L 45-117 [facility] Work Phone: ALT [Catalytic activity/Vol] 18 U/L 16-61 [facility] Work Phone: CO2 [Moles/Vol] 30.0 mmol/L 21.0-32.0 [facility] Work Phone: Globulin (S) [Mass/Vol] 4.6 g/dL 2.2-4.2 [facility] Work Phone: Urea nitrogen/Creatinine [Mass ratio] 26.9 mg/mg 10-20 [facility] Work Phone: Laboratory - Hematology and Cell countson 02-19-2022 Erythrocyte distribution width (RBC) [Entitic vol] 43.7 fL 35.1-43.9 [facility] Work Phone: Erythrocyte distribution width (RBC) [Ratio] 13.0 % 11.6-14.6 [facility] Work Phone: Immature granulocytes/100 WBC (Bld) 0.400 % 0.0-0.9 [facility] Work Phone: Comment on above: IG% - Immature Granu locytes (promyelocytes, myelocytes and metamyelocytes) > 1% indicates that a LEFT SHIFT is Present. MCH (RBC) [Entitic mass] 30.4 pg 27.0-32.0 [facility] Work Phone: Nucleated RBC/100 WBC (Bld) [Ratio] 0 % 0-5 [facility] Work Phone: MCHC Auto (RBC) [Mass/Vol]on 02-19-2022 MCHC (RBC) [Mass/Vol] 33.2 g/dL 32-[address] [facility] Work Phone: No Panel Informationon 02-19 Estimated GFR (MDRD) Amer 106 mL/min >60 [facility] Work Phone: Comment on above: GFR Calc Estimated GFR (MDRD) Non-Af Amer 87 mL/min >60 [facility] Work Phone: Comment on above: Non- GFR Calc Platelets bldon 02-19-2022 Platelets (Bld) [#/Vol] 170 10*3/uL 150-450 [facility] Work Phone: Serum or plasma albumin lucia urement (mass/volume)on 02-19-2022 Albumin [Mass/Vol] 2.9 g/dL 3.2-5.0 [facility] Work Phone: Serum or plasma albumin/glob ulin mass ratioon 02-19-2022 Albumin/Globulin [Mass ratio] 0.6 {ratio} 0.9-2.4 [facility] Work Phone: Serum or plasma calcium lucia urement (mass/volume)on 02-19-2022 Calcium [Mass/Vol] 9.1 mg/dL 8.5-10.1 [facility] Work Phone: Serum or plasma creatinine m easurement (mass/volume)on 02-19-2022 Creatinine [Mass/Vol] 0.93 mg/dL 0.70-1.[address] [facility] Work Phone: Comment on above: The validity of the calculated GFR & GFRAA in patients over 70 years has not been determined. Clinical correlation is essential. Serum or plasma urea nitroge n measurement (mass/volume)on 02-19-2022 Urea nitrogen [Mass/Vol] 25 mg/dL 7-18 [facility] Work Phone: Thin prep Papanicolaou smear with manual screeningon 02-19-2022 Thin prep Papanicolaou smear with manual screening 12 U/L 15-37 [facility] Work Phone: Thin prep Papanicolaou smear with manual screening 6 5-15 [facility] Work Phone: Absolute lymphocyte counton 02-05-2022 Lymphocytes Auto (Unsp spec) [#/Vol] 1.57 10*3/uL 0.83-4.51 [facility] Work Phone: Basophil percentageon 2021 Basophils/100 WBC (Bld) 0.4 % 0-1 [facility] Work Phone: Bilirubin [Mass/Vol] 0.30 mg/dL 0.20-1.00 [facility] Work Phone: Comment on above: For patients on eltr ombopag therapy, use of Dimension [place] TBIL is not recommended. Chloride [Moles/Vol] 106 mmol/L 98-107 [facility] Work Phone: Eosinophils/100 WBC (Bld) 0.7 % 0-5 [facility] Work Phone: Glucose [Mass/Vol] 79 mg/dL 74-106 [facility] Work Phone: Neutrophils (Bld) [#/Vol] 4.7 10*3/uL 2.0-7.7 [facility] Work Phone: Neutrophils/100 WBC (Bld) 67.1 % 47-70 [facility] Work Phone: Potassium [Moles/Vol] 3.4 mmol/L 3.5-5.1 [facility]: Protein [Mass/Vol] 7.5 g/dL 6.4-8.2 [facility] Work [facility]: Sodium [Moles/Vol] 141 mmol/L 136-145 [facility] Work Phone: [phone] WBC (Bld) [#/Vol] 7.0 10*3/uL 4.4-11.0 [facility] Work Phone: Blood erythrocytes count (nu mber/volume)on 02-05-2022 RBC (Bld) [#/Vol] 3.87 10*6/uL 4.6-6.2 [facility]: Blood hemoglobin measurement (mass/volume)on 02-05-2022 Hemoglobin (Bld) [Mass/Vol] 11.6 g/dL 13.0-16.5 [facility] Work Phone: Blood lymphocytes/100 leukoc yteson 02-05-2022 Lymphocytes/100 WBC (Bld) 22.5 % 19-41 [facility] Work Phone: Blood monocytes/100 leukocyt eson 02-05-2022 Monocytes/100 WBC (Bld) 8.6 % 0-10 [facility] Work Phone: Blood platelet mean volumeon 02-05-2022 Platelet mean volume (Bld) [Entitic vol] 8.9 fL 6.2-12.0 [facility] Work Phone: Determination of erythrocyte mean corpuscular volume (MCV)on 02-05-2022 MCV (RBC) [Entitic vol] 92.0 fL 80-94 [facility] Work Phone: Hematocrit Auto (Bld) [Volum e fraction]on 02-05-2022 Hematocrit (Bld) [Volume fraction] 35.6 % 40-54 [facility] Work Phone: Laboratory - Chemistry and C hemistry - challengeon 02-05-2022 ALP [Catalytic activity/Vol] 49 U/L 45-117 [facility] Work Phone: ALT [Catalytic activity/Vol] 31 U/L 16-61 [facility] Work Phone: CO2 [Moles/Vol] 25.0 mmol/L 21.0-32.0 [facility] Work Phone: Globulin (S) [Mass/Vol] 4.7 g/dL 2.2-4.2 [facility] Work Phone: Urea nitrogen/Creatinine [Mass ratio] 21.9 mg/mg 10-20 [facility] Work Phone: Laboratory - Hematology and Cell countson 02-05-2022 Erythrocyte distribution width (RBC) [Entitic vol] 40.4 fL 35.1-43.9 [facility] Work Phone: Erythrocyte distribution width (RBC) [Ratio] 12.3 % 11.6-14.6 [facility] Work Phone: Immature granulocytes/100 WBC (Bld) 0.700 % 0.0-0.9 [facility] Work Phone: Comment on above: IG% - Immature Granu locytes (promyelocytes, myelocytes and metamyelocytes) > 1% indicates that a LEFT SHIFT is Present. MCH (RBC) [Entitic mass] 30.0 pg 27.0-32.0 [facility] Work Phone: Nucleated RBC/100 WBC (Bld) [Ratio] 0 % 0-5 [facility] Work Phone: MCHC Auto (RBC) [Mass/Vol]on 02-05-2022 MCHC (RBC) [Mass/Vol] 32.6 g/dL 32-[address] [facility] Work Phone: No Panel Informationon 02-05 Estimated GFR (MDRD) Amer 92 mL/min >60 [facility] Work Phone: Comment on above: GFR Calc Estimated GFR (MDRD) Non-Af Amer 76 mL/min >60 [facility] Work Phone: Comment on above: Non- GFR Calc Platelets bldon 02-05-2022 Platelets (Bld) [#/Vol] 331 10*3/uL 150-450 [facility] Work Phone: Serum or plasma albumin lucia urement (mass/volume)on 02-05-2022 Albumin [Mass/Vol] 2.8 g/dL 3.2-5.0 [facility] Work Phone: Serum or plasma albumin/glob ulin mass ratioon 02-05-2022 Albumin/Globulin [Mass ratio] 0.6 {ratio} 0.9-2.4 [facility] Work Phone: Serum or plasma calcium lucia urement (mass/volume)on 02-05-2022 Calcium [Mass/Vol] 8.9 mg/dL 8.5-10.1 [facility] Work Phone: Serum or plasma creatinine m easurement (mass/volume)on 02-05-2022 Creatinine [Mass/Vol] 1.05 mg/dL 0.70-1.[address] [facility] Work Phone: Comment on above: The validity of the calculated GFR & GFRAA in patients over 70 years has not been determined. Clinical correlation is essential. Serum or plasma urea nitroge n measurement (mass/volume)on 02-05-2022 Urea nitrogen [Mass/Vol] 23 mg/dL 7-18 [facility] Work Phone: Thin prep Papanicolaou smear with manual screeningon 02-05-2022 Thin prep Papanicolaou smear with manual screening 19 U/L 15-37 [facility] Work Phone: Thin prep Papanicolaou smear with manual screening 10 5-15 [facility] Work Phone: Absolute lymphocyte counton 01-30-2022 Lymphocytes Auto (Unsp spec) [#/Vol] 0.86 10*3/uL 0.83-4.51 [facility] Work Phone: Basophil percentageon 2021 Basophils/100 WBC (Bld) 0.2 % 0-1 [facility] Work Phone: Chloride [Moles/Vol] 110 mmol/L 98-107 [facility] Work Phone: Eosinophils/100 WBC (Bld) 2.1 % 0-5 [facility] Work Phone: Glucose [Mass/Vol] 216 mg/dL 74-106 [facility] Work Phone: Comment on above: Glucose result great er than or equal to 200 mg/dLsuggests DIABETES MELLITUS per A.D.A. criteria. Neutrophils (Bld) [#/Vol] 5.1 10*3/uL 2.0-7.7 [facility] Work Phone: Neutrophils/100 WBC (Bld) 77.6 % 47-70 [facility] Work Phone: Potassium [Moles/Vol] 3.6 mmol/L 3.5-5.[address] [facility] Work Phone: Sodium [Moles/Vol] 140 mmol/L 136-145 [facility] Work Phone: [phone] WBC (Bld) [#/Vol] 6.6 10*3/uL 4.4-11.0 [facility] Work Phone: Blood erythrocytes count (nu mber/volume)on 01-30-2022 RBC (Bld) [#/Vol] 3.48 10*6/uL 4.6-6.2 [facility] Work Phone: Blood hemoglobin measurement (mass/volume)on 01-30-2022 Hemoglobin (Bld) [Mass/Vol] 10.6 g/dL 13.0-16.5 [facility] Work Phone: Blood lymphocytes/100 leukoc yteson 01-30-2022 Lymphocytes/100 WBC (Bld) 13.0 % 19-41 [facility] Work Phone: Blood monocytes/100 leukocyt eson 01-30-2022 Monocytes/100 WBC (Bld) 6.2 % 0-10 [facility] Work Phone: Blood platelet mean volumeon 01-30-2022 Platelet mean volume (Bld) [Entitic vol] 9.2 fL 6.2-12.0 [facility] Work Phone: Determination of erythrocyte mean corpuscular volume (MCV)on 01-30-2022 MCV (RBC) [Entitic vol] 92.2 fL 80-94 [facility] Work Phone: Glucose Glucometer (BldC) [M ass/Vol]on 01-30-2022 Glucose [Mass/Vol] 174 mg/dL 74-106 [facility] Work Phone: Comment on above: MANAGEMENT OF PATIEN T CARE PER NURSING PROTOCOL Hematocrit Auto (Bld) [Volum e fraction]on 01-30-2022 Hematocrit (Bld) [Volume fraction] 32.1 % 40-54 [facility] Work Phone: Laboratory - Chemistry and C hemistry - challengeon 01-30-2022 CO2 [Moles/Vol] 26.0 mmol/L 21.0-32.0 [facility] Work Phone: Urea nitrogen/Creatinine [Mass ratio] 17.6 mg/mg 10-20 [facility] Work Phone: Laboratory - Hematology and Cell countson 01-30-2022 Erythrocyte distribution width (RBC) [Entitic vol] 39.5 fL 35.1-43.9 [facility] Work Phone: Erythrocyte distribution width (RBC) [Ratio] 11.7 % 11.6-14.6 [facility] Work Phone: Immature granulocytes/100 WBC (Bld) 0.900 % 0.0-0.9 [facility] Work Phone: Comment on above: IG% - Immature Granu locytes (promyelocytes, myelocytes and metamyelocytes) > 1% indicates that a LEFT SHIFT is Present. MCH (RBC) [Entitic mass] 30.5 pg 27.0-32.0 [facility] Work Phone: Nucleated RBC/100 WBC (Bld) [Ratio] 0 % 0-5 [facility] Work Phone: MCHC Auto (RBC) [Mass/Vol]on 01-30-2022 MCHC (RBC) [Mass/Vol] 33.0 g/dL 32-[address] [facility] Work Phone: No Panel Informationon 01-30 Estimated Creatinine Clearance Calc 65.80 ml/min [facility] Work Phone: Estimated GFR (MDRD) Amer 117 mL/min >60 [facility] Work Phone: Comment on above: GFR Calc Estimated GFR (MDRD) Non-Af Amer 97 mL/min >60 [facility] Work Phone: Comment on above: Non- GFR Calc Platelets bldon 01-30-2022 Platelets (Bld) [#/Vol] 258 10*3/uL 150-450 [facility] Work Phone: Serum or plasma calcium lucia urement (mass/volume)on 01-30-2022 Calcium [Mass/Vol] 8.2 mg/dL 8.5-10.1 [facility] Work Phone: Serum or plasma creatinine m easurement (mass/volume)on 01-30-2022 Creatinine [Mass/Vol] 0.85 mg/dL 0.70-1.[address] [facility] Work Phone: Comment on above: The validity of the calculated GFR & GFRAA in patients over 70 years has not been determined. Clinical correlation is essential. Serum or plasma urea nitroge n measurement (mass/volume)on 01-30-2022 Urea nitrogen [Mass/Vol] 15 mg/dL 7-18 [facility] Work Phone: Thin prep Papanicolaou smear with manual screeningon 01-30-2022 Thin prep Papanicolaou smear with manual screening 4 5-15 [facility] Work Phone: Vancomycin troughon 01-31-20 Vancomycin trough [Mass/Vol] 16.2 ug/mL 5.0-15.0 [facility] Work Phone: Comment on above: VANCOMYCIN STANDARED DRUG THERAPY TROUGH LEVEL: 5.0 - 15.0 mg/L VANCOMYCIN HIGH INTENSITY THERAPY TROUGH LEVEL: 15.0 - 20.0 mg/L High Intensity therapy recommended for serious lifethreatening infections include:- Asyuiulyuz-Emakgbddwqiq-Pdkdywfjp (Ventilator/Healtcare Associated)-Sepsis PLEASE CONTACT PHARMACY SERVICES (#[id number]) FOR INTERPRETATIONOF RESULTS. Basophil percentageon 2021 Basophil percentage 2.9 mg/dL 2.5-4.9 [facility] Work Phone: Laboratory - Chemistry and C hemistry - challengeon 01-28-2022 Magnesium [Mass/Vol] 2.0 mg/dL 1.6-2.6 [facility] Work Phone: Erythrocyte sedimentation ra melissa 01-27-2022 ESR (Bld) [Velocity] 56 mm/h 0-20 [facility] Work Phone: Serum or plasma C reactive p rotein measurement (mass/volume)on 01-27-2022 CRP [Mass/Vol] 250.00 mg/L 0.0-3.0 [facility] Work Phone: Comment on above: C-Reactive Protein ( CRP) provides useful information for thediagnosis, therapy and monitoring of inflammatory processesand associated diseases. For the evaluation of Relative Riskfor Cardiovascular Disease, a High Sensitivity CRP (HSCRP)should be ordered. Whole blood hemoglobin A1c/t otal hemoglobin ratio (mass fraction)on 01-27-2022 HbA1c (Bld) [Mass fraction] 6.9 % 3.8-5.6 [facility] Work Phone: Comment on above: Normal < 5.7 % Predi abetic 5.7 - 6.4 % Diabetic >or= 6.5 % Please note range changes. Absolute lymphocyte counton 01-26-2022 Lymphocytes Auto (Unsp spec) [#/Vol] 0.85 10*3/uL 0.83-4.51 [facility] Work Phone: Basophil percentageon 2021 Basophils/100 WBC (Bld) 0.1 % 0-1 [facility] Work Phone: Chloride [Moles/Vol] 98 mmol/L 98-107 [facility] Work Phone: Eosinophils/100 WBC (Bld) 0.0 % 0-5 [facility] Work Phone: Glucose [Mass/Vol] 227 mg/dL 74-106 [facility] Work Phone: Comment on above: Glucose result great er than or equal to 200 mg/dLsuggests DIABETES MELLITUS per A.D.A. criteria. Lactate [Moles/Vol] 1.8 mmol/L 0.4-2.0 [facility] Work Phone: [phone] Neutrophils (Bld) [#/Vol] 12.8 10*3/uL 2.0-7.7 [facility] Work Phone: [phone] Neutrophils/100 WBC (Bld) 87.8 % 47-70 [facility] Work Phone: Potassium [Moles/Vol] 4.0 mmol/L 3.5-5.[address] [facility] Work Phone: [phone] Sodium [Moles/Vol] 133 mmol/L 136-145 [facility] Work Phone: [phone] WBC (Bld) [#/Vol] 14.5 10*3/uL 4.4-11.0 [facility] Work Phone: Blood erythrocytes count (nu mber/volume)on 01-26-2022 RBC (Bld) [#/Vol] 3.86 10*6/uL 4.6-6.2 [facility] Work Phone: Blood hemoglobin measurement (mass/volume)on 01-26-2022 Hemoglobin (Bld) [Mass/Vol] 11.8 g/dL 13.0-16.5 [facility] Work Phone: Blood lymphocytes/100 leukoc yteson 01-26-2022 Lymphocytes/100 WBC (Bld) 5.8 % 19-41 [facility] Work Phone: Blood monocytes/100 leukocyt eson 01-26-2022 Monocytes/100 WBC (Bld) 5.6 % 0-10 [facility] Work Phone: Blood platelet mean volumeon 01-26-2022 Platelet mean volume (Bld) [Entitic vol] 8.9 fL 6.2-12.0 [facility] Work Phone: Determination of erythrocyte mean corpuscular volume (MCV)on 01-26-2022 MCV (RBC) [Entitic vol] 90.2 fL 80-94 [facility] Work Phone: Hematocrit Auto (Bld) [Volum e fraction]on 01-26-2022 Hematocrit (Bld) [Volume fraction] 34.8 % 40-54 [facility] Work Phone: Laboratory - Chemistry and C hemistry - challengeon 01-26-2022 CO2 [Moles/Vol] 27.0 mmol/L 21.0-32.0 [facility] Work Phone: Urea nitrogen/Creatinine [Mass ratio] 19.3 mg/mg 10-20 [facility] Work Phone: Laboratory - Hematology and Cell countson 01-26-2022 Erythrocyte distribution width (RBC) [Entitic vol] 37.5 fL 35.1-43.9 [facility] Work Phone: Erythrocyte distribution width (RBC) [Ratio] 11.5 % 11.6-14.6 [facility] Work Phone: Immature granulocytes/100 WBC (Bld) 0.700 % 0.0-0.9 [facility] Work Phone: Comment on above: IG% - Immature Granu locytes (promyelocytes, myelocytes and metamyelocytes) > 1% indicates that a LEFT SHIFT is Present. MCH (RBC) [Entitic mass] 30.6 pg 27.0-32.0 [facility] Work Phone: Nucleated RBC/100 WBC (Bld) [Ratio] 0 % 0-5 [facility] Work Phone: MCHC Auto (RBC) [Mass/Vol]on 01-26-2022 MCHC (RBC) [Mass/Vol] 33.9 g/dL 32-[address] [facility] Work Phone: No Panel Informationon 01-26 Estimated Creatinine Clearance Calc 49.07 ml/min [facility] Work Phone: Estimated GFR (MDRD) Amer 79 mL/min >60 [facility] Work Phone: Comment on above: GFR Calc Estimated GFR (MDRD) Non-Af Amer 66 mL/min >60 [facility] Work Phone: Comment on above: Non- GFR Calc Platelets bldon 01-26-2022 Platelets (Bld) [#/Vol] 224 10*3/uL 150-450 [facility] Work Phone: Serum or plasma calcium lucia urement (mass/volume)on 01-26-2022 Calcium [Mass/Vol] 8.9 mg/dL 8.5-10.1 [facility] Work Phone: Serum or plasma creatinine m easurement (mass/volume)on 01-26-2022 Creatinine [Mass/Vol] 1.19 mg/dL 0.70-1.[address] [facility] Work Phone: Comment on above: The validity of the calculated GFR & GFRAA in patients over 70 years has not been determined. Clinical correlation is essential. Serum or plasma urea nitroge n measurement (mass/volume)on 01-26-2022 Urea nitrogen [Mass/Vol] 23 mg/dL 7-18 [facility] Work Phone: Thin prep Papanicolaou smear with manual screeningon 01-26-2022 Thin prep Papanicolaou smear with manual screening 8 5-15 [facility] Work Phone: BMP with eGFRon 12-14-2019 Age - Reported 59 years Normal [facility] Comment on above: Performed By: #### 2 [id number] #### [facility],[address] [place] [address] Anion gap [Moles/Vol] 15 mmol/L Normal 10 - 20 [facility] Comment on above: Performed By: #### 2 [id number] #### [facility],[address] [place] [address] Calcium [Mass/Vol] 9.2 mg/dL Normal 8.6 - 10.2 [facility] Comment on above: Performed By: #### 2 [id number] #### [facility],[address] [place] [address] Chloride [Moles/Vol] 104 mmol/L Normal 98 - 107 [facility] Comment on above: Performed By: #### 2 [id number] #### [facility],[address] [place] [address] CO2 [Moles/Vol] 24.2 mmol/L Normal 21.0 - 31.0 [facility] Comment on above: Performed By: #### 2 [id number] #### [facility],[address] [place] [address] Creatinine [Mass/Vol] 1.0 mg/dL Normal 0.7 - 1.3 [facility] Comment on above: Performed By: #### 2 [id number] #### [facility],[address] [place] [address] GFR/1.73 sq M predicted among non-blacks MDRD (S/P/Bld) [Vol rate/Area] mL/min/{1.73_m2} Normal 60 - 999 [facility] Comment on above: Result Comment: ACCO RDING TO THE NATIONAL KIDNEY DISEASE EDUCATION PROGRAM(NKDE), A NORMAL eGFR IS A VALUE GREATER THAN OR EQUAL TO 60 ML/MIN/1.73 SQ METERS. CHRONIC KIDNEY DISEASE: <60mL/MIN/1.73 SQ METERS KIDNEY FAILURE: <15mL/MIN/1.73 SQ METERS THIS TEST SHOULD ONLY BE USED FOR PATIENTS 18 YEARS OF AGE AND OLDER. Performed By: #### 2 [id number] #### [address] [address] GFR/1.73 sq M predicted among non-blacks MDRD (S/P/Bld) [Vol rate/Area] Normal [facility] Comment on above: Result Comment: BASI C METABOLIC PANEL Performed By: #### 2 [id number] #### [address] [address] Glucose [Mass/Vol] 274 mg/dL High 74 - 106 [facility] Comment on above: Performed By: #### 2 [id number] #### [address] [address] Potassium [Moles/Vol] 4.1 mmol/L Normal 3.5 - 5.1 [facility] Comment on above: Performed By: #### 2 [id number] #### [address] [address] Sodium [Moles/Vol] 139 mmol/L Normal 136 - 145 [facility] Comment on above: Performed By: #### 2 [id number] #### [address] [address] Urea nitrogen [Mass/Vol] 23 mg/dL High 6 - 20 [facility] Comment on above: Performed By: #### 2 69711 #### [facility],[address] [facility] [address] Bacteria identified Anaer cx Nom (Unsp spec) Anaerobic Culture Anaerobic cocci [facility] Work Phone: Anaerobic Culture Actinomyces species [facility] Work Phone: Anaerobic Culture Clostridium group [facility] Work Phone: Bacteria identified Cx Nom ( Wound) Wound Culture Proteus mirabilis [facility] Work Phone: Wound Culture Klebsiella pneumonia e sp pneum [facility] Work Phone: Wound Culture Staphylococcus epidermidis [facility] Work Phone: Gram stain for investigation of transfusion reaction Microscopic observation Gram stain Nom (Unsp spec) [facility] Work Phone: Laboratory - Microbiology an d Antimicrobial susceptibility Bacteria identified Cx Nom (Bld) No growth in 5 days. [facility] Work Phone: Vital Signs Date Time Vital Sign Value Performing Clinician Facility 12-20-2024 09:14-0400 Body height 162.[address] Lincoln Haley MD Work Phone: [facility] 12-20-2024 09:14-0400 Body mass index (BMI) [Ratio] 36 kg/m2 Dr. Lincoln Haley MD Work Phone: [facility] 12-20-2024 09:14-0400 Body weight 95.[address] Lincoln Haley MD Work Phone: [facility] 02-19-2023 15:01-0400 Body temperature 98.8 [degF] Dr. Lincoln Haley Work Phone: [facility] 02-19-2023 15:01-0400 Diastolic blood pressure 97 mm[Hg] Dr. Lincoln Haley Work Phone: [facility] 02-19-2023 15:01-0400 Heart rate 79 /min Dr. Lincoln Haley Work Phone: [facility] 02-19-2023 15:01-0400 Respiratory rate 18 /min Dr. Lincoln Haley Work Phone: [facility] 02-19-2023 15:01-0400 SaO2% (BldA) [Mass fraction] 98 % Dr. Lincoln Haley Work Phone: [facility] 02-19-2023 15:01-0400 Systolic blood pressure 159 mm[Hg] Dr. Lincoln Haley Work Phone: [facility] 02-18-2023 14:17-0400 Body height 162.[address] Lincoln Haley Work Phone: [facility] 02-18-2023 14:17-0400 Body weight 95.[address] Lincoln Haley Work Phone: [facility] 02-16-2023 17:28-0400 Body mass index (BMI) [Ratio] 36.1 kg/m2 Dr. Lincoln Haley Work Phone: [facility] 02-16-2023 16:38-0400 Body temperature 98.1 [degF] [facility] 02-16-2023 16:38-0400 Diastolic blood pressure 91 mm[Hg] [facility] 02-16-2023 16:38-0400 Heart rate 84 /min [facility] 02-16-2023 16:38-0400 Respiratory rate 18 /min [facility] 02-16-2023 16:38-0400 Systolic blood pressure 142 mm[Hg] [facility] 02-16-2023 15:00-0400 SaO2% (BldA) [Mass fraction] 98 % [facility] 02-16-2023 12:21-0400 Body height 162.56 cm [facility] 02-16-2023 12:21-0400 Body mass index (BMI) [Ratio] 36.3 kg/m2 [facility] 02-16-2023 12:21-0400 Body weight 96.16 kg [facility] 02-19-2022 13:30-0400 Body height 165.[address] Corby Li Work Phone: [facility] Work Phone: 02-19-2022 13:30-0400 Body mass index (BMI) [Ratio] 33.3 kg/m2 Dr. Corby Li Work Phone: [facility] Work Phone: 02-19-2022 13:30-0400 Body temperature 98.5 [degF] Dr. Corby Li Work Phone: [facility] Work Phone: 02-19-2022 13:30-0400 Body weight 90.[address] Corby Li Work Phone: [facility] Work Phone: 02-19-2022 13:30-0400 Diastolic blood pressure 102 mm[Hg] Dr. Corby iL Work Phone: [facility] Work Phone: 02-19-2022 13:30-0400 Heart rate 92 /min Dr. Corby Li Work Phone: [facility] Work Phone: 02-19-2022 13:30-0400 Respiratory rate 18 /min Dr. Corby Li Work Phone: [facility] Work Phone: 02-19-2022 13:30-0400 SaO2% (BldA) [Mass fraction] 96 % Dr. Corby Li Work Phone: [facility] Work Phone: 02-19-2022 13:30-0400 Systolic blood pressure 164 mm[Hg] Dr. Corby Li Work Phone: [facility] Work Phone: 01-30-2022 14:11-0400 Body temperature 98.7 [degF] Dr. Corby Li Work Phone: [facility] Work Phone: 01-30-2022 14:11-0400 Diastolic blood pressure 99 mm[Hg] Dr. Corby Li Work Phone: [facility] Work Phone: 01-30-2022 14:11-0400 Heart rate 86 /min Dr. Corby Li Work Phone: [facility] Work Phone: 01-30-2022 14:11-0400 Respiratory rate 18 /min Dr. Corby Li Work Phone: [facility] Work Phone: 01-30-2022 14:11-0400 SaO2% (BldA) [Mass fraction] 97 % Dr. Corby Li Work Phone: [facility] Work Phone: 01-30-2022 14:11-0400 Systolic blood pressure 169 mm[Hg] Dr. Corby Li Work Phone: [facility] Work Phone: 01-27-2022 15:32-0400 Body height [address] Corby Li Work Phone: [facility] Work Phone: 01-27-2022 15:32-0400 Body weight 99.[address] Corby Li Work Phone: [facility] Work Phone: 01-26-2022 20:34-0400 Body mass index (BMI) [Ratio] 40.2 kg/m2 Dr. Corby Li Work Phone: [facility] Work Phone: 01-26-2022 19:29-0400 Body temperature 100.6 [degF] [facility] Work Phone: 01-26-2022 19:29-0400 Diastolic blood pressure 89 mm[Hg] [facility] Work Phone: 01-26-2022 19:29-0400 Heart rate 109 /min [facility] Work Phone: 01-26-2022 19:29-0400 Respiratory rate 20 /min [facility] Work Phone: 01-26-2022 19:29-0400 SaO2% (BldA) [Mass fraction] 93 % [facility] Work Phone: 01-26-2022 19:29-0400 Systolic blood pressure 156 mm[Hg] [facility] Work Phone: 01-26-2022 17:16-0400 Body height 157.48 cm [facility] Work Phone: 01-26-2022 17:16-0400 Body mass index (BMI) [Ratio] 38.4 kg/m2 [facility] Work Phone: 01-26-2022 17:16-0400 Body weight 95.25 kg [facility] Work Phone: Encounters Encounter Date Encounter Type Care Provider Facility Start: 12-20-2024 End: 12-20-[address] Bladimir Plasencia MD -[facility] Start: 12-20-2024 End: 12-20-[address] Lincoln Haley MD Work Phone: -[facility] Start: 02-19-2023 Non-patient / Non-visit Dr. Benito Haley Work Phone: [facility] Work Phone: Start: 02-18-2023 Non-patient / Non-visit Dr. Benito Haley Work Phone: [facility] Work Phone: Start: 02-17-2023 Non-patient / Non-visit Dr. Benito Haley Work Phone: [facility] Work Phone: Start: 02-16-2023 Non-patient / Non-visit Dr. Benito Haley Work Phone: [facility] Work Phone: Start: 02-16-2023 End: 02-19-2023 Evaluation and management of inpatient [facility] Work Phone: Start: 02-12-2023 End: 02-12-[address] Lincoln Haley Work Phone: [facility] Work Phone: Start: 02-12-2023 End: 02-12-2023 Patient encounter procedure [facility] Work Phone: Start: 03-19-2022 Non-patient / Non-visit Dr. Gutierrez Dominguez Work Phone: [facility] Start: 03-19-2022 End: 03-19-[address] Corby Li Work Phone: [facility] Work Phone: Start: 03-19-2022 End: 03-19-[address] [facility] Start: 03-03-2022 Non-patient / Non-visit Dr. Gutierrez Dominguez Work Phone: [facility] Start: 03-03-2022 End: 03-03-[address] Corby Li Work Phone: [facility] Work Phone: Start: 03-03-2022 End: 03-03-[address] [facility] Start: 02-24-2022 Non-patient / Non-visit Dr. Gutierrez Dominguez Work Phone: [facility] Start: 02-24-2022 End: 02-24-[address] Corby Li Work Phone: [facility] Work Phone: Start: 02-24-2022 End: 02-24-[address] [facility] Start: 02-19-2022 End: 02-19-2022 Emergency department patient visit Dr. Corby Li Work Phone: [facility] Start: 02-19-2022 Non-patient / Non-visit Dr. Gutierrez Dominguez Work Phone: [facility] Start: 02-19-2022 End: 02-19-[address] Corby Li Work Phone: [facility] Work Phone: Start: 02-19-2022 End: 02-19-[address] [facility] Start: 02-05-2022 End: 02-05-[address] Corby Li Work Phone: [facility] Work Phone: Start: 02-05-2022 End: 02-05-[address] Corby Li Work Phone: [facility] Start: 01-30-2022 Non-patient / Non-visit Dr. Gutierrez Dominguez Work Phone: [facility] Start: 01-29-2022 Non-patient / Non-visit Dr. Gutierrez Dominguez Work Phone: [facility] Start: 01-28-2022 Non-patient / Non-visit Dr. Gutierrez Dominguez Work Phone: [facility] Start: 01-27-2022 Non-patient / Non-visit Dr. Gutierrez Dominguez Work Phone: [facility] Start: 01-26-2022 End: 01-30-2022 Non-patient / Non-visit Dr. Corby Li Work Phone: [facility] Start: 01-26-2022 End: 01-30-2022 Evaluation and management of inpatient [facility] Start: 12-14-2019 End: 12-14-2019 Patient encounter procedure SHRUTHI PURI [facility] Procedures Date Procedure Procedure Detail Performing Clinician Start: 02-17-2023 X-ray of both feet Dr. Lincoln Haley Work Phone: Start: 02-17-2023 Fluoroscopic guidance Paul Haley Work Phone: Start: 02-17-2023 X-ray of both feet Dr. Lincoln Haley Work Phone: Start: 02-17-[address] Patito Haley Work Phone: Start: 02-17-2023 Investigation of transfusion reaction Dr. Lincoln Haley Work Phone: Start: 02-17-2023 Microbial culture, routine Dr. Lincoln Haley Work Phone: Start: 02-16-2023 MRI of lower extremity Dr. Lincoln Haley Work Phone: Start: 02-16-2023 X-ray of both feet Start: 02-12-[address] Lincoln Haley Work Phone: Start: 02-12-2023 Investigation of transfusion reaction Start: 02-12-2023 Microbial culture, routine Start: 01-27-[address] Geoff Li Work Phone: Start: 01-27-2022 Plain X-ray of tibia and fibula Dr. Corby Li Work Phone: Start: 01-27-2022 X-ray of both feet Dr. Corby Li Work Phone: Start: 01-27-[address] Ida Li Work Phone: Start: 01-27-[address] Geoff Li Work Phone: Start: 01-27-2022 X-ray of both feet Dr. Corby Li Work Phone: Anaerobic microbial culture Dr. Corby Li Work Phone: Bacteria identified in Blood by Culture Dr. Corby Li Work Phone: Fungus stain method Dr. Kaiden Li Work Phone: Investigation of transfusion reaction Dr. Corby Li Work Phone: Microbial culture, routine D zulema Li Work Phone: Mycology culture Dr. Corby north Work Phone: Plan of Treatment Date Care Activity Detail Author Start: 12-20-2024 X-ray of knee, four or more views Knee 4 or More Views [facility] Start: 12-20-2024 XR Knee GE 4 Views [facility] Start: 02-19-2023 Patient discharge [facility] Start: 02-17-2023 Anaerobic microbial culture Anaerobic Culture [facility] Start: 02-17-2023 Fungal Culture Fungal Culture [facility] Start: 02-17-2023 Fungal Smear Fungal Smear [facility] Start: 02-16-2023 Wound care [facility] Start: 02-16-2023 Consultation for treatment [facility] Start: 02-16-2023 [facility] Start: 02-16-2023 Ambulation without limitation [facility] Start: 02-16-2023 Assessment of risk of venous thromboembolism [facility] Start: 02-16-2023 Care regimes management [facility] Start: 02-16-2023 Catheterization of vein [facility] Start: 02-16-2023 Consultation [facility] Start: 02-16-2023 Insertion of catheter into peripheral vein [facility] Start: 02-16-2023 Notification of physician [facility] Start: 02-16-2023 Providing care according to standard [facility] Start: 02-16-2023 Referral to air gun operator [facility] Start: 02-16-2023 [facility] Start: 02-16-2023 Following clinical pathway protocol [facility] Start: 02-16-2023 MRI of lower extremity Lower Ext/No Jt/w/o [facility] Start: 02-16-2023 Verification routine [facility] Start: 02-16-2023 Admission procedure [facility] Start: 02-16-2023 Blood culture [facility] Start: 02-16-2023 Bacteria identified in Blood by Culture Blood Culture [facility] Start: 02-16-2023 End: 02-16-2023 Blood culture [facility] Start: 02-16-2023 [facility] Start: 02-12-2023 Anaerobic microbial culture Anaerobic Culture [facility] Start: 01-30-2022 Patient discharge [facility] Work Phone: Start: 01-30-2022 Referral to service [facility] Work Phone: Start: 01-30-2022 Application, wound VAC [facility] Work Phone: Start: 01-30-2022 Vacuum assisted skin closure [facility] Work Phone: Start: 01-28-2022 Consultation for treatment [facility] Work Phone: Start: 01-27-2022 Elevation of affected extremity [facility] Work Phone: Start: 01-27-2022 [facility] Work Phone: Start: 01-26-2022 Application of intermittent pneumatic compression device [facility] Work Phone: Start: 01-26-2022 Following clinical pathway protocol [facility] Work Phone: Start: 01-26-2022 Assessment of risk of venous thromboembolism [facility] Work Phone: Start: 01-26-2022 Care regimes management [facility] Work Phone: Start: 01-26-2022 Consultation [facility] Work Phone: Start: 01-26-2022 Insertion of catheter into peripheral vein [facility] Work Phone: Start: 01-26-2022 Notification of physician [facility] Work Phone: Start: 01-26-2022 Providing care according to standard [facility] Work Phone: Start: 01-26-2022 Referral to air gun operator [facility] Work Phone: Start: 01-26-2022 [facility] Work Phone: Start: 01-26-2022 Verification routine [facility] Work Phone: Start: 01-26-2022 Admission procedure [facility] Work Phone: Start: 01-26-2022 [facility] Work Phone: Start: 01-26-2022 End: 01-26-2022 Blood culture [facility] Work Phone: Acid fast bacilli culture [facility] Work Phone: Acid fast bacilli culture [facility] Anaerobic microbial culture Anaerobic Cul ture [facility] Work Phone: Bacteria identified in Blood by Culture Blood Culture [facility] Work Phone: Bacteria identified in Unspecified specimen by Anaerobe culture [facility] Blood culture [facility] Work Phone: Fungal Culture Fungal Culture [facility] Work Phone: Microbial culture, routine Wound Culture [facility] Work Phone: Mycobacterium sp kenny ntified in Unspecified specimen by Organism specific culture [facility] Work Phone: Mycobacterium sp kenny ntified in Unspecified specimen by Organism specific culture [facility] Patient Education DVT Dc [facility] Work Phone: Patient referral [facility] Work Phone: [facility] Payers Date Payer Category Payer Self-pay Unknown 0 [id number] Unknown . [id number] Unknown [facility] [employer] [id number] Unknown [id number] Unknown [id number] Social History Date Type Detail Facility Start: 01-26-2022 End: 02-16-2023 Tobacco smoking status CAIS Unknown if ever smoked [facility] Start: 1960 Sex Assigned At Male [facility] Start: 02-16-2023 Tobacco smoking stat us NHIS Never smoked tobacco (finding) [facility] Goals Date Patient Goal Desired Activity /State Functional Status Date Assessment Result Facility 02-19-2023 Functional status Ambulates [facility] Work Phone: 01-30-2022 Functional status Ambulates [facility] Work Phone: Mental Status Date Assessment Result Facility 02-19-2023 Cognitive function Voice/Name [facility] Work Phone: 02-18-2023 Cognitive function Appropriate;Cooperthong e [facility] Work Phone: 01-30-2022 Cognitive function Voice/Name [facility] Work Phone: Clinical Notes 02-23-2022 to 02-19-2023 Note Date & Type Note Facility 02-19-2023 Discharge summary Note Date/Time February 19, 2023 12:07pm [facility] Medical Records Department [address] [place] [address] Discharge Summary 02/19/23 1206 MR#: [id number] Acct: [id number] Name: ANTONIO WEISS Rep #:[id number] : 1960 62 From: Yadira Apodaca DO PCP: Dr. Lincoln Haley MD Status:ADM IN Location: [facility] TH068-5 Providers Date of Admission: 02/16/23 Date of Discharge: 02/19/23 Primary Care Physician: Dr. Lincoln Haley MD Consultations 02/16/23 17:50 Consult: Infectious Disease Routine Consulting Provider: Jun Rose Reason for Consult: left foot cellulitis EMERGENT Consult: No Notified: Yes Date Notified: 02/17/23 Time Notified: 09:11 Method of Notification: Answering Service Consult: Podiatry Routine Consulting Provider: Masoud Cabrales Reason for Consult: left foot infection EMERGENT Consult: No Notified: Yes Date Notified: 02/16/23 Time Notified: 16:24 Method of Notification: Verbal 02/16/23 23:12 Consult: Onc/Wound/isotope hydrologist Routine Comment: Reason for Consult:: wound left foot Comments:: betadine soln, gauze, kerlix and dami dressing daily Reason For Visit: DIABETIC FOOT INFECTION, DIABETES Diagnosis Discharge Diagnosis (1) Diabetes mellitus with diabetic polyneuropathy: Status: Acute Code(s): E11.42 - Type 2 diabetes mellitus with diabetic polyneuropathy (2) Cellulitis of foot, left: Status: Acute Code(s): L03.116 - Cellulitis of left lower limb (3) Diabetic infection of left foot: Status: Acute Code(s): E11.628 - Type 2 diabetes mellitus with other skin complications; L08.9 - Local infection of the skin and subcutaneous tissue, unspecified (4) Osteomyelitis of left foot: Status: Acute Code(s): M86.9 - Osteomyelitis, unspecified (5) Abscess of left foot: Status: Acute Code(s): L02.612 - Cutaneous abscess of left foot Medications at Discharge Home Medications metformin 1,000 mg tablet 1,000 mg PO BID 01/26/22 lisinopril 40 mg tablet 40 mg PO DAILY #30 tabs 02/19/23 sitagliptin phosphate 50 mg tablet (Januvia) 50 mg PO DAILY #30 tabs 02/19/23 Hospital Course Operations - (Partial second digit resection left foot) Procedures - (Left foot x-ray/MRI left lower extremity) Summary of Care Provided Minutes Spent on Discharge: 37 Hospital Course: Mr. Weiss is a 62-year-old male who presented to the emergency department at [facility] on 02/16/2023 at the request of his air gun operator due to worsening erythema and suspected infection of his left foot. Patient is a type II diabetic and he has a history of right-sided foot osteomyelitis that he was treated for this past year. Patient reported that approximately 10 days ago he noticed his foot was getting slightly swollen over the plantar aspect of the proximal to first and second metatarsal. He went on a trip to [place] and noticed when he came back it had been worsening so he saw his air gun operator last Wednesdaywho placed him on Levaquin and clindamycin. Cultures were obtained at that timeand have since grown out Enterococcus faecalis, staph hemolyticus, and coag negative staph. The patient was reevaluated by air gun operator on the day of admission and they felt that his foot appeared to be worsening and requested he come to the emergency department. Vital signs were stable on presentation but he was noted to be hypertensive. Normal white count but did present with a leftshift at 77.2% neutrophilia. Coags are normal. His chemistry panel showed normal electrolytes but his BUN and serum creatinine were slightly elevated at 29 and 1.32. It appears his baseline previously had been between 0.9 and 1.2. Serum glucose was 126 at the time of presentation. There is not a recent hemoglobin A1c in our documentation with his most recent being from 01/27/2022 atwhich time it was 6.9. Based on the sensitivities of his previous culture he was placed on Unasyn and vancomycin and admitted to the medical floor with consultation infectious disease and podiatry. MRI was performed and was consistent with osteomyelitis. Podiatry and infectious disease were consulted. Podiatry evaluated the patient and took him to the OR on 02/17/2023 at which timepartial second ray amputation of the left foot with I&D and wide debridement with tissue rearrangement and flap to the left foot was performed. Intraoperative cultures were sent. Cultures are currently growing methicillin sensitive Staph aureus which is consistent with cultures obtained on admission from the wound. Outpatient culture done as noted above for organisms. Hemoglobin A1c was obtained while he is hospitalized and was 9.1 which is significantly higher than it was a year ago. While he is hospitalized he added insulin and held his home metformin. He will be discharged on his home metformin and we have added Januvia 50 mg daily. I have asked him to follow-up with his primary care physician and obtain a repeat A1c within the next 3 months. He also met with a dietitian to further discuss diabetic diet and carbohydrate control. His blood pressure was elevated significantly on admission and stayed elevated so we did start lisinopril. We ended up titratinghim up to 40 mg of lisinopril the time of discharge. His blood pressures did improve but I have asked him to follow-up with his primary care physician withinthe next week for blood pressure check and reassessment to see if he needs any further medications. I have also asked him to obtain a basic metabolic profile within the next 1 to 2 weeks to assure his renal function and electrolytes are stable. He was able to be discharged home in stable condition on 02/19/2023. Prescriptions for his antibiotics as recommended by infectious diseaseVahe,and lisinopril was sent to his local pharmacy. He is to follow-up with his primary care physician within the next 1 to 2 weeks and podiatry early next week. He is to be maintaining nonweightbearing status on that left lower extremity and utilizing a walker to ambulate until instructed otherwise by podiatry. He will continue wound care instructions as instructed by podiatry as well. We did discuss foot care with regards to him being diabetic and utilizing white socks and daily foot inspections for any signs of breakdown. He voiced understanding and his is at the bedside why we had this discussion as well. Discharge diagnoses: Osteomyelitis of the left foot second digit secondary to diabetic foot infection Cellulitis Elevated serum creatinine-resolved [id number] Hypertension Diabetic neuropathy Obesity Physical Exam Const alert, oriented x3, no apparent distress, healthy appearing and well nourished; Negative for average body habitus Constitutional Narrative: Obese, extremely friendly, Uatsdin, white male, sitting up in bed, at bedside, appears comfortable and nontoxic General Appearance: cooperative, comfortable, well kempt and well developed Orientation / Consciousness: awake, oriented to person, oriented to place and oriented to time Exam Limitations: no limitations Nutritional Appearance: obese HEENT normocephalic, head/scalp atraumatic, hearing grossly normal bilaterally and moist oral mucous membranes HEENT Narrative: Dentition is poor, Mallampati is 3, no thigh rash Eyes PERRL, EOMs intact bilaterally and conjunctivae normal Neck no lymphadenopathy and supple Neck Narrative: Trachea midline, no thyroid enlargement Resp normal respiratory effort, no retractions, no use of accessory muscles and clearto auscultation bilaterally Auscultation: Negative for rales, rhonchi or wheezes Cardio regular rate, regular rhythm, S1 normal heart sound, S2 normal heart sound, no murmurs, no rub, no gallops and no clicks Cardio Narrative: S4 gallop present, no S3 GI normal to inspection, nondistended, normoactive bowel sounds, soft to palpation,non-tender and non-distended Extremity no clubbing, cyanosis or edema Extremity Narrative: Pedal pulses are 2+, cap refill is 2+ Skin no rashes or lesions noted, No no wounds, skin turgor normal and no jaundice Skin Narrative: Postoperative dressing in place Neuro oriented x3, CN's II-XII intact bilaterally, moves all extremities and no focal motor deficits Neuro Narrative: Decreased sensation bilateral lower extremities Sensorium / Orientation: awake, alert, oriented to person, oriented to place andoriented to time Speech: speech normal Psych affect normal Psych Narrative: Very pleasant, talkative, interacts appropriately Weight / BMI Weight Weight: 95.5 kg Body Mass Index (BMI) 36.1 ABG / Lab / Microbiology Data 02/18/23 04:35 02/19/23 07:00 Laboratory: Laboratory Results - last 24 hr 02/18/23 16:14: POC Glucose 152 H 02/18/23 21:52: POC Glucose 237 H 02/19/23 06:35: POC Glucose 154 H 02/19/23 07:00: Sodium 138, Potassium 4.0, Chloride 108 H, Carbon Dioxide 28.0, Anion Gap 2 L, BUN 25 H, Creatinine 1.19, Estim Creat Clear Calc 52.51, Est GFR (MDRD) Af Amer 79, Est GFR (MDRD) Non-Af 65, BUN/Creatinine Ratio 21.0 H, Glucose 150 H, Calcium 8.8 Microbiology: Microbiology 02/17/23 17:40 Bone - 2nd Metatarsal Bone Gram Stain - Final 02/17/23 17:40 Bone - 2nd Metatarsal Bone Wound Culture - Preliminary Staphylococcus aureus 02/17/23 17:40 Wound - Left Foot Gram Stain - Final 02/17/23 17:40 Wound - Left Foot Wound Culture - Final Staphylococcus aureus 02/16/23 15:17 Blood Culture (Wb) - Anticubital Right Blood Culture - Preliminary No growth in 48 hours. 02/16/23 13:40 Blood Culture (Wb) - Anticubital Left Blood Culture - Preliminary No growth in 48 hours. 02/17/23 17:40 Bone - 2nd Toe Gram Stain - Final D/C Instructions Discharge Diet: Low fat / Low cholesterol and 1800 Calorie Control Diet Discharge Activity: Use Walker Weight Bearing Status: No weight bearing (Left lower extremity) Meaningful Use Info Meaningful Use Diagnoses (Choose all that apply): None applicable Discharge Plan Admission Admit Date/Time: 02/16/23 16:17 Primary Reason for Your Visit: L Diabetic Foot wound Attending Provider: Yadira Apodaca Primary Care Provider: Lincoln Haley Consulting Providers: Masoud Cabrales; Luis M Chandler; Jun Rose Instructions Additional Instructions / Restrictions: 1. Continue wound care as directed by wound care nurse 2. Please follow-up with your primary care physician and obtain a basic metabolic profile in 1 to 2 weeks and hemoglobin A1c in 3 months 3. Please complete the entire course of antibiotics and follow-up as noted below with podiatry 4. Use a walker to ambulate and do not place any weight on your left foot untildirected otherwise by podiatry Discharge Orders/Prescriptions Prescriptions: New lisinopril 40 mg Tablet 40 mg PO DAILY Qty: 30 2RF Januvia 50 mg tablet 50 mg PO DAILY Qty: 30 2RF Continued metformin 1,000 mg Tablet 1,000 mg PO BID Discontinued clindamycin HCl 300 mg capsule 300 mg PO Q8H Patient Comments: take 1 capsule by mouth every 8 hours levofloxacin 750 mg tablet 750 mg PO Q24H Patient Comments: take 1 tablet by mouth once daily Referrals / Follow Up: Lincoln Haley MD [Primary Care Provider] - Within 1 Week Ramez Rios DPM [Med Staff - Active Staff] - See Referral Note (Early NextWeek) Disposition Disposition (needs filled in before D/C Order can be placed): Home, Self Care Charges/Coding Visit Charges Inpatient E&M: 36713 Disch Hosp >30min 02/19/23 1220 <Electronically signed by Yadira Apodaca DO> Cosigner Signature (if applicable): CC: Dr. Yadira Apodaca DO; Dr. Lincoln Haley MD~ Signed [facility] Work Phone: 1(389) 601-350909-15-2023 Progress note Author Ramez Rios [facility] February 19, 2023 8:13am Note Date/Time February 19, 2023 8:01am [facility] Medical Records Department [address] [place] [address] Progress Note 02/19/23 0758 MR#: [id number] Acct: [id number] Name: ANTONIO WEISS Rep #:[id number] : 1960 62 From: Ramez corcoran DPM PCP: Dr. Lincoln Haley MD Status:ADM IN Location: PA3 EC798-7 Subjective Subjective This is a 62-year-old male seen s/p partial second ray amputation of the left foot. Nursing reports no overnight events. He states that he feels up to goinghome today. States he is getting around well with a walker and keeping weight off of the left foot. He denies any constitutional symptoms today. Denies further complaints today. Objective Data Objective Data Vital Signs: Vital Signs Temp Pulse Resp BP Pulse Ox O2 Del Method 98.5 F 84 18 156/93 H 97 Room Air 02/19/23 05:08 02/19/23 05:08 02/19/23 05:08 02/19/23 05:08 02/19/23 05:08 02/19/23 05:08 Oxygen Delivery Method Room Air Weight: 95.5 kg Body Mass Index (BMI) 36.1 Intake & Output: Intake and Output for Last 24 Hours 02/17/23 02/18/23 02/19/23 23:59 23:59 23:59 Intake Total 1115 2647 / 2647 777.75 / 777.75 Balance 1115 2647 / 2647 777.75 / 777.75 Lab / Micro Data 02/18/23 04:35 02/18/23 04:35 Labs: Laboratory Results - last 24 hr 02/18/23 11:14: POC Glucose 211 H 02/18/23 16:14: POC Glucose 152 H 02/18/23 21:52: POC Glucose 237 H 02/19/23 06:35: POC Glucose 154 H Micro: Microbiology 02/16/23 15:17 Blood Culture (Wb) - Anticubital Right Blood Culture - Preliminary No growth in 48 hours. 02/16/23 13:40 Blood Culture (Wb) - Anticubital Left Blood Culture - Preliminary No growth in 48 hours. 02/17/23 17:40 Wound - Left Foot Gram Stain - Final 02/17/23 17:40 Wound - Left Foot Wound Culture - Preliminary Staphylococcus species 02/17/23 17:40 Bone - 2nd Metatarsal Bone Gram Stain - Final 02/17/23 17:40 Bone - 2nd Toe Gram Stain - Final Physical Exam Narrative Left foot with ulceration plantar forefoot with maceration, down to subcutaneoustissue, there is edema to the foot and erythema/cellulitis to the forefoot extending to the hindfoot, no bogginess, no fluctuance, no visible abscess, no crepitus, no purulence noted at this time, there is no oder. CFT < 2 seconds toall toes on the left foot with no evidence of acute ischemia to the left foot, there is chronic peripheral neuropathy to the left foot, there is no POP or painon ROM to the left foot. Const alert, oriented x3 and no apparent distress HEENT normocephalic Eyes General Eye: normal appearance of both eyes Neck General: normal visual inspection Lymph Lymphatic: no lymphedema noted Resp normal respiratory effort Cardio regular rate and regular rhythm Extremity no joint enlargement, no calf tenderness and no pedal edema Extremity Narrative: DP and PT pulses palpable with capillary fill time less than 3 seconds to digitsof left foot with no evidence of acute ischemia. Dermatological: Left foot subsecond metatarsal superficial ulceration with driedsurrounding skin secondary to previous maceration. There is diffuse edema of the forefoot with cellulitis of the forefoot extending proximally to the dorsal midfoot. Edema is decreasing. Cellulitis improving on IV antibiotics. Plantarwound site demonstrates no palpable fluctuance/bogginess, no visible abscess formation, no crepitus of the tissue, no purulence, no malodor noted. Sutures intact to the dorsal foot overlying second metatarsal and previous digital amputation site. Musculoskeletal: Muscle strength 5 of 5 age-appropriate. No pain to palpation about the wound site or foot secondary to peripheral polyneuropathy. Skin no rashes or lesions noted, skin turgor normal and no jaundice Neuro moves all extremities Neuro Narrative: Lack of sensation secondary to diabetic peripheral polyneuropathy Assessment & Plan Assessment/Plan (1) Diabetes mellitus with diabetic polyneuropathy: (2) Cellulitis of foot, left: (3) Diabetic infection of left foot: (4) Osteomyelitis of left foot: (5) Abscess of left foot: PLAN: Plan Patient seen and evaluated He is s/p partial second ray amputation of the left foot. DOS: 02/17/2023. POD #2 Left foot subsecond metatarsal superficial ulceration with dried surrounding skin secondary to previous maceration. There is diffuse edema of the forefoot with cellulitis of the forefoot extending proximally to the dorsal midfoot. Edema decreasing. Cellulitis improving on IV antibiotics. Plantar wound site demonstrates no palpable fluctuance/bogginess, no visible abscess formation, no crepitus of the tissue, no purulence, no malodor noted. Sutures intact to the dorsal foot overlying second metatarsal and previous digital amputation site. Dressings changed today with Betadine soaked Adaptic, 4 x 4 gauze, Kerlix, ABD, and 4 inch Dami wrap rolled onto the foot. He was seen in office on 02/12/[address] Cabrales who took cultures and placed him on clindamycin 300 mg and levofloxacin 750 mg every 24 hours. Cultures obtained demonstrate E faecalis, staph heamolyticus, and coagulase-negative staph. WBC at this time was noted to be 10.8. Patient returned on 02/16/2023 with no improvement in cellulitis and was sent to ED for admittance for IV antibiotics and MRI for suspected bone infection. MRI of left foot performed 02/16/23 demonstrates diffuse soft tissue swelling andchanges consistent with cellulitis and increased signal intensity on T2 of the proximal phalanx and second metatarsal head of the left foot consistent with osteomyelitis. MRI was discussed with the patient and he elected for partial second ray amputation of the left foot. Surgical swab culture obtained 02/17/2023, preliminary shows Staphylococcus sp. Bone culture second digit, awaiting results. Bone culture second metatarsal head, awaiting results. WBC has decreased to 8.0 currently on IV antibiotics. Patient currently on IV vancomycin and Unasyn. 1g Vancomycin powder was placed prior to closure. He will remain non-weight bearing to the Left foot with assistance of walker Medicine team currently following for medical management, they are greatly appreciated. ID following for antibiotic management, likely home on oral abx. Wound care nurse assisting in dressing changes Podiatry will continue to follow while in house for postoperative care. Upon discharge we will follow-up in office with me early next week. Please do not hesitate to call with any questions or concerns Ramez Rios Jr. D.P.M. [facility] [phone] 02/19/23812 <Electronically signed by Ramez Rios DPParisa> Ramez Bull Cosigner Signature (if applicable): CC: ~ Signed [facility] Work Phone: 1(128) 711-996509-14-2023 Progress note Author Yadira Apodaca [facility] February 18, 2023 3:06pm Note Date/Time February 18, 2023 3:06pm [facility] Medical Records Department [address] [place] [address] Progress Note - Hospitalist 02/18/231456 MR#: [id number] Acct: [id number] Name: ANTONIO WEISS Rep #:[id number] : 1960 62 From: Yadira Apodaca DO PCP: Dr. Lincoln Haley MD Status:ADM IN Location: PA3 [id number] Reason for Visit Reason for Visit: L Foot Wound Subjective Subjective No issues overnight. A1c was found to be markedly elevated and I will add some basal insulin. I did discuss this with the patient and he will likely need to go home on additional oral agent with follow-up to see his primary care physician within the next 3 months for repeat hemoglobin A1c and further assessment. We did discuss that getting his blood sugars under control would bebeneficial into wound healing. They are interested in talking to a dietitian with regards to carbohydrate intake. They state that they can follow sugar intake fairly well but they do struggle with carbohydrates. Objective Data Objective Data Vital Signs: Vital Signs Temp Pulse Resp BP Pulse Ox O2 Del Method 98.5 F 79 18 166/88 H 97 Room Air 02/18/23 09:01 02/18/23 09:01 02/18/23 09:01 02/18/23 09:01 02/18/23 09:01 02/18/23 09:01 Oxygen Delivery Method Room Air Weight: 95.5 kg Body Mass Index (BMI) 36.1 Intake & Output: Intake and Output for Last 24 Hours 02/16/23 02/17/2323 23:59 23:59 23:59 Intake Total 707.33 / 707.33 111 / 2115 1489 / 1489 Balance 707.33 / 707.33 1115 1489 / 1489 Lab / Micro Data 02/18/23 04:35 02/18/23 04:35 Labs: Laboratory Results - last 24 hr 02/17/23 18:32: POC Glucose 101 02/17/23 22:36: POC Glucose 174 H 02/18/23 04:35: WBC 8.0, RBC 3.67 L, Hgb 11.2 L, Hct 33.7 L, MCV 91.8, MCH 30.5,MCHC 33.2, RDW Std Deviation 38.8, RDW Coeff of Neftali 11.4 L, Plt Count 288, MPV 8.9, Immature Gran % (Auto) 0.700, Neut % (Auto) 73.2 H, Lymph % (Auto) 15.6 L, [place] % (Auto) 8.1, Eos % (Auto) 1.9, Baso % (Auto) 0.5, Absolute Neuts (auto) 5.9, Absolute Lymphs (auto) 1.25, Nucleated RBC % 0, Sodium 136, Potassium 4.0, Chloride 105, Carbon Dioxide 26.0, Anion Gap 5, BUN 18, Creatinine 1.07, Estim Creat Clear Calc 58.40, Est GFR (MDRD) Af Amer 89, Est GFR (MDRD) Non-Af 74, BUN/Creatinine Ratio 16.8, Glucose 184 H, Calcium 8.6, Phosphorus 3.8, Magnesium1.9, Total Bilirubin 0.30, AST 11 L, ALT 19, Alkaline Phosphatase 64, Total Protein 6.9, Albumin 2.5 L, Globulin 4.4 H, Albumin/Globulin Ratio 0.6 L, Vancomycin Trough 10.5 02/18/23 06:22: POC Glucose 173 H 02/18/23 11:14: POC Glucose 211 H Micro: Microbiology 02/17/23 17:40 Wound - Left Foot Gram Stain - Final 02/17/23 17:40 Wound - Left Foot Wound Culture - Preliminary Staphylococcus species 02/17/23 17:40 Bone - 2nd Metatarsal Bone Gram Stain - Final 02/17/23 17:40 Bone - 2nd Toe Gram Stain - Final Radiography Diagnostic Testing: Radiology Impression Foot X-Ray 02/17/23 15:37 IMPRESSION: [Post amputation of the second toe through distal second metatarsal shaft Electronically Signed: Masoud Weston MD at 18:02 EDT Reading Location ID and State: [facility] / [place] Tel [phone], Service support , Foot X-Ray 02/17/23 21:40 IMPRESSION: Postsurgical changes status post amputation of the second toe through the distal metatarsal shaft Electronically Signed: Masoud Weston MD at 22:51 EDT , Physical Exam Const alert, oriented x3, no apparent distress, healthy appearing and well nourished; Negative for average body habitus Constitutional Narrative: Obese, extremely friendly, Uatsdin, white male, sitting up in bed, at bedside, appears comfortable and nontoxic HEENT normocephalic, head/scalp atraumatic, hearing grossly normal bilaterally and moist oral mucous membranes HEENT Narrative: Dentition is poor, Mallampati is 2, no thrush Resp normal respiratory effort, no retractions, no use of accessory muscles and clear to auscultation bilaterally Auscultation: Negative for rales, rhonchi or wheezes Cardio regular rate, regular rhythm, S1 normal heart sound, S2 normal heart sound, no murmurs, no rub, no gallops and no clicks GI normal to inspection, nondistended, normoactive bowel sounds, soft to palpation, non-tender and non-distended Extremity no clubbing, cyanosis or edema Extremity Narrative: Pedal pulses are 2+, cap refill is 2+ Skin no rashes or lesions noted Skin Narrative: Postoperative wound imaging reviewed in computer as wound was dressed, erythematous areas seems to be retracting and postoperative incision looks good General Skin Exam: no breakdown Neuro oriented x3, moves all extremities and no focal motor deficits Neuro Narrative: Decreased sensation bilateral lower extremities Sensorium / Orientation: oriented to place Speech: speech normal Psych affect normal Psych Narrative: Very pleasant, talkative, interacts appropriately Assessment & Plan Assessment/Plan (1) Osteomyelitis of left foot: (2) Cellulitis of foot, left: (3) Diabetic infection of left foot: (4) HTN (hypertension): (5) Elevated serum creatinine: PLAN: Plan Cellulitis/osteomyelitis of the left foot due to diabetic foot infection -Recent cultures from 02/12/2023 show Enterococcus faecalis, staph hemolyticus, and coag negative staph -Continue Unasyn and vancomycin for now -MRI is consistent with osteomyelitis so patient will likely need amputation if he is agreeable -Postop day 1 for partial second ray amputation of the left foot with I&D and wide debridement with tissue rearrangement and flap to the left foot -Podiatry following and managing-appreciate input -ID is following with antibiotic recommendations we will discuss further tomorrow for discharge recommendations as intraoperative cultures are pending still Elevated serum creatinine -Resolved -Baseline appears to be between 0.9 and 1.1 -Serum creatinine today down to 1.07 DM-2 -Hemoglobin A1c up to 9.1 from 6.9 a year ago -Continue to hold metformin -Need to add another oral agent at discharge -Add subcu Lantus to improve glycemic control as blood sugar fasting this morning was 184 -SSI -Accu-Cheks as ordered -Diabetic diet -Patient to meet with dietitian to discuss carbohydrate intake Hypertension -Blood pressure improved with the addition of lisinopril but still not at goal -Increase lisinopril to 40 mg daily -As needed hydralazine available -Goal blood pressure less than 130/80 -We will continue to trend and patient may need additional antihypertensives to achieve improved blood pressure control prior to discharge Diabetic neuropathy -Patient takes no medications for this -Complicates treatment, prognosis, outcomes and puts him at increased risk for future infections Obesity -BMI is 36.1 -Recommend weight loss -Complicates treatment, prognosis, outcomes DVT prophylaxis -Continue prophylactic enoxaparin CODE STATUS -Full code Charges/Coding Visit Charges Inpatient E&M: 78526 Subs Hosp L2 02/18/23 1506 <Electronically signed by Yadira Apodaca DO> Cosigner Signature (if applicable): CC: ~ Signed [facility] Work Phone: 1(459) 121-464909-14-2023 Progress note Author Ramez Rios [facility] February 18, 2023 1:12pm Note Date/Time February 18, 2023 7:51am [facility] Medical Records Department [address] [place] [address] Progress Note 02/18/2346 MR#: [id number] Acct: [id number] Name: ANTONIO WEISS Rep #:[id number] : 1960 62 From: Ramez corcoran DPM PCP: Dr. Lincoln Haley MD Status:ADM IN Location: [facility] DM293-5 Subjective Subjective This is a 62-year-old gentleman seen today resting in bed with foot elevated s/ppartial second ray amputation of the left foot. He states he has been able to remain nonweightbearing with the use of the walker. Denies any pain today. Denies constitutional symptoms. States he feels pretty good overall. Denies further complaints. Objective Data Objective Data Vital Signs: Vital Signs Temp Pulse Resp BP Pulse Ox O2 Del Method 99.4 F H 78 16 157/89 H 95 Room Air 02/18/23 04:30 02/18/23 04:30 02/18/23 04:30 02/18/23 04:30 02/18/23 04:30 02/18/23 04:30 Oxygen Delivery Method Room Air Weight: 95.5 kg Body Mass Index (BMI) 36.1 Intake & Output: Intake and Output for Last 24 Hours 02/16/23 02/17/23 02/18/23 23:59 23:59 23:59 Intake Total 707.33 / 707.33 1116 / 2116 1377 / 1377 Balance 707.33 / 707.33 1116 / 6 1377 / 1377 Lab / Micro Data 02/18/23 04:35 02/18/23 04:35 Labs: Laboratory Results - last 24 hr 02/17/23 05:40: Hemoglobin A1c 9.1 H 02/17/23 11:12: POC Glucose 122 H 02/17/23 18:32: POC Glucose 101 02/17/23 22:36: POC Glucose 174 H 02/18/23 04:35: WBC 8.0, RBC 3.67 L, Hgb 11.2 L, Hct 33.7 L, MCV 91.8, MCH 30.5,MCHC 33.2, RDW Std Deviation 38.8, RDW Coeff of Neftali 11.4 L, Plt Count 288, MPV 8.9, Immature Gran % (Auto) 0.700, Neut % (Auto) 73.2 H, Lymph % (Auto) 15.6 L, [place] % (Auto) 8.1, Eos % (Auto) 1.9, Baso % (Auto) 0.5, Absolute Neuts (auto) 5.9, Absolute Lymphs (auto) 1.25, Nucleated RBC % 0, Sodium 136, Potassium 4.0, Chloride 105, Carbon Dioxide 26.0, Anion Gap 5, BUN 18, Creatinine 1.07, Estim Creat Clear Calc 58.40, Est GFR (MDRD) Af Amer 89, Est GFR (MDRD) Non-Af 74, BUN/Creatinine Ratio 16.8, Glucose 184 H, Calcium 8.6, Phosphorus 3.8, Magnesium1.9, Total Bilirubin 0.30, AST 11 L, ALT 19, Alkaline Phosphatase 64, Total Protein 6.9, Albumin 2.5 L, Globulin 4.4 H, Albumin/Globulin Ratio 0.6 L, Vancomycin Trough 10.5 02/18/23 06:22: POC Glucose 173 H Radiography Diagnostic Testing: Radiology Impression Foot X-Ray 02/17/23 15:37 IMPRESSION: [Post amputation of the second toe through distal second metatarsal shaft Electronically Signed: Masoud Weston MD at 18:02 EDT Reading Location ID and State: [facility] / [place] Tel [phone], Service support , Foot X-Ray 02/17/23 21:40 IMPRESSION: Postsurgical changes status post amputation of the second toe through the distal metatarsal shaft Electronically Signed: Masoud Weston MD at 22:51 EDT , Physical Exam Const alert, oriented x3 and no apparent distress HEENT normocephalic Eyes General Eye: normal appearance of both eyes Neck General: normal visual inspection Lymph Lymphatic: no lymphedema noted Resp normal respiratory effort Cardio regular rate and regular rhythm Extremity no joint enlargement, no calf tenderness and no pedal edema Extremity Narrative: DP and PT pulses palpable with capillary fill time less than 3 seconds to digits of left foot with no evidence of acute ischemia. Dermatological: Left foot subsecond metatarsal superficial ulceration with dried surrounding skin secondary to previous maceration. There is diffuse edema of the forefoot with cellulitis of the forefoot extending proximally to the dorsal midfoot. Cellulitis improving on IV antibiotics. Plantar wound site demonstrates no palpable fluctuance/bogginess, no visible abscess formation, no crepitus of the tissue, no purulence, no malodor noted. Sutures intact to the dorsal foot overlying second metatarsal and previous digital amputation site. Musculoskeletal: Muscle strength 5 of 5 age-appropriate. No pain to palpation about the wound site or foot secondary to peripheral polyneuropathy. Skin no rashes or lesions noted, skin turgor normal and no jaundice Neuro moves all extremities Neuro Narrative: Lack of sensation secondary to diabetic peripheral polyneuropathy Assessment & Plan Assessment/Plan (1) Diabetes mellitus with diabetic polyneuropathy: (2) Cellulitis of foot, left: (3) Diabetic infection of left foot: (4) Osteomyelitis of left foot: (5) Abscess of left foot: PLAN: Plan Patient seen and evaluated He is s/p partial second ray amputation of the left foot. DOS: 02/17/2023. POD #1 Left foot subsecond metatarsal superficial ulceration with dried surrounding skin secondary to previous maceration. There is diffuse edema of the forefoot with cellulitis of the forefoot extending proximally to the dorsal midfoot. Cellulitis improving on IV antibiotics. Plantar wound site demonstrates no palpable fluctuance/bogginess, no visible abscess formation, no crepitus of the tissue, no purulence, no malodor noted. Sutures intact to the dorsal foot overlying second metatarsal and previous digital amputation site. Dressings changed today with Betadine soaked Adaptic, 4 x 4 gauze, Kerlix, ABD, and 4 inch Dami wrap rolled onto the foot. Dressing to be changed daily. He was seen in office on 02/12/[address] Cabrales who took cultures and placed him on clindamycin 300 mg and levofloxacin 750 mg every 24 hours. Cultures obtained demonstrate E faecalis, staph heamolyticus, and coagulase-negative staph. WBC at this time was noted to be 10.8. Patient returned on 02/16/2023 with no improvement in cellulitis and was sent to ED for admittance for IV antibiotics and MRI for suspected bone infection. MRI of left foot performed 02/16/23 demonstrates diffuse soft tissue swelling and changes consistent with cellulitis and increased signal intensity on T2 of the proximal phalanx and second metatarsal head of the left foot consistent with osteomyelitis. MRI was discussed with the patient and he elected for partial second ray amputation of the left foot. Surgical swab culture obtained 02/17/2023, preliminary shows Staphylococcus sp. Bone culture second digit, awaiting results. Bone culture second metatarsal head, awaiting results. WBC has decreased to 8.0 currently on IV antibiotics. Patient currently on IV vancomycin and Unasyn. 1g Vancomycin powder was placed prior to closure. He will remain non-weight bearing to the Left foot with assistance of walker Medicine team currently following for medical management, they are greatly appreciated. ID following for antibiotic management. Wound care nurse assisting in dressing changes Podiatry will continue to follow while in house for postoperative care. Upon discharge we will follow-up in office. Please do not hesitate to call with any questions or concerns Jr. Oscar CollinsP.M. [facility] [phone] 02/18/23 1312 <Electronically signed by Ramez Rios DPM> Ramez Rios DPM Cosigner Signature (if applicable): CC: ~ Signed [facility] Work Phone: 1(785) 695-901209-14-2023 Progress note Author Jun Rose [facility] February 18, 2023 9:55am Note Date/Time February 18, 2023 9:55am [facility] Medical Records Department [address] [place] [id number] Progress Note - Infect Disease 02/18/23 0953 MR#: [id number] Acct: [id number] Name: ANTONIO WEISS Rep #:[id number] : 1960 62 From: Jun jeong MD PCP: Dr. Lincoln Haley MD Status:ADM [facility] Physical Exam Narrative Pain 3/10 in foot, no fever, no n/v/d. Const alert and no apparent distress General Appearance: cooperative Resp normal air movement and clear to auscultation bilaterally Cardio regular rate and regular rhythm GI soft to palpation, non-tender and non-distended Skin Skin Narrative: foot wrapped ID ID: Route of nutrition/ use of supplements: [] Nutritional Intake: [] IV Site: [] Schumacher Catheter: [] Assessment & Plan Assessment/Plan (1) Osteomyelitis of left foot: PLAN: OR 02/17/[address] Rios for I&D with partial 2nd ray amputation. On empiric vanc/unasyn. Wound cx with enterococcus, CoNS x2, anaerobes. Surg cx pending. Will follow (2) Diabetes mellitus with diabetic polyneuropathy: 02/18/23 0955 <Electronically signed by Jnu Rose MD> Cosigner Signature (if applicable): CC: ~ Signed [facility] Work Phone: 1(864) 261-744909-14-2023 Consult note Author Gabriel Moran [facility] February 18, 2023 5:33am Note Date/Time February 18, 2023 5:34am [facility] Medical Records Department [address] [place] [address] Pharmacokinetic/Renal -Consult 02/18/23 0532 MR#: [id number] Acct: [id number] Name: ANTONIO WEISS Rep #:[id number] : 1960 62 From: Gabriel Moran PCP: Dr. Lincoln Haley MD Status:ADM IN Location: [place] [address] Consult Antibiotic Management Pharmacy has been consulted to manage selected antiobiotic: Vancomycin Type of Intervention Type of Consult: Follow-up Suspected Infection Suspected Infection: Skin/Soft tissue Labs Labs: Sodium 136 mmol/L (136-145) 02/18/23 04:35 Potassium 4.0 mmol/L (3.5-5.1) 02/18/23 04:35 Chloride 105 mmol/L (98-107) 02/18/23 04:35 Carbon Dioxide 26.0 mmol/L (21.0-32.0) 02/18/23 04:35 Anion Gap 5 (5-15) 02/18/23 04:35 BUN 18 mg/dL (7-18) 02/18/23 04:35 Creatinine 1.07 mg/dL (0.70-1.30) 02/18/23 04:35 Est GFR (MDRD) Af Amer 89 mL/min (>60) 02/18/23 04:35 Est GFR (MDRD) Non-Af 74 mL/min (>60) 02/18/23 04:35 BUN/Creatinine Ratio 16.8 RATIO (10-20) 02/18/23 04:35 Glucose 184 mg/dL (74-106) H 02/18/23 04:35 Vancomycin Trough 10.5 ug/mL (5.0-15.0) 02/18/23 04:35 Dosing Weight Weight used for dosin.5 kg Estimated Creatinine Clearance Estimated Creatinine Clearance: 73 Goal Trough Goal Trough: 10-15 mcg/mL Pharmacy Plan for Drug Dosing Pharmacy Plan for Drug Dosing: Vancomycin trough of 10.5 was within the target range of 10-15. Will continue dosing at 750mg q12h, and draw another trough level in two days. Pharmacy Service will continue to monitor and adjust dosing as required. Follow-Up Labs Follow-Up Labs: Trough: Vancomycin Date/Time Labs Ordered Labs to be done on [date and time ordered]: 02/20/23 @0430 02/18/23 0533 <Electronically signed by Gabriel rene> Date _ Gabriel Rosas Signature (if applicable): Date CC: ~ Signed [facility] Work Phone: [phone]) 815-194609-13-2023 Procedure [facility] 02-17-2023 Consult note Author Jun Rose [facility] February 17, 2023 3:37pm Note Date/Time February 17, 2023 3:35pm [facility] Medical Records Department [address] [place] [address] Consultation - Infectious Dx 02/17/23 1535 MR#: [id number] Acct: [id number] Name: ANTONIO WEISS Rep #:[id number] : 1960 62 From: Jun jeong MD PCP: Dr. Lincoln Haley MD Status:ADM IN Location: [facility] VB127-6 Assessment & Plan Assessment/Plan (1) Osteomyelitis of left foot: PLAN: OR planned. On empiric vanc/unasyn. Wound cx with enterococcus, CoNS x2,anaerobes. 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 No pain in foot, no fever. Started on clinda and levaquin as outpt without improvement. Admitted 02/16, started on vanc/unasyn, seen by podiatry. Feeling ok, no n/v/d. Full ROS performed and neg except as noted above. PFSH Medical History Diabetes Diabetic foot ulcer Hypertension Infected ulcer of skin Non-smoker Home Medications metformin 1,000 mg tablet 1,000 mg PO BID 01/26/22 [History Last Taken 02/16/23] clindamycin HCl 300 mg capsule 300 mg PO Q8H 02/16/23 [History Last Taken 02/16/23] levofloxacin 750 mg tablet 750 mg PO Q24H 02/16/23 [History Last Taken 02/15/23] Allergy/AdvReac Type Severity Reaction Status Date / Time No Known Allergies Allergy Verified 02/16/23 12:22 Family History Other Hypertension Social History household members: spouse Smoking Status: Never smoker Physical Exam Const alert, oriented x3 and no apparent distress General Appearance: cooperative HEENT normocephalic and head/scalp atraumatic Eyes PERRL and EOMs intact bilaterally Neck supple and No nodes Resp normal air movement and clear to auscultation bilaterally Cardio regular rate and regular rhythm GI soft to palpation, non-tender and non-distended Extremity General Extremity: edema Skin Skin Narrative: reviewed photos Neuro CN's II-XII intact bilaterally Lab / Micro Data Attestation: I reviewed the patient's lab results. 02/17/23 05:40 02/17/23 05:40 Labs: Laboratory Results - last 24 hr 02/16/23 21:51: POC Glucose 163 H 02/17/23 05:40: WBC 8.1, RBC 3.54 L, Hgb 10.9 L, Hct 32.8 L, MCV 92.7, MCH 30.8,MCHC 33.2, RDW Std Deviation 39.0, RDW Coeff of Neftali 11.5 L, Plt Count 285, MPV 9.0, Immature Gran % (Auto) 0.700, Neut % (Auto) 74.2 H, Lymph % (Auto) 16.3 L, [place] % (Auto) 6.7, Eos % (Auto) 1.7, Baso % (Auto) 0.4, Absolute Neuts (auto) 6.0, Absolute Lymphs (auto) 1.32, Nucleated RBC % 0, Sodium 139, Potassium 4.3, Chloride 107, Carbon Dioxide 28.0, Anion Gap 4 L, BUN 24 H, Creatinine 1.16, Estim Creat Clear Calc 53.87, Est GFR (MDRD) Af Amer 81, Est GFR (MDRD) Non-Af 67, BUN/Creatinine Ratio 20.7 H, Glucose 175 H, Hemoglobin A1c 9.1 H, Calcium 8.8 02/17/23 06:40: POC Glucose 160 H 02/17/23 11:12: POC Glucose 122 H Radiology Impression Lower Extremity MRI 02/16/23 16:27 IMPRESSION: Soft tissue wound and swelling on the plantar aspect. Osteomyelitis of the second metatarsal and proximal phalanx. Electronically Signed: Matthieu Fitch MD at 19:29 EDT , 02/17/23 5865 <Electronically signed by Jun Rose MD> Cosigner Signature (if applicable): CC: DPParisa Cabrales; Dr. Luis M Chandler, DO; Dr. Jun Rose MD; Dr. Lincoln Haley MD~ Signed [facility] Work Phone: [phone]) 603-285509-13-2023 Progress note Author Ramez Rios [facility] February 17, 2023 3:10pm Note Date/Time February 17, 2023 7:59am [facility] Medical Records Department [address] [place] [address] Progress Note 02/17/23 0750 MR#: [id number] Acct: [id number] Name: ANTONIO WEISS Rep #:[id number] : 1960 62 From: Ramez corcoran DPM PCP: Dr. Lincoln Haley MD Status:ADM IN Location: [facility] DF210-0 Subjective Subjective Patient is a 62-year-old male who is seen today resting in bed with by sidefor acute diabetic foot infection with osteomyelitis second digit and metatarsalhead. Patient states he is feeling better on IV antibiotics today. States he does not feel too much pain as he has neuropathy. Denies constitutional symptoms currently. Denies further complaints today. Objective Data Objective Data Vital Signs: Vital Signs Temp Pulse Resp BP Pulse Ox O2 Del Method 98.6 F 89 16 164/93 H 96 Room Air 02/17/23 04:25 02/17/23 04:25 02/17/23 04:25 02/17/23 06:00 02/17/23 04:25 02/17/23 04:25 Oxygen Delivery Method Room Air Weight: 95.5 kg Body Mass Index (BMI) 36.1 Intake & Output: Intake and Output for Last 24 Hours 02/15/23 02/16/23 02/17/23 23:59 23:59 23:59 Intake Total 707.33 / 707.33 377 / 377 Balance 707.33 / 707.33 377 / 377 Lab / Micro Data 02/17/23 05:40 02/17/23 05:40 Labs: Laboratory Results - last 24 hr 02/16/23 13:40: WBC 10.6, RBC 3.72 L, Hgb 11.4 L, Hct 34.1 L, MCV 91.7, MCH 30.6, MCHC 33.4, RDW Std Deviation 38.9, RDW Coeff of Neftali 11.6, Plt Count 293, MPV 9.2, Immature Gran % (Auto) 0.900, Neut % (Auto) 77.2 H, Lymph % (Auto) 13.0L, [place] % (Auto) 7.3, Eos % (Auto) 1.3, Baso % (Auto) 0.3, Absolute Neuts (auto)8.2 H, Absolute Lymphs (auto) 1.38, Nucleated RBC % 0, PT 13.5, INR 1.0, APTT 40.3 H, Sodium 138, Potassium 4.5, Chloride 104, Carbon Dioxide 29.0, Anion Gap 5, BUN 29 H, Creatinine 1.32 H, Estim Creat Clear Calc 47.34, Est GFR (MDRD) Af Amer 70, Est GFR (MDRD) Non-Af 58 L, BUN/Creatinine Ratio 22.0 H, Glucose 126 H,Lactic Acid 1.9, Calcium 9.2 02/16/23 21:51: POC Glucose 163 H 02/17/23 05:40: WBC 8.1, RBC 3.54 L, Hgb 10.9 L, Hct 32.8 L, MCV 92.7, MCH 30.8,MCHC 33.2, RDW Std Deviation 39.0, RDW Coeff of Neftali 11.5 L, Plt Count 285, MPV 9.0, Immature Gran % (Auto) 0.700, Neut % (Auto) 74.2 H, Lymph % (Auto) 16.3 L, [place] % (Auto) 6.7, Eos % (Auto) 1.7, Baso % (Auto) 0.4, Absolute Neuts (auto) 6.0, Absolute Lymphs (auto) 1.32, Nucleated RBC % 0, Sodium 139, Potassium 4.3, Chloride 107, Carbon Dioxide 28.0, Anion Gap 4 L, BUN 24 H, Creatinine 1.16, Estim Creat Clear Calc 53.87, Est GFR (MDRD) Af Amer 81, Est GFR (MDRD) Non-Af 67, BUN/Creatinine Ratio 20.7 H, Glucose 175 H, Calcium 8.8 02/17/23 06:40: POC Glucose 160 H Radiography Diagnostic Testing: Radiology Impression Foot X-Ray 02/16/23 13:35 IMPRESSION: Soft tissue swelling. Vascular calcification. Electronically Signed: Tolu Chandler MD at 14:26 EDT , Lower Extremity MRI 02/16/23 16:27 IMPRESSION: Soft tissue wound and swelling on the plantar aspect. Osteomyelitis of the second metatarsal and proximal phalanx. Electronically Signed: Matthieu Fitch MD at 19:29 EDT , Physical Exam Const alert, oriented x3 and no apparent distress HEENT normocephalic Eyes General Eye: normal appearance of both eyes Neck General: normal visual inspection Lymph Lymphatic: no lymphedema noted Resp normal respiratory effort Cardio regular rate and regular rhythm Extremity no joint enlargement, no calf tenderness and no pedal edema Extremity Narrative: DP and PT pulses palpable with capillary fill time less than 3 seconds to digitsof left foot with no evidence of acute ischemia. Dermatological: Left foot superficial ulceration with dried surrounding skin secondary to previous maceration. There is diffuse edema of the forefoot with cellulitis of the forefoot extending proximally to the dorsal midfoot. This is improved with decreasing cellulitis on IV antibiotics. Plantar wound site demonstrates no palpable fluctuance/bogginess, no visible abscess formation, no crepitus of the tissue, no purulence, no malodor noted. Musculoskeletal: Muscle strength 5 of 5 age-appropriate. No pain to palpation about the wound site or foot secondary to peripheral polyneuropathy. Skin no rashes or lesions noted, skin turgor normal and no jaundice Neuro moves all extremities Neuro Narrative: Lack of sensation secondary to diabetic peripheral polyneuropathy Assessment & Plan Assessment/Plan (1) Diabetic infection of left foot: (2) Cellulitis of foot, left: (3) Diabetes mellitus with diabetic polyneuropathy: PLAN: Plan Patient seen and evaluated Left foot superficial ulceration with dried surrounding skin secondary to previous maceration. There is diffuse edema of the forefoot with cellulitis of the forefoot extending proximally to the dorsal midfoot. This is improved with decreasing cellulitis on IV antibiotics. Plantar wound site demonstrates no palpable fluctuance/bogginess, no visible abscess formation, no crepitus of the tissue, no purulence, no malodor noted. He was seen in office on 02/12/[address] Cabrales who took cultures and placed him on clindamycin 300 mg and levofloxacin 750 mg every 24 hours. Cultures obtained demonstrate E faecalis, staph heamolyticus, and coagulase-negative staph. WBC at this time was noted to be 10.8. Patient returned on 02/16/2023 with no improvement in cellulitis and was sent to ED for admittance for IV antibiotics and MRI for suspected bone infection. WBC on admittance 10.6 and has decreased to 8.1 currently on IV antibiotics. Patient currently on IV vancomycin and Unasyn. MRI of left foot demonstrates diffuse soft tissue swelling and changes consistent with cellulitis and increased signal intensity on T2 of the proximal phalanx and second metatarsal head of the left foot consistent with osteomyelitis. Discussed with him today MRI results and surgical intervention for a partial second ray amputation of the left foot. Patient understands that this is a limbsalvage procedure. Patient states he is willing to undergo the partial amputation of the second ray. I discussed the procedure in great detail today, discussed all risks and complications. Discussed benefits of procedure. Discussed with him the risks and complications include but are not limited to the following: Pain, continued pain, complex regional pain syndrome, phantom pain, infection, wound dehiscence, delayed healing/nonhealing, neuritis/numbness, scarring, poor cosmetic result, edema, surrounding digital deformity, need for further surgical intervention, hematoma, difficulty with ambulation, difficulty wearing shoe gear, addiction to pain medication, stroke, heart attack, allergic reaction, blood clot, loss of function, loss of limb, andloss of life. Patient voices understanding of these and able to repeat these back. Again patient does understand that this is a limb salvage procedure. Consent forms for partial 2nd ray amputation were obtained and patient signed freely. He will remain non-weight bearing to the Left foot He will remain NPO for anticipated surgical intervention. Medicine team currently following for medical management, they are greatly appreciated. ID consulted for antibiotic management. Wound care nurse assisting in dressing changes At this time surgical intervention to take place today 02/17/2023 for partial second ray amputation of the left foot. Podiatry will continue to follow while in house for postoperative care. Please do not hesitate to call with any questions or concerns Ramez Rios Jr. D.P.M. [facility] [place] [phone] 02/17/23 1510 <Electronically signed by Ramez Rios DPM> Ramez Bull Cosigner Signature (if applicable): CC: ~ Signed [facility] Work Phone: 1(299) 345-390009-13-2023 Progress note Author Yadira Apodaca [facility] February 17, 2023 2:45pm Note Date/Time February 17, 2023 7:51am [facility] Medical Records Department [address] [place] [address] Progress Note - Hospitalist 02/17/23 0734 MR#: [id number] Acct: [id number] Name: ANTONIO WEISS Rep #:[id number] : 1960 62 From: Yadira Apodaca DO PCP: Dr. Lincoln Haley MD Status:ADM IN Location: [place] [address] Reason for Visit Reason for Visit: Left foot wound Subjective Subjective Mr. Weiss is a 62-year-old male who presented to the emergency department at [facility] on 02/16/2023 at the request of his air gun operator due to worsening erythema and suspected infection of his left foot. Patient is a type II diabetic and he has a history of right-sided foot osteomyelitis that he was treated for this past year. Patient reported that approximately 10 days ago he noticed his foot was getting slightly swollen over the plantar aspect of the proximal to first and second metatarsal. He went on a trip to [place] and noticed when he came back it had been worsening so he saw his air gun operator last Elvin who placed him on Levaquin and clindamycin. Cultures were obtained at that time and have since grown out Enterococcus faecalis, staph hemolyticus, andcoag negative staph. The patient was reevaluated by air gun operator on the day of admission and they felt that his foot appeared to be worsening and requested he come to the emergency department. Vital signs were stable on presentation but he was noted to be hypertensive. Normal white count but did present with a leftshift at 77.2% neutrophilia. Coags are normal. His chemistry panel showed normal electrolytes but his BUN and serum creatinine were slightly elevated at 29 and 1.32. It appears his baseline previously had been between 0.9 and 1.2. Serum glucose was 126 at the time of presentation. There is not a recent hemoglobin A1c in our documentation with [facility]9. Based on the sensitivities of his previous culture he was placed on Unasyn and vancomycin and admitted to the medical floor with consultation infectious disease and podiatry. MRI was performed and is consistent with osteomyelitis. Denies any issues. Was somewhat resistant to the fact that he has hypertension but I did discuss the risks of having untreated hypertension he was willing to start medication. We did start lisinopril 20 mg with his diabetes we thought that this would be adequate medication as it will be renal protective as well. This was discussed with him. Objective Data Objective Data Vital Signs: Vital Signs Temp Pulse Resp BP Pulse Ox O2 Del Method 98.6 F 89 16 164/93 H 96 Room Air 02/17/23 04:25 02/17/23 04:25 02/17/23 04:25 02/17/23 06:00 02/17/23 04:25 02/17/23 04:25 Oxygen Delivery Method Room Air Weight: 95.5 kg Body Mass Index (BMI) 36.1 Intake & Output: Intake and Output for Last 24 Hours 02/15/23 02/16/23 02/17/23 23:59 23:59 23:59 Intake Total 707.33 / 707.33 377 / 377 Balance 707.33 / 707.33 377 / 377 Lab / Micro Data 02/17/23 05:40 02/17/23 05:40 Labs: Laboratory Results - last 24 hr 02/16/23 13:40: WBC 10.6, RBC 3.72 L, Hgb 11.4 L, Hct 34.1 L, MCV 91.7, MCH 30.6, MCHC 33.4, RDW Std Deviation 38.9, RDW Coeff of Neftali 11.6, Plt Count 293, MPV 9.2, Immature Gran % (Auto) 0.900, Neut % (Auto) 77.2 H, Lymph % (Auto) 13.0 L, [place] % (Auto) 7.3, Eos % (Auto) 1.3, Baso % (Auto) 0.3, Absolute Neuts (auto) 8.2 H, Absolute Lymphs (auto) 1.38, Nucleated RBC % 0, PT 13.5, INR 1.0, APTT 40.3 H, Sodium 138, Potassium 4.5, Chloride 104, Carbon Dioxide 29.0, Anion Gap 5, BUN 29 H, Creatinine 1.32 H, Estim Creat Clear Calc 47.34, Est GFR (MDRD) Af Amer 70, Est GFR (MDRD) Non-Af 58 L, BUN/Creatinine Ratio 22.0 H, Glucose 126 H,Lactic Acid 1.9, Calcium 9.2 02/16/23 21:51: POC Glucose 163 H 02/17/23 05:40: WBC 8.1, RBC 3.54 L, Hgb 10.9 L, Hct 32.8 L, MCV 92.7, MCH 30.8,MCHC 33.2, RDW Std Deviation 39.0, RDW Coeff of Neftali 11.5 L, Plt Count 285, MPV 9.0, Immature Gran % (Auto) 0.700, Neut % (Auto) 74.2 H, Lymph % (Auto) 16.3 L, [place] % (Auto) 6.7, Eos % (Auto) 1.7, Baso % (Auto) 0.4, Absolute Neuts (auto) 6.0, Absolute Lymphs (auto) 1.32, Nucleated RBC % 0, Sodium 139, Potassium 4.3, Chloride 107, Carbon Dioxide 28.0, Anion Gap 4 L, BUN 24 H, Creatinine 1.16, Estim Creat Clear Calc 53.87, Est GFR (MDRD) Af Amer 81, Est GFR (MDRD) Non-Af 67, BUN/Creatinine Ratio 20.7 H, Glucose 175 H, Calcium 8.8 02/17/23 06:40: POC Glucose 160 H Radiography Diagnostic Testing: Radiology Impression Foot X-Ray 02/16/23 13:35 IMPRESSION: Soft tissue swelling. Vascular calcification. Electronically Signed: Tolu Chandler MD at 14:26 EDT , Lower Extremity MRI 02/16/23 16:27 IMPRESSION: Soft tissue wound and swelling on the plantar aspect. Osteomyelitis of the second metatarsal and proximal phalanx. Electronically Signed: Matthieu Fitch MD at 19:29 EDT , Physical Exam Const alert, oriented x3, no apparent distress and well nourished; Negative for average body habitus Constitutional Narrative: Obese, extremely friendly, [place], white male, sitting up in bed, at bedside, appears comfortable and nontoxic HEENT head/scalp atraumatic, moist oral mucous membranes and oropharynx normal HEENT Narrative: Dentition is poor, Mallampati 3, no thrush Head and Scalp: normocephalic Resp normal respiratory effort, no retractions, no use of accessory muscles and clearto auscultation bilaterally Auscultation: Negative for rales, rhonchi or wheezes Cardio regular rate, regular rhythm, S1 normal heart sound, S2 normal heart sound, no murmurs, no rub and no clicks; Negative for no gallops Cardio Narrative: S4 gallop present, no S3 GI normal to inspection, nondistended, normoactive bowel sounds, soft to palpation and non-tender Extremity no clubbing, cyanosis or edema Extremity Narrative: Pedal pulses are 2+, cap refill is 2+ Skin Skin Narrative: Left lower extremity wound dressing in place Neuro oriented x3, moves all extremities and no focal motor deficits Neuro Narrative: Decree sensation bilateral lower extremities Speech: speech normal Psych affect normal Psych Narrative: Very pleasant, talkative, interacts appropriately Assessment & Plan Assessment/Plan (1) Osteomyelitis of left foot: (2) Cellulitis of foot, left: (3) Diabetic infection of left foot: (4) HTN (hypertension): (5) Elevated serum creatinine: PLAN: Plan Cellulitis/osteomyelitis of the left foot due to diabetic foot infection -Recent cultures from 02/12/2023 show Enterococcus faecalis, staph hemolyticus, and coag negative staph -Continue Unasyn and vancomycin for now -MRI is consistent with osteomyelitis so patient will likely need amputation if he is agreeable -Podiatry consult is pending -ID consult is pending -Wound care consult is pending -Blood cultures are drawn however I doubt bacteremia -I did discuss extensively about appropriate diabetic foot care, wearing white socks and doing foot inspections on a daily basis. Patient states that he intermittently wears white socks but does not inspect his feet on a regular basis. Elevated serum creatinine -Baseline appears to be between 0.9 and 1.1 -Serum creatinine mission was 1.46 -Has improved within the last 24 hours to 1.26 today -Continue to monitor and avoid nephrotoxins as able DM-2 -Most recent hemoglobin A1c is year ago and it was 6.9 at that time had pain in his only on metformin at baseline -Hold metformin -SSI -Check hemoglobin A1c -Accu-Cheks as ordered -Diabetic diet Hypertension -The patient's blood pressure has been consistently elevated however he is on nohome medications -We will start lisinopril 20 mg daily as this will help his blood pressure and also be renal protective with regards to his diabetes -As needed hydralazine available -Goal blood pressure less than 130/80 Diabetic neuropathy -Patient takes no medications for this -Complicates treatment, prognosis, outcomes and puts him at increased risk for future infections Obesity -BMI is 36.1 -Recommend weight loss -Complicates treatment, prognosis, outcomes DVT prophylaxis -Start enoxaparin 40 daily CODE STATUS -Currently full code but unverified will need to discuss with patient, at his previous visits he was DNR CCA with no intubation Charges/Coding Visit Charges Inpatient E&M: 96640 Subs Hosp L2 02/17/23 1445 <Electronically signed by Yadira Apodaca DO> Cosigner Signature (if applicable): CC: ~ Signed [facility] Work Phone: 1(281) 494-175609-13-2023 Consult note Author Masoud Cabrales [facility] February 16, 2023 11:15pm Note Date/Time February 16, 2023 5:56pm [facility] Medical Records Department [address] [place] [address] Consultation 02/16/23 1756 MR#: [id number] Acct: [id number] Name: ANTONIO WEISS Rep #:[id number] : 1960 62 From: Masoud Cabrales DPM PCP: Dr. Lincoln Haley MD Status:ADM IN Location: PA3 [id number] Assessment & Plan Assessment/Plan (1) Diabetic infection of left foot: (2) Cellulitis of foot, left: (3) Diabetes mellitus with diabetic polyneuropathy: PLAN: Plan Patient was admitted for cellulitis and concern for osteomyelitis, possible deepabscess left foot. Patient has been admitted under hospital medicine - appreciate assistance. Cultures from 02/12/23 reviewed. Patient has been started on IV antibiotics - Unasyn and Vancomycin, ID service will be consulted. Patient to get MRI on left foot. No weightbearing left foot. Podiatry will continue to follow. HPI Consult Data Date of Consult: 02/16/23 HPI Narrative Reason for Consultation: Left foot infection HPI Narrative: ANTONIO WEISS, is a 62 M who was sent to hospital due to left foot infection. He was seen in office today for follow up on left foot ulcer and infection, and it was noticed there was increased redness and swelling despite Clindamycin and Levofloxacin as outpatient. He has been admitted under hospital medicine service. He denies f/c/n/v. He is scheduled to have MRI on left foot today. He has been started on IV antibiotic therapy. PFSH Medical History Diabetes Diabetic foot ulcer Hypertension Infected ulcer of skin Non-smoker Home Medications metformin 1,000 mg tablet 1,000 mg PO BID 01/26/22 [History Last Taken 02/16/23] clindamycin HCl 300 mg capsule 300 mg PO Q8H 02/16/23 [History Last Taken 02/16/23] levofloxacin 750 mg tablet 750 mg PO Q24H 02/16/23 [History Last Taken 02/15/23] Allergy/AdvReac Type Severity Reaction Status Date / Time No Known Allergies Allergy Verified 02/16/23 12:22 Family History Other Hypertension Social History household members: spouse Smoking Status: Never smoker Physical Exam Narrative Left foot with ulceration plantar forefoot with maceration, down to subcutaneoustissue, there is edema to the foot and erythema/cellulitis to the forefoot extending to the hindfoot, no bogginess, no fluctuance, no visible abscess, no crepitus, no purulence noted at this time, there is no oder. CFT < 2 seconds toall toes on the left foot with no evidence of acute ischemia to the left foot, there is chronic peripheral neuropathy to the left foot, there is no POP or painon ROM to the left foot. Const alert, oriented x3 and no apparent distress Lab / Micro Data 02/16/23 13:40 02/16/23 13:40 Labs: Laboratory Results - last 24 hr 02/16/23 13:40: WBC 10.6, RBC 3.72 L, Hgb 11.4 L, Hct 34.1 L, MCV 91.7, MCH 30.6, MCHC 33.4, RDW Std Deviation 38.9, RDW Coeff of Neftali 11.6, Plt Count 293, MPV 9.2, Immature Gran % (Auto) 0.900, Neut % (Auto) 77.2 H, Lymph % (Auto) 13.0L, [place] % (Auto) 7.3, Eos % (Auto) 1.3, Baso % (Auto) 0.3, Absolute Neuts (auto)8.2 H, Absolute Lymphs (auto) 1.38, Nucleated RBC % 0, PT 13.5, INR 1.0, APTT 40.3 H, Sodium 138, Potassium 4.5, Chloride 104, Carbon Dioxide 29.0, Anion Gap 5, BUN 29 H, Creatinine 1.32 H, Estim Creat Clear Calc 47.34, Est GFR (MDRD) Af Amer 70, Est GFR (MDRD) Non-Af 58 L, BUN/Creatinine Ratio 22.0 H, Glucose 126 H,Lactic Acid 1.9, Calcium 9.2 Radiology Impression Foot X-Ray 02/16/23 13:35 IMPRESSION: Soft tissue swelling. Vascular calcification. Electronically Signed: Tolu Chandler MD at 14:26 EDT , 02/16/23 2316 <Electronically signed by Masoud Cabrales DPM> Cosigner Signature (if applicable): CC: DPParisa Cabrales; Dr. Lincoln Haley MD~ Signed ADDENDUM by DPParisa Cabrales on 02/16/23 at 9422 Addendum Wound care for now left foot: Betadine soln topically to wound site and cover with gauze, kerlix and dami dressing - change daily. 02/16/232314<Electronically signed by Masoud Cabrales DPM> Cosigner Signature (if applicable): cc: DPParisa Cabrales; Dr. Lincoln Haley MD ~* Signed [facility] Work Phone: 1(720) 698-398709-12-2023 Progress [facility] February 16, 2023 8:23pm Note Date/Time February 16, 2023 8:23pm [facility] Medical Records Department [address] [place] [address] Progress Note - Hospitalist 02/16/232021 MR#: [id number] Acct: [id number] Name: ANTONIO WEISS Rep #:[id number] : 1960 62 From: Luis M Chandler DO PCP: Dr. Lincoln Haley MD Status:ADM IN [id number] Additional note: I reviewed the patient's MRI results of his left foot later this evening, it showed osteomyelitis of the second metatarsal and proximal phalanx, I talked to Dr. Cabrales about the results, he stated the Dr. Rios will be seeing the patient tomorrow, I try to get a hold of Dr. Rios at the time of this dictation have not reached him yet but left a message by text for him to call me. 02/16/232022 <Electronically signed by Luis M Chandler DO> Cosigner Signature (if applicable): CC: ~ Signed [facility] Work Phone: 1(775) 622-570209-12-2023 History and physical note Author Luis M [facility] February 16, 2023 8:22pm Note Date/Time February 16, 2023 8:15pm [facility] Medical Records Department [address] [place] [address] H&P Exam - Hospitalist 02/16/232009 MR#: [id number] Acct: [id number] Name: ANTONIO WEISS Rep #:[id number] : 1960 62 From: Luis M Chandler DO PCP: Dr. 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 Patient is a type II diabetic, he has had a history in the past of a right foot osteomyelitis and was treated last year for this. Patient states that approximately 10 days ago he noticed that his foot was getting slightly swollen over the plantar aspect proximal to the first and second metatarsal joints, he went on a trip to [place] and noticed when he came back from [place] later in the week that the area was even more reddened and swollen, he saw his air gun operator last Wednesday who placed him on Levaquin and clindamycin, it appears that cultures were obtained at that time also during that visit, the cultures resulted in showing Enterococcus faecalis, Staphylococcus hemolyticus, and coag negative staph. Patient was reevaluated today in his air gun operator office and his foot appeared more reddened than it was last week and it was requested he go to the emergency room. Evaluation in the emergency room included lab which showed a normal white blood cell count, hemoglobin was 11.4, creatinine was 1.32 and BUN was 29. Glucose was 126. A foot x-ray was done which showed no evidence of bony erosion, there was soft tissue swelling and vascular calcification noted. Patient will be admitted to [place] [address], an MRI will be obtained on the patient's foot, he was placed on IV Unasyn and IV vancomycin. Blood sugars will be monitored PFSH Medical History Diabetes Diabetic foot ulcer Hypertension Infected ulcer of skin Non-smoker Home Medications metformin 1,000 mg tablet 1,000 mg PO BID 01/26/22 [History Last Taken 02/16/23] clindamycin HCl 300 mg capsule 300 mg PO Q8H 02/16/23 [History Last Taken 02/16/23] levofloxacin 750 mg tablet 750 mg PO Q24H 02/16/23 [History Last Taken 02/15/23] Allergy/AdvReac Type Severity Reaction Status Date / Time No Known Allergies Allergy Verified 02/16/23 12:22 Family History Other Hypertension Social History household members: spouse Smoking Status: Never smoker ROS Constitutional Constitutional: Denies anorexia, change in weight, chills, fatigue, fever(s), malaise, night sweats or weakness Eyes Eyes: Denies blurry vision, change in vision, discharge from eye(s) or eye pain Cardiovascular Cardiovascular: Denies chest pain, claudication, edema or palpitations Respiratory/Chest Respiratory/Chest: Denies cough, hemoptysis, shortness of breath at rest or shortness of breath with exertion Gastrointestinal Gastrointestinal: Denies abdominal pain, constipation, diarrhea, hematemesis, hematochezia, melena, nausea or vomiting Genitourinary Genitourinary: Denies dysuria, hematuria, urinary frequency, urinary hesitancy, urinary incontinence or urinary urgency Musculoskeletal Musculoskeletal: Denies back pain, joint pain, joint stiffness, joint swelling, myalgias or neck pain Neurologic Neurologic: Reports numbness and other Details: Patient has decreased sensation in his feet to light touch and pinprick ; Denies abnormal gait, abnormal speech, dizziness, focal weakness, headache(s), loss of vision, other visual disturbances, paresthesias, syncope or tingling Psychiatric Psychiatric: Denies anxiety, cognitive impairment, depression, irritability, mood swings or suicidal ideation Endocrine Endocrinology: Denies change in body appearance, cold intolerance, excessive sweating, heat intolerance, polydipsia or polyuria Hematologic/Lymphatic Hematologic/Lymphatic: Denies none, anemia, easy bleeding, easy bruising or lymphadenopathy Allergic/Immunologic Allergic/Immunologic: Denies rhinitis, urticaria, eczemia or asthma Vital Signs Vital Signs Vital Signs: 02/16/23 12:21 02/16/23 14:20 02/16/23 15:00 Temperature 97.2 F L 97.8 F Temperature Source Temporal Temporal Pulse Rate 79 80 82 Respiratory Rate 14 18 18 Blood Pressure 160/87 H 163/98 H Blood Pressure Mean 111 119 Blood Pressure Source Blood Pressure Position Blood Pressure Location Pulse Ox 99 99 98 Oxygen Delivery Method Room Air Room Air Room Air 02/16/23 16:38 02/16/23 17:38 Temperature 98.1 F 100.0 F H Temperature Source Temporal Oral Pulse Rate 84 88 Respiratory Rate 18 18 Blood Pressure 142/91 H 190/112 H Blood Pressure Mean 108 138 Blood Pressure Source Monitor Blood Pressure Position Semi-Fowlers Blood Pressure Location Right Arm Pulse Ox 98 Oxygen Delivery Method Room Air Weight Weight: 95.5 kg Body Mass Index (BMI) 36.1 Physical Exam Const alert, oriented x3, no apparent distress, average body habitus and healthy appearing General Appearance: cooperative, well kempt and well developed Orientation / Consciousness: awake, oriented to person, oriented to place and oriented to time HEENT normocephalic, head/scalp atraumatic, hearing grossly normal bilaterally and moist oral mucous membranes Eyes PERRL, EOMs intact bilaterally and conjunctivae normal Neck supple, no JVD, thyroid normal and no carotid bruits General: trachea midline Resp normal respiratory effort, no retractions, no use of accessory muscles and clearto auscultation bilaterally Auscultation: Negative for rales, rhonchi or wheezes Cardio regular rate, regular rhythm, S1 normal heart sound, S2 normal heart sound, no murmurs, no rub and no gallops GI normal to inspection, nondistended, normoactive bowel sounds, soft to palpation,non-tender and non-distended Extremity Extremity Narrative: There is an area of swelling and blanching of the skin over the plantar surface of the left foot near the first second and third metatarsal area on the patient's forefoot, there is also redness extending into the dorsum of the patient's left foot and generalized swelling of the patient's left foot. Skin no rashes or lesions noted General Skin Exam: no breakdown Neuro oriented x3, CN's II-XII intact bilaterally, moves all extremities and no focal motor deficits Neuro Narrative: Patient has decreased sensation to pinprick and light touch in the plantar surface of the feet Sensorium / Orientation: awake, alert, oriented to person, oriented to place andoriented to time Speech: speech normal Psych affect normal Results Lab / Micro Data 02/16/23 13:40 02/16/23 13:40 Labs: Laboratory Results - last 24 hr 02/16/23 13:40: WBC 10.6, RBC 3.72 L, Hgb 11.4 L, Hct 34.1 L, MCV 91.7, MCH 30.6, MCHC 33.4, RDW Std Deviation 38.9, RDW Coeff of Neftali 11.6, Plt Count 293, MPV 9.2, Immature Gran % (Auto) 0.900, Neut % (Auto) 77.2 H, Lymph % (Auto) 13.0L, [place] % (Auto) 7.3, Eos % (Auto) 1.3, Baso % (Auto) 0.3, Absolute Neuts (auto)8.2 H, Absolute Lymphs (auto) 1.38, Nucleated RBC % 0, PT 13.5, INR 1.0, APTT 40.3 H, Sodium 138, Potassium 4.5, Chloride 104, Carbon Dioxide 29.0, Anion Gap 5, BUN 29 H, Creatinine 1.32 H, Estim Creat Clear Calc 47.34, Est GFR (MDRD) Af Amer 70, Est GFR (MDRD) Non-Af 58 L, BUN/Creatinine Ratio 22.0 H, Glucose 126 H,Lactic Acid 1.9, Calcium 9.2 Radiology Impression Foot X-Ray 02/16/23 13:35 IMPRESSION: Soft tissue swelling. Vascular calcification. Electronically Signed: Tolu Chandler MD at 14:26 EDT , Lower Extremity MRI 02/16/23 16:27 IMPRESSION: Soft tissue wound and swelling on the plantar aspect. Osteomyelitis of the second metatarsal and proximal phalanx. Electronically Signed: Matthieu Fitch MD at 19:29 EDT , Assessment & Plan Assessment/Plan (1) Diabetes mellitus with diabetic polyneuropathy: PLAN: Plan 1. Deep wound infection of the left foot-secondary to diabetic neuropathy- patient will be admitted to [facility], he will be placed on IV Unasyn and vancomycin, patient will be seen in consultation by infectious diseases and be seen by podiatry in consultation. Patient will have an MRI of his foot performed to rule out osteomyelitis. #2 type 2 diabetes-patient's blood sugars will be monitored, he will remain on metformin #3 diabetic neuropathy-complicates care, medical course, recovery, and prognosis Total clinical time spent by myself addressing the patient's medical issues, reviewing all of his data, and collaborating with the patient's care team: 55 minutes Charges/Coding Visit Charges Inpatient E&M: 16208 Init Hosp L2 02/16/232021 <Electronically signed by Luis M Chandler DO> Cosigner Signature (if applicable): CC: Dr. Luis M Chandler DO; Dr. Lincoln Haley MD~ Signed [facility] Work Phone: 1(147) 504-935609-12-2023 Consult note Author Gavin Trejo [facility] February 16, 2023 6:13pm Note Date/Time February 16, 2023 6:13pm [facility] Medical Records Department [address] [place] [address] Pharmacokinetic/Renal -Consult 02/16/231809 MR#: [id number] Acct: [id number] Name: ANTONIO WEISS Rep #:[id number] : 1960 62 From: Gavin ceron PCP: Dr. Lincoln Haley MD Status:ADM IN Y Location: [place] [address] Consult Antibiotic Management Pharmacy has been consulted to manage selected antiobiotic: Vancomycin Type of Intervention Type of Consult: New start Suspected Infection Suspected Infection: Skin/Soft tissue Prior Doses of Antibiotics Prior Doses of Antibiotics Received/Current Regimen: received vanc 1500mg x1 in E.R. starting at 16:36 today Labs Labs: Sodium 138 mmol/L (136-145) 02/16/23 13:40 Potassium 4.5 mmol/L (3.5-5.1) 02/16/23 13:40 Chloride 104 mmol/L (98-107) 02/16/23 13:40 Carbon Dioxide 29.0 mmol/L (21.0-32.0) 02/16/23 13:40 Anion Gap 5 (5-15) 02/16/23 13:40 BUN 29 mg/dL (7-18) H 02/16/23 13:40 Creatinine 1.32 mg/dL (0.70-1.30) H 02/16/23 13:40 Est GFR (MDRD) Af Amer 70 mL/min (>60) 02/16/23 13:40 Est GFR (MDRD) Non-Af 58 mL/min (>60) L 02/16/23 13:40 BUN/Creatinine Ratio 22.0 RATIO (10-20) H 02/16/23 13:40 Glucose 126 mg/dL (74-106) H 02/16/23 13:40 Dosing Weight Weight used for dosin.5 kg Estimated Creatinine Clearance Estimated Creatinine Clearance: 58.9ml/min Goal Trough Goal Trough: 10-15 mcg/mL Pharmacy Plan for Drug Dosing Pharmacy Plan for Drug Dosing: Starting 12 hours after the E.R. dose, will continue with 750mg IV q12h. Will order a trough before the 4th total dose. The patient's CrCl of 58.9 ml/min wascalculated using an adjusted body weight. Pharmacy Service will continue to monitor and adjust dosing as required. Follow-Up Labs Follow-Up Labs: Trough: Vancomycin Date/Time Labs Ordered Labs to be done on [date and time ordered]: 02/18/23 04:30 02/16/231812 <Electronically signed by Gavin farris> Date _ Gavin Rosas Signature (if applicable): Date CC: ~ Signed [facility] Work Phone: 1(666) 491-999209-12-2023 Discharge summary Author Gabriel Braswell [facility] February 16, 2023 3:54pm Note Date/Time February 16, 2023 2:28pm [facility] Medical Records Department [address] [place] [address] Emergency Department Summary 02/16/23 MR#: [id number] Acct: [id number] Name: ANTONIO WEISS Rep #:[id number] : 1960 62 From: Gabriel Bueno PCP: Dr. Lincoln Haley MD Status:REG ER Location: ED HPI History of Present Illness HPI Narrative: Patient presents with pain and swelling to his left foot that has been getting worse over the past week. Patient states he has been taking antibiotics with noimprovement. Patient states he saw his air gun operator today [facility] Patient admits to some numbness and tingling into his toes at times. Patient describes his pain as dull. Patient states nothing makes it better and nothing makes it worse. Patient denies any fevers or chills. Patient denies any discharge or drainage. Chief Complaint: Wound Check Informant: patient Onset/Context/Timing Onset: Weeks (1) Context: Gradual Onset Timing: Continuous Quality of Pain: Dull Location: Left foot Worsened by: Nothing Relieved by: Nothing Associated Symptoms Associated Symptoms: Positive for Parasthesia; Negative for Weakness or Loss of Funtion PFSH PFSH Medical History Diabetes Diabetic foot ulcer Infected ulcer of skin Non-smoker Home Medications metformin 1,000 mg tablet 1,000 mg PO BID 01/26/22 [History Last Taken 02/16/23] clindamycin HCl 300 mg capsule 300 mg PO Q8H 02/16/23 [History Last Taken 02/16/23] levofloxacin 750 mg tablet 750 mg PO Q24H 02/16/23 [History Last Taken 02/15/23] Allergy/AdvReac Type Severity Reaction Status Date / Time No Known Allergies Allergy Verified 02/16/23 12:22 Family History Other Hypertension Social History household members: spouse Smoking Status: Never smoker ROS ROS ED Constitutional Constitutional ED: Denies chills or fever(s) Eyes Eyes: Denies blurry vision or change in vision ENT ENT ED: Denies rhinorrhea or sore throat Cardiovascular Cardiovascular: Denies chest pain or palpitations Respiratory/Chest Respiratory/Chest: Denies cough or dyspnea Gastrointestinal Gastrointestinal: Denies nausea or vomiting Genitourinary Genitourinary ED: Denies dysuria or hematuria Musculoskeletal Musculoskeletal: Denies back pain or neck pain Integumentary Denies abscess or rash Neurologic Neurologic: Denies headache(s) or weakness Allergic/Immunologic Allergic/Immunologic ED: Denies mouth swelling or urticaria EXAM Physical Exam Const Vital Signs: 02/16/23 12:21 02/16/23 14:20 02/16/23 15:00 Temperature 97.2 F L 97.8 F Temperature Source Temporal Temporal Pulse Rate 79 80 82 Respiratory Rate 14 18 18 Blood Pressure 160/87 H 163/98 H Blood Pressure Mean 111 119 Pulse Ox 99 99 98 Oxygen Delivery Method Room Air Room Air Room Air Positive well nourished and well developed General Appearance ED: well developed and NAD HEENT Reports moist mucous membranes Neck full ROM and supple Extremity Extremity Narrative: There is edema, erythema, and warmth over the distal metatarsals of the left foot. There is minimal tenderness to palpation. There is no discharge or drainage. There is mild fluctuance on the plantar aspect. Sensation was intactto light touch in all digits. Capillary refill was less than 2 seconds in all digits. There is a good pedal pulse noted. Neuro oriented x3, CN's II-XII intact bilaterally, moves all extremities and no sensory deficits noted Sensorium / Orientation: alert Motor Exam: strength 5/5 throughout Psych mental status grossly normal MDM MDM MDM Narrative Medical decision making narrative: Differential diagnosis includes diabetic wound infection, cellulitis, sepsis, and osteomyelitis. X-rays of the left foot will be obtained to assess for osteomyelitis. CBC will be obtained to assess for leukocytosis and anemia. Basic metabolic profile will be obtained to assess for electrolyte abnormality and renal function. PT with INR and PTT will be obtained to assess for coagulopathy. Blood cultures will be obtained to assess for sepsis. Lactate will be obtained to assess for sepsis. Lab Data Attestation: I reviewed the patient's lab results. Lab results narrative: CBC was reviewed. There is a mild anemia with a hemoglobin of 11.4 and hematocrit 34.1. Basic metabolic profile was reviewed. BUN was 29 and creatinine was 1.32. These are consistent with prior results. Lactate was reviewed and was normal at 1.9. PT was INR and PTT were reviewed and were within normal limits. Labs: Laboratory Results - last 24 hr 02/16/23 13:40 WBC 10.6 RBC 3.72 L Hgb 11.4 L Hct 34.1 L MCV 91.7 MCH 30.6 MCHC 33.4 RDW Std Deviation 38.9 RDW Coeff of Neftali 11.6 Plt Count 293 MPV 9.2 Immature Gran % (Auto) 0.900 Neut % (Auto) 77.2 H Lymph % (Auto) 13.0 L [place] % (Auto) 7.3 Eos % (Auto) 1.3 Baso % (Auto) 0.3 Absolute Neuts (auto) 8.2 H Absolute Lymphs (auto) 1.38 Nucleated RBC % 0 PT 13.5 INR 1.0 APTT 40.3 H Sodium 138 Potassium 4.5 Chloride 104 Carbon Dioxide 29.0 Anion Gap 5 BUN 29 H Creatinine 1.32 H Estim Creat Clear Calc 47.34 Est GFR (MDRD) Af Amer 70 Est GFR (MDRD) Non-Af 58 L BUN/Creatinine Ratio 22.0 H Glucose 126 H Lactic Acid 1.9 Calcium 9.2 Radiography Diagnostic Testing: Clinical Impression(s) from Imaging Studies Foot X-Ray 02/16/23 13:35 IMPRESSION: Soft tissue swelling. Vascular calcification. Electronically Signed: Tolu Chandler MD at 14:26 EDT , X-rays of the left foot were obtained. There are 3 views. On my independent interpretation, there is no acute fracture or dislocation. There is soft tissueswelling. There is no gas formation noted. There is no evidence of periosteal reaction. There are vascular calcifications noted. Radiologist also interpreted the x-rays and agrees. Management Discussion w/another healthcare provider: Hospitalist Treatment and Re-Evaluation Narrative: Patient was given a dose of Unasyn, Flagyl, and vancomycin. Patient is feeling better on reevaluation. Case was discussed with the hospitalist. He will admitthe patient to his service. Patient and family understood and were agreeable with the plan. All questions were answered. Discharge Plan Dx/Rx/DC Orders Clinical Impression: Diabetic infection of left foot, Diabetes Disposition Disposition: Acute Care Hospital [facility] What to do if you have Problems For any increased pain, shortness of breath, bleeding, nausea or vomiting, chestpain, or any unexpected problems, contact your Primary Care Provider. Call [employer] [facility] ([phone]) or report to the closest Emergency Room. Call 911 if necessary. 02/16/23 6454 <Electronically signed by Gabriel Braswell DO> Cosigner Signature (if applicable): CC: Dr. Lincoln Haley MD ~ Signed [facility] Work Phone: 1(263) 287-884009-12-2023 Discharge summary Author Gabriel Braswell [facility] February 16, 2023 3:54pm Note Date/Time February 16, 2023 2:28pm [facility] Medical Records Department [address] [place] [address] Emergency Department Summary 02/16/23 MR#: [id number] Acct: [id number] Name: ANTONIO WEISS Rep #:[id number] : 1960 62 From: Gabriel Bueno PCP: Dr. Lincoln Haley MD Status:REG ER Location: ED HPI History of Present Illness HPI Narrative: Patient presents with pain and swelling to his left foot that has been getting worse over the past week. Patient states he has been taking antibiotics with noimprovement. Patient states he saw his air gun operator today who [facility]. Patient admits to some numbness and tingling into his toes at times. Patient describes his pain as dull. Patient states nothing makes it better and nothing makes it worse. Patient denies any fevers or chills. Patient denies any discharge or drainage. Chief Complaint: Wound Check Informant: patient Onset/Context/Timing Onset: Weeks (1) Context: Gradual Onset Timing: Continuous Quality of Pain: Dull Location: Left foot Worsened by: Nothing Relieved by: Nothing Associated Symptoms Associated Symptoms: Positive for Parasthesia; Negative for Weakness or Loss of Funtion PFSH PFSH Medical History Diabetes Diabetic foot ulcer Infected ulcer of skin Non-smoker Home Medications metformin 1,000 mg tablet 1,000 mg PO BID 01/26/22 [History Last Taken 02/16/23] clindamycin HCl 300 mg capsule 300 mg PO Q8H 02/16/23 [History Last Taken 02/16/23] levofloxacin 750 mg tablet 750 mg PO Q24H 02/16/23 [History Last Taken 02/15/23] Allergy/AdvReac Type Severity Reaction Status Date / Time No Known Allergies Allergy Verified 02/16/23 12:22 Family History Other Hypertension Social History household members: spouse Smoking Status: Never smoker ROS ROS ED Constitutional Constitutional ED: Denies chills or fever(s) Eyes Eyes: Denies blurry vision or change in vision ENT ENT ED: Denies rhinorrhea or sore throat Cardiovascular Cardiovascular: Denies chest pain or palpitations Respiratory/Chest Respiratory/Chest: Denies cough or dyspnea Gastrointestinal Gastrointestinal: Denies nausea or vomiting Genitourinary Genitourinary ED: Denies dysuria or hematuria Musculoskeletal Musculoskeletal: Denies back pain or neck pain Integumentary Denies abscess or rash Neurologic Neurologic: Denies headache(s) or weakness Allergic/Immunologic Allergic/Immunologic ED: Denies mouth swelling or urticaria EXAM Physical Exam Const Vital Signs: 02/16/23 12:21 02/16/23 14:20 02/16/23 15:00 Temperature 97.2 F L 97.8 F Temperature Source Temporal Temporal Pulse Rate 79 80 82 Respiratory Rate 14 18 18 Blood Pressure 160/87 H 163/98 H Blood Pressure Mean 111 119 Pulse Ox 99 99 98 Oxygen Delivery Method Room Air Room Air Room Air Positive well nourished and well developed General Appearance ED: well developed and NAD HEENT Reports moist mucous membranes Neck full ROM and supple Extremity Extremity Narrative: There is edema, erythema, and warmth over the distal metatarsals of the left foot. There is minimal tenderness to palpation. There is no discharge or drainage. There is mild fluctuance on the plantar aspect. Sensation was intactto light touch in all digits. Capillary refill was less than 2 seconds in all digits. There is a good pedal pulse noted. Neuro oriented x3, CN's II-XII intact bilaterally, moves all extremities and no sensory deficits noted Sensorium / Orientation: alert Motor Exam: strength 5/5 throughout Psych mental status grossly normal MDM MDM MDM Narrative Medical decision making narrative: Differential diagnosis includes diabetic wound infection, cellulitis, sepsis, and osteomyelitis. X-rays of the left foot will be obtained to assess for osteomyelitis. CBC will be obtained to assess for leukocytosis and anemia. Basic metabolic profile will be obtained to assess for electrolyte abnormality and renal function. PT with INR and PTT will be obtained to assess for coagulopathy. Blood cultures will be obtained to assess for sepsis. Lactate will be obtained to assess for sepsis. Lab Data Attestation: I reviewed the patient's lab results. Lab results narrative: CBC was reviewed. There is a mild anemia with a hemoglobin of 11.4 and hematocrit 34.1. Basic metabolic profile was reviewed. BUN was 29 and creatinine was 1.32. These are consistent with prior results. Lactate was reviewed and was normal at 1.9. PT was INR and PTT were reviewed and were within normal limits. Labs: Laboratory Results - last 24 hr 02/16/23 13:40 WBC 10.6 RBC 3.72 L Hgb 11.4 L Hct 34.1 L MCV 91.7 MCH 30.6 MCHC 33.4 RDW Std Deviation 38.9 RDW Coeff of Neftali 11.6 Plt Count 293 MPV 9.2 Immature Gran % (Auto) 0.900 Neut % (Auto) 77.2 H Lymph % (Auto) 13.0 L [place] % (Auto) 7.3 Eos % (Auto) 1.3 Baso % (Auto) 0.3 Absolute Neuts (auto) 8.2 H Absolute Lymphs (auto) 1.38 Nucleated RBC % 0 PT 13.5 INR 1.0 APTT 40.3 H Sodium 138 Potassium 4.5 Chloride 104 Carbon Dioxide 29.0 Anion Gap 5 BUN 29 H Creatinine 1.32 H Estim Creat Clear Calc 47.34 Est GFR (MDRD) Af Amer 70 Est GFR (MDRD) Non-Af 58 L BUN/Creatinine Ratio 22.0 H Glucose 126 H Lactic Acid 1.9 Calcium 9.2 Radiography Diagnostic Testing: Clinical Impression(s) from Imaging Studies Foot X-Ray 02/16/23 13:35 IMPRESSION: Soft tissue swelling. Vascular calcification. Electronically Signed: Tolu Chandler MD at 14:26 EDT , X-rays of the left foot were obtained. There are 3 views. On my independent interpretation, there is no acute fracture or dislocation. There is soft tissueswelling. There is no gas formation noted. There is no evidence of periosteal reaction. There are vascular calcifications noted. Radiologist also interpreted the x-rays and agrees. Management Discussion w/another healthcare provider: Hospitalist Treatment and Re-Evaluation Narrative: Patient was given a dose of Unasyn, Flagyl, and vancomycin. Patient is feeling better on reevaluation. Case was discussed with the hospitalist. He will admitthe patient to his service. Patient and family understood and were agreeable with the plan. All questions were answered. Discharge Plan Dx/Rx/DC Orders Clinical Impression: Diabetic infection of left foot, Diabetes Disposition Disposition: Acute Care Hospital [facility] What to do if you have Problems For any increased pain, shortness of breath, bleeding, nausea or vomiting, chestpain, or any unexpected problems, contact your Primary Care Provider. Call [facility] ([phone]) or report to the closest Emergency Room. Call 911 if necessary. 02/16/23 4644 <Electronically signed by Gabriel Braswell DO> Cosigner Signature (if applicable): CC: Dr. Lincoln Haley MD ~ Signed [facility] Work Phone: 1(975) 442-255109-19-2022 Hospital Discharge instructions Additional Instructions Take aspirin 1 pill daily, 325 mg. You will need repeat imaging on days 3, 10, 30, which will be Friday 02/23, Friday 03/02, and 03/19.[facility] Work Phone: evaluation note* Diagnosis Onset Date Resolution Status Diabetes acute Diabetic foot ulcer acute Infected ulcer of skin acute Obesity [facility] Work Phone: evaluation note* Diagnosis Onset Date Resolution Status Acute osteomyelitis of right foot acute Cellulitis of right lower limb acute Diabetes acute Diabetic foot ulcer acute Infected ulcer of skin acute Obesity [facility] Work Phone: evaluation note* Diagnosis Onset Date Resolution Status Acute osteomyelitis of right foot acute Cellulitis of right lower limb acute Diabetes acute Obesity [facility] Work Phone: evaluation note* Diagnosis Onset Date Resolution Status Diabetes acute Diabetic infection of left foot acute [facility] Work Phone: evaluation note* Diagnosis Onset Date Resolution Status Abscess of left foot acute Cellulitis of foot, left acu te Diabetes acute Diabetes mellitus with diabetic polyneuropathy acute Diabetic infection of left foot acute Elevated serum creatinine ac rafael Osteomyelitis of left foot a cute HTN (hypertension) chronic [facility] Work Phone: Evaluation noteNo assessment information available [facility] Work Phone: Hospital Discharge instructions Additional Instructions Take aspirin 1 pill daily, 325 mg. You will need repeat imaging on days 3, 10, 30, which will be Friday 02/23, Friday 03/02, and 03/19.[facility] Work Phone: Progress note Author Jun Rose [facility] February 19, 2023 2:22pm Note Date/Time February 19, 2023 2:22pm [facility] Medical Records Department [address] [place] [address] Progress Note - Infect Disease 02/19/23 1421 MR#: [id number] Acct: [id number] Name: ANTONIO WEISS Rep #:[id number] : 1960 62 From: Jun jeong MD PCP: Dr. Lincoln Haley MD Status:ADM [place] Location: [address] Physical Exam Narrative Feeling well, discharge planned, no fever Const alert and no apparent distress General Appearance: cooperative Resp normal air movement and clear to auscultation bilaterally Cardio regular rate and regular rhythm GI soft to palpation, non-tender and non-distended Skin no rashes or lesions noted Skin Narrative: foot wrapped ID ID: Route of nutrition/ use of supplements: [] Nutritional Intake: [] IV Site: [] Schumacher Catheter: [] Assessment & Plan Assessment/Plan (1) Osteomyelitis of left foot: PLAN: OR 02/17/[address] Rios for I&D with partial 2nd ray amputation. On empiric vanc/unasyn. Wound cx with enterococcus, CoNS x2, anaerobes. Ok for discharge on 6 weeks po augmentin, wrote rx. Will follow (2) Diabetes mellitus with diabetic polyneuropathy: 02/19/23 1422 <Electronically signed by Jun Rose MD> Cosigner Signature (if applicable): CC: ~ Signed [facility] Work Phone: Reason for referral (narrative)No reason for referral information [facility] Work Phone: Summary Purpose Family History No Family History Records Found Relationship Condition Age at Onset Recorded Date/T matthew Not Specified Hypertension Unknown Advance Directives No Advanced Directives Records Found Advance Directive Response Recorded Date/ Time Living Will No January 26 5:33pm Power of Medical Librarian No January 26 022 5:33pm Advance Directive Response Recorded Date/ Time Living Will No January 26 8:39pm Power of Medical Librarian No January 26 022 8:39pm Advance Directive Response Recorded Date/ Time Living Will No February 19, 2022 2:40pm Power of Medical Librarian No February 2:40pm Advance Directive Response Recorded Date/ Time Living Will No February 16, 2023 12:27pm Power of Medical Librarian No February 12:27pm Advance Directive Response Recorded Date/ Time Living Will No February 16, 2023 5:28pm Power of Medical Librarian No February 5:28pm Chief Complaint and Reason for Visit Chief Complaint SUSPECTED OSTEOMYELI TIS Reason for Visit Diabetes Diabetic foot ulcer Infected ulcer of skin Obesity Chief Complaint SUSPECTED OSTEOMYELI TIS SUSPECTED OSTEOMYELITIS SUSPECTED OSTEOMYELITIS SUSPECTED OSTEOMYELITIS SUSPECTED OSTEOMYELITIS Reason for Visit Acute osteomyelitis of right foot Cellulitis of right lower limb Diabetes Diabetic foot ulcer Infected ulcer of skin Obesity Chief Complaint SUSPECTED OSTEOMYELI TIS SUSPECTED OSTEOMYELITIS SUSPECTED OSTEOMYELITIS SUSPECTED OSTEOMYELITIS SUSPECTED OSTEOMYELITIS SUSPECTED OSTEOMYELITIS CELLULITIS OF RIGHT FOOT Reason for Visit Acute osteomyelitis of right foot Cellulitis of right lower limb Diabetes Obesity Chief Complaint SUSPECTED OSTEOMYELI TIS SUSPECTED OSTEOMYELITIS SUSPECTED OSTEOMYELITIS SUSPECTED OSTEOMYELITIS SUSPECTED OSTEOMYELITIS SUSPECTED OSTEOMYELITIS SUSPECTED OSTEOMYELITIS CELLULITIS OF RIGHT FOOT RLE SWELLING & PAIN RIGHT LEG DVT Reason for Visit Acute osteomyelitis of right foot Cellulitis of right lower limb Diabetes Obesity Chief Complaint SUSPECTED OSTEOMYELI TIS SUSPECTED OSTEOMYELITIS SUSPECTED OSTEOMYELITIS SUSPECTED OSTEOMYELITIS SUSPECTED OSTEOMYELITIS SUSPECTED OSTEOMYELITIS SUSPECTED OSTEOMYELITIS CELLULITIS OF RIGHT FOOT RLE SWELLING & PAIN RIGHT LEG DVT RLE SERIAL TEST Reason for Visit Acute osteomyelitis of right foot Cellulitis of right lower limb Diabetes Obesity Chief Complaint SUSPECTED OSTEOMYELI TIS SUSPECTED OSTEOMYELITIS SUSPECTED OSTEOMYELITIS SUSPECTED OSTEOMYELITIS SUSPECTED OSTEOMYELITIS SUSPECTED OSTEOMYELITIS SUSPECTED OSTEOMYELITIS CELLULITIS OF RIGHT FOOT RLE SWELLING & PAIN RIGHT LEG DVT RLE SERIAL TEST RLE SERIAL TESTING Reason for Visit Acute osteomyelitis of right foot Cellulitis of right lower limb Diabetes Obesity Chief Complaint SUSPECTED OSTEOMYELI TIS SUSPECTED OSTEOMYELITIS SUSPECTED OSTEOMYELITIS SUSPECTED OSTEOMYELITIS SUSPECTED OSTEOMYELITIS SUSPECTED OSTEOMYELITIS SUSPECTED OSTEOMYELITIS CELLULITIS OF RIGHT FOOT RLE SWELLING & PAIN RIGHT LEG DVT RLE SERIAL TEST RLE SERIAL TESTING RLE SERIAL TESTING Reason for Visit Acute osteomyelitis of right foot Cellulitis of right lower limb Diabetes Obesity Chief Complaint CELLULITIS LEFT FOOT DIABETIC FOOT INFECTION, DIABETES Reason for Visit Diabetes Diabetic infection of left foot Chief Complaint CELLULITIS LEFT FOOT DIABETIC FOOT INFECTION, DIABETES DIABETIC FOOT INFECTION, DIABETES DIABETIC FOOT INFECTION, DIABETES DIABETIC FOOT INFECTION, DIABETES DIABETIC FOOT INFECTION, DIABETES Reason for Visit Abscess of left foot Cellulitis of foot, left Diabetes Diabetes mellitus with diabetic polyneuropathy Diabetic infection of left foot Elevated serum creatinine Osteomyelitis of left foot HTN (hypertension) Chief Complaint Admit Date RIGHT KNEE December 20, 2024 9:08 am Room 1 December 20, 2024 9:26 am Additional Source Comments (unrecognized sect ion and content) No Status Records FoundNo Status Records Found INFORMATION SOURCE (unrecogn ized section and content) DATE CREATED [facility] DATE CREATED AUTHOR AUTHOR'S ORGANIZ ATION 12/24/2024 [facility] Goals (unrecognized section and content) Goals may be documented in a n alternate sectionGoals may be documented in an alternate sectionGoals may be documented in an alternate sectionGoals may be documented in an alternate section Care Teams (unrecognized sec tion and content) Team Status: Active Member Role Status Dates Dr. Lincoln Haley MD Primary Care Provider Active Team Status: Active Member Role Status Dates Dr. Lincoln Haley MD Primary Care Provider Active Dr. Gabriel Braswell DO Emergency Provider Active Dr. Luis M Chandler DO Admit Provider, Attending Pro vider Active Team Status: Active Member Role Status Dates Dr. Lincoln Haley MD Primary Care Provider Active Dr. Masoud Cabrales DPM Attending Provider, Referrin g Provider Active Dr. Agustin Eaton DPM Other Provider Active Team Status: Active Member Role Status Dates Dr. Lincoln Haley MD Primary Care Provider Active Dr. Gabirel Braswell DO Emergency Provider Active Dr. Luis M Chandler DO Admit Provider, Attending Provider, Other Provider Active Dr. Masoud Cabrales DPM Other Provider Active Team Status: Active Member Role Status Dates Dr. Lincoln Haley MD Primary Care Provider Active Dr. Gabriel Braswell DO Emergency Provider Active Dr. Luis M Tereletsky , DO Admit Provider, Other Provide r Active Dr. Masoud Cabrales DPM Other Provider Active Dr. Yadira Apodaca DO Attending Provider, Other Provide r Active Dr. Jun Rose MD Other Provider Active Team Status: Inactive Member Role Status Dates Dr. Lincoln Haley MD Primary Care Provider Active Dr. Gabriel Braswell DO Emergency Provider Active Dr. Luis M Chandler , DO Admit Provider, Other Provide r Active Dr. Masoud Cabrales DPM Other Provider Active Dr. Yadira Apodaca DO Attending Provider Active Dr. Jun Rose MD Other Provider Active Team Status: Inactive Member Role Status Dates Dr. Lincoln Haley MD Primary Care Provider Active Dr. Masoud Cabrales DPM Attending Provider, Referrin g Provider Active Dr. Agustin Eaton DPM Other Provider Active Team Status: Active Member Role/Relationship Status Dates Dr. Lincoln Haley MD Primary Care Provider Active Team Status: Active Member Role/Relationship Status Dates Dr. Lincoln Haley MD Primary Care Provider Active Start: December 20, 2024 Dr. Lincoln Haley MD Referring Provider Active Start: December 20, 2024 Dr. Farhan Maynard DO Attending Provider Active Start: December 20, 2024 Team Status: Inactive Member Role/Relationship Status Dates Dr. Lincoln Haley MD Primary Care Provider Active Start: December 20, 2024 End: December 20, 2024 Dr. Bladimir Plasencia MD Attending Provider Active S tart: December 20, 2024 End: December 20, 2024 Team Status: Inactive Member Role/Relationship Status Dates Dr. Lincoln Haley MD Primary Care Provider Active Start: December 20, 2024 End: December 20, 2024 Dr. Lincoln Haley MD Referring Provider Active Start: December 20, 2024 End: December 20, 2024 Dr. Farhan Maynard DO Attending Provider Active Start: December 20, 2024 End: December 20, 2024 FOR RECORDS PERTAINING TO PATIENTS WHO ARE OR HAVE BEEN ENROLLED IN A CHEMICAL DEPENDENCY/SUBSTANCEABUSE PROGRAM, SOME INFORMATION MAY BE OMITTED. This clinical summary was aggregated from multiple sources. Caution should be exercised in using it in the provision of clinical care. This summary normalizes information from multiple sources, and as a consequence, information in this document may materially change the coding, format and clinical context of patient data. In addition, data may be omitted in some cases. CLINICAL DECISIONS SHOULD BE BASED ON THE PRIMARY CLINICAL RECORDS. [facility]. provides no warranty or guarantee of the accuracy or completeness of information in this document.
== END | disposition home or self-care (01) ==
LOC: LABSPEC 15:39
PROVIDERS: PCP Physician Assistant; Visit Provider Podiatrist
DX: M86.171 Other acute osteomyelitis, right ankle and foot (principal); M86.372 Chronic multifocal osteomyelitis, left ankle and foot
CPT/HCPCS: 87070; 87075; 87077; 87186; 87205